=== PATIENT | male | born 1970 | race Caucasian/White ===

== ENCOUNTER 2023-08-04 09:55 | Outpatient (OUT) | payer BC, SELFPAY ==
[2023-08-04 11:12] LABS: Basophils Absolute Auto 0.1 10^3/uL (0.0-0.1); Basophils Percent Auto 1.3 % (0.2-2.0); Eosinophils Absolute Auto 0.4 10^3/uL (0.0-0.7); Eosinophils Percent Auto 6.2 % (0.9-7.0); Hematocrit 43.5 % (42.0-54.0); Hemoglobin 14.5 g/dL (14.0-18.0); Immature Granulocytes Abs Auto 0.01 10^3/uL (0.00-0.03); Immature Granulocytes Pct Auto 0.1 % (0.0-0.5); Lymphocytes Absolute Auto 2.8 10^3/uL (1.2-3.8); Lymphocytes Percent Auto 40.8 % (20.5-60.0); Mean Corpuscular HGB Conc 33.3 g/dL (29.9-35.2); Mean Corpuscular Hemoglobin 33.3 pg (25.9-34.0); Mean Platelet Volume 11.3 fL (9.5-13.5); Monocytes Absolute Auto 0.8 10^3/uL (0.3-0.8); Neutrophils Absolute Auto 2.8 10^3/uL (1.4-6.5); Neutrophils Percent Auto 40.6 % (43.0-75.0); Platelet Count 213 10^3/uL (150-450); Red Blood Count 4.35 10^6/uL (4.70-6.10); Red Cell Distribution Width 11.9 % (11.0-15.0); White Blood Count 6.9 10^3/uL (4.0-11.0)
[2023-08-04 15:24] LABS: Alanine Aminotransferase 58 U/L (16-63); Albumin Globulin Ratio 0.9; Albumin Level 3.7 g/dL (3.4-5.0); Alkaline Phosphatase 70 U/L (46-116); Aspartate Amino Transferase 50 U/L (15-37); BUN Creatinine Ratio 16.4; Bilirubin Total 0.6 mg/dL (0.2-1.0); Calcium 8.9 mg/dL (8.5-10.1); Carbon Dioxide 29.3 mmol/L (21.0-32.0); Chloride 105 mmol/L (98-107); Chol HDL Ratio 3.9; Cholesterol 232 mg/dL (<=200); Estimated GFR (African America >60 (>=60); Estimated GFR (Non-African Ame >60 (>=60); Globulin 3.9 g/dL; Glucose 99 mg/dL (74-106); HDL Cholesterol 59 mg/dL (40-60); Potassium 4.3 mmol/L (3.5-5.1); Sodium 141 mmol/L (136-145); Total Protein 7.6 g/dL (6.4-8.2); Triglycerides 49 mg/dL (<=150); VLDL CHOLESTEROL 9.8 mg/dL
[2023-08-04 15:59] LABS: Prostate Specific Antigen Scrn 4.54 ng/mL (<=4.00)
== END 2023-08-04 09:56 | disposition home or self-care (01) ==
LOC: LAB 09:57
PROVIDERS: PCP Internal Medicine; Visit Provider Internal Medicine
DX: Z00.00 Encounter for general adult medical examination without abnormal findings (principal); Z12.5 Encounter for screening for malignant neoplasm of prostate
CPT/HCPCS: 36415; 80053; 80061; 85025; G0103

== ENCOUNTER 2023-08-23 13:40 | Outpatient (OUT) | payer BC, SELFPAY ==
--- NOTE | 2023-08-23 | US_ITS ---
[place] [id number] Patient Name: SUSSY MOSQUEDA MRN: [id number] date: 1970 Sex: M Assigned Patient Location: RAD Current Patient Location: RAD Accession/Order Number: [id number] Exam Date: 08/23/2023 13:50 Report Date: 08/23/2023 16:40 At the request of: HSANNEN JOSEPH Procedure: US venous doppler LE RT EXAMINATION: US venous doppler LE RT HISTORY: swelling of rt lower extremity COMPARISON: No relevant comparison available. TECHNIQUE: Grayscale, color and Doppler FINDINGS: Region: Right leg Thrombus: None Flow: Normal Augmentation: Normal Compressibility: Normal US/US venous doppler LE RT IMPRESSION: No deep or superficial vein thrombus in the right leg *Exam performed in accordance with [facility] practice guidelines- Peripheral venous ultrasound, February 01, 2010. Electronically authenticated by: VARSHA MOSELEY Date: 08/23/2023 16:40
== END 2023-08-23 13:41 | disposition home or self-care (01) ==
LOC: RAD 13:41
PROVIDERS: PCP Internal Medicine; Visit Provider Internal Medicine
DX: M79.89 Other specified soft tissue disorders (principal)
CPT/HCPCS: 93971

== ENCOUNTER 2023-10-29 09:24 | Outpatient (OUT) | payer BC, SELFPAY ==
[2023-10-30 08:10] LABS: PSA, Free 0.28 ng/mL; Prostate Specific Ag 2.4 ng/mL (0.0-4.0)
== END 2023-10-29 09:25 | disposition home or self-care (01) ==
LOC: LAB 09:26
PROVIDERS: PCP Internal Medicine; Visit Provider Internal Medicine
DX: R97.20 Elevated prostate specific antigen [PSA] (principal)
CPT/HCPCS: 36415; 84153; 84154

== ENCOUNTER 2024-08-01 10:04 | Outpatient (OUT) | payer BC, SELFPAY ==
--- OUTSIDE RECORDS SUMMARY | 2024-08-01 10:26 | XMS_ITS | CCD ---
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 Name Role Phone REQUEST, DR NAKUL LISTED Admitting Unavaila ble REQUEST, DR MOTA LISTED Consulting Unavaila ble BALL, DR PRIDE Primary Care Unavailable REQUEST, DR MOTA LISTED Attending Unavaila ble REQUEST, DR MOTA LISTED Admitting Unavaila ble REQUEST, DR MOTA LISTED Consulting Unavaila ble REQUEST, DR MOTA LISTED Attending Unavaila ble BALL, DR PRIDE Primary Care Unavailable BALL, DR PRIDE Consulting Unavailable BALL, DR PRIDE Attending Unavailable BALL, DR PRIDE Admitting Unavailable BALL, DR PRIDE Primary Care Unavailable Ball, Derrek Unavailable Allergies Allergy Classification Reported Allergen(s) Allergy Type Date of Onset Reaction(s) Facility (12 sources) Lovastatin Drug Allergy 02-08-20 Comment:[facility] (1 source) patient allergy list reviewed by nurse or physicia Propensity to adverse reactions 11-15-19 Comment:[employer] Other (7 sources) Sulfamethoxazole-TM P DS Drug allergy rash [facility] [employer] Other (2 sources) Sulfamethoxazole Drug Allergy 02-08-20 [facility] (1 source) Trimethoprim Drug Allergy 02-08-20 [facility] Medications Current Medications Medication Drug Class(es) Dates Sig (Normalized) Sig (Original) amLODIPine 5 mg oral tablet (11 sources) Dihydropyridine Calcium Channel Mena Start: 07-31-2024 take 5 mg by mouth once daily Amlodipine Active 5 MG PO Daily July 31, 2024 3:29pm Start: 02-07-2024 End: 07-31-2024 take 10 mg by mouth once daily Amlodipine Discontinued 10 MG PO Daily February 07, 2024 12:00am July 31, 2024 3:30pm take 1 tablet by maurilio every twenty-four hours amLODIPine Besylate 5 MG 1 tablet Orally Once a day for 90 days Active amLODIPine Besyl ate 10 MG 1/2 Orally Once a day Active take 1 tablet by maurilio th once daily amLODIPine Besylate 10 MG 1 tablet Orally Once a day Active Lisinopril (15 sources) Angiotensin Converting Enzyme Inhibitor Start: 07-31-2024 take 1 mg by mouth once daily Lisinopril Active MG PO Daily July 31, 2024 12:00am Start: 02-07-2024 End: 07-31-2024 take 5 mg by mouth once daily Lisinopril Discontinued 5 MG PO Daily 90 May 31, 2024 3:43pm July 31, 2024 3:03pm Start: 09-09-2023 take 1 tablet by maurilio th every twenty-four hours Lisinopril 20 MG 1 tablet Orally Once a day for 90 days Sep, Active Lisinopril 5 MG 3 Orally Once a day Active take 1 tablet by maurilio th every twenty-four hours Lisinopril 5 MG 1 tablet Orally Once a day Active pantoprazole 40 mg delayed release oral tablet (14 sources) Proton Pump Inhibitor Start: 02-07-2024 End: 05-31-2024 take 40 mg by mouth once daily Pantoprazole Active 40 MG PO Daily 90 May 31, 2024 3:43pm Pantoprazole Sod ium 40 MG 1 tablet daily on an empty stomach followed in 30 minutes by bkfst Orally Once a day for 90 days Active Completed/Discontinued Medications Medication Drug Class(es) Dates Sig (Normalized) Sig (Original) sulfamethoxazole 800 mg / trimethoprim 160 mg oral tablet (5 sources) Dihydrofolate Reductase Inhibitor Antibacterial, Sulfonamide Antimicrobial Start: 08-04-2023 take 1 tablet by mouth every twelve hours Bactrim DS 800-160 MG 1 tablet Orally Twice a day for 21 days Jul, Not-Taking Problems Active Problems Problem Classification Problem Date Documented Date Episodic/Chronic Abdominal hernia (3 sources) Umbilical hernia; Translations: [Umbilical hernia without obstruction or gangrene] Onset: 01-03-2018 07-31-2024 Episodic Disorders of lipid metabolism (17 sources) Pure hypercholesterolemia; Translations: [Familial hypercholesterolemia] Onset: 01-21-2016 02-07-2024 Chronic E Codes: Adverse effects of medical drugs (1 source) Adverse effect of unspecified drugs, medicaments and biological substances, initial encounter Episodic E Codes: Fall (1 source) Fall from ladder; Translations: [Fall on and from ladder, initial encounter] Episodic Esophageal disorders (13 sources) Gastroesophageal reflux disease without esophagitis; Translations: [Gastro-esophageal reflux disease without esophagitis] 02-07-2024 Chronic Essential hypertension (20 sources) Essential hypertension; Translations: [Essential (primary) hypertension] Chronic Fracture of upper limb (1 source) Closed fracture of distal phalanx of finger; Translations: [Nondisplaced fracture of distal phalanx of right thumb, initial encounter for closed fracture] Episodic Genitourinary symptoms and ill-defined conditions (2 sources) Nocturia Episodic Headache; including migraine (7 sources) Tension-type headache; Translations: [Tension-type headache, unspecified, not intractable] Chronic Hyperplasia of prostate (17 sources) Nocturia due to benign prostatic hypertrophy; Translations: [Benign prostatic hyperplasia with lower urinary tract symptoms] Onset: 11-18-2015 Chronic Inflammatory conditions of male genital organs (1 source) Acute prostatitis Episodic Joint disorders and dislocations; trauma-related (1 source) Derangement of meniscus; Translations: [Derangement of meniscus NEC] Onset: 03-18-2015 Chronic Other connective tissue disease (12 sources) Cramp in lower leg associated with rest; Translations: [Sleep related leg cramps] Chronic Other connective tissue disease (2 sources) Cramp in lower limb; Translations: [Sleep related leg cramps] 02-07-2024 Chronic Other connective tissue disease (1 source) Unspecified rotator cuff tear or rupture of unspecified shoulder, not specified as traumatic; Translations: [Unsp rotatr-cuff tear/ruptr of unsp shoulder, not trauma] Episodic Other connective tissue disease (1 source) Nontraumatic rupture of rotator cuff of left shoulder; Translations: [Unspecified rotator cuff tear or rupture of left shoulder, not specified as traumatic] Episodic Other connective tissue disease (2 sources) Other specified soft tissue disorders Episodic Other disorders of stomach and duodenum (1 source) Disorder of function of stomach; Translations: [Dyspepsia and other specified disorders of function of stomach] Episodic Other non-traumatic joint disorders (1 source) Shoulder joint pain; Translations: [Pain in joint, shoulder region] Episodic Other nutritional; endocrine; and metabolic disorders (2 sources) Obese class I; Translations: [Body mass index (BMI) 31.0-31.9, adult] Onset: 11-18-2015 Chronic Other nutritional; endocrine; and metabolic disorders (1 source) Simple obesity ; Translations: [Other obesity due to excess calories] Onset: 12-22-2016 Chronic Other nutritional; endocrine; and metabolic disorders (2 sources) Obesity; Translations: [Obesity, unspecified] Onset: 11-18-2015 Chronic Other screening for suspected conditions (not mental disorders or infectious disease) (17 sources) Encounter for screening for malignant neoplasm of prostate; Translations: [Prostate specific antigen measurement] Onset: 07-30-2022 Episodic Skin and subcutaneous tissue infections (13 sources) Cellulitis of right upper limb; Translations: [Cellulitis of right upper limb] 02-07-2024 Episodic Spondylosis; intervertebral disc disorders; other back problems (14 sources) Lumbar spondylosis; Translations: [Spondylosis without myelopathy or radiculopathy, lumbar region] 02-07-2024 Chronic Spondylosis; intervertebral disc disorders; other back problems (13 sources) Spasm of muscle of lower back; Translations: [Muscle spasm of back] 02-07-2024 Episodic Sprains and strains (1 source) Glenoid labrum tear; Translations: [Superior glenoid labrum lesions (SLAP)] Episodic Substance-related disorders (20 sources) Tobacco user; Translations: [Nicotine dependence, cigarettes, in remission] Resolved: 12-16-2020 Chronic Superficial injury; contusion (2 sources) Contusion of right hand; Translations: [Contusion of right hand, initial encounter] Episodic Unclassified (1 source) Identification of preoperative respiratory status; Translations: [Encounter for preprocedural respiratory examination] Onset: 07-11-2014 Past or Other Problems Problem Classification Problem Date Documented Da te Episodic/Chronic Esophageal disorders (4 sources) Esophageal disorders; Translations: [Gastroesophageal reflux disease with esophagitis without hemorrhage] Other connective tissue disease (1 source) Pain in right lower limb; Translations: [Pain in right leg] Onset: 03-13-2016 Episodic Other connective tissue disease (1 source) Swelling of limb; Translations: [Swelling of limb] Onset: 03-13-2016 Episodic Other non-traumatic joint disorders (1 source) Arthralgia of the lower leg; Translations: [Pain in joint, lower leg] Onset: 03-18-2015 Episodic Residual codes; unclassified (2 sources) Tobacco user; Translations: [Nondependent tobacco use disorder] Onset: 07-11-2014 Episodic Results Test Name Value Interpretation Reference Range Facil ity CBC AUTO DIFFon 07-29-2022 BASO # 0.1 103/ul Normal 0.0-0.1 [facility] Comment on above: Performed By: #### C BC #### [facility] [address] [place] [address] Dr. Nathan Jones Basophils/100 WBC (Bld) 1.4 % Normal 0.2-2.0 [facility] Comment on above: Performed By: #### C BC #### [facility] [address] [place] [address] Dr. Nathan Jones EO # 0.9 103/ul Critically high 0.0-0.7 [facility] Comment on above: Performed By: #### C BC #### [facility] [address] [place] [address] Dr. Nathan Jones Eosinophils/100 WBC (Bld) 12.2 % Critically high 0.9-7.0 [facility] Comment on above: Performed By: #### C BC #### [facility] [address] [place] [address] Dr. Nathan Jones Erythrocyte distribution width (RBC) [Ratio] 12.3 % Normal 11.0-15.0 [facility] Comment on above: Performed By: #### C BC #### [facility] [address] [place] [address] Dr. Nathan Jones Hematocrit (Bld) [Volume fraction] 43.3 % Normal 42.0-54.0 [facility] Comment on above: Performed By: #### C BC #### [facility] [address] [place] [address] Dr. Nathan Jones Hemoglobin (Bld) [Mass/Vol] 14.6 g/dL Normal 14.0-18.0 [facility] Comment on above: Performed By: #### C BC #### [facility] [address] [place] [address] Dr. Nathan Jones IG # 0.01 10e3/ul Normal 0.00-0.03 [facility] Comment on above: Performed By: #### C BC #### [facility] [address] [place] [address] Dr. Nathan Jones IG % 0.1 % Normal 0.0-0.5 [facility] Comment on above: Performed By: #### C BC #### [facility] [address] [place] [address] Dr. Nathan Jones LYMPH # 2.9 103/ul Normal 1.2-3.8 [facility] Comment on above: Performed By: #### C BC #### [facility] [address] [place] [address] Dr. Nathan Jones Lymphocytes/100 WBC (Bld) 40.5 % Normal 20.5-60.0 [facility] Comment on above: Performed By: #### C BC #### [facility] [address] [place] [address] Dr. Nathan Jones MANUAL DIFF REQ NO Normal [facility] Comment on above: Performed By: #### C BC #### [facility] [address] [place] [address] Dr. Nathan Jones MCH (RBC) [Entitic mass] 33.5 pg Normal 25.9-34.0 [facility] Comment on above: Performed By: #### C BC #### [facility] [address] [place] [address] Dr. Nathna Jones MCHC (RBC) [Mass/Vol] 33.7 g/dL Normal 29.9-35.2 [facility] Comment on above: Performed By: #### C BC #### [facility] [address] [place] [address] Dr. Nathan Jones MCV (RBC) [Entitic vol] 99.3 fL Critically high 80.0-94.0 [facility] Comment on above: Performed By: #### C BC #### [facility] [address] [place] [address] Dr. Nathan Jones MONO # 0.5 103/ul Normal 0.3-0.8 [facility] Comment on above: Performed By: #### C BC #### [facility] [address] [address] [address] Nathan Jones Monocytes/100 WBC (Bld) 6.8 % Normal 1.7-12.0 [facility] Comment on above: Performed By: #### C BC #### [facility] [address] [address] [address] Nathan Jones NEUT # 2.8 103/ul Normal 1.4-6.5 [facility] Comment on above: Performed By: #### C BC #### [facility] [address] [address] [address] Nathan Jones Neutrophils/100 WBC (Bld) 39.0 % Critically low 43.0-75.0 [facility] Comment on above: Performed By: #### C BC #### [facility] [address] [place] [address] Dr. Nathan Jones Platelet mean volume (Bld) [Entitic vol] 10.7 fL Normal 9.5-13.5 [facility] Comment on above: Performed By: #### C BC #### [facility] [address] [place] [address] Dr. Nathan Jones PLT 211 103/ul Normal 150-450 [facility] Comment on above: Performed By: #### C BC #### [facility] [address] [address] [address] Nathan Jones RBC 4.36 106/ul Critically low 4.70-6.10 [facility] Comment on above: Performed By: #### C BC #### [facility] [address] [place] [address] Dr. Nathan Jones WBC 7.1 103/ul Normal 4.0-11.0 [facility] Comment on above: Performed By: #### C BC #### [facility] [address] [place] [address] Dr. Ntahan Jones LIPID PROFILEon 07-29-2022 CHOL-HDL RATIO NORM SEE BELOW Normal [facility] Comment on above: Result Comment: 3.3 - 4.4 LOW RISK 4.4 - 7.1 AVERAGE RISK 7.1 - 11.0 MODERATE RISK >11.0 HIGH RISK Performed By: #### L IPID, CMP #### [facility] [address] [address] [address] Nathan Jones Cholesterol [Mass/Vol] 261 mg/dL Critically high <=200 [facility] Comment on above: Performed By: #### L IPID, CMP #### [facility] [address] [address] [address] Nathan Jones Cholesterol in HDL [Mass/Vol] 55 mg/dL Normal 40-60 [facility] Comment on above: Performed By: #### L IPID, CMP #### [facility] [address] [address] [address] Nathan Jones Cholesterol in LDL [Mass/Vol] 164.2 mg/dL Normal [facility] Comment on above: Performed By: #### L IPID, CMP #### [facility] [address] [address] [address] Nathan Jones Cholesterol.total/C holesterol in HDL [Mass ratio] 4.7 {ratio} Normal [facility] Comment on above: Performed By: #### L IPID, CMP #### [facility] [address] [place] [address] Dr. Nathan Jones HDL NORMAL > or = 60 mg/dl - LO W CARDIOVASCULAR RISK <40 mg/dl - HIGH CARDIOVASCULAR RISK Normal [facility] Comment on above: Performed By: #### L IPID, CMP #### [facility] [address] [address] [address] Nathan Jones LDL CALC NORMAL SEE BELOW Normal [facility] Comment on above: Result Comment: <100 mg/dl OPTIMAL 100 - 129 mg/dl NEAR OR ABOVE OPTIMAL 130 - 159 mg/dl BORDERLINE HIGH 160 - 189 mg/dl HIGH >190 mg/dl VERY HIGH Performed By: #### L IPID, CMP #### [facility] [address] [address] [address] Nathan Jones Triglyceride [Mass/Vol] 209 mg/dL Critically high <=150 [facility] Comment on above: Performed By: #### L IPID, CMP #### [facility] [address] [address] [address] Nathan Jones VLDL CALC 41.8 mg/dL Normal [facility] Comment on above: Performed By: #### L IPID, CMP #### [facility] [address] [address] [address] Nathan Jones PROF 14(COMP METB)on 022 Albumin [Mass/Vol] 3.8 g/dL Normal 3.4-5.0 [facility] Comment on above: Performed By: #### L IPID, CMP #### [facility] [address] [place] [address] Dr. Nathan Jones Albumin/Globulin [Mass ratio] 1.1 {ratio} Normal [facility] Comment on above: Performed By: #### L IPID, CMP #### [facility] [address] [place] [address] Dr. Nathan Jones ALP [Catalytic activity/Vol] 60 U/L Normal 46-116 [facility] Comment on above: Performed By: #### L IPID, CMP #### [facility] [address] [place] [address] Dr. Nathan Jones ALT [Catalytic activity/Vol] 41 U/L Normal 16-63 [facility] Comment on above: Performed By: #### L IPID, CMP #### [facility] [address] [address] [address] Nathan Jones Anion gap [Moles/Vol] 12.2 mmol/L Normal [facility] Comment on above: Performed By: #### L IPID, CMP #### [facility] [address] [address] [address] Nathan Jones AST [Catalytic activity/Vol] 13 U/L Critically low 15-37 [facility] Comment on above: Performed By: #### L IPID, CMP #### [facility] [address] [place] [address] Dr. Nathan Jones Bilirubin [Mass/Vol] 0.4 mg/dL Normal 0.2-1.0 [facility] Comment on above: Performed By: #### L IPID, CMP #### [facility] [address] [place] [address] Dr. Nathan Jones Calcium [Mass/Vol] 8.9 mg/dL Normal 8.5-10.1 [facility] Comment on above: Performed By: #### L IPID, CMP #### [facility] [address] [place] [address] Dr. Nathan Jones Chloride [Moles/Vol] 107 mmol/L Normal 98-107 [facility] Comment on above: Performed By: #### L IPID, CMP #### [facility] [address] [place] [address] Dr. Nathan Jones CO2 [Moles/Vol] 26.8 mmol/L Normal 21.0-32.0 [facility] Comment on above: Performed By: #### L IPID, CMP #### [facility] [address] [place] [address] Dr. Nathan Jones Creatinine [Mass/Vol] 0.68 mg/dL Critically low 0.70-1.30 [facility] Comment on above: Performed By: #### L IPID, CMP #### [facility] [address] [place] [address] Dr. Nathan Jones EGFR-AF URUGUAYAN >60 Normal >=60 [facility] Comment on above: Performed By: #### L IPID, CMP #### [facility] [address] [place] [address] Dr. Nathan Jones EGFR-NON AF URUGUAYAN >60 Normal >=60 [facility] Comment on above: Performed By: #### L IPID, CMP #### [facility] [address] [place] [address] Dr. Nathan Jones Globulin (S) [Mass/Vol] 3.5 g/dL Normal [facility] Comment on above: Performed By: #### L IPID, CMP #### [facility] [address] [place] [address] Dr. Nathan Jones Glucose [Mass/Vol] 108 mg/dL Critically high 74-106 T [facility] Comment on above: Performed By: #### L IPID, CMP #### [facility] [address] [address] [address] Nathan Jones Potassium [Moles/Vol] 4.0 mmol/L Normal 3.5-5.1 [facility] Comment on above: Performed By: #### L IPID, CMP #### [facility] [address] [place] [address] Dr. Nathan Jones Protein [Mass/Vol] 7.3 g/dL Normal 6.4-8.2 [facility] Comment on above: Performed By: #### L IPID, CMP #### [facility] [address] [place] [address] Dr. Nathan Jones Sodium [Moles/Vol] 142 mmol/L Normal 136-145 [facility] Comment on above: Performed By: #### L IPID, CMP #### [facility] [address] [address] [address] Nathan Jones Urea nitrogen [Mass/Vol] 13.0 mg/dL Normal 7.0-18.0 [facility] Comment on above: Performed By: #### L IPID, CMP #### [facility] [address] [place] [address] Dr. Nathan Jones Urea nitrogen/Creatinine [Mass ratio] 19.1 mg/mg Normal [facility] Comment on above: Performed By: #### L IPID, CMP #### [facility] [address] [place] [address] Dr. Nathan Jones Consent for COVID Vaccineon 02-15-2021 SARS-CoV-2 (COVID-19) RNA AARON+probe Ql (Unsp spec) [id number]# 1.00CD:127 Normal [facility] Coding Summary.on 01-29-2021 Coding Summary. CODING DATE: 01/29/[address] [facility] STATUS: PAYOR: Maki [employer] DESCRIPTION [employer] - Level 1B ($11-$20) ADMIT DX: REASON FOR VISIT DX: Z23 Encounter for immunization FINAL DX: PRINCIPAL: Z23 Encounter for immunization SECONDARY: PYMT PROC APC STAT DESCRIPTION DOCTOR NAME DATE NOTE: The code number assigned matches the documented diagnosis and / or procedure in the patient's chart. However, the narrative phrase printed from the coding software may appear abbreviated, or result in slightly different terminology. Coded By: Sarika Finn Date Saved: 01/29/2021 03:28 pm [facility] Consent for COVID Vaccineon 01-25-2021 SARS-CoV-2 (COVID-19) RNA AARON+probe Ql (Unsp spec) [id number]# 1.00CD:127 [facility] Consent for Treatmenton 01-07 Consent for Treatment [id number]# 1.00CD:127 [facility] Vital Signs Date Time Vital Sign Value Performing Clinician Facility 07-31-2024 14:57-0400 Body height 182.88 cm [facility] 07-31-2024 14:57-0400 Body mass index (BMI) [Ratio] 32.5 kg/m2 [facility] 07-31-2024 14:57-0400 Body weight 108.86 kg [facility] 07-31-2024 14:57-0400 Diastolic blood pressure 88 mm[Hg] [facility] 07-31-2024 14:57-0400 Heart rate 72 /min [facility] 07-31-2024 14:57-0400 SaO2% (BldA) [Mass fraction] 97 % [facility] 07-31-2024 14:57-0400 Systolic blood pressure 150 mm[Hg] [facility] 02-08-2024 15:43-0400 Body height 182.88 cm [facility] 02-08-2024 15:43-0400 Body mass index (BMI) [Ratio] 32.4 kg/m2 [facility] 02-08-2024 15:43-0400 Body weight 108.46 kg [facility] 02-08-2024 15:43-0400 Diastolic blood pressure 83 mm[Hg] [facility] 02-08-2024 15:43-0400 Heart rate 67 /min [facility] 02-08-2024 15:43-0400 Respiratory rate 12 /min [facility] 02-08-2024 15:43-0400 Systolic blood pressure 140 mm[Hg] [facility] 09-09-2023 09:00-0400 Body height 182.88 cm Derrek Ball Other [facility] [employer] Other 09-09-2023 09:00-0400 Body mass index (BMI) [Ratio] 32.76 kg/m2 Derrek Ball Other [employer] Other 09-09-2023 09:00-0400 Body weight 109.59 kg Derrek Ball Other [employer] Other 09-09-2023 09:00-0400 Diastolic blood pressure 82 mm[Hg] Derrek Ball Other [employer] Other 09-09-2023 09:00-0400 Respiratory rate 12 /min Derrek Ball Other [employer] Other 09-09-2023 09:00-0400 Systolic blood pressure 139 mm[Hg] Derrek Ball Other [employer] Other 08-23-2023 13:15-0400 Body height 182.88 cm Derrek Ball Other [employer] Other 08-23-2023 13:15-0400 Body mass index (BMI) [Ratio] 32.57 kg/m2 Derrek Ball Other [employer] Other 08-23-2023 13:15-0400 Body weight 108.95 kg Derrek Ball Other [employer] Other 08-23-2023 13:15-0400 Diastolic blood pressure 86 mm[Hg] Derrek Ball Other [employer] Other 08-23-2023 13:15-0400 Respiratory rate 12 /min Derrek Ball Other [employer] Other 08-23-2023 13:15-0400 Systolic blood pressure 149 mm[Hg] Derrek Ball Other [employer] Other 08-04-2023 09:00-0400 Body height 182.88 cm Derrek Ball Other [employer] Other 08-04-2023 09:00-0400 Body mass index (BMI) [Ratio] 31.16 kg/m2 Derrek Ball Other [employer] Other 08-04-2023 09:00-0400 Body weight 104.24 kg Derrek Ball Other [employer] Other 08-04-2023 09:00-0400 Diastolic blood pressure 87 mm[Hg] Derrek Ball Other [employer] Other 08-04-2023 09:00-0400 Respiratory rate 12 /min Derrek Ball Other [employer] Other 08-04-2023 09:00-0400 Systolic blood pressure 139 mm[Hg] Derrek Ball Other [employer] Other 02-01-2023 10:30-0400 Body height 182.88 cm Derrek Ball Other [employer] Other 02-01-2023 10:30-0400 Body mass index (BMI) [Ratio] 30.3 kg/m2 Derrek Ball Other [employer] Other 02-01-2023 10:30-0400 Body weight 101.33 kg Derrek Joseph Other [employer] Other 02-01-2023 10:30-0400 Diastolic blood pressure 82 mm[Hg] Derrek Joseph Other [employer] Other 02-01-2023 10:30-0400 Respiratory rate 12 /min Derrek Joseph Other [employer] Other 02-01-2023 10:30-0400 Systolic blood pressure 143 mm[Hg] Derrek Joseph Other [employer] Other Encounters Encounter Date Encounter Type Care Provider Facility Start: 07-31-2024 End: 07-31-2024 ambulatory [facility] Work Phone: Start: 07-31-2024 End: 07-31-2024 Encounter for general adult medical examination without abnormal findings [facility] Start: 07-31-2024 End: 07-31-2024 Patient encounter procedure [facility] Work Phone: Start: 07-28-2024 Patient encounter status [facility] Start: 02-08-2024 End: 02-08-2024 ambulatory [facility] Work Phone: Start: 02-08-2024 End: 02-08-2024 Patient encounter procedure [facility] Work Phone: Start: 11-26-2023 End: 11-26-2023 ambulatory Derrek Joseph Other [employer] Other Start: 11-26-2023 Telephone encounter Derrek Joseph [facility] Start: 11-02-2023 End: 11-02-2023 ambulatory Derrek Joseph Other [employer] Other Start: 11-02-2023 Telephone encounter Drerek Ball [facility] Start: 09-09-2023 End: 09-09-2023 ambulatory Derrek Ball Other [employer] Other Start: 09-09-2023 Office outpatient vi sit 15 minutes Derrek Ball [facility] Start: 09-09-2023 Telephone encounter Derrek Ball [facility] Start: 08-24-2023 End: 08-24-2023 ambulatory Derrek Ball Other [employer] Other Start: 08-24-2023 Telephone encounter Derrek Ball [facility] Start: 08-23-2023 End: 08-23-2023 ambulatory Derrek Ball Other [employer] Other Start: 08-23-2023 Office outpatient vi sit 15 minutes Derrek Ball [facility] Start: 08-19-2023 End: 08-19-2023 ambulatory Derrek Ball Other [employer] Other Start: 08-19-2023 Telephone encounter Derrek Ball [facility] Start: 08-04-2023 End: 08-04-2023 ambulatory Derrek Ball Other [employer] Other Start: 08-04-2023 Encounter for genera l adult medical examination without abnormal findings Derrek Ball [facility] Start: 08-04-2023 Periodic preventive med est patient 40-64yrs Derrek Ball [facility] Start: 08-04-2023 Telephone encounter Derrek Ball [facility] Start: 07-20-2023 End: 07-20-2023 ambulatory Derrek Ball Other [employer] Other Start: 07-20-2023 Telephone encounter Derrek Ball [facility] Start: 02-01-2023 End: 02-01-2023 ambulatory Derrek Ball Other [employer] Other Start: 02-01-2023 Office outpatient vi sit 15 minutes Derrek Ball [facility] Start: 01-19-2023 End: 01-20-2023 ambulatory NONE LISTED REQUEST Facility:[facility] Start: 09-14-2022 End: 09-15-[address] MOTA LISTED REQUEST Facility:[facility] Start: 07-30-2022 Encounter for genera l adult medical examination without abnormal findings DR DERREK JOSEPH [facility] Start: 07-29-2022 End: 07-30-[address] DERREK JOSEPH Facility:[facility] Start: 07-29-2022 End: 07-30-2022 Encounter for general adult medical examination without abnormal findings DR DERREK JOSEPH Facility:[facility] Start: 07-28-2022 Adult health examination Edmundo Joseph Other [employer] Other Start: 08-31-2019 Preoperative cardiovascular examination Derrek Joseph Other [employer] Other Start: 08-31-2019 Problem, abnormal examination Derrek Joseph Other [employer] Other Procedures Date Procedure Procedure Detail Performing Clinician Start: 01-19-[address] NAKUL Lama ISTED REQUEST Comment on above: Performed By: #### D ATPSA #### [facility] [address] [place] [address] Dr. Nathan Jones Start: 09-14-[address] NAKUL Lama ISTED REQUEST Comment on above: Performed By: #### D ATPSA #### [facility] [address] [place] [address] Dr. Nathan Jones Start: 07-29-[address] NAKUL Lama ISTED REQUEST Comment on above: Performed By: #### P SASC #### [facility] [address] [place] [address] Dr. Nathan Jones Start: 12-26-2018 Screening for malign ant neoplasm of colon Derrek Joseph Other Start: 12-22-2016 General examination of patient Derrek Joseph Other Depression screening Nata Joseph Other Screening for malign ant neoplasm of prostate Derrek Joseph Other Plan of Treatment Date Care Activity Detail Author Comprehensive metabo lic 1999 panel - Serum or Plasma [facility] Payers Date Payer Category Payer Unknown [id number] 1961 Self-pay 1961 Unknown [id number] Unknown [id number] Unknown [id number] Social History Date Type Detail Facility Sex Assigned At [facility] [employer] Other Start: 1970 Sex Assigned At Male [facility] Start: 07-31-2024 Tobacco smoking stat [facility] Ex-smoker (finding) [facility] Evaluation note 11-26-2023 Note Date & Type Note Facility 11-26-2023 Evaluation note Encounter Date Diagnosis Assessment Notes Nov, Primary hypertension (ICD-10 - I10) [facility] [employer] Other Evaluation note 09-09-2023 Note Date & Type Note Facility 09-09-2023 Evaluation note Encounter Date Diagnosis Assessment Notes Sep, Swelling of right lower extremity (ICD-10 - M79.89) Avoid salt and elevate lower extremities, support stockings, inspect legs and feet daily for blisters and ulcerations. Reduced Amlodipine to 5mg Sep, Primary hypertension (ICD-10 - I10) Reduced Amlodipine and increased Lisinopril w/ improved BP readings and decrease w/ ADR. Sep, Elevated PSA (ICD-10 - R97.20) Due for repeat PSA Unable to finish antibiotics due to rash. [employer] Other Evaluation note 08-23-2023 Note Date & Type Note Facility 08-23-2023 Evaluation note Encounter Date Diagnosis Assessment Notes Aug, Swelling of right lower extremity (ICD-10 - M79.89) Low salt diet, elevation and compression. Adjust Amlodipine dose r/o DVT Aug, Primary hypertension (ICD-10 - I10) This patient is instructed to consume a healthy, low-fat, low-salt diet. They are also encouraged to continue exercise to achieve/maint ain a normal BMI. Decrease Amlodipine to 1/2 daily Increase Lisinopril to 15mg (3 tabs) daily Aug, Acute non intractable tension-type headache (ICD-10 - G44.209) Improve BP readings Reduce Amlodipine dose and increase MONICA dose Tylenol as needed Aug, Adverse effect of drug, initial encounter (ICD-10 - T50.905A) Headache, lower extremity swelling, rash Culprit Bactrim Headache, flushing and edema Culprit Amlodipine [employer] Other Evaluation note 08-04-2023 Note Date & Type Note Facility 08-04-2023 Evaluation note Encounter Date Diagnosis Assessment Notes Jul, Primary hypertension (ICD-10 - I10) This patient is instructed to consume a healthy, low-fat, low-salt diet. They are also encouraged to continue exercise to achieve/maint ain a normal BMI. Jul, Wellness examination (ICD-10 - Z00.00) Healthy diet and exercise. Reviewed age-appropria te preventive testing recommended. Jul, Gastroesophageal reflux disease with esophagitis without hemorrhage (ICD-10 - K21.00) Diet instructions: Smaller portions, avoid eating and laying flat, avoid eating or drinking prior to bedtime. Weight loss. Jul, Nocturia (ICD-10 - R35.1) Jul, Benign prostatic hyperplasia with lower urinary tract symptoms (ICD-10 - N40.1) Yearly ANNEL and PSA Jul, Cigarette nicotine dependence in remission (ICD-10 - F17.211) Start age 16, 1ppd, quit 2020 Continue abstinence Jul, Screening PSA (prostate specific antigen) (ICD-10 - Z12.5) Yearly ANNEL and PSA [employer] Other Evaluation note 08-04-2023 Note Date & Type Note Facility 08-04-2023 Evaluation note Encounter Date Diagnosis Assessment Notes Jul, Acute prostatitis (ICD-10 - N41.0) [employer] Other Evaluation note 02-01-2023 Note Date & Type Note Facility 02-01-2023 Evaluation note Encounter Date Diagnosis Assessment Notes Jan, Nocturia (ICD-10 - R35.1) symptoms tolerable Jan, Benign prostatic hyperplasia with lower urinary tract symptoms (ICD-10 - N40.1) Yearly ANNEL and PSA Reviewed his PSA over the past 3 Jan, Essential hypertension (ICD-10 - I10) This patient is instructed to consume a healthy, low-fat, low-salt diet. They are also encouraged to continue exercise to achieve/maint ain a normal BMI. Jan, Other Continue w/ abstinence. [employer] Other Evaluation note Note Date & Type Note Facility Evaluation note No Information [employer] Other Evaluation note Note Date & Type Note Facility Evaluation note No assessment information availa ble [facility] Work Phone: Evaluation note Note Date & Type Note Facility Evaluation note Diagnosis Onset Date Cigarette nicotine dependence in remission acute Essential hypertension acute Gastroesophageal reflux dise ase with esophagitis without hemorrhage acute Hypercholesterolemia acute Screening PSA (prostate specific antigen) acute Umbilical hernia acute Wellness examination acute [facility] Work Phone: History general Narrative - Reported Note Date & Type Note Facility History general Narrative - Reported Type Medical History Screening PSA (prost ate specific antigen) Medical History Nicotine dependence, cigarettes, in remission Medical History Gastroesophageal ref lux disease with esophagitis without hemorrhage Medical History Hyperlipidemia type II Medical History Essential hypertension Medical History Lumbar spondylosis Medical History Spasm of muscle of lower back Medical History Nocturnal leg cramps Medical History Cellulitis of hand, right Surgical History LEFT SHOULDER REPAIR 2014 Surgical History ARTHROSCOPY OF RIGHT KNEE 2015 Hospitalization History SEE SURGICAL HX [employer] Other Summary Purpose Family History Relationship Condition Age at Onset Recorded Date/T melony Not Specified Hypertension Unknown sister Hypertension Unknown Family history of lung cancer Unknown Malignant neoplasm Unknown Relationship Condition Age at Onset Recorded Date/T melony mother Hypertension Unknown sister Hypertension Unknown Family history of lung cancer Unknown Malignant neoplasm Unknown Advance Directives Advance Directive Response Recorded Date/ Time Advance Directives No February 07 3:10pm Chief Complaint and Reason for Visit Chief Complaint Elbow Pain Chief Complaint Wellness Reason for Visit Cigarette nicotine d ependence in remission Essential hypertension Gastroesophageal reflux disease with esophagitis without hemorrhage Hypercholesterolemia Screening PSA (prostate specific antigen) Umbilical hernia Wellness examination Additional Source Comments (unrecognized sect ion and content) No Status Records FoundNo Status Records Found INFORMATION SOURCE (unrecogn ized section and content) DATE CREATED AUTHOR 05/10/2021 Jeremy Werner [facility] DATE CREATED AUTHOR AUTHOR'S ORGANTEDDY ATION 01/20/2023 [facility] REASON FOR VISIT (unrecogniz ed section and content) Lab Results Discussion-PSARe fillsWELLNESSLab ResultsATB reactionleg swelling/headacheU/S resultsBP RecheckMedication changePSA resultsrefill Care Teams (unrecognized sec tion and content) Team Status: Active Member Role Status Dates Derrek Joseph DO Primary Care Provider Active Team Status: Inactive Member Role Status Dates Derrek Joseph DO Primary Care Provide r, Attending Provider Active Start: February 08, 2024 End: February 08, 2024 Team Status: Inactive Member Role Status Dates Derrek Joseph DO Primary Care Provide r, Attending Provider Active Start: July 31, 2024 End: July 31, 2024 Goals (unrecognized section and content) Goals may be documented in a n alternate section FOR RECORDS PERTAINING TO PATIENTS WHO ARE OR HAVE BEEN ENROLLED IN A CHEMICAL DEPENDENCY/SUBSTANCEABUSE PROGRAM, SOME INFORMATION MAY BE OMITTED. This clinical summary was aggregated from multiple sources. Caution should be exercised in using it in the provision of clinical care. This summary normalizes information from multiple sources, and as a consequence, information in this document may materially change the coding, format and clinical context of patient data. In addition, data may be omitted in some cases. CLINICAL DECISIONS SHOULD BE BASED ON THE PRIMARY CLINICAL RECORDS. [employer] provides no warranty or guarantee of the accuracy or completeness of information in this document.
[2024-08-01 10:31] LABS: Basophils Absolute Auto 0.1 10^3/uL (0.0-0.1); Basophils Percent Auto 1.4 % (0.2-2.0); Eosinophils Absolute Auto 0.3 10^3/uL (0.0-0.7); Eosinophils Percent Auto 4.8 % (0.9-7.0); Hematocrit 43.7 % (42.0-54.0); Hemoglobin 14.8 g/dL (14.0-18.0); Immature Granulocytes Abs Auto 0.02 10^3/uL (0.00-0.03); Immature Granulocytes Pct Auto 0.3 % (0.0-0.5); Lymphocytes Absolute Auto 2.6 10^3/uL (1.2-3.8); Lymphocytes Percent Auto 40.6 % (20.5-60.0); Mean Corpuscular HGB Conc 33.9 g/dL (29.9-35.2); Mean Corpuscular Volume 100.5 fL (80.0-94.0); Monocytes Absolute Auto 0.6 10^3/uL (0.3-0.8); Monocytes Percent Auto 8.4 % (1.7-12.0); Neutrophils Absolute Auto 2.9 10^3/uL (1.4-6.5); Neutrophils Percent Auto 44.5 % (43.0-75.0); Platelet Count 191 10^3/uL (150-450); Red Blood Count 4.35 10^6/uL (4.70-6.10); Red Cell Distribution Width 11.9 % (11.0-15.0); White Blood Count 6.5 10^3/uL (4.0-11.0)
[2024-08-01 11:07] LABS: Alanine Aminotransferase 110 U/L (16-63); Albumin Globulin Ratio 1.1; Alkaline Phosphatase 66 U/L (46-116); Anion Gap 11.6; Aspartate Amino Transferase 74 U/L (15-37); BUN Creatinine Ratio 13.9; Bilirubin Total 0.6 mg/dL (0.2-1.0); Calcium 9.6 mg/dL (8.5-10.1); Carbon Dioxide 28.5 mmol/L (21.0-32.0); Chloride 101 mmol/L (98-107); Chol HDL Ratio 4.2; Cholesterol 275 mg/dL (<=200); Estimated GFR (African America >60 (>=60); Estimated GFR (Non-African Ame >60 (>=60); Globulin 3.5 g/dL; Glucose 99 mg/dL (74-106); HDL Cholesterol 65 mg/dL (40-60); Potassium 4.1 mmol/L (3.5-5.1); Sodium 137 mmol/L (136-145); Total Protein 7.5 g/dL (6.4-8.2); Triglycerides 111 mg/dL (<=150); VLDL CHOLESTEROL 22.2 mg/dL
== END 2024-08-01 10:05 | disposition home or self-care (01) ==
LOC: LAB 10:05
PROVIDERS: PCP Internal Medicine; Visit Provider Internal Medicine
DX: Z00.00 Encounter for general adult medical examination without abnormal findings (principal); Z12.5 Encounter for screening for malignant neoplasm of prostate
CPT/HCPCS: 36415; 80053; 80061; 85025; G0103

== ENCOUNTER 2024-08-24 13:25 | Outpatient (OUT) | payer BC, SELFPAY ==
--- OUTSIDE RECORDS SUMMARY | 2024-08-24 13:30 | XMS_ITS | CCD ---
Author Organization [facility] Care Team Providers Care Air Chipper Name Role Phone REQUEST, DR NAKUL LISTED [...] sources) Lovastatin Drug Allergy 02-08-20 Comment:Myalgi a [facility] (1 source) patient allergy list reviewed by nurse or physicia Propensity to adverse reactions 11-15-19 Comment:Done [facility] Other (7 sources) Sulfamethoxazole-TM P DS Drug allergy rash [facility] Other (2 sources) Sulfamethoxazole Drug Allergy 02-08-20 [facility] (1 source) Trimethoprim Drug Allergy 02-08-20 [facility] Medications Current Medications Medication Drug Class(es) Dates [...] 07-29-2022 BASO # 0.1 103/ul Normal 0.0-0.1 [facility] Comment on above: Performed By: #### C BC #### [facility] [address] [place] [address] Dr. Nathan Jones Basophils/100 WBC (Bld) 1.4 % Normal 0.2-2.0 [facility] Comment on above: Performed By: #### C BC #### [facility] [address] [place] [address] Dr. Nathan Jones EO # 0.9 103/ul Critically high 0.0-0.7 [facility] Comment on above: Performed By: #### C BC #### [facility] [address] [place] [address] Dr. Nathan Jones Eosinophils/100 WBC (Bld) 12.2 % Critically high 0.9-7.0 [facility] Comment on above: Performed By: #### C BC #### [facility] [address] [place] [address] Dr. Nathan Jones Erythrocyte distribution width (RBC) [Ratio] 12.3 % Normal 11.0-15.0 [facility] Comment on above: Performed By: #### C BC #### [facility] [address] [place] [address] Dr. Nathan Jones Hematocrit (Bld) [Volume fraction] 43.3 % Normal 42.0-54.0 [facility] Comment on above: Performed By: #### C BC #### [facility] [address] [place] [address] Dr. Nathan Jones Hemoglobin (Bld) [Mass/Vol] 14.6 g/dL Normal 14.0-18.0 [facility] Comment on above: Performed By: #### C BC #### [facility] [address] [place] [address] Dr. Nathan Jones IG # 0.01 10e3/ul Normal 0.00-0.03 [facility] Comment on above: Performed By: #### C BC #### [facility] [address] [place] [address] Dr. Nathan Jones IG % 0.1 % Normal 0.0-0.5 [facility] Comment on above: Performed By: #### C BC #### [facility] [address] [place] [address] Dr. Nathan Jones LYMPH # 2.9 103/ul Normal 1.2-3.8 [facility] Comment on above: Performed By: #### C BC #### [facility] [address] [place] [address] Dr. Nathan Jones Lymphocytes/100 WBC (Bld) 40.5 % Normal 20.5-60.0 [facility] Comment on above: Performed By: #### C BC #### [facility] [address] [place] [address] Dr. Nathan Jones MANUAL DIFF REQ NO Normal [facility] Comment on above: Performed By: #### C BC #### [facility] [address] [place] [address] Dr. Nathan Jones MCH (RBC) [Entitic mass] 33.5 pg Normal 25.9-34.0 [facility] Comment on above: Performed By: #### C BC #### [facility] [address] [place] [address] Dr. Nathan Jones MCHC (RBC) [Mass/Vol] 33.7 g/dL Normal 29.9-35.2 [facility] Comment on above: Performed By: #### C BC #### [facility] [address] [place] [address] Dr. Nathan Jones MCV (RBC) [Entitic vol] 99.3 fL Critically high 80.0-94.0 [facility] Comment on above: Performed By: #### C BC #### [facility] [address] [place] [address] Dr. Nathan Jones MONO # 0.5 103/ul Normal 0.3-0.8 [facility] Comment on above: Performed By: #### C BC #### [facility] [address] [address] [address] Nathan Jones Monocytes/100 WBC (Bld) 6.8 % Normal 1.7-12.0 [facility] Comment on above: Performed By: #### C BC #### [facility] [address] [address] [address] Nathan Jones NEUT # 2.8 103/ul Normal 1.4-6.5 [facility] Comment on above: Performed By: #### C BC #### [facility] [address] [address] [address] Nathan Jones Neutrophils/100 WBC (Bld) 39.0 % Critically low 43.0-75.0 [facility] Comment on above: Performed By: #### C BC #### [facility] [address] [place] [address] Dr. Nathan Jones Platelet mean volume (Bld) [Entitic vol] 10.7 fL Normal 9.5-13.5 [facility] Comment on above: Performed By: #### C BC #### [facility] [address] [place] [address] Dr. Nathan Jones PLT 211 103/ul Normal 150-450 [facility] Comment on above: Performed By: #### C BC #### [facility] [address] [address] [address] Nathan Jones RBC 4.36 106/ul Critically low 4.70-6.10 [facility] Comment on above: Performed By: #### C BC #### [facility] [address] [place] [address] Dr. Nathan Jones WBC 7.1 103/ul Normal 4.0-11.0 [facility] Comment on above: Performed By: #### C BC #### [facility] [address] [place] [address] Dr. Nathan Jones LIPID PROFILEon 07-29-2022 CHOL-HDL RATIO NORM SEE BELOW Normal [facility] Comment on above: Result Comment: 3.3 - 4.4 LOW RISK 4.4 - 7.1 AVERAGE RISK 7.1 - 11.0 MODERATE RISK >11.0 HIGH RISK Performed By: #### L IPID, CMP #### [facility] [address] [address] [address] Nathan Jones Cholesterol [Mass/Vol] 261 mg/dL Critically high <=200 [facility] Comment on above: Performed By: #### L IPID, CMP #### [facility] [address] [address] [address] Nathan Jones Cholesterol in HDL [Mass/Vol] 55 mg/dL Normal 40-60 [facility] Comment on above: Performed By: #### L IPID, CMP #### [facility] [address] [address] [address] Nathan Jones Cholesterol in LDL [Mass/Vol] 164.2 mg/dL Normal [facility] Comment on above: Performed By: #### L IPID, CMP #### [facility] [address] [address] [address] Nathan Jones Cholesterol.total/C holesterol in HDL [Mass ratio] 4.7 {ratio} Normal [facility] Comment on above: Performed By: #### L IPID, CMP #### [facility] [address] [place] [address] Dr. Nathan Jones HDL NORMAL > or = 60 mg/dl - LO W CARDIOVASCULAR RISK <40 mg/dl - HIGH CARDIOVASCULAR RISK Normal [facility] Comment on above: Performed By: #### L IPID, CMP #### [facility] [address] [address] [address] Nathan Jones LDL CALC NORMAL SEE BELOW Normal [facility] Comment on above: Result Comment: <100 mg/dl OPTIMAL 100 - 129 mg/dl NEAR OR ABOVE OPTIMAL 130 - 159 mg/dl BORDERLINE HIGH 160 - 189 mg/dl HIGH >190 mg/dl VERY HIGH Performed By: #### L IPID, CMP #### [facility] [address] [address] [address] Nathan Jones Triglyceride [Mass/Vol] 209 mg/dL Critically high <=150 [facility] Comment on above: Performed By: #### L IPID, CMP #### [facility] [address] [address] [address] Nathan Jones VLDL CALC 41.8 mg/dL Normal [facility] Comment on above: Performed By: #### L IPID, CMP #### [facility] [address] [address] [address] Nathan Jones PROF 14(COMP METB)on 022 Albumin [Mass/Vol] 3.8 g/dL Normal 3.4-5.0 [facility] Comment on above: Performed By: #### L IPID, CMP #### [facility] [address] [place] [address] Dr. Nathan Jones Albumin/Globulin [Mass ratio] 1.1 {ratio} Normal [facility] Comment on above: Performed By: #### L IPID, CMP #### [facility] [address] [place] [address] Dr. Nathan Jones ALP [Catalytic activity/Vol] 60 U/L Normal 46-116 [facility] Comment on above: Performed By: #### L IPID, CMP #### [facility] [address] [place] [address] Dr. Nathan Jones ALT [Catalytic activity/Vol] 41 U/L Normal 16-63 [facility] Comment on above: Performed By: #### L IPID, CMP #### [facility] [address] [address] [address] Nathan Jones Anion gap [Moles/Vol] 12.2 mmol/L Normal [facility] Comment on above: Performed By: #### L IPID, CMP #### [facility] [address] [address] [address] Nathan Jones AST [Catalytic activity/Vol] 13 U/L Critically low 15-37 [facility] Comment on above: Performed By: #### L IPID, CMP #### [facility] [address] [place] [address] Dr. Nathan Jones Bilirubin [Mass/Vol] 0.4 mg/dL Normal 0.2-1.0 [facility] Comment on above: Performed By: #### L IPID, CMP #### [facility] [address] [place] [address] Dr. Nathan Jones Calcium [Mass/Vol] 8.9 mg/dL Normal 8.5-10.1 [facility] Comment on above: Performed By: #### L IPID, CMP #### [facility] [address] [place] [address] Dr. Nathan Jones Chloride [Moles/Vol] 107 mmol/L Normal 98-107 [facility] Comment on above: Performed By: #### L IPID, CMP #### [facility] [address] [place] [address] Dr. Nathan Jones CO2 [Moles/Vol] 26.8 mmol/L Normal 21.0-32.0 [facility] Comment on above: Performed By: #### L IPID, CMP #### [facility] [address] [place] [address] Dr. Nathan Jones Creatinine [Mass/Vol] 0.68 mg/dL Critically low 0.70-1.30 [facility] Comment on above: Performed By: #### L IPID, CMP #### [facility] [address] [place] [address] Dr. Nathan Jones EGFR-AF [place] >60 Normal >=60 [facility] Comment on above: Performed By: #### L IPID, CMP #### [facility] [address] [place] [address] Dr. Nathan Jones EGFR-NON AF [place] >60 Normal >=60 [facility] Comment on above: Performed By: #### L IPID, CMP #### [facility] [address] [place] [address] Dr. Nathan Jones Globulin (S) [Mass/Vol] 3.5 g/dL Normal [facility] Comment on above: Performed By: #### L IPID, CMP #### [facility] [address] [place] [address] Dr. Nathan Jones Glucose [Mass/Vol] 108 mg/dL Critically high 74-106 [facility] Comment on above: Performed By: #### L IPID, CMP #### [facility] [address] [address] [address] Nathan Jones Potassium [Moles/Vol] 4.0 mmol/L Normal 3.5-5.1 [facility] Comment on above: Performed By: #### L IPID, CMP #### [facility] [address] [place] [address] Dr. Nathan Jones Protein [Mass/Vol] 7.3 g/dL Normal 6.4-8.2 [facility] Comment on above: Performed By: #### L IPID, CMP #### [facility] [address] [place] [address] Dr. Nathan Jones Sodium [Moles/Vol] 142 mmol/L Normal 136-145 [facility] Comment on above: Performed By: #### L IPID, CMP #### [facility] [address] [address] [address] Nathan Jones Urea nitrogen [Mass/Vol] 13.0 mg/dL Normal 7.0-18.0 [facility] Comment on above: Performed By: #### L IPID, CMP #### [facility] [address] [place] [address] Dr. Nathan Jones Urea nitrogen/Creatinine [Mass ratio] 19.1 mg/mg Normal [facility] Comment on above: Performed By: #### L IPID, CMP #### [facility] [address] [place] [address] Dr. Nathan Jones Consent for COVID Vaccineon 02-15-2021 SARS-CoV-2 (COVID-19) RNA AARON+probe Ql (Unsp spec) [id number]# 1.00CD:127 Normal [facility] Coding Summary.on 01-29-2021 Coding Summary. CODING DATE: 01/29/2021 FINAL [facility] STATUS: PAYOR: Maki APC DESCRIPTION 1492 New [...] Sarika Finn Date Saved: 01/29/2021 03:[address] [facility] Consent for COVID Vaccineon 01-25-2021 SARS-CoV-2 (COVID-19) RNA AARON+probe Ql (Unsp spec) [id number]# 1.00CD:127 [facility] Consent for Treatmenton 01-07 Consent for Treatment [id number]# 1.00CD:127 [facility] Vital Signs Date Time Vital Sign Value Performing Clinician Facility 07-31-2024 14:57-0400 Body height 182.[address] [facility] 07-31-2024 14:57-0400 Body mass index (BMI) [Ratio] 32.5 kg/m2 [facility] 07-31-2024 14:57-0400 Body weight 108.[address] [facility] 07-31-2024 14:57-0400 Diastolic blood pressure 88 mm[Hg] [facility] 07-31-2024 14:57-0400 Heart rate 72 /min [facility] 07-31-2024 14:57-0400 SaO2% (BldA) [Mass fraction] 97 % [facility] 07-31-2024 14:57-0400 Systolic blood pressure 150 mm[Hg] [facility] 02-08-2024 15:43-0400 Body height 182.[address] [facility] 02-08-2024 15:43-0400 Body mass index (BMI) [Ratio] 32.4 kg/m2 [facility] 02-08-2024 15:43-0400 Body weight 108.[address] [facility] 02-08-2024 15:43-0400 Diastolic blood pressure 83 mm[Hg] [facility] 02-08-2024 15:43-0400 Heart rate 67 /min [facility] 02-08-2024 15:43-0400 Respiratory rate 12 /min [facility] 02-08-2024 15:43-0400 Systolic blood pressure 140 mm[Hg] [facility] 09-09-2023 09:00-0400 Body height 182.88 cm Derrek Ball Other [facility] Other 09-09-2023 09:00-0400 Body mass index (BMI) [Ratio] 32.76 kg/m2 Derrek Ball Other [facility] Other 09-09-2023 09:00-0400 Body weight 109.59 kg Derrek Ball Other [facility] Other 09-09-2023 09:00-0400 Diastolic blood pressure 82 mm[Hg] Derrek Ball Other [facility] Other 09-09-2023 09:00-0400 Respiratory rate 12 /min Derrek Ball Other [facility] Other 09-09-2023 09:00-0400 Systolic blood pressure 139 mm[Hg] Derrek Ball Other [facility] Other 08-23-2023 13:15-0400 Body height 182.88 cm Derrek Ball Other [facility] Other 08-23-2023 13:15-0400 Body mass index (BMI) [Ratio] 32.57 kg/m2 Derrek Ball Other [facility] Other 08-23-2023 13:15-0400 Body weight 108.95 kg Derrek Ball Other [facility] Other 08-23-2023 13:15-0400 Diastolic blood pressure 86 mm[Hg] Derrek Ball Other [facility] Other 08-23-2023 13:15-0400 Respiratory rate 12 /min Derrek Ball Other [facility] Other 08-23-2023 13:15-0400 Systolic blood pressure 149 mm[Hg] Derrek Ball Other [facility] Other 08-04-2023 09:00-0400 Body height 182.88 cm Derrek Ball Other [facility] Other 08-04-2023 09:00-0400 Body mass index (BMI) [Ratio] 31.16 kg/m2 Derrek Ball Other [facility] Other 08-04-2023 09:00-0400 Body weight 104.24 kg Derrek Ball Other [facility] Other 08-04-2023 09:00-0400 Diastolic blood pressure 87 mm[Hg] Derrek Ball Other [facility] Other 08-04-2023 09:00-0400 Respiratory rate 12 /min Derrek Ball Other [facility] Other 08-04-2023 09:00-0400 Systolic blood pressure 139 mm[Hg] Derrek Ball Other [facility] Other 02-01-2023 10:30-0400 Body height 182.88 cm Derrek Ball Other [facility] Other 02-01-2023 10:30-0400 Body mass index (BMI) [Ratio] 30.3 kg/m2 Derrek Ball Other [facility] Other 02-01-2023 10:30-0400 Body weight 101.33 kg Derrek Joseph Other [facility] Other 02-01-2023 10:30-0400 Diastolic blood pressure 82 mm[Hg] Derrek Joseph Other [facility] Other 02-01-2023 10:30-0400 Respiratory rate 12 /min Derrek Joseph Other [facility] Other 02-01-2023 10:30-0400 Systolic blood pressure 143 mm[Hg] Derrek Joseph Other [facility] Other Encounters Encounter Date Encounter Type Care Provider Facility Start: 07-31-2024 End: 07-31-2024 ambulatory [facility] Work Phone: Start: 07-31-2024 End: 07-31-2024 Encounter for general adult medical examination without abnormal findings [facility] Start: 07-31-2024 End: 07-31-2024 Patient encounter procedure [facility] Work Phone: Start: 07-28-2024 Patient encounter status [facility] Start: 02-08-2024 End: 02-08-2024 ambulatory [facility] Work Phone: Start: 02-08-2024 End: 02-08-2024 Patient encounter procedure [facility] Work Phone: Start: 11-26-2023 End: 11-26-2023 ambulatory Derrek Joseph Other [facility] Other Start: 11-26-2023 Telephone encounter Derrek Joseph [facility] Start: 11-02-2023 End: 11-02-2023 ambulatory Derrek Joseph Other [facility] Other Start: 11-02-2023 Telephone encounter Derrek Ball [facility] Start: 09-09-2023 End: 09-09-2023 ambulatory Derrek Ball Other [facility] Other Start: 09-09-2023 Office outpatient vi sit 15 minutes Derrek Ball [facility] Start: 09-09-2023 Telephone encounter Derrek Ball [facility] Start: 08-24-2023 End: 08-24-2023 ambulatory Derrek Ball Other [facility] Other Start: 08-24-2023 Telephone encounter Derrek Ball [facility] Start: 08-23-2023 End: 08-23-2023 ambulatory Derrek Ball Other [facility] Other Start: 08-23-2023 Office outpatient vi sit 15 minutes Derrek Ball [facility] Start: 08-19-2023 End: 08-19-2023 ambulatory Derrek Ball Other [facility] Other Start: 08-19-2023 Telephone encounter Derrek Ball [facility] Start: 08-04-2023 End: 08-04-2023 ambulatory Derrek Ball Other [facility] Other Start: 08-04-2023 Encounter for genera l adult medical examination without abnormal findings Derrek Ball [facility] Start: 08-04-2023 Periodic preventive med est patient 40-64yrs Derrek Ball [facility] Start: 08-04-2023 Telephone encounter Derrek Ball [facility] Start: 07-20-2023 End: 07-20-2023 ambulatory Derrek Ball Other [facility] Other Start: 07-20-2023 Telephone encounter Derrek Ball [facility] Start: 02-01-2023 End: 02-01-2023 ambulatory Derrek Ball Other [facility] Other Start: 02-01-2023 Office outpatient vi sit 15 minutes Derrek Ball [facility] Start: 01-19-2023 End: 01-20-2023 ambulatory NONE LISTED REQUEST Facility:[facility] Start: 09-14-2022 End: 09-15-[address] MOTA LISTED REQUEST Facility:[facility] Start: 07-30-2022 Encounter for genera l adult medical examination without abnormal findings DR DERREK JOSEPH [facility] Start: 07-29-2022 End: 07-30-[address] DERREK JOSEPH Facility:[facility] Start: 07-29-2022 End: 07-30-2022 Encounter for general adult medical examination without abnormal findings DR DERREK JOSEPH Facility:[facility] Start: 07-28-2022 Adult health examination Edmundo Joseph Other [facility] Other Start: 08-31-2019 Preoperative cardiovascular examination Derrek Joseph Other [facility] Other Start: 08-31-2019 Problem, abnormal examination Derrek Joseph Other [facility] Other Procedures Date Procedure Procedure Detail Performing Clinician Start: 01-19-[address] NAKUL Lama ISTED REQUEST Comment on above: Performed By: #### D ATPSA #### [facility] [address] [place] [address] Dr. Nathan Jones Start: 09-14-[address] NAKUL Lama ISTED REQUEST Comment on above: Performed By: #### D ATPSA #### [facility] [address] [place] [address] Dr. Nathan Jones Start: 07-29-[address] NAKUL Lama ISTED REQUEST Comment on above: Performed By: #### P SASC #### [facility] [address] [place] [address] Dr. Nathan Jones Start: 12-26-2018 Screening for malign ant neoplasm of colon Derrek Joseph Other Start: 12-22-2016 General examination of patient Derrek Joseph Other Depression screening Nata Joseph Other Screening for malign ant neoplasm of prostate Derrek Joseph Other Plan of Treatment Date Care Activity Detail Author Comprehensive metabo lic 1999 panel - Serum or Plasma [facility] Payers Date Payer Category Payer Unknown [id number] 1961 Self-pay 1961 Unknown [id number] Unknown [id number] Unknown [id number] Social History Date Type Detail Facility Sex Assigned At [facility] Other Start: 1970 Sex Assigned At Male F [facility] Start: 07-31-2024 Tobacco smoking stat [facility] Ex-smoker (finding) [facility] Evaluation note 11-26-2023 Note Date & Type Note Facility 11-26-2023 Evaluation note Encounter Date Diagnosis Assessment Notes Nov, Primary hypertension (ICD-10 - I10) [facility] Other Evaluation note 09-09-2023 Note Date & [...] Unable to finish antibiotics due to rash. [facility] Other Evaluation note 08-23-2023 Note Date & [...] Bactrim Headache, flushing and edema Culprit Amlodipine [facility] Other Evaluation note 08-04-2023 Note Date & [...] (ICD-10 - Z12.5) Yearly ANNEL and PSA [facility] Other Evaluation note 08-04-2023 Note Date & Type Note Facility 08-04-2023 Evaluation note Encounter Date Diagnosis Assessment Notes Jul, Acute prostatitis (ICD-10 - N41.0) [facility] Other Evaluation note 02-01-2023 Note Date & [...] normal BMI. Jan, Other Continue w/ abstinence. 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 Essential hypertension acute Gastroesophageal reflux dise ase with esophagitis without hemorrhage acute Hypercholesterolemia acute Screening PSA (prostate specific antigen) acute Umbilical hernia acute Wellness examination acute [facility] Work Phone: History general Narrative - Reported [...] KNEE 2015 Hospitalization History SEE SURGICAL HX [facility] Other Summary Purpose Family History Relationship Condition [...] content) DATE CREATED AUTHOR 05/10/2021 Jeremy Werner [facility] DATE CREATED AUTHOR AUTHOR'S ORGANTEDDY ATION 01/20/2023 [facility] REASON FOR VISIT (unrecogniz ed [...] BE BASED ON THE PRIMARY CLINICAL RECORDS. [employer] provides no warranty or guarantee of the accuracy or completeness of information in this document.
--- NOTE | 2024-08-24 13:31 | ECG_ITS ---
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
[2024-08-24 14:27] LABS: Basophils Absolute Auto 0.1 10^3/uL (0.0-0.1); Basophils Percent Auto 1.1 % (0.2-2.0); Eosinophils Absolute Auto 0.7 10^3/uL (0.0-0.7); Eosinophils Percent Auto 8.1 % (0.9-7.0); Hematocrit 43.5 % (42.0-54.0); Hemoglobin 14.3 g/dL (14.0-18.0); Immature Granulocytes Abs Auto 0.05 10^3/uL (0.00-0.03); Immature Granulocytes Pct Auto 0.6 % (0.0-0.5); Lymphocytes Absolute Auto 2.4 10^3/uL (1.2-3.8); Lymphocytes Percent Auto 27.5 % (20.5-60.0); Mean Corpuscular HGB Conc 32.9 g/dL (29.9-35.2); Mean Corpuscular Hemoglobin 33.3 pg (25.9-34.0); Mean Corpuscular Volume 101.2 fL (80.0-94.0); Monocytes Absolute Auto 1.1 10^3/uL (0.3-0.8); Monocytes Percent Auto 12.3 % (1.7-12.0); Neutrophils Absolute Auto 4.3 10^3/uL (1.4-6.5); Neutrophils Percent Auto 50.4 % (43.0-75.0); Platelet Count 166 10^3/uL (150-450); Red Cell Distribution Width 12.2 % (11.0-15.0); White Blood Count 8.6 10^3/uL (4.0-11.0)
[2024-08-24 14:49] LABS: INR 1.03; Partial Thromboplastin Time 28.1 sec (22.3-36.2); Prothrombin Time 10.9 sec (9.0-11.6)
[2024-08-24 14:55] LABS: Anion Gap 15.5; Calcium 9.4 mg/dL (8.5-10.1); Carbon Dioxide 24.6 mmol/L (21.0-32.0); Chloride 105 mmol/L (98-107); Estimated GFR (African America >60 (>=60 mL/min/1.73m^2); Estimated GFR (Non-African Ame >60 (>=60 mL/min/1.73m^2); Glucose 101 mg/dL (74-106); Potassium 4.1 mmol/L (3.5-5.1); Sodium 141 mmol/L (136-145)
== END 2024-08-24 13:26 | disposition home or self-care (01) ==
LOC: PST 13:26
PROVIDERS: PCP Internal Medicine; Visit Provider Surgery
DX: Z01.812 Encounter for preprocedural laboratory examination (principal); Z01.810 Encounter for preprocedural cardiovascular examination; K42.9 Umbilical hernia without obstruction or gangrene
CPT/HCPCS: 80048; 85025; 85610; 85730; 93005

== ENCOUNTER 2024-08-29 07:08 | Day surgery (SDC) | payer BC, SELFPAY ==
[2024-08-24 14:11] VITALS: BP 160/89; PULSE 78; TEMP 36.4; O2SAT 98; BMI 33.7
[2024-08-29] VITALS (14 sets, daily range): BP systolic 130–189; BP diastolic 83–121; PULSE 67–84; TEMP 36.3–36.7; O2SAT 91–97; BMI 33.1
--- OUTSIDE RECORDS SUMMARY | 2024-08-29 07:12 | XMS_ITS | CCD ---
Author Organization [facility] Care Team Providers Care Supervisor Policy Change Clerks Name Role Phone REQUEST, DR NONE LISTED Admitting Unavaila ble REQUEST, DR MOTA LISTED Consulting Unavaila ble BALL, DR PRIDE Primary Care Unavailable REQUEST, NONE LISTED Attending Unavaila ble REQUEST, DR MOTA LISTED Admitting Unavaila ble REQUEST, DR MOTA LISTED Consulting Unavaila ble REQUEST, DR MOTA LISTED Attending Unavaila ble BALL, DR PRIDE Primary Care Unavailable BALL, DR PRIDE Consulting Unavailable BALL, DR PRIDE Attending Unavailable BALL, DR PRIDE Admitting Unavailable BALL, DR PRIDE Primary Care Unavailable Ball, Derrek Unavailable [facility] RICHARDS, Derrek Galvez Primary Care Provider Allergies Allergy Classification Reported Allergen(s) Allergy Type Date of Onset Reaction(s) Facility (12 sources) Lovastatin Drug Allergy 02-08-20 Comment:Myalgflex a [facility] (1 source) patient allergy list reviewed by nurse or physicia Propensity to adverse reactions 11-15-19 Comment:Done [employer] Other (7 sources) Sulfamethoxazole-TM P DS Drug allergy rash [facility] [employer] Other (2 sources) Sulfamethoxazole Drug Allergy 02-08-20 [facility] (1 source) Trimethoprim Drug Allergy 02-08-20 [facility] Medications Current Medications Medication Drug Class(es) Dates Sig (Normalized) Sig (Original) amLODIPine 5 mg oral tablet (12 sources) Dihydropyridine Calcium Channel Mena Start: 07-31-2024 take 5 mg by mouth once daily Amlodipine Active 5 MG PO Daily July 31, 2024 3:29pm Start: 02-07-2024 End: 07-31-2024 take 10 mg by mouth once daily Amlodipine Discontinued 10 MG PO Daily February 07, 2024 12:00am July 31, 2024 3:30pm take 1 tablet by maurilio th once daily amLODIPine (Norvasc) 10 MG tablet Take 10 mg by mouth Daily Active take 1 tablet by maurilio th every twenty-four hours amLODIPine Besylate 5 MG 1 tablet Orally Once a day for 90 days Active amLODIPine Besyl ate 10 MG 1/2 Orally Once a day Active Lisinopril (16 sources) Angiotensin Converting Enzyme Inhibitor Start: 07-31-2024 take 1 mg by mouth once daily Lisinopril Active MG PO Daily July 31, 2024 12:00am Start: 05-27-2024 take 1 tablet by maurilio th once daily lisinopril 20 MG tablet Take 20 mg by mouth Daily 05/27/2024 Active Start: 02-07-2024 End: 07-31-2024 take 5 mg by mouth once daily Lisinopril Discontinued 5 MG PO Daily 90 90 May 31, 2024 3:43pm July 31, [...] pantoprazole 40 mg delayed release oral tablet (15 sources) Proton Pump Inhibitor Start: 02-07-2024 End: 05-31-2024 take 1 tablet by mouth before mealtime pantoprazole (ProtoNix) 40 MG EC tablet Take 40 mg by mouth in the morning. Take before meals. 05/31/2024 Active Pantoprazole Sod ium 40 MG 1 tablet [...] Results Test Name Value Interpretation Reference Range Facility ALL CBC WITH AUTO DIFFon BASOPHILS ABSOLUTE AUTO 0.1 [facility] Basophils/100 WBC (Bld) 1.1 % 0.2 - 2.0 % [facility] Eosinophils/100 WBC (Bld) 8.1 % High 0.9 - 7.0 % [facility] Erythrocyte distribution width (RBC) [Ratio] 12.2 % 11.0 - 15.0 % [facility] Hematocrit (Bld) [Volume fraction] 43.5 % 42.0 - 54.0 % [facility] [Mass/Vol] 14.3 g/dL 14.0 - 18.0 g/dL [facility] IMMATURE GRANULOCYTES ABS AUTO 0.05 High [facility] Immature granulocytes/100 WBC (Bld) 0.6 % High 0.0 - 0.5 % [facility] Interpretation and review of laboratory results Abnormal [facility] LYMPHOCYTES ABSOLUTE AUTO 2.4 [facility] Lymphocytes/100 WBC (Bld) 27.5 % 20.5 - 60.0 % [facility] MCH (RBC) [Entitic mass] 33.3 pg 25.9 - 34.0 pg [facility] MCHC (RBC) [Mass/Vol] 32.9 g/dL 29.9 - 35.2 g/dL [facility] MCV (RBC) [Entitic vol] 101.2 fL High 80.0 - 94.0 fL [facility] MONOCYTES ABSOLUTE AUTO 1.1 High [facility] Monocytes/100 WBC (Bld) 12.3 % High 1.7 - 12.0 % [facility] NEUTROPHILS ABSOLUTE AUTO 4.3 [facility] Neutrophils/100 WBC (Bld) 50.4 % 43.0 - 75.0 % [facility] Platelet mean volume (Bld) [Entitic vol] 11 fL 9.5 - 13.5 fL [facility] EO # 0.7 [facility] PLT 166 [facility] RBC 4.3 Low [facility] WBC 8.6 [facility] CBC AUTO DIFFon 07-29-2022 BASO # 0.1 103/ul Normal 0.0-0.1 [facility] Comment on above: Performed By: #### C BC #### [facility] [address] [address] [address] Nathan Jones Basophils/100 WBC (Bld) 1.4 % Normal 0.2-2.0 [facility] Comment on above: Performed By: #### C BC #### [facility] [address] [address] [address] Nathan Jones EO # 0.9 103/ul Critically high 0.0-0.7 [facility] Comment on above: Performed By: #### C BC #### [facility] [address] [address] [address] Nathan Jones Eosinophils/100 WBC (Bld) 12.2 % Critically high 0.9-7.0 [facility] Comment on above: Performed By: #### C BC #### [facility] [address] [address] [address] Nathan Jones Erythrocyte distribution width (RBC) [Ratio] 12.3 % Normal 11.0-15.0 [facility] Comment on above: Performed By: #### C BC #### [facility] [address] [address] [address] Nathan Jones Hematocrit (Bld) [Volume fraction] 43.3 % Normal 42.0-54.0 [facility] Comment on above: Performed By: #### C BC #### [facility] [address] [address] [address] Nathan Jones Hemoglobin (Bld) [Mass/Vol] 14.6 g/dL Normal 14.0-18.0 [facility] Comment on above: Performed By: #### C BC #### [facility] [address] [address] [address] Nathan Jones IG # 0.01 10e3/ul Normal 0.00-0.03 [facility] Comment on above: Performed By: #### C BC #### [facility] [address] [address] [address] Nathan Jones IG % 0.1 % Normal 0.0-0.5 [facility] Comment on above: Performed By: #### C BC #### [facility] [address] [place] [address] Dr. Nathan Jones LYMPH # 2.9 103/ul Normal 1.2-3.8 [facility] Comment on above: Performed By: #### C BC #### [facility] [address] [place] [address] Dr. Nathan Jones Lymphocytes/100 WBC (Bld) 40.5 % Normal 20.5-60.0 [facility] Comment on above: Performed By: #### C BC #### [facility] [address] [place] [address] Dr. Nathan Jones MANUAL DIFF REQ NO Normal [facility] Comment on above: Performed By: #### C BC #### [facility] [address] [place] [address] Dr. Nathan Jones MCH (RBC) [Entitic mass] 33.5 pg Normal 25.9-34.0 [facility] Comment on above: Performed By: #### C BC #### [facility] [address] [place] [address] Dr. Nathan Jones MCHC (RBC) [Mass/Vol] 33.7 g/dL Normal 29.9-35.2 [facility] Comment on above: Performed By: #### C BC #### [facility] [address] [place] [address] Dr. Nathan Jones MCV (RBC) [Entitic vol] 99.3 fL Critically high 80.0-94.0 [facility] Comment on above: Performed By: #### C BC #### [facility] [address] [address] [address] Nathan Jones MONO # 0.5 103/ul Normal 0.3-0.8 [facility] Comment on above: Performed By: #### C BC #### [facility] [address] [place] [address] Dr. Nathan Jones Monocytes/100 WBC (Bld) 6.8 % Normal 1.7-12.0 [facility] Comment on above: Performed By: #### C BC #### [facility] [address] [place] [address] Dr. Nathan Jones NEUT # 2.8 103/ul Normal 1.4-6.5 [facility] Comment on above: Performed By: #### C BC #### [facility] [address] [place] [address] Dr. Nathan Jones Neutrophils/100 WBC (Bld) 39.0 % Critically low 43.0-75.0 [facility] Comment on above: Performed By: #### C BC #### [facility] [address] [place] [address] Dr. Nathan Jones Platelet mean volume (Bld) [Entitic vol] 10.7 fL Normal 9.5-13.5 [facility] Comment on above: Performed By: #### C BC #### [facility] [address] [place] [address] Dr. Nathan Jones PLT 211 103/ul Normal 150-450 [facility] Comment on above: Performed By: #### C BC #### [facility] [address] [place] [address] Dr. Nathan Jones RBC 4.36 106/ul Critically low 4.70-6.10 [facility] Comment on above: Performed By: #### C BC #### [facility] [address] [place] [address] Dr. Nathan Jones WBC 7.1 103/ul Normal 4.0-11.0 [facility] Comment on above: Performed By: #### C BC #### [facility] [address] [place] [address] Dr. Nathan Jones LIPID PROFILEon 07-29-2022 CHOL-HDL RATIO NORM SEE BELOW Normal [facility] Comment on above: Result Comment: 3.3 - 4.4 LOW RISK 4.4 - 7.1 AVERAGE RISK 7.1 - 11.0 MODERATE RISK >11.0 HIGH RISK Performed By: #### L IPID, CMP #### [facility] [address] [address] [address] Nathan Jones Cholesterol [Mass/Vol] 261 mg/dL Critically high <=200 [facility] Comment on above: Performed By: #### L IPID, CMP #### [facility] [address] [address] [address] Nathan Jones Cholesterol in HDL [Mass/Vol] 55 mg/dL Normal 40-60 [facility] Comment on above: Performed By: #### L IPID, CMP #### [facility] [address] [address] [address] Nathan Jones Cholesterol in LDL [Mass/Vol] 164.2 mg/dL Normal [facility] Comment on above: Performed By: #### L IPID, CMP #### [facility] [address] [address] [address] Nathan Jones Cholesterol.total/Ch olesterol in HDL [Mass ratio] 4.7 {ratio} Normal [facility] Comment on above: Performed By: #### L IPID, CMP #### [facility] [address] [address] [address] Nathan Jones HDL NORMAL > or = 60 mg/dl - LOW CARDIOVASCULAR RISK <40 mg/dl - HIGH CARDIOVASCULAR RISK Normal [facility] Comment on above: Performed By: #### L IPID, CMP #### [facility] [address] [address] [address] Nathan Jones LDL CALC NORMAL SEE BELOW Normal [facility] Comment on above: Result Comment: <100 mg/dl OPTIMAL 100 - 129 mg/dl NEAR OR ABOVE OPTIMAL 130 - 159 mg/dl BORDERLINE HIGH 160 - 189 mg/dl HIGH >190 mg/dl VERY HIGH Performed By: #### L IPID, CMP #### [facility] [address] [address] [address] Nathan Jones Triglyceride [Mass/Vol] 209 mg/dL Critically high <=150 [facility] Comment on above: Performed By: #### L IPID, CMP #### [facility] [address] [address] [address] Nathan Jones VLDL CALC 41.8 mg/dL Normal [facility] Comment on above: Performed By: #### L IPID, CMP #### [facility] [address] [address] [address] Nathan Jones PROF 14(COMP METB)on 022 Albumin [Mass/Vol] 3.8 g/dL Normal 3.4-5.0 [facility] Comment on above: Performed By: #### L IPID, CMP #### [facility] [address] [place] [address] Dr. Nathan Jones Albumin/Globulin [Mass ratio] 1.1 {ratio} Normal [facility] Comment on above: Performed By: #### L IPID, CMP #### [facility] [address] [place] [address] Dr. Nathan Jones ALP [Catalytic activity/Vol] 60 U/L Normal 46-116 [facility] Comment on above: Performed By: #### L IPID, CMP #### [facility] [address] [place] [address] Dr. Nathan Jones ALT [Catalytic activity/Vol] 41 U/L Normal 16-63 [facility] Comment on above: Performed By: #### L IPID, CMP #### [facility] [address] [address] [address] Nathan Jones Anion gap [Moles/Vol] 12.2 mmol/L Normal [facility] Comment on above: Performed By: #### L IPID, CMP #### [facility] [address] [place] [address] Dr. Nathan Jones AST [Catalytic activity/Vol] 13 U/L Critically low 15-37 [facility] Comment on above: Performed By: #### L IPID, CMP #### [facility] [address] [address] [address] Nathan Jones Bilirubin [Mass/Vol] 0.4 mg/dL Normal 0.2-1.0 [facility] Comment on above: Performed By: #### L IPID, CMP #### [facility] [address] [place] [address] Dr. Nathan Jones Calcium [Mass/Vol] 8.9 mg/dL Normal 8.5-10.1 [facility] Comment on above: Performed By: #### L IPID, CMP #### [facility] [address] [place] [address] Dr. Nathan Jones Chloride [Moles/Vol] 107 mmol/L Normal 98-107 [facility] Comment on above: Performed By: #### L IPID, CMP #### [facility] [address] [place] [address] Dr. Nathan Jones CO2 [Moles/Vol] 26.8 mmol/L Normal 21.0-32.0 [facility] Comment on above: Performed By: #### L IPID, CMP #### [facility] [address] [place] [address] Dr. Nathan Jones Creatinine [Mass/Vol] 0.68 mg/dL Critically low 0.70-1.30 [facility] Comment on above: Performed By: #### L IPID, CMP #### [facility] [address] [place] [address] Dr. Nathan Jones EGFR-AF AUSTRALIAN >60 Normal >=60 [facility] Comment on above: Performed By: #### L IPID, CMP #### [facility] [address] [place] [address] Dr. Nathan Jones EGFR-NON AF AUSTRALIAN >60 Normal >=60 [facility] Comment on above: Performed By: #### L IPID, CMP #### [facility] [address] [place] [address] Dr. Nathan Jones Globulin (S) [Mass/Vol] 3.5 g/dL Normal [facility] Comment on above: Performed By: #### L IPID, CMP #### [facility] [address] [address] [address] Nathan Jones Glucose [Mass/Vol] 108 mg/dL Critically high 74-106 T [facility] Comment on above: Performed By: #### L IPID, CMP #### [facility] [address] [place] [address] Dr. Nathan Jones Potassium [Moles/Vol] 4.0 mmol/L Normal 3.5-5.1 [facility] Comment on above: Performed By: #### L IPID, CMP #### [facility] [address] [place] [address] Dr. Nathan Jones Protein [Mass/Vol] 7.3 g/dL Normal 6.4-8.2 [facility] Comment on above: Performed By: #### L IPID, CMP #### [facility] [address] [place] [address] Dr. Nathan Jones Sodium [Moles/Vol] 142 mmol/L Normal 136-145 [facility] Comment on above: Performed By: #### L IPID, CMP #### [facility] [address] [address] [address] Nathan Jones Urea nitrogen [Mass/Vol] 13.0 mg/dL Normal 7.0-18.0 [facility] Comment on above: Performed By: #### L IPID, CMP #### [facility] [address] [place] [address] Dr. Nathan Jones Urea nitrogen/Creatinine [Mass ratio] 19.1 mg/mg Normal [facility] Comment on above: Performed By: #### L IPID, CMP #### [facility] [address] [place] [address] Dr. Nathan Jones Consent for COVID Vaccineon 02-15-2021 SARS-CoV-2 (COVID-19) RNA AARON+probe Ql (Unsp spec) [id number] 1#1.00CD:127 Normal [facility] Coding Summary.on 01-29-2021 Coding Summary. CODING DATE: 01/29/2021 FINAL [facility] STATUS: PAYOR: Maki APC DESCRIPTION 1492 [...] Sarika Finn Date Saved: 01/29/2021 03:28 pm [facility] Consent for COVID Vaccineon 01-25-2021 SARS-CoV-2 (COVID-19) RNA AARON+probe Ql (Unsp spec) [id number] 0#1.00CD:127 [facility] Consent for Treatmenton 01-07 Consent for Treatment [id number] 4#1.00CD:127 [facility] Vital Signs Date Time Vital Sign Value Performing Clinician Facility 07-31-2024 14:57-0400 Body height 182.88 cm [facility] 07-31-2024 14:57-0400 Body mass index (BMI) [Ratio] 32.5 kg/m2 [facility] 07-31-2024 14:57-0400 Body weight 108.86 kg [facility] 07-31-2024 14:57-0400 Diastolic blood pressure 88 mm[Hg] [facility] 07-31-2024 14:57-0400 Heart rate 72 /min [facility] 07-31-2024 14:57-0400 SaO2% (BldA) [Mass fraction] 97 % [facility] 07-31-2024 14:57-0400 Systolic blood pressure 150 mm[Hg] [facility] 02-08-2024 15:43-0400 Body height 182.88 cm [facility] 02-08-2024 15:43-0400 Body mass index (BMI) [Ratio] 32.4 kg/m2 [facility] 02-08-2024 15:43-0400 Body weight 108.46 kg [facility] 02-08-2024 15:43-0400 Diastolic blood pressure 83 mm[Hg] [facility] 02-08-2024 15:43-0400 Heart rate 67 /min [facility] 02-08-2024 15:43-0400 Respiratory rate 12 /min [facility] 02-08-2024 15:43-0400 Systolic blood pressure 140 mm[Hg] [facility] 09-09-2023 09:00-0400 Body height 182.88 cm Derrek Ball Other [facility] [employer] Other 09-09-2023 09:00-0400 Body mass index (BMI) [Ratio] 32.76 kg/m2 Derrek Ball Other [facility] [employer] Other 09-09-2023 09:00-0400 Body weight 109.59 kg Derrek Ball Other [facility] [employer] Other 09-09-2023 09:00-0400 Diastolic blood pressure 82 mm[Hg] Derrek Ball Other [employer] Other 09-09-2023 09:00-0400 Respiratory rate 12 /min Derrek Ball Other [employer] Other 09-09-2023 09:00-0400 Systolic blood pressure 139 mm[Hg] Derrek Ball Other [employer] Other 08-23-2023 13:15-0400 Body height 182.88 cm Derrek Ball Other [employer] Other 08-23-2023 13:15-0400 Body mass index (BMI) [Ratio] 32.57 kg/m2 Derrek Ball Other [employer] Other 08-23-2023 13:15-0400 Body weight 108.95 kg Derrek Ball Other [employer] Other 08-23-2023 13:15-0400 Diastolic blood pressure 86 mm[Hg] Derrek Ball Other [employer] Other 08-23-2023 13:15-0400 Respiratory rate 12 /min Derrek Ball Other [employer] Other 08-23-2023 13:15-0400 Systolic blood pressure 149 mm[Hg] Derrek Ball Other [employer] Other 08-04-2023 09:00-0400 Body height 182.88 cm Derrek Ball Other [employer] Other 08-04-2023 09:00-0400 Body mass index (BMI) [Ratio] 31.16 kg/m2 Derrek Ball Other [employer] Other 08-04-2023 09:00-0400 Body weight 104.24 kg Derrek Ball Other [employer] Other 08-04-2023 09:00-0400 Diastolic blood pressure 87 mm[Hg] Derrek Ball Other [employer] Other 08-04-2023 09:00-0400 Respiratory rate 12 /min Derrek Ball Other [employer] Other 08-04-2023 09:00-0400 Systolic blood pressure 139 mm[Hg] Derrek Ball Other [employer] Other 02-01-2023 10:30-0400 Body height 182.88 cm Derrek Ball Other [employer] Other 02-01-2023 10:30-0400 Body mass index (BMI) [Ratio] 30.3 kg/m2 Derrek Ball Other [employer] Other 02-01-2023 10:30-0400 Body weight 101.33 kg Derrek Joseph Other [employer] Other 02-01-2023 10:30-0400 Diastolic blood pressure 82 mm[Hg] Derrek Joseph Other [employer] Other 02-01-2023 10:30-0400 Respiratory rate 12 /min Derrek Joseph Other [employer] Other 02-01-2023 10:30-0400 Systolic blood pressure 143 mm[Hg] Derrek Joseph Other [employer] Other Encounters Encounter Date Encounter Type Care Provider Facility Start: 08-24-2024 End: 08-24-2024 [facility] Result Encounter Sancho Puri DO Work Phone: [facility] Unsolicited Start: 08-24-2024 End: 08-24-2024 [facility] Result Encounter Sancho Puri DO Work Phone: [facility] Unsolicited Start: 07-31-2024 End: 07-31-[address] [facility] Work Phone: Start: 07-31-2024 End: 07-31-2024 Encounter for general adult medical examination without abnormal findings [facility] Start: 07-31-2024 End: 07-31-2024 Patient encounter procedure [facility] Physician [facility] Work Phone: Start: 07-28-2024 Patient encounter status [facility] Start: 02-08-2024 End: 02-08-[address] [facility] Work Phone: Start: 02-08-2024 End: 02-08-2024 Patient encounter procedure [facility] Physician [facility] Work Phone: Start: 11-26-2023 End: 11-26-2023 ambulatory Derrek Ball Other [employer] Other Start: 11-26-2023 Telephone encounter Derrek Ball [facility] Start: 11-02-2023 End: 11-02-2023 ambulatory Derrek Ball Other [employer] Other Start: 11-02-2023 Telephone encounter Derrek Ball [facility] Start: 09-09-2023 End: 09-09-2023 ambulatory Derrek Ball Other [employer] Other Start: 09-09-2023 Office outpatient vi sit 15 minutes Derrek Ball [facility] Start: 09-09-2023 Telephone encounter Derrek Ball [facility] Start: 08-24-2023 End: 08-24-2023 ambulatory Derrek Ball Other [employer] Other Start: 08-24-2023 Telephone encounter Derrek Ball [facility] Start: 08-23-2023 End: 08-23-2023 ambulatory Derrek Ball Other [employer] Other Start: 08-23-2023 Office outpatient vi sit 15 minutes Derrek Ball [facility] Start: 08-19-2023 End: 08-19-2023 ambulatory Derrek Ball Other [employer] Other Start: 08-19-2023 Telephone encounter Derrek Ball [facility] Start: 08-04-2023 End: 08-04-2023 ambulatory Derrek Ball Other [employer] Other Start: 08-04-2023 Encounter for genera l adult medical examination without abnormal findings Derrek Ball [facility] Start: 08-04-2023 Periodic preventive med est patient 40-64yrs Derrek Ball [facility] Start: 08-04-2023 Telephone encounter Derrek Ball [facility] Start: 07-20-2023 End: 07-20-2023 ambulatory Derrek Joseph Other [employer] Other Start: 07-20-2023 Telephone encounter Derrek Joseph [facility] [facility] Start: 02-01-2023 End: 02-01-2023 ambulatory Derrek Joseph Other [employer] Other Start: 02-01-2023 Office outpatient vi sit 15 minutes Derrek Joseph [employer] [facility] Start: 01-19-2023 End: 01-20-2023 ambulatory NONE LISTED REQUEST Facility:[facility]1 Start: 09-14-2022 End: 09-15-2022 ambulatory NONE LISTED REQUEST Facility:[facility] Start: 07-30-2022 Encounter for genera l adult medical examination without abnormal findings DR DERREK JOSEPH [facility] Start: 07-29-2022 End: 07-30-[address] DERREK JOSEPH Facility:[facility] Start: 07-29-2022 End: 07-30-2022 Encounter for general adult medical examination without abnormal findings DR DERREK JOSEPH Facility:[facility] Start: 07-28-2022 Adult health examination Edmundo Joseph Other [employer] Other Start: 08-31-2019 Preoperative cardiovascular examination Derrek Joseph Other [employer] Other Start: 08-31-2019 Problem, abnormal examination Derrek Joseph Other [employer] Other Procedures Date Procedure Procedure Detail Performing Clinician Start: 08-24-2024 ALL CBC WITH AUTO DIFF Sancho Puri DO Work Phone: Start: 01-19-[address] MOTA L ISTED REQUEST Comment on above: Performed By: #### D ATPSA #### [facility] [address] [place] [address] Dr. Nathan Jones Start: 09-14-[address] NAKUL Lama ISTED REQUEST Comment on above: Performed By: #### D ATPSA #### [facility] [address] [place] [address] Dr. Nathan Jones Start: 07-29-[address] NAKUL Lama ISTED REQUEST Comment on above: Performed By: #### P [facility] #### [facility] [address], [place] [address] Dr. Nathan Jones Start: 12-26-2018 Screening for malign ant neoplasm of colon Derrek Joseph Other Start: 12-22-2016 General examination of patient Derrek Joseph Other Depression screening Nata Joseph Other Screening for malign ant neoplasm of prostate Derrek Joseph Other Plan of Treatment Date Care Activity Detail Author Start: 07-09-2024 Influenza vaccination Influenz a Vaccine (#1) [facility] Start: 1970 Screening for malign ant neoplasm of colon [facility] Comprehensive metabo lic 2000 panel - Serum or Plasma [facility] Payers Date Payer Category Payer [facility] [[email or web address] BCBS [id number] 1970 Unknown [id number] 1961 Self-pay 1961 Unknown [id number] Unknown [id number] Unknown [id number] Social History Date Type Detail Facility Start: 08-02-2024 Sex Assigned At N [employer] Other Start: 1970 Sex Assigned At Male F [facility] Start: 07-31-2024 End: 08-02-2024 Tobacco smoking status NHIS Ex-smoker (finding) [facility] History of tobacco use Current smoker [facility] History of tobacco use Cigarette Smoker [facility] Start: 08-02-2024 History of Social function [facility] Start: 1970 Sex assigned at Not on file N [facility] Start: 08-02-2024 Gender identity Identifies as male gender (finding) [facility] Evaluation note 11-26-2023 Note Date & Type Note Facility 11-26-2023 Evaluation note Encounter Date Diagnosis Assessment Notes Nov, Primary hypertension (ICD-10 - I10) [employer] Other Evaluation note 09-09-2023 Note Date & [...] Unable to finish antibiotics due to rash. [employer] Other Evaluation note 08-23-2023 Note Date & [...] Bactrim Headache, flushing and edema Culprit Amlodipine [employer] Other Evaluation note 08-04-2023 Note Date & [...] (ICD-10 - Z12.5) Yearly ANNEL and PSA [employer] Other Evaluation note 08-04-2023 Note Date & Type Note Facility 08-04-2023 Evaluation note Encounter Date Diagnosis Assessment Notes Jul, Acute prostatitis (ICD-10 - N41.0) [employer] Other Evaluation note 02-01-2023 Note Date & [...] normal BMI. Jan, Other Continue w/ abstinence. 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 Essential hypertension acute Gastroesophageal reflux dise ase with esophagitis without hemorrhage acute Hypercholesterolemia acute Screening PSA (prostate specific antigen) acute Umbilical hernia acute Wellness examination acute [facility] Work Phone: History general Narrative - Reported [...] hand, right Surgical History LEFT SHOULDER REPAIR 2013 Surgical History ARTHROSCOPY OF RIGHT KNEE 2014 Hospitalization History SEE SURGICAL HX [employer] Other Summary Purpose Family History Relationship Condition [...] section and content) DATE CREATED AUTHOR [facility]/10/2021 [facility] DATE CREATED AUTHOR 'S NANY APONTE 01/20/2023 [facility] REASON FOR VISIT (unrecogniz ed [...] July 31, 2024 End: July 31, 2024 Supervisor Policy Change Clerks Relationship Specialty Start Date End Date Derrek Joseph MD [address] [facility] [place] [address] PCP - General Internal Medicine 08/02/24 Goals (unrecognized section and content) Goals may [...] BE BASED ON THE PRIMARY CLINICAL RECORDS. [facility] [employer] [facility]. provides no warranty or guarantee of the accuracy or completeness of information in this document.
[2024-08-29] MEDS: LACTATED RINGER'S SOLUTION 1,000 ML 50 ML IV ×2 (07:46→10:30)
[2024-08-29] MEDS: CLINDAMYCIN PHOSPHATE/D5W 900 MG/50 ML PREMIX 100 MG IV (08:43)
--- NOTE | 2024-08-29 08:58 | W.PM.PROCNOT ---
Date of procedure: 08/29/24 Pre-op diagnosis: umbilical hernia Post-op diagnosis: same as pre-op Procedure: Robotic CIRA (transabdominal preperitoneal) ventral hernia repair with mesh and ?transversus abdominis plane (TAP) block The patient was brought to the operating room and placed supine on the operating room table. Cardiopulmonary monitoring was initiated. General anesthesia was induced without any complication. A time-out was performed.? Pre-operative antibiotics were given. EPC cuffs were on the lower extremities. Both arms were tucked. The abdomen was prepped and draped in the usual sterile fashion. The abdomen was entered approximately 12-14 cm distal to the xyophoid process and to the left of the midline/umbilicus in the left lateral rectus sheath. To do this a skin incision was made. A 5mm 0 degree laparoscope was then introduced using an optical access trocar. Pneumoperitoneum was then established through this trocar. Once pneumoperitoneum was created 2 additional 8 mm DA Shiv ports were placed under direct visualization in the left lower and upper quadrants abdomen along the same lateral line. The 5mm optiview port was then upsized to a 8mm robotic port under direct visualization.?No injuries were evident. Prior to proceeding with the operation, an intraoperative TAP block was performed. ?Under visualization with the laparoscope, a needle was inserted percutaneously and, confirming that I was in the right plane, 30 mL of a mixture of Ropivacaine and Decadron were injected on both sides for a total of 60 ml. ?Good separation of the muscle planes was seen bilaterally indicating good placement of the anesthetic solution. The robot was then docked and a 30 degree robotic scope was placed into the abdomen.?The instruments were all placed within the abdominal cavity under direct visualization. The periumbilical defect was identified, was noted to be approximately 3.5 cm in diameter. The surrounding preperitoneal fatty tissue was then dissected free with electrocautery in order to skeletonize the fascial defect.?Once the abdominal contents were reduced a preperitoneal pocket was started approximately 6cm lateral to the hernia defect on the ipsilateral side. This pocket was carried out all the way to the hernia defect and 6cm lateral to the defect on the contralateral side. Care was taken to avoid holes in the peritoneum and ensure hemostasis. While the preperitoneal pocket was being created the hernia sac was reduced and dissected off the periumbilical defect.?The area was measured and the hernia defect was noted to be 3.5 cm x 2cm. A 9cm round symbotex composite mesh was decided upon and opened. Once this was completed the insufflation was placed down to 10 mmHg and the umbilical defect was reapproximated using a 0 V-Loc stitch.?Once that was completed the 9cm piece of mesh was placed within the abdominal cavity.? The mesh was sutured circumferentially to the posterior rectus sheath using multiple 3-0 V-Loc stitches. The mesh was noted to lie flat on the anterior surface of the abdomen without any crimpage and in good position with good overlap. Once the mesh was satisfactory placed,?the peritoneal pocket was closed with a 3-0 v-loc in a running fashion making sure to completely cover the mesh. No mesh was visible at the end of the peritoneal closure. The instruments and needles were removed and the robot was undocked. The remaining ports were then removed while insufflation was released through the robotic ports.? The port site skin was reapproximated using 4-0 Monocryl. Dermabond was placed over the incisions. The patient tolerated the procedure well. There were no complications.? Patient was extubated and taken to recovery in stable condition.? All sponge, instrument and needle counts were correct prior to skin closure. Anesthesia: PETER Surgeon: Sancho Puri Estimated blood loss (mL): 5 Pathology: none sent Condition: stable Disposition: PACU
[2024-08-29] MEDS: 0.9 % SODIUM CHLORIDE 10 ML 20 ML INJ (09:16)
[2024-08-29] MEDS: BUPIVACAINE HCL 0.25% PF 25 MG/10 ML VIAL 20 ML INJ (09:16)
[2024-08-29] MEDS: BUPIVACAINE LIPOSOME/PF 266 MG/13.3 ML VIAL INJ (09:16)
--- NOTE | 2024-08-29 11:00 | PC.NURSE ---
PATIENT'S OXYGEN SATURATION DROP WHEN HE FALLS ASLEEP AND STARTS TO SNORE. REAPPLIED OXYGEN ON AT 1058 ON 2 LITERS.
[2024-08-29] MEDS: OXYCODONE HCL/ACETAMINOPHEN 5MG/325MG 1 TAB PO (11:18)
== END 2024-08-29 12:45 | disposition home or self-care (01) ==
PROVIDERS: PCP Internal Medicine; Visit Provider Surgery
PROC: (CPT 832; principal; 2024-08-29 08:20)
DX: K42.0 Umbilical hernia with obstruction, without gangrene (principal); Z87.891 Personal history of nicotine dependence; I10 Essential (primary) hypertension; K21.9 Gastro-esophageal reflux disease without esophagitis
CPT/HCPCS: 49594; 36415; C1781; J0131; J0665; J0736; J1100; J1171; J1885; J2250; J2405; J2704; J3010

== ENCOUNTER 2024-09-12 09:14 | Outpatient (OUT) | payer BC, SELFPAY ==
[2024-09-12 11:08] LABS: Alanine Aminotransferase 85 U/L (16-63); Albumin Globulin Ratio 0.9; Albumin Level 3.5 g/dL (3.4-5.0); Alkaline Phosphatase 74 U/L (46-116); Aspartate Amino Transferase 61 U/L (15-37); Bilirubin Direct 0.1 mg/dL (0.0-0.2); Bilirubin Total 0.6 mg/dL (0.2-1.0); Total Protein 7.5 g/dL (6.4-8.2)
[2024-09-13 04:16] LABS: PSA, Free 0.37 ng/mL
== END 2024-09-12 09:15 | disposition home or self-care (01) ==
LOC: LAB 09:15
PROVIDERS: PCP Internal Medicine; Visit Provider Internal Medicine
DX: R74.01 Elevation of levels of liver transaminase levels (principal); R97.20 Elevated prostate specific antigen [PSA]
CPT/HCPCS: 36415; 80076; 84153; 84154

== ENCOUNTER 2025-05-09 13:34 | Outpatient (OUT) | payer BC, SELFPAY ==
--- NOTE | 2025-05-09 13:51 | XR_ITS ---
[facility] [place] [id number] Patient Name: SUSSY MOSQUEDA MRN: [id number] date: 1970 Sex: M Assigned Patient Location: [facility] Current Patient Location: [facility] Accession/Order Number: [id number] Exam Date: 05/09/2025 14:37 Report Date: 05/09/2025 14:40 At the request of: SHANNEN JOSEPH DO Procedure: XR lumbar spine 2-3V LUMBAR SPINE - 2 views CLINICAL HISTORY: Low Back Pain COMPARISON: None FINDINGS: Vertebral body disc space heights appear maintained. Facet joints and endplate degenerative changes. XR/XR lumbar spine 2-3V IMPRESSION: FACET JOINT AND ENDPLATE DEGENERATIVE CHANGES WITHOUT SIGNIFICANT DISC HEIGHT LOSS. Impression dictated by: Vinay Howell Jr., D.O. 05/09/2025 2:40 PM Dictation Location: [place] [address] Electronically authenticated by: [id number] Y Date: 05/09/2025 14:40
--- OUTSIDE RECORDS SUMMARY | 2025-05-09 18:50 | XMS_ITS | CCD ---
Author Organization [facility] Care Team Providers Care Research Archaeologist Name Role Phone REQUEST, DR NONE LISTED Admitting Unavaila ble REQUEST, NONE LISTED Consulting Unavaila ble BALL, DR PRIDE Primary Care Unavailable REQUEST, NONE LISTED Attending Unavaila ble REQUEST, NONE LISTED Admitting Unavaila ble REQUEST, NONE LISTED Consulting Unavaila ble REQUEST, NONE LISTED Attending Unavaila ble OPAL, DR PIRDE Primary Care Unavailable OPAL, DR PRIDE Consulting Unavailable OPAL, DR PRIDE Attending Unavailable OPAL, DR PRIDE Admitting Unavailable OPAL, DR PRIDE Primary Care Derrek Thomas Derrek Wall MD Primary Care Provider DERREK WALL Primary Care Physician Miley Eddy Attending Unavailable Miley Eddy Attending Unavailable Miley Eddy Attending Unavailable Miley Eddy Attending Unavailable DERREK WALL Referring Unavailable Miley Eddy Admitting Unavailable Miley Eddy Attending Unavailable Miley Eddy Referring Unavailable Derrek Wall MD Primary Care Provider Derrek Wall MD Primary Care Provider Derrek Wall DO Primary Care Provider Derrek Wall DO Primary Care Provider ROSALIO HOLBROOK Attending Unavailable ROSALIO HOLBROOK Referring Unavailable ROSALIO HOLBROOK Referring Unavailable JR. BAIRD GEORGE C Attending Unavaila ROSALIO Ferguson Attending Unavailable FLORI PURI Attending Unavailable FLORI PURI Attending Unavailable Derrek Wall DO Primary Care Provider Derrek Wall DO Attending Provider Varsha Lewis DO Attending Provider [phone] JESSENIA BAIRD Attending Unavailable Derrek Wall Primary Care Unavailable JESSENIA BAIRD Admitting Unavailable JESSENIA BAIRD Attending Unavailable Derrek Wall Primary Care Unavailable JESSENIA BAIRD Admitting Unavailable Allergies Allergy Classification Reported Allergen(s) Allergy Type Date of Onset Reaction(s) Facility (14 sources) Lovastatin Drug Allergy 02-08-20 Comment:[facility] (1 source) patient allergy list reviewed by nurse or physicia Propensity to adverse reactions 11-15-19 Comment:Done [facility] Other (7 sources) Sulfamethoxazole-TM P DS Drug allergy rash [facility] Other (4 sources) Sulfamethoxazole Drug Allergy 02-08-20 [facility] (1 source) Trimethoprim Drug Allergy 02-08-20 [facility] Medications Current Medications Medication Drug Class(es) Dates Sig (Normalized) Sig (Original) amLODIPine 5 mg oral tablet (20 sources) Dihydropyridine Calcium Channel Mena Start: 07-31-2024 End: 11-14-2024 take 1 tablet by mouth once daily Amlodipine 5 mg tablet Active 5 MG PO Daily 90 90 November 14, 2024 6:22pm Complies with drug therapy Start: 02-07-2024 End: 07-31-2024 take 2 tablets by mouth once daily Amlodipine 5 mg tablet Discontinued 10 MG PO Daily February 07, 2024 12:00am July 31, 2024 3:30pm Start: 02-07-2024 End: 07-31-2024 take 10 mg by mouth once daily Amlodipine Discontinued 10 MG PO Daily February 07, 2024 12:00am July 31, 2024 3:30pm Start: 04-16-2015 take 1 tablet by maurilio th once daily amLODIPine 10 mg Tab 10 mg = 1 tab(s), Oral, Daily, Refills(s) 0, High blood pressure Start Date: 04/16/15 Status: Ordered take 1 tablet by maurilio th every twenty-four hours amLODIPine Besylate 5 MG 1 tablet Orally Once a day for 90 days Active amLODIPine Besyl ate 10 MG 1/2 Orally Once a day Active ascorbic acid 1000 mg oral tablet (12 sources) Vitamin C take 1 tablet by mouth once daily Ascorbic Acid (vitamin C) 1000 MG tablet Take 1,000 mg by mouth Daily Active aspirin 81 mg oral tablet (4 sources) Platelet Aggregation Inhibitor, Nonsteroidal Anti-inflammatory Drug Start: 10-25-20 take 81 mg by mouth once daily aspirin 81 mg, Oral, Daily, Refills(s) 0 Start Date: 10/25/24 Status: Ordered Aspirin 81 mg Tab-EC (4 sources) Start: 04-26-20 take 2 tablets by mouth once daily Aspirin 81 mg Tab-EC 162 mg = 2 tab(s), Oral, Daily, # 42 tab(s), Refills(s) 0 Start Date: 04/26/15 Status: Ordered atorvastatin 10 mg oral tablet (4 sources) HMG-CoA Reductase Inhibitor Start: 10-25-20 take 1 tablet by mouth once daily atorvastatin 10 mg Tab = 1 tab(s), Oral, Daily, Refills(s) 0 Start Date: 10/25/24 Status: Ordered ciprofloxacin 500 mg oral tablet (1 source) Quinolone Antimicrobial Start: 10-25-20 End: 10-28-20 Cipro 500 mg Tab 500 mg = 1 tab(s), Oral, BID, start 1 day prior to procedure, X 3 day(s), # 6 tab(s), Refills(s) 0, Pharmacy: [facility] [id number], 184, cm, 10/25/24 8:42:00 EST, Height/Length Dosing, 112, kg, 10/25/24 8:42:00 EST, Weight Dosing Start Date: 10/25/24 Stop Date: 10/28/24 Status: Ordered docusate sodium 100 mg oral capsule (3 sources) Start: 10-25-20 take 1 capsule by mouth twice daily Colace 100 mg Cap = 1 cap(s), Oral, BID, Refills(s) 0 Start Date: 10/25/24 Status: Ordered etodolac 500 mg oral tablet (3 sources) Nonsteroidal Anti-inflammatory Drug Start: 10-25-20 take 1 tablet by mouth twice daily etodolac 500 mg Tab = 1 tab(s), Oral, BID, Refills(s) 0 Start Date: 10/25/24 Status: Ordered famotidine 20 mg oral tablet (3 sources) Histamine-2 Receptor Antagonist Start: 10-25-20 take 1 tablet by mouth twice daily famotidine 20 mg Tab = 1 tab(s), Oral, BID, Refills(s) 0 Start Date: 10/25/24 Status: Ordered folic acid 1 mg / polysaccharide iron complex 150 mg / vitamin b12 0.025 mg oral capsule (2 sources) Vitamin B12 Start: 04-18-20 End: 05-18-20 take 1 tablet by mouth once daily Iron Polysacch [id number] (Poly-Iron 150 Forte) 150-0.025-1 MG capsule Indications: Pre-op examination Take 1 tablet by mouth Daily 30 capsule 1 04/18/2025 05/18/2025 Active Misc. Devices misc (2 sources) Start: 04-18-20 Misc. Devices misc Indications: Pre-op examination Dispense: Front Wheeled walker use 90 days. Ht: 5'11 Weight: 255/4 1 Units 04/18/2025 Active pantoprazole 40 mg delayed release oral tablet (20 sources) Proton Pump Inhibitor Start: 02-07-20 End: 05-31-20 take 1 tablet by mouth once daily Pantoprazole 40 mg tablet,delayed release (DR/EC) Active 40 MG PO Daily 90 May 31, 2024 3:43pm Complies with drug therapy Pantoprazole Sod ium 40 MG 1 tablet daily on an empty stomach followed in 30 minutes by bkfst Orally Once a day for 90 days Active traMADol hydrochloride 50 mg oral tablet (1 source) Opioid Agonist Start: 05-02-2025 take 1 tablet by mouth every eight hours as needed for pain Tramadol 50 mg tablet Active 50 MG PO Every 8 hours as needed for pain 28 May 02, 2025 12:00am Complies with drug therapy Vitamin C 1000 mg oral tablet (4 sources) Start: 10-25-2024 take 1 tablet by mouth once daily Vitamin C 1000 mg oral tablet 1,000 mg = 1 tab(s), Oral, Daily, # 90 tab(s), Refills(s) 0 Start Date: 10/25/24 Status: Ordered Completed/Discontinued Medications Medication Drug Class(es) Dates Sig (Normalized) Sig (Original) levoFLOXacin 500 mg oral tablet (2 sources) Quinolone Antimicrobial Start: 08-02-2024 End: 02-20-2025 take 1 tablet by mouth once daily Levofloxacin 500 mg tablet Discontinued 500 MG PO Daily August 02, 2024 12:00am February 20, 2025 9:50am lisinopril 20 mg oral tablet (20 sources) Angiotensin Converting Enzyme Inhibitor Start: 07-31-2024 take 1 mg by mouth once daily Lisinopril Active MG PO Daily July 31, 2024 12:00am Start: 05-27-2024 End: 08-03-2024 take 1 mg by mouth once daily Lisinopril 20 mg tablet Discontinued MG PO Daily July 31, 2024 12:00am August 03, 2024 7:45pm Start: 02-07-2024 End: 07-31-2024 take 1 tablet by mouth once daily Lisinopril 5 mg tablet Discontinued 5 MG PO Daily 90 90 [...] 1 tablet Orally Once a day Active LOW-DOSE ASPIRIN PO (12 sources) End: 04-17-2025 take 81 mg by mouth once daily LOW-DOSE ASPIRIN PO Take 81 mg by mouth Daily 04/17/2025 Discontinued (Therapy completed) take 81 mg by mouth once daily L OW-DOSE ASPIRIN PO Take 81 mg by mouth Daily Active 1 ml methylPREDNISolone acetate 40 mg/ml injection (4 sources) Corticosteroid Start: 02-22-2025 End: 02-22-2025 methylPREDNISolone acetate (DEPO-Medrol) injection 40 mg Start: 02-22-2025 End: 02-22-2025 40 mg, Intra-articular, Once PRN Procedure, Starting on Gabi 02/22/25 at 1406, For 1 dose predniSONE 20 mg oral tablet (2 sources) Start: 02-20-2025 End: 04-29-2025 Prednisone 20 mg tablet Discontinued 20 MG PO As Directed February 20, 2025 12:00am April 29, 2025 6:04pm 1 tab tid w/ food x 3 days, then bid w/ food x 3 days, then qd w/ food x 3 days sulfamethoxazole 800 mg / trimethoprim 160 mg oral tablet (5 sources) Dihydrofolate Reductase Inhibitor Antibacterial, Sulfonamide Antimicrobial Start: 08-04-2023 take 1 tablet by mouth every twelve hours Bactrim DS 800-160 MG 1 tablet Orally Twice a day for 21 days Jul, Not-Taking Problems Active Problems Problem Classification Problem Date Documented Date Episodic/Chronic Abdominal hernia (7 sources) Umbilical hernia; Translations: [Umbilical hernia without obstruction or gangrene] Onset: 01-03-2018 07-31-2024 Episodic Disorders of lipid metabolism (20 sources) Pure hypercholesterolemia; Translations: [Familial hypercholesterolemia] Onset: 01-21-2016 02-07-2024 Chronic E Codes: Adverse effects of medical drugs (1 source) Adverse effect of unspecified drugs, medicaments and biological substances, initial encounter Episodic E Codes: Fall (1 source) Fall from ladder; Translations: [Fall on and from ladder, initial encounter] Episodic Esophageal disorders (16 sources) Gastroesophageal reflux disease without esophagitis; Translations: [...] unspecified, not intractable] Chronic Hyperplasia of prostate (20 sources) Nocturia due to benign prostatic hypertrophy; Translations: [Benign prostatic hyperplasia with lower urinary tract symptoms] Onset: 11-18-2015 Chronic Inflammatory conditions of male genital organs (1 source) Acute prostatitis Episodic Joint disorders and dislocations; trauma-related (7 sources) Derangement of meniscus; Translations: [Derangement of meniscus NEC] Onset: 03-18-2015 02-22-2025 Chronic Osteoarthritis (13 sources) Osteoarthritis of left knee joint; Translations: [Unilateral primary osteoarthritis, left knee] Onset: 04-11-2025 02-20-2025 Chronic Other aftercare (2 sources) History of repair of umbilical hernia; Translations: [Encounter for follow-up examination after completed treatment for conditions other than malignant neoplasm] 09-06-2024 Episodic Other connective tissue disease (12 sources) Cramp in lower leg associated with rest; Translations: [Sleep related leg cramps] Chronic Other connective tissue disease (4 sources) Cramp in lower limb; Translations: [Sleep [...] Other specified soft tissue disorders Episodic Other connective tissue disease (3 sources) Synovial plica; 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, unspecified knee] Onset: 04-11-2025 04-11-2025 Episodic Other disorders of stomach and duodenum (1 source) Disorder of function of stomach; Translations: [Dyspepsia and other specified disorders of function of stomach] Episodic Other male genital disorders (1 source) Dysplasia of prostate; Translations: [Atypical small acinar proliferation of prostate] Onset: 01-01-2025 Episodic Other male genital disorders (1 source) Atypical small acinar proliferation of prostate 01-01-2025 Episodic Other non-traumatic joint disorders (1 source) Shoulder joint pain; Translations: [Pain in joint, shoulder region] Episodic Other non-traumatic joint disorders (8 sources) Pain in unspecified knee; Translations: [Knee pain] 02-20-2025 Episodic Other nutritional; endocrine; and metabolic disorders (2 sources) Obese class I; Translations: [Body mass index (BMI) 31.0-31.9, adult] Onset: 11-18-2015 Chronic Other nutritional; endocrine; and metabolic disorders (1 source) Simple obesity ; Translations: [Other obesity due to excess calories] Onset: 12-22-2016 Chronic Other nutritional; endocrine; and metabolic disorders (6 sources) Obesity; Translations: [Obesity, unspecified] Onset: 11-18-2015 04-16-2015 Chronic Other screening for suspected conditions (not mental disorders or infectious disease) (20 sources) Encounter for screening for malignant neoplasm of prostate; Translations: [Prostate specific antigen measurement] Onset: 07-30-2022 Episodic Comment on above: PSA:3.82 - 07/2022, 3 .62 - 01/2023, 4.54 - 07/2023, 2.4 (11%) - 10/2023, 4.5 - 07/2024, 4.0 (9.3%) - 09/2024 Skin and subcutaneous tissue infections (13 sources) Cellulitis of right upper limb; Translations: [Cellulitis of right upper limb] 02-07-2024 Episodic Spondylosis; intervertebral disc disorders; other back problems (16 sources) Lumbar spondylosis; Translations: [Spondylosis without myelopathy or radiculopathy, lumbar region] 02-07-2024 Chronic Spondylosis; intervertebral disc disorders; other back problems (15 sources) Spasm of muscle of lower back; Translations: [Muscle spasm of back] 02-07-2024 Episodic Sprains and strains (1 source) Glenoid labrum tear; Translations: [Superior glenoid labrum lesions (SLAP)] Episodic Substance-related disorders (20 sources) Tobacco user; Translations: [Nicotine dependence, cigarettes, in remission] Onset: 04-11-2025 Resolved: 12-16-2020 Chronic Comment on above: Added secondary to d ocumentation in Social History. 2019 Superficial injury; contusion (2 sources) Contusion of [...] [Nondependent tobacco use disorder] Onset: 07-11-2014 Episodic Unclassified (2 sources) Acute pain of left knee 02-22-2025 Results Test Name Value Interpretation Reference Range Facility Progress Note - Nurseon 06-2 Progress Note - Nurse sheet writer put order i n and called pt to come in and have urine specimen completed since it was not done at [facility] per Nikolay Oswald's instructions and told pt to go to registration and register and then go to lab and pt verbalizes understanding [Electronically Signed on: 05/02/2025 11:57 EDT] Eve Escalante RN [Verified on: 05/02/2025 11:57 EDT] Eve Escalante RN [facility] Coding Summaryon 05-01-2025 Coding Summary HTMLBase 64 BkzfujgdOKr9mYd+PGhlY WQ+BN8SWWPhS13lqUWvpE 1bH4IJYYaZOvunIPHQYPl PJiWotcUlGZ9woAExHDTw IC8+MT5rCWJvIggcqOZcx 5T7xVS0U56agc7rFHvhlO D1RZDmWkGhsypwa3sixSy 6IDcuNmluOyBt AWYveM57LNF0xP56Vi31r GKqoEXli7gptOr0PcXaZK LpPZX8kCspYVtcq8DsOGC xJ07adUIom4F0 OSYtiOfxfBFeApGtyEX4h M6aDYtasidlp6zafmxdVz h9uw85xMKoi2C7oYU8G9D vxgV5WDWtjUMc VbbaoFCKdM6stnmvy7hft kmxYxMxICEiKBg0WQf8QD FebRqoOmOiTK53MYV3ULO hfnCgS5HvHNXe hYevVoT4i1C7Pu0CP2DAD mkeX1DODIGDHOfrnOF+PC 00dp98I7EeDztfTgp6LXE gREZ1hBK9zH8p PICuBYcry1O7iRM1W5Lck rAyks0zz4rkOXPmVFegT2 4joJSzf2Z9YDFttNO1TGE ztWvzXqUgbG41 Oyc+XYAinEfye9SlMqqkw 3yiq3vlkHl7NqiaGUNnwd AacSgvHQO6h8OpRv6iPNC gqVE6cZR5jY1m IwQsWsD1FIhmF613FzUpi KRfHtsnA81qS6WnwNT+PH YaKjs3YOKwjLimJA2mN3A hZGRpbmctbGVm eLykML7eXDWwfbrsRRBmz P7tSEBgM4o4KqYsVxB7LO ubW2HvWKVvlybyUb05pN4 lQmWpSnP7SOtk C6BnsyZ5KKZxsLXrJHysC AY1T40kn5N4WIQhQKXbNL O9yRK5iT3dfNdqrpprePI mdDsgdmVydGlj UEosNGemB800AKZmgMfyG kNvZGluZyBEYXRlOiAgMD YvMjQvMjAyNTwvdGQ+PHR rFTL2hMqdHVMy eGDkGDdcFz2wsQkqhZamZ J0iBSRxheygMITudC4vCD JfqMQojPqbQF0tEWOphmp dt529QyRzRLM6 LSXhiJAuN1GiiC1rMhNfZ FSnXKXxP0YioUWoVWatR5 89EIoiByI3NPTwanZwI2G sLWFsaWduOiB0 i5I9Mz9Jd2UckbaxC0Slq GRbXuMfKakhKWe0C1UmFj wvdHI+OD99TXYvIG03AFj 7KSZ9tMipQOnj RWWgU0EkdS1bSwSfUTQlO GRkOyc+PHRhYmxlIHdpZH RoPScxMDAlJyBzdHlsZT0 wKd2aOZXzLJZb aNmfyRGzQqExn7obSJMvL ArmIX9mzJvzH4HgwEX2SB Efx3n3Zu81A80tD6ZydDR +HRUohLJ6rIT8 wG2vDiQoVeU3BTcqK473S fGreNYnMcyhf2ojl9jczT y5GpD0UHNzgcHfvPwmTNL 0y0XfTz52N19o IHdpZHRoPSIxNSUiIHZhb Xpujn9ehE3uDi7+PGNvbC N2wPI0dE2jTbPaNzL2TVe lS590UnAbfPMb Ifdvd7xzd6lpxUe7InZdL KSitmOauAwcDTL1x5ItPn 94K7EuhFoap3KdHaf0qh8 2pGIso8X0jXH1 R9NeWUWzaentgXQzjDddN C3rTUZqflglOUFuoQ9pWX RlL8l3BcUsUgN3VTnpO9R eeaA6UDFzpIAe SBVstGMJrU5bdouwt7tlm hkjGlEpONHpUCg2UYi6PP CkfSljHhNuOCJ4HlW7QXI 7jSDbtU7usHdn pwoheH1gXya+DWS3dXXty LWYQW6hOssknQZ+PHRkIH O7bRklHLodFEMadD8uSGO aB6o8PiHpYiU2 QEnmJ1ZwfnD0YRIngRHbU DFiqYIJhK1tumtkx4dcmh joKvBwOHFpEKi5QCm1BLC saWduOiBsZWZ0 SoN7NLR8sOQyjU8dxTkxt ultoX8eXvm+QmlydGggRG B4AVe9M6VwXvq3DZDudVd sYZ7ogMCoAOcx Ui5euOejiKfcTF4qNBHvm xvez812WkLwc5mtJJVjaG RyWMhuNTJ9H01ri3V1KEJ rZUTgLLL9rLD2 rS9imAfubybocIDnsCmda gZoqPwtMNgeYFpwY974WB VomZvnZhHgPHj8P1VoMbz 7IAEcpRvlDG1i vXJyMEhrXo1joAictGprL S4xCKXquucpk857OjUlz5 elNKRpnWUtWAhrMRU6G57 zp6M4FIUzFALr OGH7pPW5vN0ltBfvsogxe GVmdDsgdmVydGljYWwtYW kwX886VWQwvZrjJnBgtLh 0G6GpTlx7RQAs lVpmFH8nfKIdSNrpZj1aa KnvsJkmAN6iZJUptsfmf0 28JnNuh4qeNLBiqBDkVFz xPBR2A24cj7V5 JFTfOOAuPYG2aFL6qT6sz GlnbjogbGVmdDsgdmVydG ncJSgnLPaqO762WGDcvFj nPlBhdGllbnQg UGjiUYd8W5JsUmuopAO+P G37KOQaNM43fFLxiRPgq3 ysxZe8FxOqDBQnUSK3bCd nIZwgh5WiDGTz Q91ujBBgo8W9IFHuyVzbj AVnTpTfbTD1rN2qENzorm fys0jtgirsFxinq2zkqe8 8gY70B16mRPlb ZHRoPSIzMCUiIHZhbGlnb p0nxZ8nUx9+QMGubVF2uE G6cM4qPDOlNiT3CMrgT50 9InRvcCIvPjxj a4gyh5jgyGk0IvF0TTRmz wBsuKakUXB6s0VgUh09V0 9sIHdpZHRoPSIyMCUiIHZ xuUovjn4oaJ4p Ii8+OYOnzXA8gJZ7sY6zQ jFtDlM7BTmsN581ArLszB VuIqrrN13kY9RcjYD+PHR jXkf4YYIpjUrn IU4wvXIqPCwsYz1bGIU6X pMeQcYbAOzoV0IbOOXqje qyauobhZO7IUDfOOFksE9 5Wy1sxCigJXJh dPYVaH1zetrfk7stasjdB jEtNFJkAPe2APe0XEOkjR mrAtPdJGZ3RjO6URR3qVK nlY4kwJrhrbaf rH7uA8DlOKZuagmiDg80j D0rRiWtBdD1PIudVaa+RE cJGwTWImtaYFnSLn7SACG KLT14LJ02wFFk t9P6lAO3A1GuLEVrvvgwz cmdzRJ5VQQqKADyzG79bL ZlEKmsDu4tt0D7x348KBT pCKZddW24Po9e mFljSCGnhYNNuP1tsdpiw 7wntvzaPzFvSVJuZBb8AY l5FUEuuCfqGvKxMWF3XzZ 9BMU5fXPiaQ1w cZpkpalgiS7yCvn+MDYvM RZaQMf7QYujpRP+PHRkIH Y5mTxdNKfcNVRqzR0zXWF mJ1j6BcQzXoU8 VFmnM5DfTVVzoovjGj44k J7vTrQnWoL4KXuiV2Bqda I0BLZnzVVrYZytOSZ6N80 sx8D6VAQkAGFc LQA0mPU9uD1iqFlthfkzx GVmdDsgdmVydGljYWwtYW leF168LLMmlPedOdN8VZt bFKTdJW51NI82 hOFuk3W1yGF4D5CwEROih uxveagfkMR2IRRyJZByvP 30lVYpANtrKk5gu5I9u51 1YBDxADMxsN72 Fq3kzGdwQADcsCSKfG7my bhbw8kepmhyZkQxOZSyEQ b2JLw0HYTtsOqyAsZaGMI 7VeH2YUG6fJLd rX7woVjlxxufhW7fUct+T UFMRTwvdGQ+EFJqOJD2eH alKSilGTQugL9dYSDrK1c 5WcGcJpI3KStt G6BvFUGracdxGa57pV6lI bIzEgS8FNumL6GslbD5TX BgjGPnBSyjMZQ5H27zc6H 7HBVoHMPwUDY9 dZT2nY9yhTgqnqairZUga DsgdmVydGljYWwtYWxpZ2 38HSUpgTjsUq3HZI93BI1 3Q9ZpEopylEAk bGU+PHRhYmxlIHdpZHRoP HacGPQnJjCqmJmtUE2cQy 9yZGVyLWNvbGxhcHNlOiB xi6mjVKJlMEjw GN8iwClhB3XqbXC3WIVaj 1x8Zp24K43gD4WkyLQ+PG KgaJG1gTQ2uM5vTaUmKdM 1KEkmK199JvHy nUEtLpjxq4vig1bcvEl4Y zArZUUtlbJlvIvlGXL0a5 JoFe38M67oMJkcYSWoGSD yMCUiIHZhbGln gm6ibN7sCj8+XOGpoHL5j GR6vJ3pLbLrEmB9XKiuH6 03WaCdrPQfIszcT09bV6Z vdXA+PHRyPjx0 JCSjcRxvWE8azPLzNTbhI k1yCGT4HyLnEhFxORphZ5 WrPTUbegoedbzepVN4AIV uKSJisJ21Qx1e cDnbVy4dGAFrJXJ1PVPbz KDeN2YabW8tErUgRGOmEX TxK7DwoPXaTSkhC554NOa yTyK0YPCzjlOj O5FzPQDfcLxqTgF0f6T6X k7DdFarrOJvFB2xOpQoBC b4K3LfVbb8GKIhdWsoRO1 mdGOsMJmxOl6r fGveqYmvCQ3gUEBoxfzvc 031LhRds5myEHJtlJNzEW oaQVC6P53dm8L0ZILnAKO gOZE8rRV1uU0b bGlnbjogbGVmdDsgdmVyd AijAPngWJgqZ912GJTwkZ srNyLJIpe8B2PvKvk1MOH jfYsdYN0idPVq UVqoGa5osGnyaSypXD0zF YGuyxggl111ImMrn4ufPK HuuJKuKXcaWTU7Y40gg9D 6NOMwSWEqCDV6 jLA7cO9qfLewuojrnCApu DsgdmVydGljYWwtYWxpZ2 17YELsjPalHl3EZgx0X9N yWyy9DGNylGgr OY5nuOYiBBdfIy1ejBmpf CqySQ5xEHDgeaoaw985Eu Mym7qeCZLhmCVzKPmhOAW 6Q14qk6L2NGTg HPDdLWS9sCW4qW6hwNgga jogbGVmdDsgdmVydGljYW bwPLzzW273OQNezDkvUkA heWVyOjwvdGQ+ RA90yv06Y0KcZgurGry6V ZLrWGX7zXX2fO7sYHYvWY kuz7H5cXU5U7CwtiSmny9 sy0cwFTUoKUjr Y29 (more content not included)... [facility] Progress Note - Nurseon 04-08 Progress Note - Nurse PAT reviewed by Dr Kenan Guerra. No new orders received. [Electronically Signed on: 04/26/2025 13:14 EDT] Georgiana Lucas RN [Verified on: 04/26/2025 13:14 EDT] Georgiana Lucas RN [facility] Provider Orderson 04-26-2025 Provider Orders [id number] [facility] .Auto Diff 04-25-2025 Auto [place] % 10 % Normal 1-12 [facility] Comment on above: Performed By: #### 7 [id number] #### [facility] (DEFAULT) [address] [place] [id number] Baso Abs# 0.1 x10 Normal 0.0-0.2 [facility] Comment on above: Performed By: #### 7 [id number] #### [facility] (DEFAULT) [address] [place] [address] 80700 Basophils/100 WBC (Bld) 1.2 % Normal 0.2-2.0 [facility] Comment on above: Performed By: #### 7 [id number] #### [facility] (DEFAULT) [address] [place] [address] 50150 Eos Abs# 0.3 x10 Normal 0.0-0.4 [facility] Comment on above: Performed By: #### 7 [id number] #### [facility] (DEFAULT) [address] [place] [address] 19155 Eosinophils/100 WBC (Bld) 3.2 % Normal 0.9-4.0 [facility] Comment on above: Performed By: #### 7 [id number], [id number] #### [facility] (DEFAULT) [address] [place] [address] 63034 Lymph Abs# 2.9 x10 Normal 1.3-2.9 [facility] Comment on above: Performed By: #### 7 [id number], [id number] #### [facility] (DEFAULT) [address] [place] [address] [id number] Lymphocytes/100 WBC (Bld) 37 % Normal 14-48 [facility] Comment on above: Performed By: #### 7 [id number], [id number], [id number] #### [facility] (DEFAULT) [address] [place] [address] 26087 [place]ola Abs# 0.8 x10 Normal 0.0-0.8 [facility] Comment on above: Performed By: #### 7 [id number], [id number], [id number] #### [facility] (DEFAULT) [address] [place] [address] 53402 Neut Abs# 3.9 x10 Normal 1.5-9.2 [facility] Comment on above: Performed By: #### 7 [id number], [id number], [id number] #### [facility] (DEFAULT) [address] [place] [address] 07851 Neutrophils/100 WBC (Bld) 48 % Normal 44-88 [facility] Comment on above: Performed By: #### 7 [id number], [id number], [id number] #### [facility] (DEFAULT) [address] [place] [address] 96583 BMP Standardon 04-25-2025 eGFR Non AA >60 Invalid Interpretation Code [facility] Comment on above: Performed By: #### 7 [id number], [id number], [id number] #### [facility] (DEFAULT) [address] [place] [address] 70044 eGFR AA >60 Invalid Interpretation Code [facility] Comment on above: Performed By: #### 7 [id number], [id number], [id number] #### [facility] (DEFAULT) [address] [place] [address] 98819 Anion gap [Moles/Vol] 15.0 mmol/L Normal 5.0-19.0 [facility] Comment on above: Performed By: #### 7 [id number], [id number], [id number] #### [facility] (DEFAULT) [address] [place] [address] 10551 Calcium [Mass/Vol] 9.2 mg/dL Normal 8.9-10.3 [facility] Comment on above: Performed By: #### 7 [id number], [id number], [id number] #### [facility] (DEFAULT) [address] [place] [address] 09053 Chloride [Moles/Vol] 102 mmol/L Normal 101-111 [facility] Comment on above: Performed By: #### 7 [id number], [id number], [id number] #### [facility] (DEFAULT) [address] [place] [address] 27087 CO2 [Moles/Vol] 24 mmol/L Normal 21-32 [facility] Comment on above: Performed By: #### 7 [id number], [id number], [id number] #### [facility] (DEFAULT) [address] [place] [address] 62188 Creatinine [Mass/Vol] 0.77 mg/dL Low 0.90-1.30 [facility] Comment on above: Performed By: #### 7 [id number], [id number], [id number] #### [facility] (DEFAULT) [address] [place] [address] 23830 Glucose [Mass/Vol] 112.0 mg/dL Normal 74.0-118.0 [facility] Comment on above: Performed By: #### 7 [id number], [id number], [id number] #### [facility] (DEFAULT) [address] [place] [address] 33992 Osmolality 275 mOsm/L Invalid Interpretation Code [facility] Comment on above: Performed By: #### 7 [id number], [id number], [id number] #### [facility] (DEFAULT) [address] [place] [address] 68143 Potassium [Moles/Vol] 4.0 mmol/L Normal 3.6-5.1 [facility] Comment on above: Performed By: #### 7 [id number], [id number], [id number] #### [facility] (DEFAULT) [address] [place] [address] 74587 Sodium [Moles/Vol] 137.0 mmol/L Normal 136.0-144.0 [facility] Comment on above: Performed By: #### 7 [id number], [id number], [id number] #### [facility] (DEFAULT) [address] [place] [address] 13616 Urea nitrogen [Mass/Vol] 14 mg/dL Normal 8-26 [facility] Comment on above: Performed By: #### 7 [id number], [id number] #### [facility] (DEFAULT) [address] [place] [address] 48903 Urea nitrogen/Creatinine [Mass ratio] 18.1 mg/mg High 4.6-16.2 [facility] Comment on above: Performed By: #### 7 [id number], [id number], [id number] #### [facility] (DEFAULT) [address] [place] [address] 25794 Basophils Auto (Bld) [#/Vol] Ordered By: VARSHA LEWIS on 04-25-2025 Basophils (Bld) [#/Vol] 0.1 x10 0.0-0.2 [facility] Basophils/100 WBC Auto (Bld) Ordered By: VARSHA LEWIS on 04-25-2025 Basophils/100 WBC (Bld) 1.2 % 0.2-2.0 [facility] CBC w/ Auto Diffon Erythrocyte distribution width (RBC) [Ratio] 13.2 % Normal 11.5-15.0 [facility] Comment on above: Performed By: #### 7 [id number], [id number], [id number] #### [facility] (DEFAULT) [address] [place] [address] 54192 Hematocrit (Bld) [Volume fraction] 45.0 % Normal 34.8-51.9 [facility] Comment on above: Performed By: #### 7 [id number], [id number], [id number] #### [facility] (DEFAULT) [address] [place] [address] 90700 Hemoglobin (Bld) [Mass/Vol] 15.6 g/dL Normal 11.8-17.7 [facility] Comment on above: Performed By: #### 7 [id number], [id number], [id number] #### [facility] (DEFAULT) [address] [place] [address] 83833 Man Diff? Auto Invalid Interpretation Code [facility] Comment on above: Performed By: #### 7 [id number], [id number], [id number] #### [facility] (DEFAULT) [address] [place] [address] 59457 MCH (RBC) [Entitic mass] 34 pg Normal 24-34 [facility] Comment on above: Performed By: #### 7 [id number], [id number], [id number] #### [facility] (DEFAULT) [address] [place] [address] MCHC (RBC) [Mass/Vol] 35 g/dL Normal 26-37 [facility] Comment on above: Performed By: #### 7 [id number], [id number], [id number] #### [facility] (DEFAULT) [address] [place] [address] MCV (RBC) [Entitic vol] 99 fL Normal 81-100 [facility] Comment on above: Performed By: #### 7 [id number], [id number], [id number] #### [facility] (DEFAULT) [address] [place] [address] Platelet 198 x10 Normal 138-427 [facility] Comment on above: Performed By: #### 7 [id number], [id number], [id number] #### [facility] (DEFAULT) [address] [place] [address] Platelet mean volume (Bld) [Entitic vol] 9.4 fL Normal 6.3-10.2 [facility] Comment on above: Performed By: #### 7 [id number], [id number], [id number] #### [facility] (DEFAULT) [address] [place] [address] RBC 4.54 x10 Normal 3.70-5.30 [facility] Comment on above: Performed By: #### 7 [id number], [id number], [id number] #### [facility] (DEFAULT) [address] [place] [address] WBC 7.9 x10 Normal 3.5-10.5 [facility] Comment on above: Performed By: #### 7 [id number], [id number], [id number] #### [facility] (DEFAULT) [address] [place] [address] Eosinophils/100 WBC Auto (Bl d)Ordered By: VARSHA LEWIS on 04-25-2025 Eosinophils/100 WBC (Bld) 3.2 % 0.9-4.0 [facility] Erythrocyte distribution wid th Auto (RBC) [Ratio]Ordered By: VARSHA LEWIS on 04-25-2025 Erythrocyte distribution width (RBC) [Ratio] 13.2 % 11.5-15.0 [facility] Estimated glomerular filtrat ion rate (GFR) non- AmericanOrdered By: VARSHA LEWIS on 04-25-2025 GFR/1.73 sq M.predicted among non-blacks MDRD (S/P/Bld) [Vol rate/Area] mL/min/{1.73_m2} [facility] Hematocrit Auto (Bld) [Volum e fraction]Ordered By: VARSHA LEWIS on 04-25-2025 Hematocrit (Bld) [Volume fraction] 45.0 % 34.8-51.9 [facility] Hemoglobin [Mass/volume] in BloodOrdered By: VARSHA LEWIS on 04-25-2025 Hemoglobin (Bld) [Mass/Vol] 15.6 g/dL 11.8-17.7 [facility] Laboratory - Chemistry and C hemistry - challengeOrdered By: VARSHA LEWIS on 04-25-2025 Calcium [Mass/Vol] 9.2 mg/dL 8.9-10.3 [facility] Chloride [Moles/Vol] 102 mmol/L 101-111 [facility] CO2 [Moles/Vol] 24 mmol/L 21-32 [facility] Creatinine [Mass/Vol] 0.77 mg/dL Low 0.90-1.30 [facility] GFR/1.73 sq M.predicted MDRD (S/P/Bld) [Vol rate/Area] mL/min/{1.73_m2} [facility] Glucose [Mass/Vol] 112.0 mg/dL 74.0-118.0 [facility] Potassium [Moles/Vol] 4.0 mmol/L 3.6-5.1 [facility] Sodium [Moles/Vol] 137.0 mmol/L 136.0-144.0 [facility] Urea nitrogen [Mass/Vol] 14 mg/dL 8-26 [facility] Urea nitrogen/Creatinine [Mass ratio] 18.1 mg/mg High 4.6-16.2 [facility] Leukocytes [#/volume] correc alexander for nucleated erythrocytes in Blood by Automated counOrdered By: VARSHA LEWIS on 04-25-2025 WBC corrected for nucl RBC Auto (Bld) [#/Vol] 7.9 x10 3.5-10.5 [facility] Lymphocytes Auto (Bld) [#/Vo l]Ordered By: VARSHA LEWIS on 04-25-2025 Lymphocytes (Bld) [#/Vol] 2.9 x10 1.3-2.9 [facility] Lymphocytes/100 WBC Auto (Bl d)Ordered By: VARSHA LEWIS on 04-25-2025 Lymphocytes/100 WBC (Bld) 37 % 14-48 [facility] MCH Auto (RBC) [Entitic mass ]Ordered By: VARSHA LEWIS on 04-25-2025 MCH (RBC) [Entitic mass] 34 pg 24-34 [facility] MCHC Auto (RBC) [Mass/Vol]Or dered By: VARSHA LEWIS on 04-25-2025 MCHC (RBC) [Mass/Vol] 35 g/dL 26-37 [facility] MCV Auto (RBC) [Entitic vol] Ordered By: VARSHA LEWIS on 04-25-2025 MCV (RBC) [Entitic vol] 99 fL 81-100 [facility] Monocytes Auto (Bld) [#/Vol] Ordered By: VARSHA LEWIS on 04-25-2025 Monocytes (Bld) [#/Vol] 0.8 x10 0.0-0.8 [facility] Monocytes/100 WBC Auto (Bld) Ordered By: VARSHA LEWIS on 04-25-2025 Monocytes/100 WBC (Bld) 10 % 1-12 [facility] Neutrophils Auto (Bld) [#/Vo l]Ordered By: VARSHA LEWIS on 04-25-2025 Neutrophils (Bld) [#/Vol] 3.9 x10 1.5-9.2 [facility] Neutrophils/100 WBC Auto (Bl d)Ordered By: VARSHA LEWIS on 04-25-2025 Neutrophils/100 WBC (Bld) 48 % 44-88 [facility] No Panel InformationOrdered By: VARSHA LEWIS on 04-25-2025 Add Manual Differential Auto Auto [facility] Eosinophils # (Auto) 0.3 x10 0.0-0.4 [facility] Osmolality 275 mOsm/L [facility] Platelet mean volume Auto (B ld) [Entitic vol]Ordered By: VARSHA LEWIS on 04-25-2025 Platelet mean volume (Bld) [Entitic vol] 9.4 fL 6.3-10.2 [facility] Platelets Auto (Bld) [#/Vol] Ordered By: VARSHA LEWIS on 04-25-2025 Platelets (Bld) [#/Vol] 198 x10 138-427 [facility] RBC Auto (Bld) [#/Vol]Ordere d By: VARSHA LEWIS on 04-25-2025 RBC (Bld) [#/Vol] 4.54 x10 3.70-5.[address] [facility] Serum or plasma anion gap de terminationOrdered By: VARSHA LEWIS on 04-25-2025 Anion gap [Moles/Vol] 15.0 mmol/L 5.0-19.0 [facility] MR KNEE LEFT WO IV CONTRASTo n 02-22-2025 MR KNEE LEFT WO IV CONTRAST Exam: MR KNEE LEFT WO IV CONTRAST History: Knee pain. Meniscus tear. Technique: Multiplanar multisequence MRI of the knee was performed without contrast. Comparison: Radiographs February 22, 2025 Findings: Quadriceps and patellar tendons are intact. Small joint effusion. Anterior and posterior cruciate ligaments are intact. The medial collateral ligament, lateral collateral ligament, and popliteus are intact. Complex tear of the posterior horn of the medial meniscus including radial tear. The lateral meniscus is intact. Full-thickness cartilage loss of the outer weightbearing medial femoral condyle and subjacent medial tibial plateau with a few small foci of subcortical bone marrow edema. Full-thickness cartilage loss of the posterior nonweightbearing medial femoral condyle with a few small foci of subcortical bone marrow edema. There are a few tiny foci of subcortical bone marrow edema of the medial patellar ridge and medial patellar facet secondary to full-thickness cartilage fissures. Popliteal fossa structures are intact. Tiny Combs cyst. IMPRESSION: Complex tear of the medial meniscus. Osteoarthritis most significantly involving the medial compartment. ELECTRONICALLY SIGNED BY: Alfredito Reece, DO Normal Not Available No Panel Informationon 02-22 ERIK Ruby 02/22/2025 3:11 PM L Inj/Asp: L knee on 02/22/2025 2:06 PM Indications: pain Details: 22 G needle, anterolateral approach Medications: 40 mg methylPREDNISolone acetate 40 MG/ML Outcome: tolerated well, no immediate complications UTILIZING ASEPTIC TECHNIQUE PT GIVEN INJECTION IN LEFT KNEE, NEUROVASC INTACT S/P INJ, TOLERATED WELL Procedure, treatment alternatives, risks and benefits explained, specific risks discussed. Consent was given by the patient. [facility] XR Knee - left 1 or 2 Viewso n 02-22-2025 Imaging Result: AP and Lateral left knee: No acute fracture or dislocation Narrowing medial joint line, but joint space preservation noted. Mild patella femoral arthritic changes Small joint effusion, Right knee on weight bearing is bone on bone medial joint line. Impression: no acute bony process left knee [facility] Radiology Study observation (narrative) [facility] Prostate Histology ([facility]) on 01-08-2025 Prostate Histology Diagnosis Info Invalid Interpretation Code [facility] Comment on above: Result Comment: A :P rostate,Left Lateral Base:Needle Biopsy Interpretation - - Benign prostatic tissue. MicroScopic Description - A :Prostate,Left Base:Needle Biopsy Interpretation - - Benign prostatic tissue. MicroScopic Description - A :Prostate,Left Lateral Mid:Needle Biopsy Interpretation - - Atypical small acinar glands. MicroScopic Description - A :Prostate,Left Mid:Needle Biopsy Interpretation - - Benign prostatic tissue. MicroScopic Description - A :Prostate,Left Lateral [place]:Needle Biopsy Interpretation - - Benign prostatic tissue. MicroScopic Description - A :Prostate,Left [place]:Needle Biopsy Interpretation - - Benign prostatic tissue. MicroScopic Description - A :Prostate,Right Base:Needle Biopsy Interpretation - - Benign prostatic tissue. MicroScopic Description - A :Prostate,Right Lateral Base:Needle Biopsy Interpretation - - Benign prostatic tissue. MicroScopic Description - A :Prostate,Right Mid:Needle Biopsy Interpretation - - Benign prostatic tissue. MicroScopic Description - A :Prostate,Right Lateral Mid:Needle Biopsy Interpretation - - Benign prostatic tissue. MicroScopic Description - A :Prostate,Right [place]:Needle Biopsy Interpretation - - Benign prostatic tissue. MicroScopic Description - A :Prostate,Right Lateral [place]:Needle Biopsy Interpretation - - Benign prostatic tissue with focal chronic active inflammation. MicroScopic Description - Gross Description Site ID:A color car-white fixative Formalin cores 1 units cm Site ID:B color car-white fixative Formalin cores 1 units cm Site ID:C color car-white fixative Formalin cores 1 units cm Site ID:D color car-white fixative Formalin cores 1 units cm Site ID:E color car-white fixative Formalin cores 1 units cm Site ID:F color car-white fixative Formalin cores 1 units cm Site ID:G color car-white fixative Formalin cores 1 units cm Site ID:H color car-white fixative Formalin cores 1 units cm Site ID:I color cra-white fixative Formalin cores 1 units cm Site ID:J color car-white fixative Formalin cores 1 units cm Site ID:K color car-white fixative Formalin cores 1 units cm Site ID:L color car-white fixative Formalin cores 1 units cm C and I: Immunostain HMW cytokeratins /p63/ P504S (PIN4 immunostain) reviewed, supporting the rendered diagnosis. CPT: 31768 x 12, 94439 x 2 Electronically signed by : on: 12/20/2024 09:07:34 Performed By: #### 1 [id number] #### [facility] [address] [place] [address] Ambulatory Visit Summaryon 0 01-01-2025 Ambulatory Visit Summary Ambulatory Visit Summary GEOVANNADAVID PANDEY Derek :1970 Visit Date:01/01/2025 Ambulatory Visit Instructions Your Diagnosis Elevated PSA Atypical small acinar proliferation of prostate BPH without urinary obstruction Your Care Team Attending Physician - Surjit RICHARDS, Miley Stephens Primary Care Physician - DERREK WALL DO This Is Your Medications List Contact prescribing physician if questions or concerns amlodipine (amLODIPine 10 mg Tab) ascorbic acid (Vitamin C 1000 mg oral tablet) aspirin aspirin (Aspirin 81 mg Tab-EC) atorvastatin (atorvastatin 10 mg Tab) lisinopril (lisinopril 20 mg Tab) pantoprazole (Pantoprazole [address] Tab) Procedures Performed Transrectal biopsy of prostate using ultrasound guidance (12/11/2024), arthroscopically aided treatment of a tibia insufficiency fracture medial tibial plateau (Terrie subchondroplasty procedure). right knee arthroscopy with chondroplasty to two compartments, partial medial meniscectomy, excision of the plica (04/26/2015), Repair of anterior abdominal hernia(s) (ie, epigastric, incisional, ventral, umbilical, spigelian), any approach (ie, open, laparoscopic, robotic), recurrent, including implantation of mesh or other prosthesis when performed, total length of defect(s); 3, Rotator cuff repair. Discharge Vitals Heart Rate (Peripheral) 78 Respiratory Rate 16 Blood Pressure 174/109 Height 72 in Height 184 cm Weight 246.917 lb Weight 112 kg BMI 33.08 What to do next Scheduled Follow-Up Appointments Wednesday 8:00 AM EDT With: Miley Eddy MD Where: [facility] [address] [place] [address]- You Need to Schedule the Following Appointments Follow Up with Surjit RICHARDS, Miley Stephens, URL, URO When: Where: Medications What How Much When Instructions Unchanged amlodipine (amLODIPine 10 mg Tab) 1 Tablets By Mouth Every day Contact prescribing physician if questions or concerns Unchanged ascorbic acid (Vitamin C 1000 mg oral tablet) 1 Tablets By Mouth Every day Contact prescribing physician if questions or concerns Unchanged aspirin 81 Milligram By Mouth Every day Contact prescribing physician if questions or concerns Unchanged aspirin (Aspirin 81 mg Tab-EC) 2 Tablets By Mouth Every day Contact prescribing physician if questions or concerns Unchanged atorvastatin (atorvastatin 10 mg Tab) 1 Tablets By Mouth Every day Contact prescribing physician if questions or concerns Unchanged lisinopril (lisinopril 20 mg Tab) 1 Tablets By Mouth Every day Contact prescribing physician if questions or concerns Unchanged pantoprazole (Pantoprazole [address] Tab) By Mouth Every day Contact prescribing physician if questions or concerns Allergies No Known Allergies Problems Ongoing - Any problem that you are currently receiving treatment for. Atypical small acinar proliferation of prostate BPH without urinary obstruction Elevated PSA Obesity Smoker Patient Survey You may receive a survey via text or e-mail asking about your office visit. Please share your experience with us by completing your survey. We appreciate your feedback and thank you for choosing us for your care. Education Materials Prostate Cancer Screening Prostate cancer screening is testing that is done to check for the presence of prostate cancer in men. The prostate gland is a walnut-sized gland that is located below the bladder and in front of the rectum in males. The function of the prostate is to add fluid to semen during ejaculation. Prostate cancer is one of the most common types of cancer in men. Who should have prostate cancer screening? Screening recommendations vary based on age and other risk factors, as well as between the professional organizations who make the recommendations. In general, screening is recommended if: ??? You are age 50 to 70 and have an average risk for prostate cancer. You should talk with your health care provider about your need for screening and how often screening should be done. Because most prostate cancers are slow growing and will not cause , screening in this age group is generally reserved for men who have a 10- to 15-year life expectancy. ??? You are younger than age 50, and you have these risk factors: ? Having a father, brother, or uncle who has been diagnosed with prostate cancer. The risk is higher if your family member's cancer occurred at an early age or if you have multiple family members with prostate cancer at an early age. ? Being a male who is Black or is of [place] or sub-Saharan descent. In general, screening is not recommended if: ??? You are younger than age 40. ??? You are between the ages of 40 and 49 and you have no risk factors. ??? You are 70 years of age or older. At this age, the risks that screening can cause are greater than the benefits that i (more content not included)... Normal [facility] Urology Office/Clinic Noteon 01-01-2025 Urology Office/Clinic Note Urology Office/Clinic Note Chief Complaint follow up to trus bx HPI Staff 54 year old male here for path review S/P trus bx of prostate and seminal vesicles 12/11/24 Previous Dx: Elevated psa Patient denies any urinary concerns since bx. History of Present Illness Tests reviewed: reviewed path. I have reviewed the previous health record information and history for this patient from Dr. Eddy I have reviewed and verified the staff HPI to be accurate for this encounter. There have been no associated fever, chills, flank pain, or blood in the urine. Denies any urinary infections since last encounter. Review of Systems PHQ Score Initial Depression Screen Score: 0 SCORE ROS - Provider Constitutional: denies weight loss, denies hot flashes. Eyes: denies eye problems. Gastrointestinal: denies nausea, denies vomiting. Cardiovascular: denies chest pain or angina. Integumentary: no dryness Musculoskeletal: denies musculoskeletal symptoms. ENMT: denies otolaryngeal symptoms. Respiratory: no shortness of breath. Heme/Lymph: denies easy bleeding tendency, denies easy bruising tendency. Psychiatric: no confusion, no anxiety. Genitourinary: See HPI. Physical Exam Vitals & Measurements HR: 78(Peripheral) RR: 16 BP: 174/109 HT: 72 in HT: 184 cm WT: 112 kg WT: 246.917 lb BMI: 33.08 General Appearance: alert, no distress, well nourished, well developed male. Assessment/Plan 54 yo male presents for f/up to review path results. Prior CATERINA 10. Not interested in treatment due to not being sexually active. 1. 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 Results discussed with pt. Pt unable to undergo MRI prostate. Discussed recommended follow up of PSA and saturation biopsy in 1-2 years given no MRI prostate. Discussed risks/benefits of confirm MDx. -Will obtain PSA in 6 months and cont closer monitoring. Discuss need for saturation bx pending PSA results 2. Elevated PSA (R97.20: Elevated prostate specific antigen [PSA]) PSA: 12/26/18 - 2.42 12/29/19 - 2.75 07/29/22 - 3.82 09/14/22 - 3.76 01/19/23 - 3.62 08/04/23 - 4.54 10/29/23 - 2.4 & 11.7% 08/01/24 - 4.5 09/12/24 - 4.0 & 9.3%, PSA density 0.10 ~Wellness checks PSA No known fam hx of pros ca. Sister had lung ca, , self inflicted. Thinks uncle had colon ca. Wishes to avoid MRI due to claustrophobia. S/p TRUS/bx 12/11/24 - ANN[facility] benign. Prostate volume 41.1 mL. Path ~benign prostatic tissue with focal chronic active inflammation. [employer]. Results discussed with pt. Discussed sending pathological tissue for genetic testing. MRI would be helpful due to YANG diagnosis although pt is claustrophobia. Repeating biopsy in 1-2 years is recommended due to YANG. Recommended continued PSA checks. Pt agrees with plan. -PSA FT in 6 months -Repeat biopsy within 1-2 years due to YANG, pt wishes to consider being awake or under anes Ordered: PSA Free & Total 3. BPH without urinary obstruction (N40.0: Benign prostatic hyperplasia without lower urinary tract symptoms) Prior IPSS 4 No UA provided today. Denies LUTS or gross hematuria. Bladder scan 10/25/24 - 166 cc (voided prior to appt) Overall not bothered by urination. Gets up during the night however pt states he eats dinner late and drinks up until bedtime. -Cont symptomatic monitoring, avoid bladder irritants Follow-up With When Contact Information Surjit RICHARDS, Miley Stephens, URL, URO Additional Instructions: 6 mos w/ PSAFT Patient Education Prostate Cancer Screening I, Sivan Frankel, personally scribed for Dr. Eddy on 01/01/2025 15:17:26. . Documentation recorded by the scribe, Sivan Frankel, accurately reflects the services(s) I performed and decisions made by me. Authenticated by Dr. Eddy on 01/01/2025 16:07:32. Problem List/Past Medical History Ongoing Atypical small acinar proliferation of prostate BPH without urinary obstruction Elevated PSA Obesity Smoker Historical No qualifying data Procedure/Surgical History Transrectal biopsy of prostate using ultrasound guidance (12/11/2024), arthroscopically aided treatment of a tibia insufficiency fracture medial tibial plateau (Terrie subchondroplasty procedure). right knee arthroscopy with chondroplasty to two compartments, partial medial meniscectomy, excision of the plica (04/26/2015), Repair of anterior abdominal hernia(s) (ie, epigastric, incisional, ventral, umbilical, spigelian), any approach (ie, open, laparoscopic, robotic), recurrent, including implantation of mesh or other prosthesis when performed, total length of defect(s); 3, Rotator cuff repair. Medications amLODIPine 10 mg Tab, 10 mg= 1 tab(s), Oral, Daily aspirin, 81 mg, Oral, Daily, Not taking Aspirin 81 mg Tab-EC, 162 mg= 2 tab(s), Oral, Daily, Not taking atorvastatin 10 mg (more content not included)... Normal [facility] Comment on above: Result Comment: Elec tronically Signed By: Surjit RICHARDS, Miley Stephens\.br\Date and Time Signed: 01/01/25 16:08 EST\.br\Electronically Co-Signed By: Sivan Frankel\Date and Time Co-Signed: 01/01/25 15:17 EST Inpatient Patient Summaryon 12-11-2024 Inpatient Patient Summary Inpatient Patient Summary [place] [address] Clinical Summary Person Information Name: DAVID MOSQUEDA Age: 54 Years : 1970 Sex: Male PCP: DERREK WALL DO Marital Status: Race: White Ethnicity: Non- or Language: Serbian Visit Id: Visit Reason: ELEVATED PSA Speciality: Acuity: Enc Type: Outpatient Med Service: Surgery Arrival: 12/11/2024 07:19:15 Discharge: Dispo Type: Address: [address] [place] [id number] Provider Notes: Diagnosis: Elevated PSA Problems Active Elevated PSA Obesity Smoker Smoking Status: Functional Status: Sensory Deficits: History of Falls: Mobility Assistance Prior to Admission: ADLs: Current Level of Assistance for Self-Care/Mobility: Cognitive Status: Allergies No Known Allergies Laboratory or Other Results This Visit (last charted value for your 12/11/2024 visit) No Laboratory or Other Results This Visit Measurements: Height: Weight: Blood Pressure: Not Valued / Not Valued BMI: Procedures No Procedures Documented Immunizations No Immunizations Documented This Visit Final Med List: amlodipine (amLODIPine 10 mg Tab) 1 Tablets By Mouth every day. ascorbic acid (Vitamin C 1000 mg oral tablet) 1 Tablets By Mouth every day. aspirin 81 Milligram By Mouth every day. aspirin (Aspirin 81 mg Tab-EC) 2 Tablets By Mouth every day. Refills: 0. atorvastatin (atorvastatin 10 mg Tab) 1 Tablets By Mouth every day. docusate (Colace 100 mg Cap) 1 Capsules By Mouth 2 times a day. etodolac (etodolac 500 mg Tab) 1 Tablets By Mouth 2 times a day. famotidine (famotidine 20 mg Tab) 1 Tablets By Mouth 2 times a day. lisinopril (lisinopril 20 mg Tab) 1 Tablets By Mouth every day. pantoprazole (Pantoprazole [address] Tab) By Mouth every day. Care Team Members: Attending Physician: Miley Eddy MD Consulting Physician: Referring Physician: Miley Eddy MD Follow up: With: Address: When: Mileyrobert Eddy [address], [address], [facility] [address] [place] [address] [phone] Business (1) Comments: Office to schedule follow up: move up from 12/27 to be seen in 1 week if path available Type Location Start Finish State URO Office Visit [facility] EU Veronica 12/27/2024 8:45 AM 12/27/2024 9:00 AM Confirmed Patient Education Information: EU - Transrectal Ultrasound of the Prostate with US guided biopsy Discharge Instructions (CUSTOM) [facility] Main OR Intraoperative Recor don 12-11-2024 Main OR Intraoperative Record Main OR Intraoperative Record IntraOp Document Type FTURO Summary Primary Physician: Miley Eddy MD Finalized Date/Time: 12/11/24 08:20:03 Pt. Name: DAVID MOSQUEDA/Sex: 1970 Male Med Rec #: [id number] Physician: Miley Eddy MD Financial #: [id number] Pt. Type: O Room/Bed: / Admit/Disch: 12/11/24 07:19:15 - Institution: Case Times FTURO Entry 1 Patient Times In Room 12/11/24 08:00:00 Out Room 12/11/24 08:16:00 Procedure Times Start 12/11/24 08:06:00 Stop 12/11/24 08:13:00 Anesthesia Times Last Modified By: Maeve Martinez 12/11/24 08:19:50 Case Attendance FTURO Entry 1 Entry 2 Entry 3 Case Attendee Miley Eddy MD, Kelsie E Dellinger, Sydney A Role Performed Surgeon - Primary Casino Cage Cashier - Primary Scrub - Primary Time In 12/11/24 08:00:00 12/11/24 08:00:00 12/11/24 08:00:00 Time Out 12/11/24 08:16:00 12/11/24 08:16:00 12/11/24 08:16:00 Procedure PROSTATE TRANSRECTAL PROSTATE TRANSRECTAL PROSTATE TRANSRECTAL ULTRASOUND WITH BIO(.) ULTRASOUND WITH BIO(.) ULTRASOUND WITH BIO(.) Comments Last Modified By: Maeve Martinez Kelsie E Burgderfer, Kelsie E 12/11/24 08:19:52 12/11/24 08:19:52 12/11/24 08:19:52 Surgical Procedures FTURO Entry 1 Procedure Description Procedure PROSTATE TRANSRECTAL Modifiers . ULTRASOUND WITH BIOPSY Surgeon Description PROSTATE TRANSRECTAL ULTRASOUND WITH BIOPSY Primary Procedure Yes Primary Surgeon Miley Eddy MD Start 12/11/24 08:06:00 Stop 12/11/24 08:13:00 Anesthesia Type Local Surgical Service Urology Wound Class 2 - Clean-Contaminated Last Modified By: Maeve Martinez 12/11/24 08:19:51 General Case Data FTURO Pre-Care Text: Classifies surgical wound, implements aseptic technique, initiates traffic control Entry 1 Case Information OR URO 1 FT Case Level None Wound Class 2 - Clean-Contaminated Specialty Urology Preop Diagnosis ELEVATED PSA Postop Same As Preop Yes Postop Diagnosis ELEVATED PSA Outcomes Met? Yes Last Modified By: Maeve Martinez 12/11/24 07:57:59 Post-Care Text: The patient is free from signs and symptoms of infection EU IntraOp - FTURO Pre-Care Text: Implements protective measures prior to operative or invasive procedure, confirms identity before the operative or invasive procedure, verifies operative procedure, surgical site, and laterality Entry 1 EU Perioperative Protocols Procedure(s) PROSTATE TRANSRECTAL Patient Identity Birthday, ID Band ULTRASOUND WITH BIO(.) Verified (select at Check, Patient least 2): Participation Consents / H and P H&P, Surgery/Procedure Operative Site N/A Verified Consent Marking Verified Surgical Site Yes Laterality Verified n/a Verified Procedure Verified Yes Correct Patient Yes Position Verified Availability Equipment, Medication Time Out Miley Eddy MD, Verified (If Participants Maeve Martinez, Applicable) Nabila Doss Time Out Complete 12/11/24 08:05:00 Allergies Reviewed? Yes Allergies Reviewed Self/Patient With Body Position Lateral, right side up Prep Area N/A Skin. Condition Intact, [place], Warm, & Description N/A Dry Additional Other (See Comment) Specimens Comment PROSTATE TISSUE Specimens Collected Vitals - EU Blood Pressure 136/81 Pulse 83 bpm Respirations 18 br/min SPO2 97 % EBL 0 I&O - EU Total Intake 0 mL Total Output 0 mL Outcomes Met? Yes Last Modified By: Maeve Martinez 12/11/24 08:06:33 Post-Care Text: The patient is free from signs and symptoms of injury caused by extraneous objects Sign Out FTURO Entry 1 Before Patient Leaves OR Nurse verbally Yes Nurse verbally n/a confirms with the confirms with the team the name of team that the procedure(s) instrument, sponge, recorded and needle counts are correct (or N/A) Nurse verbally Yes Nurse verbally Yes confirms with the confirms with the team how the team whether there specimen is labeled are any equipment (including patient problems to be name), if applicable addressed Sign Out Complete 12/11/24 08:13:00 Last Modified By: Maeve Martinez 12/11/24 08:13:40 Case Comments Finalized By: Maeve Martinez Document Signatures Signed By: Maeve Martinez 12/11/24 08:19 Maeve Martinez 12/11/24 08:20 Maeve Martinez 12/11/24 08:20 Normal [facility] Main OR Preoperative Recordo n 12-11-2024 Main OR Preoperative Record Main OR Preoperative Record Holding Area Document Type FTURO Summary Primary Physician: Miley Eddy MD Finalized Date/Time: 12/11/24 08:03:48 Pt. Name: DAVID MOSQUEDA/Sex: 1970 Male Med Rec #: [id number] Physician: Miley Eddy MD Financial #: [id number] Pt. Type: O Room/Bed: / Admit/Disch: 12/11/24 07:19:15 - Institution: Case Times Holding FTURO Pre-Care Text: Verifies consent for planned procedure, identifies individual values and wishes concerning care, includes family members in perioperative teaching Secures patient's records' belongings, and valuables, maintains patient's dignity and privacy, and maintains patient confidentiality Entry 1 In Holding 12/11/24 07:50:00 Outcomes Met? Yes Last Modified By: Ann Marie Bunch LPN 12/11/24 07:50:15 Post-Care Text: The patient participates in decisions affecting his or her perioperative plan of care The patient's right to privacy is maintained Surgery Checklist FTURO Entry 1 Patient Birthday Procedure Surgical Consent, With Identification: Verification: Patient NPO after Midnight: n/a Personal Items: Glasses Limitations: up ad burton Complaints of Pain: No Skin Integrity Intact, [place], Warm, & Dry Vitals - EU Blood Pressure 136/81 Pulse 83 bpm Respirations 18 br/min SPO2 97 % Additional None RN Reviewed Yes Specimens Collected Last Modified By: Maeve Martinez 12/11/24 08:03:34 Finalized By: Maeve Martinez Document Signatures Signed By: Ann Marie Bunch LPN 12/11/24 07:59 Maeve Martinez 12/11/24 08:03 Maeve Martinez 12/11/24 08:03 Maeve Martinez 12/11/24 08:03 Normal [facility] Operative Reporton Operative Report Operative Report Patient: DAVID MOSQUEDA Age: 54 years Sex: Male : 1970 Associated Diagnoses: None Author: Miley Eddy MD Procedure Procedure Date: 12/11/2024. Confirmed: patient, procedure, site, safety procedures followed. Performed by: Miley Eddy MD. Type of procedure: PROCEDURE PERFORMED: 1. Transrectal ultrasound of the prostate and seminal vesicles 2. Ultrasound for prostate needle biopsy 3. Periprostatic nerve block for intraoperative and post operative pain control . Findings: Prostate volume of 41.1mL. There were no significant hypo or hyperechoic lesions within the prostate, overall heterogenous in transition zone, possible hypoechoic lesion right apex. ANNEL benign, flat, mildly enlarged, no firm nodules. Wound identification: No surgical incision was made. Contaminated procedure due to transrectal approach BRIEF HISTORY: The patient is a 54-year-old gentleman with history of elevated PSA of 4, 9.3% free. He was counseled on his options and elected to have a transrectal ultrasound-guided prostate biopsy. He understood the risks of the procedure to include but not be limited to bleeding, pain, infection, urosepsis, impotence, difficulties with urination, retention, false negative result and need for further procedures. DESCRIPTION OF PROCEDURE: After informed consent was obtained, the patient was taken to the operating room. He is on oral preoperative antibiotics and received IM gentamicin. The patient was placed in a lateral decubitus position with the left side down. Lidocaine gel was inserted per rectum. A ANNEL was performed with findings as above. A transrectal ultrasound probe was inserted without difficulty. The prostate was measured in three dimensions with a calculated volume of 41.1mL. This included width a 4.6 cm, height of 3.8 cm, and length of 4.5 cm. There were no significant hypo or hyperechoic lesions within the prostate, overall heterogenous in transition zone, possible hypoechoic lesion right apex. The seminal vesicles were visualized bilaterally. These were normal in size, shape and echotexture. Lidocaine was inserted into bilateral seminal vesicle/prostate junctions for periprostatic nerve block for both intraoperative and postoperative pain control. A standard 12 core biopsy was then performed including 6 from each side. These were separately sent as base, mid, and apical tissues including laterally directed cores from each site. The patient tolerated the procedure well and there was only minor bleeding. SPECIMEN SUBMITTED: Twelve prostate cores. 1. Left base lateral 2. Left base 3. Left mid lateral 4. Left mid 5. Left apex lateral 6. Left apex 7. Right base lateral 8. Right base 9. Right mid lateral 10. Right mid 11. Right apex lateral 12. Right apex CULTURES TAKEN: None. PATIENT CONDITION: Stable. PLAN: The patient will follow up to discuss the biopsy results in clinic in 1-2 weeks. He knows to call or go immediately to the emergency room should he develop fevers, chills, inability to urinate, bleeding or any other concerns. . Impression and Plan Diagnosis Elevated PSA ([id number] R97.20, Discharge, Medical). Diagnosis Elevated PSA ([id number] R97.20, Discharge, Medical). Normal [facility] Comment on above: Result Comment: Elec tronically Signed By: Surjit RICHARDS, Miley Stephens\.br\Date and Time Signed: 12/11/24 08:30 EST Outpatient Surgery Discharge Instructionon 12-11-2024 Outpatient Surgery Discharge Instruction Outpatient Surgery Discharge Instruction [address] [address] Patient Discharge Instructions PERSON INFORMATION Name: DAVID MOSQUEDA Date of : 1970 Current Date: 12/11/2024 08:19:10 PHYSICIANS Admitting Physician: Miley Eddy MD Comment: Discharge Diagnosis: Elevated PSA DAVID MOSQUEDA has been given the following list of follow-up instructions, prescriptions, and patient education materials: IF UNABLE TO CONTACT YOUR PHYSICIAN AND YOU FEEL IT IS AN EMERGENCY, GO TO THE NEAREST EMERGENCY ROOM OR CALL 911 Follow up: With: Address: When: Miley Eddy [address] [place] [address], [place] [address], [employer] [address] [place] [phone] Business (1) Comments: Office to schedule follow up: move up from 12/27 to be seen in 1 week if path available Type Location Start [facility] URO Office Visit [facility] EU Veronica 12/27/2024 8:45 AM 12/27/2024 9:00 AM Confirmed Comment: PATIENT EDUCATION INFORMATION Instructions: Transrectal Ultrasound of the Prostate with US guided biopsy ??? Even though there are no visible incisions, multiple prostate biopsies have been taken through the rectum and you need to follow some instructions to minimize the risks of bleeding. ??? You may see some blood in your urine and stool for up to 1 week (and blood in the semen for several months) ??? Diet -You may resume your normal diet, but you may want to avoid alcohol, carbonated drinks, caffeine, and spicy foods, which may increase the irritation from the surgery. -Drink plenty of water to keep the urine clear. ??? Activity -You should limit any physical activity for about 48 hours -No heavy lifting or straining (10 pound limit) -No driving a car and limit long car rides for 2 days -No strenuous exercise -No sexual intercourse until this is discussed with your doctor ??? Bowels -Try to keep your bowel movements soft to minimize straining to have a bowel movement. -You may use a stool softener or over the counter laxative if needed -Difficult bowel movement may lead to straining and bleeding from the prostate ??? Medications -You may resume your home medications unless instructed otherwise -Hold aspirin, ibuprofen, Coumadin (warfarin) and other blood thinners for about two days or until there is no active bleeding unless otherwise instructed -Finish the antibiotic which you have already started ??? Things to watch for which would require an Emergency Room visit or call 911: (this is not a complete list) -Persistent or heavy bleeding or blood clots from the rectum or in the urine -Inability to urinate -Fever over 101.5 degrees Fahrenheit, with or without chills -Severe drug reactions with itching, hives or rash -Tenderness or swelling of the calves, chest pain, or shortness of breath ??? Please call the office to arrange for your post-operative appointment in 1-2 weeks [phone] or [phone] PANDA Mixon HAROLD R, have received the attached patient education materials/instruction s and have verbalized understanding: May we do a follow up call? Yes No I was present when discharge instructions were given Patient Signature Date Clinican/Nurse Signature Date You may receive a survey from [employer] asking you to rate your care experience. Your feedback is important and will help us understand what we do well and how we can improve the quality of care we provide to you, your loved ones and our community. It???s an honor to serve you. Thank you for choosing [facility] Normal [facility] Prostate Histology ([facility]) on 12-11-2024 PH Method of Extraction Needle Biopsy Normal [facility] Comment on above: Performed By: #### 1 [id number] #### [facility] [address] [place] [address] PH Number of Jars 2 Invalid Interpretation Code [facility] Comment on above: Performed By: #### 1 [id number] #### [facility] [address] [place] [address] PH Specimen 1 L Lat Bse Prost Normal [facility] Comment on above: Performed By: #### 1 [id number] #### [facility] [address] [place] [address] PH Specimen 10 R Lat Mid Prost Normal [facility] Comment on above: Performed By: #### 1 [id number] #### [facility] [address] [place] [address] PH Specimen 11 R Apx Prostate Normal [facility] Comment on above: Performed By: #### 1 [id number] #### [facility] [address] [place] [address] PH Specimen 12 R Lat Apx Prost Normal [facility] Comment on above: Performed By: #### 1 [id number] #### [facility] [address] [place] [address] PH Specimen 2 L Base Prostate Normal [facility] Comment on above: Performed By: #### 1 [id number] #### [facility] [address] [place] [address] PH Specimen 3 L Lat Mid Prost Normal [facility] Comment on above: Performed By: #### 1 [id number] #### [facility] [address] [place] [address] PH Specimen 4 L Mid Prostate Normal [facility] Comment on above: Performed By: #### 1 [id number] #### [facility] [address] [place] [address] PH Specimen 5 L Lat Apx Prost Normal [facility] Comment on above: Performed By: #### 1 [id number] #### [facility] [address] [place] [address] PH Specimen 6 L Apx Prostate Normal [facility] Comment on above: Performed By: #### 1 [id number] #### [facility] [address] [place] [address] PH Specimen 7 R Base Prostate Normal [facility] Comment on above: Performed By: #### 1 [id number] #### [facility] [address] [place] [address] PH Specimen 8 R Lat Bse Prost Normal [facility] Comment on above: Performed By: #### 1 [id number] #### [facility] [address] [place] [address] PH Specimen 9 R Mid Prostate Normal [facility] Comment on above: Performed By: #### 1 [id number] #### [facility] [address] [place] [address] PH Type of Service Technical Only Normal [facility] Comment on above: Performed By: #### 1 [id number] #### [facility] [address] [place] [address] Ambulatory Visit Summary 1 12-26-2023 Ambulatory Visit Summary Ambulatory Visit Summary DASHDAVID PANDEY Derek :1970 Visit Date:10/25/2024 Ambulatory Visit Instructions Your Diagnosis Elevated PSA Your Care Team Attending Physician - Surjit RICHARDS, Miley Stephens Primary Care Physician - DERREK WALL DO Referring Physician - DERREK WALL DO This Is Your Medications List ciprofloxacin (Cipro 500 mg Tab) Contact prescribing physician if questions or concerns amlodipine (amLODIPine 10 mg Tab) ascorbic acid (Vitamin C 1000 mg oral tablet) aspirin aspirin (Aspirin 81 mg Tab-EC) atorvastatin (atorvastatin 10 mg Tab) docusate (Colace 100 mg Cap) etodolac (etodolac 500 mg Tab) famotidine (famotidine 20 mg Tab) lisinopril (lisinopril 20 mg Tab) pantoprazole (Pantoprazole [address] Tab) Procedures Performed arthroscopically aided treatment of a tibia insufficiency fracture medial tibial plateau (Terrie subchondroplasty procedure). right knee arthroscopy with chondroplasty to two compartments, partial medial meniscectomy, excision of the plica (04/26/2015), Repair of anterior abdominal hernia(s) (ie, epigastric, incisional, ventral, umbilical, spigelian), any approach (ie, open, laparoscopic, robotic), recurrent, including implantation of mesh or other prosthesis when performed, total length of defect(s); 3, Rotator cuff repair. Discharge Vitals Heart Rate (Peripheral) 78 Blood Pressure 160/96 Height 184 cm Height 72 in Weight 112 kg Weight 246.917 lb BMI 33.08 What to do next Scheduled Follow-Up Appointments Wednesday 9:30 AM EST With: Where: [facility] Urology Surgical Services Wednesday 8:00 AM EST With: Where: [facility] Urology Surgical Services Wednesday 8:00 AM EST With: Where: FT.UROLOGY Wednesday 8:45 AM EST With: Miley Eddy MD Where: [facility] [address] [place] [address] [place] [address]- You Need to Schedule the Following Appointments Follow Up with Miley Eddy MD, URL, URO When: Comments: sched TRUS/bx Where: [address] [place] [address] [phone] You Need to Complete the Following US Prostate, [facility], 12/11/24, Routine, Transport Mode: Ambulatory, Reason: ELEVATED PSA, Elevated prostate specific antigen [PSA], ANTHEM, pp_set_radiology_subs pecialty, Luna - Alphonso Medications What How Much When Instructions New ciprofloxacin (Cipro 500 mg Tab) 1 Tablets By Mouth 2 times a day Duration: 3 Days start 1 day prior to procedure Pickup at [facility] Unchanged amlodipine (amLODIPine 10 mg Tab) 1 Tablets By Mouth Every day Contact prescribing physician if questions or concerns Unchanged ascorbic acid (Vitamin C 1000 mg oral tablet) 1 Tablets By Mouth Every day Contact prescribing physician if questions or concerns Unchanged aspirin 81 Milligram By Mouth Every day Contact prescribing physician if questions or concerns Unchanged aspirin (Aspirin 81 mg Tab-EC) 2 Tablets By Mouth Every day Contact prescribing physician if questions or concerns Unchanged atorvastatin (atorvastatin 10 mg Tab) 1 Tablets By Mouth Every day Contact prescribing physician if questions or concerns Unchanged docusate (Colace 100 mg Cap) 1 Capsules By Mouth 2 times a day Contact prescribing physician if questions or concerns Unchanged etodolac (etodolac 500 mg Tab) 1 Tablets By Mouth 2 times a day Contact prescribing physician if questions or concerns Unchanged famotidine (famotidine 20 mg Tab) 1 Tablets By Mouth 2 times a day Contact prescribing physician if questions or concerns Unchanged lisinopril (lisinopril 20 mg Tab) 1 Tablets By Mouth Every day Contact prescribing physician if questions or concerns Unchanged pantoprazole (Pantoprazole [address] Tab) By Mouth Every day Contact prescribing physician if questions or concerns Pharmacy Information [facility]: [address] [place], [place] [id number] [phone] Allergies No Known Allergies Problems Ongoing - Any problem that you are currently receiving treatment for. Elevated PSA Obesity Smoker Patient Survey You may receive a survey via text or e-mail asking about your office visit. Please share your experience with us by completing your survey. We appreciate your feedback and thank you for choosing us for your care. Education Materials Transrectal Ultrasound-Guided Prostate Biopsy, Care After The following information offers guidance on how to care for yourself after your procedure. Your health care provider may also give you more specific instructions. If you have problems or questions, contact your health care provider. What can I expect after the procedure? After the procedure, it is common to have: ??? Pain and discomfort near your rectum, especially while sitting. ??? [place]-colored urine due to small amounts of blood in your urine. ??? A burning feeling (more content not included)... Normal [facility] Urology Office/Clinic Noteon 10-25-2024 Urology Office/Clinic Note Urology Office/Clinic Note Chief Complaint elevated PSA HPI Staff 54yr old male pt referred by Derrek Wall for elevated PSA. PSA: 12/26/18 - 2.42 12/29/19 - 2.75 07/29/22 - 3.82 09/14/22 - 3.76 01/19/23 - 3.62 08/04/23 - 4.54 10/29/23 - 2.4 & 11.7% 09/12/24 - 4.0 & 9.3% Pt denies having any urinary issues. pt was unable to urinate at start of visit, pt stated hr urinated before leaving the house. PVR - 166 IPSS - 4 History of Present Illness Tests reviewed: reviewed PVR, referral records including external notes, labs, PSAs I have reviewed the previous health record information and history for this patient from external providers. I have reviewed and verified the staff HPI to be accurate for this encounter. Review of Systems PHQ Score Initial Depression Screen Score: 0 SCORE ROS - Provider Constitutional: denies weight loss, denies hot flashes. Eyes: denies eye problems. Gastrointestinal: denies nausea, denies vomiting. Cardiovascular: denies chest pain or angina. Integumentary: no dryness Musculoskeletal: denies musculoskeletal symptoms. ENMT: denies otolaryngeal symptoms. Respiratory: no shortness of breath. Heme/Lymph: denies easy bleeding tendency, denies easy bruising tendency. Psychiatric: no confusion, no anxiety. Genitourinary: See HPI. Physical Exam Vitals & Measurements HR: 78(Peripheral) BP: 160/96 HT: 72 in HT: 184 cm WT: 112 kg WT: 246.917 lb BMI: 33.08 General Appearance: alert, no distress, well nourished, well developed male. Assessment/Plan David is a 54 yo male new pt referred by Dr. Derrek Wall for elevated PSA. CATERINA 10. Not sexually active or interested in treatment. 1. Elevated PSA (R97.20: Elevated prostate specific antigen [PSA]) PSA: 12/26/18 - 2.42 12/29/19 - 2.75 09/21/22 - 3.82 09/14/22 - 3.76 01/19/23 - 3.62 08/04/23 - 4.54 10/29/23 - 2.4 & 11.7% 08/01/24 - 4.5 09/12/24 - 4.0 & 9.3% IPSS 4. Bladder scan 10/25/24 - 166 cc (voided prior to appt today). No sample provided for UA today. No bother with urination or hx of UTI, prostate infections. Denies gross hematuria. No known fam hx of pros ca. Sister had lung ca, , self inflicted. Thinks uncle had colon ca. Discussed implications of PSA. Advised pt an elevated PSA could indicate prostate cancer, prostate infection, prostate inflammation without infection, prostate manipulation, or benign prostate enlargement (BPH). Discussed the importance of monitoring PSA trend. Recent level remains stable but elevated for age. Admits to possible prostate manipulation prior blood draws but shares he is always lifting things. The options for management have been discussed, including close monitoring of the PSA over time vs prostate MRI which could lead to a biopsy vs prostate biopsy vs [facility]. Reports he has severe claustrophobia so would not be able to tolerate MRI even with Valium. Wishes to proceed with prostate biopsy. We discussed risks of prostate biopsy approaches including transrectal and transperineal. Risks of the procedure were discussed to include but not be limited to bleeding, pain, infection (higher, including sepsis with transrectal approach), difficulties with urination, injury to the urethra, prostate or bladder or surrounding tissues, injury from positioning on the table, swelling and bruising of the skin, and need for further procedures. Prefers transrectal approach. -Will schedule TRUS Prostate Biopsy. The procedural risks, benefits, details, and treatment alternatives have been discussed with the patient. These include minimal to severe bleeding, infection, blood in the semen, inability to urinate, and severe infection requiring hospitalization and IV antibiotics, among others. Full informed consent has been obtained. Will order Local anesthesia. -Abx sent, declined valium Follow-up With When Contact Information Surjit RICHARDS, Miley Stephens, URL, [facility] [address], [place] [address]- [phone] Additional Instructions: sched TRUS/bx Patient Education Transrectal Ultrasound-Guided Prostate Biopsy, Care After Transrectal Ultrasound-Guided Prostate Biopsy Prostate Cancer Screening I, Radha Martin, personally scribed for Dr. Eddy on 10/25/2024 09:19:36. . Documentation recorded by the scribe, Radha Martin, accurately reflects the services(s) I performed and decisions made by me. Authenticated by Dr. Eddy on 10/25/2024 09:23:11. Problem List/Past Medical History Ongoing Elevated PSA Obesity Smoker Historical No qualifying data Procedure/Surgical History arthroscopically aided treatment of a tibia insufficiency fracture medial tibial plateau (Terrie subchondroplasty procedure). right knee arthroscopy with chondroplasty to two compartments, partial medial meniscectomy, excision of the plica (04/26/2015), Repair of anterior abdominal hernia(s) (ie, epigastric, incisional, ventral, umbilical, spigeli (more content not included)... Normal [facility] Comment on above: Result Comment: Elec tronically Signed By: Miley Eddy MD\.br\Date and Time Signed: 10/25/24 09:23 EST\.br\Electronically Co-Signed By: Radha Martin\.br\Date and Time Co-Signed: 10/25/24 09:19 EST ALL CBC WITH AUTO DIFFon BASOPHILS ABSOLUTE AUTO 0.1 [facility] Basophils/100 WBC (Bld) 1.1 % 0.2 - 2.0 % [facility] Eosinophils/100 WBC (Bld) 8.1 % High 0.9 - 7.0 % [facility] Erythrocyte distribution width (RBC) [Ratio] 12.2 % 11.0 - 15.0 % [facility] Hematocrit (Bld) [Volume fraction] 43.5 % 42.0 - 54.0 % [facility] Hemoglobin (Bld) [Mass/Vol] 14.3 g/dL 14.0 - 18.0 g/dL [facility] IMMATURE GRANULOCYTES ABS AUTO 0.05 High [facility] Immature granulocytes/100 WBC (Bld) 0.6 % High 0.0 - 0.5 % [facility] Interpretation and review of laboratory results Abnormal [facility] LYMPHOCYTES ABSOLUTE AUTO 2.4 [facility] Lymphocytes/100 WBC (Bld) 27.5 % 20.5 - 60.0 % [facility] MCH (RBC) [Entitic mass] 33.3 pg 25.9 - 34.0 pg [facility] MCHC (RBC) [Mass/Vol] 32.9 g/dL 29.9 - 35.2 g/dL [facility] MCV (RBC) [Entitic vol] 101.2 fL High 80.0 - 94.0 fL [facility] MONOCYTES ABSOLUTE AUTO 1.1 High N [facility] Monocytes/100 WBC (Bld) 12.3 % High 1.7 - 12.0 % [facility] NEUTROPHILS ABSOLUTE AUTO 4.3 [facility] Neutrophils/100 WBC (Bld) 50.4 % 43.0 - 75.0 % [facility] Platelet mean volume (Bld) [Entitic vol] 11 fL 9.5 - 13.5 fL [facility] TBH EO # 0.7 [facility] TBH PLT 166 [facility] TBH RBC 4.3 Low [facility] TB WBC 8.6 [facility] CBC AUTO DIFFon 07-29-2022 BASO # 0.1 103/ul Normal 0.0-0.1 [facility] Comment on above: Performed By: #### C BC #### [facility] [address] [place] [address] Dr. Nathan Jones Basophils/100 WBC (Bld) 1.4 % Normal 0.2-2.0 [facility] Comment on above: Performed By: #### C BC #### [facility] [address] [address] [address] Nathan Jones EO # 0.9 103/ul Critically high 0.0-0.7 [facility] Comment on above: Performed By: #### C BC #### [facility] [address] [address] [address] Nathan Jones Eosinophils/100 WBC (Bld) 12.2 % Critically high 0.9-7.0 [facility] Comment on above: Performed By: #### C BC #### [facility] [address] [address] [address] Nathan Jones Erythrocyte distribution width (RBC) [Ratio] 12.3 % Normal 11.0-15.0 [facility] Comment on above: Performed By: #### C BC #### [facility] [address] [place] [address] Dr. Nathan Jones Hematocrit (Bld) [Volume fraction] 43.3 % Normal 42.0-54.0 [facility] Comment on above: Performed By: #### C BC #### [facility] [address] [place] [address] Dr. Nathan Jones Hemoglobin (Bld) [Mass/Vol] 14.6 g/dL Normal 14.0-18.0 [facility] Comment on above: Performed By: #### C BC #### [facility] [address] [place] [address] Dr. Nathan Jones IG # 0.01 10e3/ul Normal 0.00-0.03 [facility] Comment on above: Performed By: #### C BC #### [facility] [address] [place] [address] Dr. Nathan Jones IG % 0.1 % Normal 0.0-0.5 [facility] Comment on above: Performed By: #### C BC #### [facility] [address] [place] [address] Dr. Nathan Jones LYMPH # 2.9 103/ul Normal 1.2-3.8 [facility] Comment on above: Performed By: #### C BC #### [facility] [address] [place] [address] Dr. Nathan Jones Lymphocytes/100 WBC (Bld) 40.5 % Normal 20.5-60.0 [facility] Comment on above: Performed By: #### C BC #### [facility] [address] [place] [address] Dr. Nathan Jones MANUAL DIFF REQ NO Normal [facility] Comment on above: Performed By: #### C BC #### [facility] [address] [place] [address] Dr. Nathan Jones MCH (RBC) [Entitic mass] 33.5 pg Normal 25.9-34.0 [facility] Comment on above: Performed By: #### C BC #### [facility] [address] [address] [address] Nathan Jones MCHC (RBC) [Mass/Vol] 33.7 g/dL Normal 29.9-35.2 [facility] Comment on above: Performed By: #### C BC #### [facility] [address] [address] [address] Nathan Jones MCV (RBC) [Entitic vol] 99.3 fL Critically high 80.0-94 .0 [facility] Comment on above: Performed By: #### C BC #### [facility] [address] [address] [address] Nathan Jones MONO # 0.5 103/ul Normal 0.3-0.8 [facility] Comment on above: Performed By: #### C BC #### [facility] [address] [address] [address] Nathan Jones Monocytes/100 WBC (Bld) 6.8 % Normal 1.7-12.0 [facility] Comment on above: Performed By: #### C BC #### [facility] [address] [place] [address] Dr. Nathan Jones NEUT # 2.8 103/ul Normal 1.4-6.5 [facility] Comment on above: Performed By: #### C BC #### [facility] [address] [address] [address] Nathan Jones Neutrophils/100 WBC (Bld) 39.0 % Critically low 43.0-75.0 [facility] Comment on above: Performed By: #### C BC #### [facility] [address] [address] [address] Nathan Jones Platelet mean volume (Bld) [Entitic vol] 10.7 fL Normal 9.5-13.5 [facility] Comment on above: Performed By: #### C BC #### [facility] [address] [address] [address] Nathan Jones PLT 211 103/ul Normal 150-450 [facility] Comment on above: Performed By: #### C BC #### [facility] [address] [address] [address] Nathan Jones RBC 4.36 106/ul Critically low 4.70-6.10 [facility] Comment on above: Performed By: #### C BC #### [facility] [address] [address] [address] Nathan Jones WBC 7.1 103/ul Normal 4.0-11.0 [facility] Comment on above: Performed By: #### C BC #### [facility] [address] [address] [address] Nathan Jones LIPID PROFILEon 07-29-2022 CHOL-HDL RATIO NORM SEE BELOW Normal [facility] Comment on above: Result Comment: 3.3 - 4.4 LOW RISK 4.4 - 7.1 AVERAGE RISK 7.1 - 11.0 MODERATE RISK >11.0 HIGH RISK Performed By: #### L IPID, CMP #### [facility] [address] [place] [address] Dr. Nathan Jones Cholesterol [Mass/Vol] 261 mg/dL Critically high <=200 [facility] Comment on above: Performed By: #### L IPID, CMP #### [facility] [address] [place] [address] Dr. Nathan Jones Cholesterol in HDL [Mass/Vol] 55 mg/dL Normal 40-60 [facility] Comment on above: Performed By: #### L IPID, CMP #### [facility] [address] [address] [address] Nathan Jones Cholesterol in LDL [Mass/Vol] 164.2 mg/dL Normal [facility] Comment on above: Performed By: #### L IPID, CMP #### [facility] [address] [address] [address] Nathan Jones Cholesterol.total/Elicia sterol in HDL [Mass ratio] 4.7 {ratio} Normal [facility] Comment on above: Performed By: #### L IPID, CMP #### [facility] [address] [address] [address] Nathan Jones HDL NORMAL > or = 60 mg/dl - LO W CARDIOVASCULAR RISK <40 mg/dl - HIGH CARDIOVASCULAR RISK Normal [facility] Comment on above: Performed By: #### L IPID, CMP #### [facility] [address] [address] [address] Nathan Jones LDL CALC NORMAL SEE BELOW Normal [facility] Comment on above: Result Comment: <100 mg/dl OPTIMAL 100 - 129 mg/dl NEAR OR ABOVE OPTIMAL 130 - 159 mg/dl BORDERLINE HIGH 160 - 189 mg/dl HIGH >190 mg/dl VERY HIGH Performed By: #### L IPID, CMP #### [facility] [address] [address] [address] Nathan Jones Triglyceride [Mass/Vol] 209 mg/dL Critically high <=150 [facility] Comment on above: Performed By: #### L IPID, CMP #### [facility] [address] [address] [address] Nathan Jones VLDL CALC 41.8 mg/dL Normal [facility] Comment on above: Performed By: #### L IPID, CMP #### [facility] [address] [address] [address] Nathan Jones PROF 14(COMP METB)on 022 Albumin [Mass/Vol] 3.8 g/dL Normal 3.4-5.0 [facility] Comment on above: Performed By: #### L IPID, CMP #### [facility] [address] [place] [address] Dr. Nathan Jones Albumin/Globulin [Mass ratio] 1.1 {ratio} Normal [facility] Comment on above: Performed By: #### L IPID, CMP #### [facility] [address] [address] [address] Nathan Jones ALP [Catalytic activity/Vol] 60 U/L Normal 46-116 [facility] Comment on above: Performed By: #### L IPID, CMP #### [facility] [address] [address] [address] Nathan Jones ALT [Catalytic activity/Vol] 41 U/L Normal 16-63 [facility] Comment on above: Performed By: #### L IPID, CMP #### [facility] [address] [address] [address] Nathan Jones Anion gap [Moles/Vol] 12.2 mmol/L Normal [facility] Comment on above: Performed By: #### L IPID, CMP #### [facility] [address] [place] [address] Dr. Nathan Jones AST [Catalytic activity/Vol] 13 U/L Critically low 15-37 [facility] Comment on above: Performed By: #### L IPID, CMP #### [facility] [address] [place] [address] Dr. Nathan Jones Bilirubin [Mass/Vol] 0.4 mg/dL Normal 0.2-1.0 [facility] Comment on above: Performed By: #### L IPID, CMP #### [facility] [address] [place] [address] Dr. Nathan Jones Calcium [Mass/Vol] 8.9 mg/dL Normal 8.5-10.1 [facility] Comment on above: Performed By: #### L IPID, CMP #### [facility] [address] [place] [address] Dr. Nathan Jones Chloride [Moles/Vol] 107 mmol/L Normal 98-107 [facility] Comment on above: Performed By: #### L IPID, CMP #### [facility] [address] [place] [address] Dr. Nathan Jones CO2 [Moles/Vol] 26.8 mmol/L Normal 21.0-32.0 [facility] Comment on above: Performed By: #### L IPID, CMP #### [facility] [address] [place] [address] Dr. Nathan Jones Creatinine [Mass/Vol] 0.68 mg/dL Critically low 0.70-1.30 [facility] Comment on above: Performed By: #### L IPID, CMP #### [facility] [address] [place] [address] Dr. Nathan Jones EGFR-AF CAMEROONIAN >60 Normal >=60 [facility] Comment on above: Performed By: #### L IPID, CMP #### [facility] [address] [place] [address] Dr. Nathan Jones EGFR-NON AF CAMEROONIAN >60 Normal >=60 [facility] Comment on above: Performed By: #### L IPID, CMP #### [facility] [address] [place] [address] Dr. Nathan Jones Globulin (S) [Mass/Vol] 3.5 g/dL Normal [facility] Comment on above: Performed By: #### L IPID, CMP #### [facility] [address] [place] [address] Dr. Nathan Jones Glucose [Mass/Vol] 108 mg/dL Critically high 74-106 [facility] Comment on above: Performed By: #### L IPID, CMP #### [facility] [address] [place] [address] Dr. Nathan Jones Potassium [Moles/Vol] 4.0 mmol/L Normal 3.5-5.1 [facility] Comment on above: Performed By: #### L IPID, CMP #### [facility] [address] [place] [address] Dr. Nathan Jones Protein [Mass/Vol] 7.3 g/dL Normal 6.4-8.2 [facility] Comment on above: Performed By: #### L IPID, CMP #### [facility] [address] [place] [address] Dr. Nathan Jones Sodium [Moles/Vol] 142 mmol/L Normal 136-145 [facility] Comment on above: Performed By: #### L IPID, CMP #### [facility] [address] [place] [address] Dr. Nathan Jones Urea nitrogen [Mass/Vol] 13.0 mg/dL Normal 7.0-18.0 [facility] Comment on above: Performed By: #### L IPID, CMP #### [facility] [address] [place] [address] Dr. Nathan Jones Urea nitrogen/Creatinine [Mass ratio] 19.1 mg/mg Normal [facility] Comment on above: Performed By: #### L IPID, CMP #### [facility] [address] [address] [address] Nathan Jones Vital Signs Date Time Vital Sign Value Performing Clinician Facility 05-02-2025 11:16-0400 Body height 180.34 cm Derrek Ball DO Work Phone: [facility] 05-02-2025 11:16-0400 Body mass index (BMI) [Ratio] 35.4 kg/m2 Derrek Ball DO Work Phone: [facility] 05-02-2025 11:16-0400 Body weight 115.43 kg Derrek Ball DO Work Phone: [facility] 05-02-2025 11:16-0400 Diastolic blood pressure 89 mm[Hg] Derrek Ball DO Work Phone: [facility] 05-02-2025 11:16-0400 Heart rate 90 /min Derrek Ball DO Work Phone: [facility] 05-02-2025 11:16-0400 Respiratory rate 12 /min Derrek Ball DO Work Phone: [facility] 05-02-2025 11:16-0400 Systolic blood pressure 151 mm[Hg] Derrek Ball DO Work Phone: [facility] 04-17-2025 14:34-0400 Body height 180.3 cm Rosalio Holbrook PA Work Phone: [facility] 04-17-2025 14:34-0400 Body mass index (BMI) [Ratio] 35.62 kg/m2 Rosalio Holbrook PA Work Phone: [facility] 04-17-2025 14:34-0400 Body weight 115.85 kg Rosalio Holbrook PA Work Phone: [facility] 02-20-2025 09:53-0400 Body height 180.34 cm [facility] 02-20-2025 09:53-0400 Body mass index (BMI) [Ratio] 34.9 kg/m2 [facility] 02-20-2025 09:53-0400 Body weight 113.56 kg [facility] 02-20-2025 09:53-0400 Diastolic blood pressure 91 mm[Hg] [facility] 02-20-2025 09:53-0400 Heart rate 79 /min [facility] 02-20-2025 09:53-0400 Respiratory rate 12 /min [facility] 02-20-2025 09:53-0400 Systolic blood pressure 151 mm[Hg] [facility] 01-01-2025 14:53-0500 Diastolic blood pressure 109 mm[Hg] Miley Lue [facility] 01-01-2025 14:53-0500 Mean blood pressure 131 mm[Hg] Miley Lue [facility] 01-01-2025 14:53-0500 Systolic blood pressure 174 mm[Hg] Miley Lue [facility] 01-01-2025 14:42-0500 Blood Pressure Location Miley Lue [facility] 01-01-2025 14:42-0500 Diastolic blood pressure 116 mm[Hg] Miley Lue [facility] 01-01-2025 14:42-0500 Heart rate 78 /min Miley Lue [facility] 01-01-2025 14:42-0500 Respiratory rate 16 /min Miley Lue [facility] 01-01-2025 14:42-0500 Systolic blood pressure 181 mm[Hg] Miley Lue [facility] 10-25-2024 08:39-0500 Blood Pressure Location Miley Lue [facility] 10-25-2024 08:39-0500 Diastolic blood pressure 96 mm[Hg] Miley Lue [facility] 10-25-2024 08:39-0500 Heart rate 78 /min Miley Lue [facility] 10-25-2024 08:39-0500 Systolic blood pressure 160 mm[Hg] Miley Lue [facility] 09-06-2024 13:27-0400 Body height 180.3 cm [employer] Work Phone: [facility] 09-06-2024 13:27-0400 Body mass index (BMI) [Ratio] 33.61 kg/m2 [employer] Work Phone: [facility] 09-06-2024 13:27-0400 Body temperature 96.01 [degF] Flori Bitly Work Phone: [facility] 09-06-2024 13:27-0400 Body weight 109.32 kg [employer] Work Phone: [facility] 09-06-2024 13:27-0400 Diastolic blood pressure 74 mm[Hg] Flori Bitly Work Phone: [facility] 09-06-2024 13:27-0400 Respiratory rate 16 /min [employer] Work Phone: [facility] 09-06-2024 13:27-0400 SaO2% (BldA) [Mass fraction] 98 % [employer] Work Phone: [facility] 09-06-2024 13:27-0400 Systolic blood pressure 136 mm[Hg] Flori Puri Unruly Work Phone: [facility] 08-02-2024 13:22-0400 Body height 180.3 cm Flori Puri Unruly Work Phone: [facility] 08-02-2024 13:22-0400 Body mass index (BMI) [Ratio] 33.72 kg/m2 Flori McknightRentMama Work Phone: [facility] 08-02-2024 13:22-0400 Body weight 109.68 kg Flori McknightRentMama Work Phone: [facility] 08-02-2024 13:22-0400 Diastolic blood pressure 82 mm[Hg] Flori McknightRentMama Work Phone: [facility] 08-02-2024 13:22-0400 Heart rate 67 /min Florijustino M[employer]nightRentMama Work Phone: [facility] 08-02-2024 13:22-0400 Respiratory rate 14 /min Florijustino McknightRentMama Work Phone: [facility] 08-02-2024 13:22-0400 SaO2% (BldA) [Mass fraction] 98 % Florijustino McknightRentMama Work Phone: [facility] 08-02-2024 13:22-0400 Systolic blood pressure 140 mm[Hg] Flori McknightRentMama Work Phone: [facility] 07-31-2024 14:57-0400 Body height 182.88 cm [facility] 07-31-2024 14:57-0400 Body mass index (BMI) [Ratio] 32.5 kg/m2 [facility] 07-31-2024 14:57-0400 Body weight 108.86 kg [facility] 07-31-2024 14:57-0400 Diastolic blood pressure 88 mm[Hg] [facility] 07-31-2024 14:57-0400 Heart rate 72 /min [facility] 07-31-2024 14:57-0400 SaO2% (BldA) [Mass fraction] 97 % [facility] 07-31-2024 14:57-0400 Systolic blood pressure 150 mm[Hg] [facility] 02-08-2024 15:43-0400 Body height 182.88 cm [facility] 02-08-2024 15:43-0400 Body mass index (BMI) [Ratio] 32.4 kg/m2 [facility] 02-08-2024 15:43-0400 Body weight 108.46 kg [facility] 02-08-2024 15:43-0400 Diastolic blood pressure 83 mm[Hg] [facility] 02-08-2024 15:43-0400 Heart rate 67 /min [facility] 02-08-2024 15:43-0400 Respiratory rate 12 /min [facility] 02-08-2024 15:43-0400 Systolic blood pressure 140 mm[Hg] [facility] 09-09-2023 09:00-0400 Body height 182.88 cm Derrek Ball Other [facility] Other 09-09-2023 09:00-0400 Body mass index (BMI) [Ratio] 32.76 kg/m2 Derrek Ball Other [facility] Other 09-09-2023 09:00-0400 Body weight 109.59 kg Derrek Ball Other [facility] Other 09-09-2023 09:00-0400 Diastolic blood pressure 82 mm[Hg] Derrek Ball Other [facility] Other 09-09-2023 09:00-0400 Respiratory rate 12 /min Derrek Ball Other [facility] Other 09-09-2023 09:00-0400 Systolic blood pressure 139 mm[Hg] Derrek Ball Other [facility] Other 08-23-2023 13:15-0400 Body height 182.88 cm Derrek Ball Other [facility] Other 08-23-2023 13:15-0400 Body mass index (BMI) [Ratio] 32.57 kg/m2 Derrek Ball Other [facility] Other 08-23-2023 13:15-0400 Body weight 108.95 kg Derrek Ball Other [facility] Other 08-23-2023 13:15-0400 Diastolic blood pressure 86 mm[Hg] Derrek Ball Other [facility] Other 08-23-2023 13:15-0400 Respiratory rate 12 /min Derrek Ball Other [facility] Other 08-23-2023 13:15-0400 Systolic blood pressure 149 mm[Hg] Derrek Ball Other [facility] Other 08-04-2023 09:00-0400 Body height 182.88 cm Derrek Ball Other [facility] Other 08-04-2023 09:00-0400 Body mass index (BMI) [Ratio] 31.16 kg/m2 Derrek Ball Other [facility] Other 08-04-2023 09:00-0400 Body weight 104.24 kg Derrek Ball Other [facility] Other 08-04-2023 09:00-0400 Diastolic blood pressure 87 mm[Hg] Derrek Ball Other [facility] Other 08-04-2023 09:00-0400 Respiratory rate 12 /min Derrek Ball Other [facility] Other 08-04-2023 09:00-0400 Systolic blood pressure 139 mm[Hg] Derrek Wall Other [facility] Other 02-01-2023 10:30-0400 Body height 182.88 cm Derrek Wall Other [facility] Other 02-01-2023 10:30-0400 Body mass index (BMI) [Ratio] 30.3 kg/m2 Derrek Wall Other [facility] Other 02-01-2023 10:30-0400 Body weight 101.33 kg Derrek Wall Other [facility] Other 02-01-2023 10:30-0400 Diastolic blood pressure 82 mm[Hg] Derrek Wall Other [employer] Other 02-01-2023 10:30-0400 Respiratory rate 12 /min Derrek Wall Other [employer] [facility] Other 02-01-2023 10:30-0400 Systolic blood pressure 143 mm[Hg] Derrek Wall Other [employer] Other Encounters Encounter Date Encounter Type Care Provider Facility Start: 07-04-2025 ambulatory Miley Eddy Facility:[facility] Start: 05-02-2025 End: 05-02-2025 ambulatory Derrek Wall DO Work Phone: [facility] Work Phone: Start: 05-02-2025 End: 05-02-2025 Patient encounter procedure Derrek Opal -[facility] Work Phone: Start: 05-02-2025 End: 05-02-2025 Patient encounter status Derrek Opal [facility] Start: 04-25-2025 Non-patient / Non-visit VARSHA Fisher DO -[place] [facility] [employer] Work Phone: Start: 04-25-2025 ambulatory JESSENIA BAIRD Facil ity:[facility] Start: 04-17-2025 End: 04-17-2025 Patient encounter procedure Rosalio VALENCIA Work Phone: [facility] Comment on above: Primary osteoarthrit is of left knee (Primary Dx); Pre-op examination Start: 04-17-2025 End: 04-17-2025 Preprocedural examination done Rosalio VALENCIA Work Phone: [facility] Start: 04-17-2025 End: 04-17-2025 ambulatory ROSALIO HOLBROOK Not Available Start: 04-17-2025 End: 04-17-2025 Bamboo flowsheet Rosalio Holbrook PA Work Phone: [facility] Start: 04-17-2025 End: 04-17-2025 Bamboo flowsheet Rosalio Holbrook PA Work Phone: [facility] Start: 04-16-2025 ambulatory JESSENIA Analia BAIRD Facil it:[facility] Start: 03-07-2025 End: 03-07-2025 Bamboo flowsheet Jr. Jessenia Helms Stepanic DO Work Phone: [facility] Start: 03-07-2025 End: 03-07-2025 Bamboo flowsheet Jr. Jessenia Helms Stepanic DO Work Phone: [facility] Start: 03-07-2025 End: 03-07-2025 Office outpatient visit 40 minutes Jessenia Analia Stepanic DO Work Phone: [facility] Comment on above: Acute pain of left k nee (Primary Dx); Primary osteoarthritis of left knee Start: 03-07-2025 End: 03-07-2025 ambulatory JESSENIA PURVIS Not Available Start: 02-27-2025 End: 02-27-2025 ambulatory ROSALIO HOLBROOK Not Available Start: 02-26-2025 End: 02-27-2025 Telephone encounter Jessenia Analia Brie DO Work Phone: [facility] Comment on above: MRI Start: 02-22-2025 End: 02-22-2025 Bamboo flowsheet Rosalio VALENCIA Work Phone: [facility] Start: 02-22-2025 End: 02-22-2025 Bamboo flowsheet Rosalio VALENCIA Work Phone: [facility] Start: 02-22-2025 End: 02-22-2025 Office outpatient visit 25 minutes Rosalio VALENCIA Work Phone: [facility] Comment on above: Acute pain of left k nee (Primary Dx); Internal derangement of left knee Start: 02-22-2025 End: 02-22-2025 ambulatory ROSALIO HOLBROOK Not Available Start: 02-20-2025 End: 02-20-2025 ambulatory [facility] Work Phone: Start: 02-20-2025 End: 02-20-2025 Patient encounter procedure [facility] Work Phone: Start: 01-01-2025 End: 01-01-2025 ambulatory Miley M. Lue Facility:[facility] Start: 01-01-2025 End: 01-01-2025 Patient encounter procedure Miley M. Lue [facility] Start: 12-27-2024 End: 12-27-2024 ambulatory Miley M. Lue Facility:[facility] Start: 12-27-2024 End: 12-27-2024 Patient encounter procedure Miley M. Lue [facility] Start: 12-11-2024 End: 12-11-2024 ambulatory Miley M. Lue Facility:[facility] Start: 12-11-2024 End: 12-11-2024 Patient encounter procedure Miley M. Lue [facility] Start: 10-25-2024 End: 10-25-2024 ambulatory Miley Eddy Facility:[facility] Start: 10-25-2024 End: 10-25-2024 Patient encounter procedure Miley Eddy [facility] Start: 09-21-2024 ambulatory Miley Eddy Facility:[facility] Start: 09-06-2024 End: 09-06-2024 Bamboo flowsheet Flori Puri DO Work Phone: [facility] Start: 09-06-2024 End: 09-06-2024 Bamboo flowsheet Flori Puri DO Work Phone: [facility] Start: 09-06-2024 End: 09-06-2024 Postop follow up visit related to original px Flori Puri DO Work Phone: [facility] Comment on above: S/P umbilical hernia repair, follow-up exam (Primary Dx) Start: 09-06-2024 End: 09-06-2024 ambulatory FLORI PURI Not Available Start: 08-24-2024 End: 08-24-2024 Clinisync Result Encounter Flori Puri DO Work Phone: [facility] Unsolicited Start: 08-24-2024 End: 08-24-2024 Clinisync Result Encounter Flori Puri DO Work Phone: [facility] Unsolicited Start: 08-02-2024 End: 08-02-2024 Bamboo flowsheet Flori Jaxson DO Work Phone: [facility] Start: 08-02-2024 End: 08-02-2024 Bamboo flowsheet Flori Jaxson DO Work Phone: [facility] Start: 08-02-2024 End: 08-02-2024 Office outpatient new 45 minutes Flori Mcknightett DO Work Phone: [facility] Comment on above: Umbilical hernia wit hout obstruction and without gangrene (Primary Dx) Start: 08-02-2024 End: 08-02-2024 ambulatory FLORI PURI Not Available Start: 07-31-2024 End: 07-31-2024 ambulatory [facility] Work Phone: Start: 07-31-2024 End: 07-31-2024 Encounter for general adult medical examination without abnormal findings [facility] Start: 07-31-2024 End: 07-31-2024 Patient encounter procedure [facility] Work Phone: Start: 07-28-2024 Patient encounter status [facility] Start: 02-08-2024 End: 02-08-2024 ambulatory [facility] Work Phone: Start: 02-08-2024 End: 02-08-2024 Patient encounter procedure [facility] Work Phone: Start: 11-26-2023 End: 11-26-2023 ambulatory Derrek Ball Other [employer] [facility] Other Start: 11-26-2023 Telephone encounter Derrek Ball [facility] Start: 11-02-2023 End: 11-02-2023 ambulatory Derrek Ball Other [employer] [facility] Other Start: 11-02-2023 Telephone encounter Derrek Ball [facility] Start: 09-09-2023 End: 09-09-2023 ambulatory Derrek Ball Other [employer] [facility] Other Start: 09-09-2023 Office outpatient vi sit 15 minutes Derrek Ball [facility] Start: 09-09-2023 Telephone encounter Derrek Ball FP [facility] Start: 08-24-2023 End: 08-24-2023 ambulatory Derrek Ball Other [facility] Other Start: 08-24-2023 Telephone encounter Derrek Ball FP [facility] Start: 08-23-2023 End: 08-23-2023 ambulatory Derrek Opal Other [employer] [facility] Other Start: 08-23-2023 Office outpatient vi sit 15 minutes Derrek Wall [facility] Start: 08-19-2023 End: 08-19-2023 ambulatory Derrek Wall Other [facility] Other Start: 08-19-2023 Telephone encounter Derrek Wall [facility] Start: 08-04-2023 End: 08-04-2023 ambulatory Derrek Wall Other [facility] Other Start: 08-04-2023 Encounter for genera l adult medical examination without abnormal findings Derrek Wall [facility] Start: 08-04-2023 Periodic preventive med est patient 40-64yrs Derrek Wall [facility] Start: 08-04-2023 Telephone encounter Derrek Wall [facility] Start: 07-20-2023 End: 07-20-2023 ambulatory Derrek Wall Other [employer] [facility] Other Start: 07-20-2023 Telephone encounter Derrek Wall [facility] Start: 02-01-2023 End: 02-01-2023 ambulatory Derrek Wall Other [employer] [facility] Other Start: 02-01-2023 Office outpatient vi sit 15 minutes Derrek Wall [facility] Start: 01-19-2023 End: 01-20-2023 ambulatory NONE LISTED REQUEST Facility:[facility] Start: 09-14-2022 End: 09-15-2022 ambulatory NONE LISTED REQUEST Facility:[facility] Start: 07-30-2022 Encounter for genera l adult medical examination without abnormal findings DR DERREK WALL [facility] Start: 07-29-2022 End: 07-30-[address] DERREK WALL Facility:[facility] Start: 07-29-2022 End: 07-30-2022 Encounter for general adult medical examination without abnormal findings DR DERREK WALL Facility:[facility] Start: 07-28-2022 Adult health examination Edmundo Wall Other [employer] [facility] [employer] Other Start: 08-31-2019 Preoperative cardiovascular examination Derrek Wall Other [employer] [facility] Other Start: 08-31-2019 Problem, abnormal examination Derrek Wall Other [employer] Other Procedures Date Procedure Procedure Detail Performing Clinician Start: 02-22-2025 Arthrocentesis aspir &/inj major jt/bursa w/o us Rosalio VALENCIA Work Phone: Start: 02-22-2025 Radiologic examinati on knee 1/2 views Rosalio VALENCIA Work Phone: Start: 12-11-2024 Transrectal biopsy o f prostate using ultrasound guidance Miley Eddy Start: 08-24-2024 ALL CBC WITH AUTO DIFF Flori Puri DO Work Phone: Start: 01-19-[address] NAKUL Lama ISTED REQUEST Comment on above: Performed By: #### D ATPSA #### [facility] [address] [place] [address] Dr. Nathan Jones Start: 09-14-[address] NAKUL Lama ISTED REQUEST Comment on above: Performed By: #### D ATPSA #### [facility] [address] [place] [address] Dr. Nathan Jones Start: 07-29-[address] NAKUL Lama ISTED REQUEST Comment on above: Performed By: #### P SASC #### [facility] [address] [place] [address] Dr. Nathan Jones Start: 12-26-2018 Screening for malign ant neoplasm of colon Derrek Wall Other Start: 12-22-2016 General examination of patient Derrek Wall Other Start: 04-26-2015 arthroscopically aid ed treatment of a tibia insufficiency fracture medial tibial plateau (Terrie subchondroplasty procedure). right knee arthroscopy with chondroplasty to two compartments, partial medial meniscectomy, excision of the plica Miley Eddy Depression screening Nata Wall Other Repair of anterior a bdominal hernia(s) (ie, epigastric, incisional, ventral, umbilical, spigelian), any approach (ie, open, laparoscopic, robotic), recurrent, including implantation of mesh or other prosthesis when performed, total length of defect(s); 3 Miley Eddy Repair of musculoten dinous cuff of shoulder Miley Eddy Comment on above: left shoulder Screening for malign ant neoplasm of prostate Derrek Wall Other Plan of Treatment Date Care Activity Detail Author Start: 07-09-2025 Influenza vaccination Influenz a Vaccine (Season Ended) [facility] Start: 05-28-2025 End: 05-28-2025 Patient encounter procedure 05/28/2025 2:00 PM EDT Office Visit [facility] [address] [place] [address] Avila Pride NP [address] [place] [address] [facility] Start: 04-17-2025 End: 04-17-2025 Patient encounter procedure [facility] Comment on above: Primary osteoarthrit is of left knee (Primary Dx); Pre-op examination Start: 03-07-2025 End: 03-07-2025 Patient encounter procedure [facility] Comment on above: Arrived Start: 02-27-2025 End: 02-27-2025 Professional / ancillary services management 02/27/2025 3:00 PM EDT Ancillary Procedure [facility] [address] [place] [address] [facility] Start: 02-22-2025 End: 02-22-2025 Patient encounter procedure 02/22/2025 1:45 PM EDT Office Visit [facility] [address] [place] [address] Rosalio Holbrook PA [address] [place] [address] Acute pain of left knee (Primary Dx) [facility] Comment on above: Acute pain of left k nee (Primary Dx) Start: 09-06-2024 End: 09-06-2024 Patient encounter procedure 09/06/2024 1:15 PM EDT Office Visit [facility] [address] [place] [address] JaxsonFlori camara, DO [address] [place] [address] Arrived [facility] Comment on above: Arrived Start: 08-02-2024 End: 08-02-2024 Patient encounter procedure 08/02/2024 1:30 PM EDT Office Visit [facility] [address] [place] [address] Jaxson, Flori, DO [address] [place] [address] Arrived [facility] Comment on above: Arrived Start: 07-09-2024 Influenza vaccination Influenza Vacc ine (#1) [facility] Start: 1970 Screening for malign ant neoplasm of colon [facility] Comprehensive metabo lic 2000 panel - Serum or Plasma [facility] MR Knee - left WO contrast MR knee left wo IV contrast Imaging Routine Acute pain of left knee Internal derangement of left knee Ordered: 02/22/2025 [facility] Work Phone: Comment on above: Ordered: 02/22/2025 Patient Education Low back pain in adults [facility] Work Phone: XR Knee - left 4 Views [facility] XR Lumbar spine 2 or [address] [facility] Immunizations Immunization Date Immunization Notes Care Provider Fa cility 10-11-2021 SARS-CoV-2 (COVID-19 ) mRNA BNT-162b2 vax Miley Lue [facility] 02-07-2021 COVID-19, mRNA, LNP- S, PF, 30 mcg/0.3 mL dose Miley Lue [facility] Comment on above: Reason for Medicatio n: Other (see comment) 01-17-2021 COVID-19, mRNA, LNP- S, PF, 30 mcg/0.3 mL dose Miley Lue [facility] Comment on above: Reason for Medicatio n: Other (see comment) Payers Date Payer Category Payer [employer] [place] [facility] [id number] [id number] 2021 Unknown BCBS BCBS [id number] 2021-Present [phone] [address] [place] [address] [id number] 1968 Unknown [id number] 2.16.840.1.955609.3.579.2. 593 1968 Unknown [id number] 2.16.840.1.204058.3.579.2. 727 1968 Unknown [id number] 2.16.840.1.198741.3.579.2. 727 1968 Unknown [id number] 2.16.840.1.695144.3.579.2. 727 1968 Unknown [id number] 2.16.840.1.289937.3.579.2. 727 1968 Unknown [id number] 2.16.840.1.510571.3.579.2. 727 1968 Unknown [id number] 2.16.840.1.440088.3.579.2. 9 1968 Unknown [id number] 2.16.840.1.643206.3.579.2. 1258 1968 Unknown [id number] 2.16.840.1.105326.3.579.2. 9 1968 Unknown [id number] 2.16.840.1.370477.3.579.2. 1258 1968 Unknown [id number] 2.16.840.1.591960.3.579.2. 1258 1968 Unknown [id number] 2.16.840.1.835805.3.579.2. 1258 1968 Unknown [id number] 2.16.840.1.382729.3.579.2. 1258 1968 Unknown [id number] 2.16.840.1.756736.3.579.2. 8 1968 Unknown [id number] 2.16.840.1.736572.3.579.2. 718 1959 Self-pay 1961 Unknown [id number] Unknown [id number] 2.16.840.1.356330.3.579.2. 593 Unknown [id number] 2.16.840.1.512636.3.579.2. 593 Social History Date Type Detail Facility Start: 08-02-2024 End: 04-17-2025 Sex Assigned At [facility] Start: 1970 Sex Assigned At Male [facility] Start: 07-31-2024 End: 03-07-2025 Tobacco smoking status SCIS Ex-smoker (finding) [facility] Comment on above: has quit before and started back up History of tobacco use Current smoker [facility] History of tobacco use Cigarette Smoker N [facility] Start: 08-02-2024 End: 04-17-2025 History of Social function [facility] Start: 1970 Sex assigned at Not on file N [facility] Start: 08-02-2024 Gender identity Identifies as male gender (finding) [facility] Tobacco smoking stat NHIS Tobacco smoking consumption unknown [facility] Start: 02-20-2025 Sex Male (finding) [facility] Start: 03-07-2025 Tobacco use and exposure Smokeless tobacco non-user [facility] Start: 04-17-2025 Alcoholic beverage intake Current drinker of alcohol (finding) [facility] Functional Status Date Assessment Result Facility 01-01-2025 Functional Status N/A [facility] 12-11-2024 Functional Status N/A [facility] 10-25-2024 Functional Status N/A [facility] Clinical Notes 02-01-2023 to 04-25-2025 ERIK Ruby - 04/17/2025 2:30 PM EDTJr. Jessenia Baird DO - 03/07/2025 8:30 AM EDTTelephone Encounter - Miley Ray - 02/26/2025 10:53 AM EDTMattERIK Mcnulty - 02/22/2025 1:45 PM EDT Note Date & Type Note Facility 04-25-2025 Note PROCEDURE: XR Bone L ength Studies Scanograms COMPARISON: 02/06/2021. HISTORY: Pre-op testing for total left knee FINDINGS: BONES:No acute fracture or dislocation. Mild bilateral hip osteoarthropathy. Moderate bilateral knee osteoarthropathy with joint space narrowing right greater than left. Focal sclerosis identified in the right medial tibial metadiaphysis measuring 3.2 x 1.8 cm, this appears grossly stable from the prior exam but remains indeterminate SOFT TISSUES:Negative. No visible soft tissue swelling. EFFUSION:None visible. OTHER: The right leg measures 951 mm from the femoral head to the tibial plafond The left leg measures 956 mm from the femoral head to the tibial plafond IMPRESSION: The left leg is 5 mm longer than the right Stable but indeterminate sclerotic lesion right medial tibial diaphysis Final Dictated by: Varsha Wise MD Dictated DT/TM: 04/26/25 8:21 Signed (Electronic Signature): Varsha Wise MD 04/26/25 8:26 am Technologist: EM,[facility] Comment on above: Order Comment: Boy hernandez leg length-NO measurements needed 04-17-2025 History of Presen t illness Narrative Images from the original note were not included. GENERAL HISTORY AND PHYSICAL: NAME: David Mosqueda : 1970 HISTORY OF PRESENT ILLNESS: David Mosqueda is an 54 y.o. @ male. Here for surgery instructions left total knee arthroplasty May 14 @ [facility]. PAST MEDICAL HISTORY: Past Medical History: Diagnosis Date Hypertension (CMS/HCC) Reflux esophagitis PAST SURGICAL HISTORY: Past Surgical History: Procedure Laterality Date KNEE ARTHROSCOPY W/ MENISCAL REPAIR Right UMBILICAL HERNIA REPAIR 08/29/2024 SOCIAL HISTORY: Social History Occupational History Not on file Tobacco Use Smoking status: Former Types: Cigarettes Smokeless tobacco: Never Substance and Sexual Activity Alcohol use: Yes Drug use: Never Sexual activity: Not on file ALLERGIES: No Known Allergies MEDICATIONS: Current Outpatient Medications Medication Instructions amLODIPine (NORVASC) 10 mg, Daily Iron Polysacch [id number] (Poly-Iron 150 Forte) 150-0.025-1 MG capsule 1 tablet, Oral, Daily lisinopril 20 mg, Daily Misc. Devices misc Dispense: Front Wheeled walker use 90 days. Ht: 5'11 Weight: 255/4 pantoprazole (PROTONIX) 40 mg, Daily before breakfast vitamin C 1,000 mg, Daily REVIEW OF SYSTEMS: Review of Systems Constitutional: Negative for fatigue, fever and unexpected weight change. Eyes: Negative for redness and visual disturbance. Gastrointestinal: Negative for abdominal pain. Denies Indigestion Musculoskeletal: See note: Skin: Negative for color change and rash. Neurological: Negative for light-headedness and numbness. Vitals: Body mass index is 35.62 kg/m . PHYSICAL EXAM: Physical Exam Constitutional: General: He is not in acute distress. Appearance: Normal appearance. HENT: Head: Normocephalic and atraumatic. Right Ear: External ear normal. Left Ear: External ear normal. Nose: Nose normal. No rhinorrhea. Mouth/Throat: Mouth: Mucous membranes are moist. Dentition: No gingival swelling or dental abscesses. Pharynx: Oropharynx is clear. No pharyngeal swelling or posterior oropharyngeal erythema. Eyes: Extraocular Movements: Extraocular movements intact. Conjunctiva/sclera: Conjunctivae normal. Cardiovascular: Rate and Rhythm: Normal rate and regular rhythm. Pulses: Normal pulses. Heart sounds: Normal heart sounds. No murmur heard. Pulmonary: Effort: Pulmonary effort is normal. No respiratory distress. Breath sounds: Normal breath sounds. No wheezing or rhonchi. Abdominal: Palpations: Abdomen is soft. Tenderness: There is no abdominal tenderness. Musculoskeletal: Cervical back: Normal range of motion and neck supple. Lymphadenopathy: Cervical: No cervical adenopathy. Skin: General: Skin is warm and dry. Findings: No erythema or rash. Neurological: General: No focal deficit present. Mental Status: He is alert and oriented to person, place, and time. Psychiatric: Mood and Affect: Mood normal. Behavior: Behavior normal. Orders Placed This Encounter Procedures Ambulatory referral to Physical Therapy Home therapy for (L) TKA Standing Status: Future Expected Date: 04/18/2025 Expiration Date: 10/17/2025 Referral Priority: Routine Referral Type: Rehabilitation - Outpatient Referral Reason: Specialty Services Required Referred to Provider: Lonnie Martinez PT Requested Specialty: Physical Therapy Number of Visits Requested: 1 ASSESSMENT: ICD-10-CM 1. Primary osteoarthritis of left knee M17.12 Ambulatory referral to Physical Therapy 2. Pre-op examination Z01.818 Misc. Devices misc Iron Polysacch [id number] (Poly-Iron 150 Forte) 150-0.025-1 MG capsule Discussed patient's need for a front wheel walker: The patient has mobility limitations that significantly impair their ability to participate in activities of daily living without the risk of fall. The patient would benefit from this walker to reasonably complete activities of daily living such as prepping and cooking meals, grocery shopping , getting too and from the bathroom in an acceptable timeframe given current limitations. To prevent risk of fall patient can not use crutches safely as an alternative. As the patient is considered a fall risk, the utilization of a front-wheeled walker would mitigate the risk for height morbidity and mortality secondary to the possibility of fall. After further discussion at bedside the patient is able to safely use a walker in the benefit of walker use would improve her functional mobility to resolve deficit discussed above in her diagnosis. PLAN: This patient presents for preadmission testing for upcoming surgery. Complete history with medical, surgery, and current allergy and medication list obtained. Consent for surgery signed and witnessed after verbal consent to perform surgery received. All questions answered and proposed surgery scheduled. SURGERY INSTRUCTIONS April DR. WALL April PST April @ 10:00 MIRA NOTIFIED PRE CERT SENT WALKER SENT TO [facility]RE[facility] SENT TO MEDICINE AGUEDA MEJIA Follow up in about 6 weeks (around 05/28/2025) for Post-Op May 28 @ 2:[address] [place] with Stuart Holbrook. documented in this encounter [facility] 03-07-2025 History of Presen t illness Narrative Images from the original note were not included. HISTORY OF PRESENT ILLNESS: EST PT David Mosqueda is an 54 y.o. @ male. (EST PT) (LAST APPT W/ STUART) - RECHECK (L) KNEE ; S/P CORTISONE INJ 02/22/25 (1 WK, 6 DAYS) ; S/P [facility] 02/22/25 IN EP[facility] XRAY 01/01/21 IN [facility] MRI 02/27/25 IN [facility] NO MDP / PREDNISONE CORTISONE INJ 02/22/25 NO PT NO PAIN MGMT PT IS OFF WORK - RETURNS TO WORK TOMORROW. S/P CORTISONE INJ - NO RELIEF. ADMITS ACHING THE NIGHT FOLLOWING INJ. AMBULATING WITH ALTERED GAIT. PRESENTS WEARING KNEE BRACE - ADMITS DISCOMFORT WITH CURRENT BRACE - WEARING MOST OF THE TIME. CONSTANT POSTERIOR / MEDIAL DISCOMFORT - WORSE WITH WB / TURNING LEG INWARD. INTERMITTENT SHARP PAIN UPON WB. DENIES WAKING HS. ADMITS LOW BACK PAIN S/P PROLONGED STANDING. ADMITS RADIATION INTO CALF. DENIES SWELLING / GRINDING / POPPING / GIVING OUT. DENIES N/T. DENIES WEAKNESS / INSTABILITY. TYL / IBU - SOME RELIEF - NOT CURRENTLY TAKING. ICING / ELEVATING - SOME RELIEF. TRIED HEATING / VOLTAREN - NO RELIEF. PREVIOUSLY SEEN BY BRAULIO / DR. GALEANO FOR (R) KNEE - WAS TOLD HE NEEDED A (R) TKA Lower Extremity Issue The symptoms are aggravated by weight bearing. ALLERGIES: No Known Allergies HOME MEDICATIONS: Current Outpatient Medications Medication Instructions amLODIPine (NORVASC) 10 mg, Daily lisinopril 20 mg, Daily LOW-DOSE ASPIRIN PO 81 mg, Daily pantoprazole (PROTONIX) 40 mg, Daily before breakfast vitamin C 1,000 mg, Daily PHYSICAL EXAM: Knee Musculoskeletal Exam Gait Limp: left Inspection Leg length disparity: no discrepancy Left Erythema: none Effusion: mild Edema: none Ecchymosis: none Deformity: none Alignment: varus Palpation Left Left knee palpation is unremarkable. Increased warmth: none Masses: none Crepitus: patellofemoral and medial Tenderness: present Medial joint line: moderate Patella: mild Range of Motion Left Left knee range of motion is normal and full. Active extension: 5 Passive extension: 5 Active flexion: 115 Passive flexion: 120 Strength Left Left knee strength is normal. Extension: 5/5. Extension is affected by pain. Flexion: 5/5. Flexion is affected by pain. Instability Left Instability signs: none - stable Anterior drawer: normal Neurovascular Left Left knee neurovascular exam is normal. Pulses - PT: normal Posterior tibial: 2+ Capillary refill: warm and well-perfused Special Signs Left Left knee special signs are normal. General Constitutional: appears stated age Labored breathing: no Psychiatric: normal mood and affect Neurological: alert Skin: intact Lymphadenopathy: none Vitals: There is no height or weight on file to calculate BMI. Tobacco Use: Medium Risk (03/07/2025) Patient History Smoking Tobacco Use: Former Smokeless Tobacco Use: Never Passive Exposure: Not on file Alcohol Use: Not on file IMAGING: Procedures No orders of the defined types were placed in this encounter. ASSESSMENT: ICD-10-CM 1. Acute pain of left knee M25.562 2. Primary osteoarthritis of left knee M17.12 PLAN: We have discussed his case with him at length including both surgical and nonsurgical treatment options and the risks and benefits associated with both. He is requesting a total knee arthroplasty on the left followed by the right at a future date. We'll see him back on the day of surgery for a left total knee arthroplasty. Patient fully understands the risks and benefits of said surgical program. We have discussed both surgical and nonsurgical treatment options with the patient and the risks and benefits associated with both. The patient is requesting surgical intervention because the patient's symptoms were affecting the patient's activities of daily living and ability to sleep. The patient's symptoms were unresponsive to outpatient treatment options. After lengthy discussions involving but not limited to both surgical and nonsurgical treatment options the patient has requested surgical intervention and we will see them back on the day of surgery. The patient understands the risks of said treatment. We have discussed both surgical and nonsurgical treatment options with the patient at length and the risks and benefits associated with both. The patient is requesting surgical intervention because they have not responded to outpatient treatment options including but not limited to rest ice, and home exercise program. Pain and decreased range of motion are affecting the patient''s ability to sleep and activities of daily living and we have recommended surgical intervention. We recommended surgery in the form of a total knee arthroplasty. Factors including the patient's age and longevity of prosthesis, usual postoperative course, and possible need for revision in the future, and leg length inequality postoperatively were discussed at length. We have discussed with the patient that this is a major orthopedic procedure. We discussed that the patient may require more than the average 30 MED limited and may require greater than 7 days narcotic treatment postoperatively. Therefore, patient's narcotic usage will be tailored on an individual basis. If this patient at the time of surgery has any of the following: Morbidities including but not limited to history of falling, cognitive impairment, BMI greater than 30, end-stage renal disease, respiratory failure, heart failure, kidney failure, liver failure, diabetes, cardiac event in the last year, sleep apnea, disorder, excessive tobacco use, if at the time of surgery the patient is greater than 80 years old, or the patient requires discharge to a senior living facility, the patient may require to have additional inpatient hospital stay days following the surgery. Physical therapy is contraindicated in this patient''s case because of the [id number] articulation of the patient's knee.. Questions answered in laymen terms at the bedside. The diagnosis, home exercise plan and any ongoing restrictions/ recommendations reviewed. If unable to be reached in office, I recommend evaluation at nearest Emergency Room if any symptoms worsened or new symptoms develop for requiring urgent evaluation. documented in this encounter [facility] 02-26-2025 Telephone encount er Note Pt called and stated he had an appt with Stuart on 02/22/25 and was suppose to get an MRI done on his Lt knee, he has not heard from anyone to schedule this. He has a follow up with Dr Baird on 03/07/25. [facility] he stated. I did tell him it could still be getting authorized through insurance, but also said I would let you know as well. His call back [phone] [facility] 02-26-2025 Miscellaneous Notes Formattin g of this note might be different from the original. Pt called and stated he had an appt with Stuart on 02/22/25 and was suppose to get an MRI done on his Lt knee, he has not heard from anyone to schedule this. He has a follow up with Dr Baird on 03/07/25. [facility] he stated. I did tell him it could still be getting authorized through insurance, but also said I would let you know as well. His call back [phone] documented in this encounter [facility] 02-22-2025 History of Presen t illness Narrative Associated Order(s): L Inj/Asp: L knee Post-Procedure Diagnose(s): Internal derangement of left knee Images from the original note were not included. Orthopedic Office note: NAME: David Mosqueda : 1970 (NEW PT) - WORSENING (L) KNEE PAIN SINCE 02/08/25 (1 WK, 1 DAY) ; NKI (PREVIOUSLY SEEN BY [facility] / DR. GALEANO FOR (R) KNEE - WAS TOLD HE NEEDED A (R) TKA) XRAY TODAY, 02/22/25 IN EPIC XRAY 01/01/21 IN [facility] AMBULATING WITH ALTERED GAIT. NKI. ADMITS POSTERIOR / MEDIAL DISCOMFORT - WORSE WITH WB / TURNING LEG INWARD. STATES PREVIOUSLY RADIATING INTO CALF POSTERIORLY / INTO PAREDES. NOTES HE HAS BEEN AMBULATING WITH CRUTCHES ~2 DAYS. DENIES SWELLING / GRINDING. DENIES N/T. ADMITS WEAKNESS. NOTES POPPING SENSATION. DENIES GIVING OUT. TYL / IBU - NO RELIEF. ICING - SOME RELIEF. TRIED HEATING / VOLTAREN - NO RELIEF. Physical Exam General Appearance: Normal. Respiratory: No acute distress Musculoskeletal: Mild effusion noted in the left knee. Tenderness is present at the medial joint line of the knee. Pain is most pronounced when performing Cesar's test medially on the knee. The patient is unable to deep squat or duck walk. Minimal patellofemoral crepitus is observed in the knee. There is no laxity in the knee with LCL or MCL stressing. The patient's quad and hamstring strength in the knee is 5/5, but end range of motion is limited by pain. Full passive range of motion is present in the knee with pain on terminal extension and flexion to 130 degrees. The patient's ankle shows 5/5 dorsiflexion and plantar flexion. The calf is soft. Skin: The skin over the knee is without warmth or erythema. No signs or symptoms of infection are observed in the leg. Neurological: Normal. Orders Placed This Encounter Procedures L Inj/Asp This order was created via procedure documentation XR knee 1 or 2 views left Views: AP Views: Lateral Reason for exam:: Pain L Inj/Asp: L knee on 02/22/2025 2:06 PM Indications: pain Details: 22 G needle, anterolateral approach Medications: 40 mg methylPREDNISolone acetate 40 MG/ML Outcome: tolerated well, no immediate complications UTILIZING ASEPTIC TECHNIQUE PT GIVEN INJECTION IN LEFT KNEE, NEUROVASC INTACT S/P INJ, TOLERATED WELL Procedure, treatment alternatives, risks and benefits explained, specific risks discussed. Consent was given by the patient. Results ICD-10-CM 1. Acute pain of left knee M25.562 XR knee 1 or 2 views left 2. Internal derangement of left knee M23.92 F/U Dr. Baird s/p MRI and IA injection to discuss need for possible: Knee arthroscopy r/o medial meniscus tear. Surgical and non surgical tx options discussed with conservative measures reviewed. Recommend ICE/ ELEVATION, continued activity modification in interim. Pt would consider surgical intervention to possibly improve symptoms. Assessment & Plan Left knee pain. Given the abrupt onset of symptoms suggestive of a medial meniscus tear, an MRI of the left knee is recommended. He does have medial joint space narrowing, and a potential arthritic component was discussed. However, he does not describe any baseline aching pain like he has in his right knee. Diagnostic plan: MRI of the left knee. 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 He is agreeable to a cortisone injection today for palliative treatment measure conservatively but would like to move forward with getting MRI and potential knee arthroscopy if possible given the sharpness of his pain. Follow-up: [address] Baird Questions answered in laymen terms at the bedside. The diagnosis, home exercise plan and any ongoing restrictions/ recommendations reviewed. If unable to be reached in office, I recommend evaluation at nearest Emergency Room if any symptoms worsened or new symptoms develop for requiring urgent evaluation. Visit was preformed using [employer]-instructor pilot speech recognition. documented in this encounter [facility] 02-20-2025 Evaluation note Diagnosis Onset Date Resolution Knee pain acute February 20 9:42am Primary osteoarthritis of left knee acute February 20, 2025 9:42am Cigarette nicotine dependence in remission acute April 11:11am Essential hypertension acute Ju 2024 11:11am Gastroesophageal reflux disease with esophagitis without hemorrhage acute May 02 11:11am Hypercholesterolemia acute May 02, 2025 11:11am Low back pain acute May 02, 2025 11:11am Preop exam for internal medicine noneactive May 02, 2025 11:11am [facility] Work Phone: [phone] 575-662402-24-2025 Hospital Discharge instructions Patient Education 01/01/2025 15:09:58 Prostate Cancer Screening Prostate Cancer Screening Prostate cancer screening is testing that is done to check for the presence of prostate cancer in men. The prostate gland is a walnut-sized gland that is located below the bladder and in front of therectum in males. The function of the prostate is to add fluid to semen during ejaculation. Prostatecancer is one of the most common types of cancer in men. Who should have prostate cancer screening? Screening recommendations vary based on age and other risk factors, as well as between the professional organizations who make the recommendations. In general, screening is recommended if: You are age 50 to 70 and have an average risk for prostate cancer. You should talk with your healthcare provider about your need for screening and how often screening should be done. Because most prostate cancers are slow growing and will not cause , screening in this age group is generally reserved for men who have a 10- to 15-year life expectancy. You are younger than age 50, and you have these risk factors: ?Having a father, brother, or uncle who has been diagnosed with prostate cancer. The risk is higherif your family member's cancer occurred at an early age or if you have multiple family members withprostate cancer at an early age. ?Being a male who is Black or is of [place] or sub-Saharan descent. In general, screening is not recommended if: You are younger than age 40. You are between the ages of 40 and 49 and you have no risk factors. You are 70 years of age or older. At this age, the risks that screening can cause are greater than the benefits that it may provide. If you are at high risk for prostate cancer, your health care provider may recommend that you have screenings more often or that you start screening at a younger age. How is screening for prostate cancer done? The recommended prostate cancer screening test is a blood test called the prostate-specific antigen(PSA) test. PSA is a protein that is made in the prostate. As you age, your prostate naturally produces more PSA. Abnormally high PSA levels may be caused by: Prostate cancer. An enlarged prostate that is not caused by cancer (benign prostatic hyperplasia, or BPH). This condition is very common in older men. A prostate gland infection (prostatitis) or urinary tract infection. Certain medicines such as male hormones (like testosterone) or other medicines that raise testosterone levels. A rectal exam may be done as part of prostate cancer screening to help provide information about the size of your prostate gland. When a rectal exam is performed, it should be done after the PSA level is drawn to avoid any effect on the results. Depending on the PSA results, you may need more tests, such as: A physical exam to check the size of your prostate gland, if not done as part of screening. Blood and imaging tests. A procedure to remove tissue samples from your prostate gland for testing (biopsy). This is the only way to know for certain if you have prostate cancer. What are the benefits of prostate cancer screening? Screening can help to identify cancer at an early stage, before symptoms start and when the cancer can be treated more easily. There is a small chance that screening may lower your risk of dying from prostate cancer. The chance is small because prostate cancer is a slow-growing cancer, and most men with prostate cancer from a different cause. What are the risks of prostate cancer screening? The main risk of prostate cancer screening is diagnosing and treating prostate cancer that would never have caused any symptoms or problems. This is called overdiagnosisand overtreatment. PSA screening cannot tell you if your PSA is high due to cancer or a different cause. A prostate biopsy is the only procedure to diagnose prostate cancer. Even the results of a biopsy may not tell you if your cancer needs to be treated. Slow-growing prostate cancer may not need any treatment other than monitoring, so diagnosing and treating it may cause unnecessary stress or other side effects. Questions to ask your health care provider When should I start prostate cancer screening? What is my risk for prostate cancer? How often do I need screening? What type of screening tests do I need? How do I get my test results? What do my results mean? Do I need treatment? Where to find more information The [place] [employer]: www.cancer.org [place] [employer]: www.auanet.org Contact a health care provider if: You have difficulty urinating. You have pain when you urinate or ejaculate. You have blood in your urine or semen. You have pain in your back or in the area of your prostate. Summary Prostate cancer is a common type of cancer in men. The prostate gland is located below the bladder and in front of the rectum. This gland adds fluid to semen during ejaculation. Prostate cancer screening may identify cancer at an early stage, when the cancer can be treated more easily and is less likely to have spread to other areas of the body. The prostate-specific antigen (PSA) test is the recommended screening test for prostate cancer, butit has associated risks. Discuss the risks and benefits of prostate cancer screening with your health care provider. If you are age 70 or older, the risks that screening can cause are greater than the benefits that it may provide. This information is not intended to replace advice given to you by your health care provider. Make sure you discuss any questions you have with your health care provider. Document Revised: 04/20/2022 Document Reviewed: 04/20/2022 [employer] Patient Education 2023 [employer]. Follow Up Care 12/27/2024 08:46:59 With:Surjit RICHARDS, Miley M., URL, [facility] Address: When: Unknown [facility] Kristi 02-24-2025 NotePatient Education Oncology Prostate Cancer Screening Prostate cancer screening is testing that is done to check for the presence of prostate cancer in men. The prostate gland is a walnut-sized gland that is located below the bladder and in front of therectum in males. The function of the prostate is to add fluid to semen during ejaculation. Prostatecancer is one of the most common types of cancer in men. Who should have prostate cancer screening? Screening recommendations vary based on age and other risk factors, as well as between the professional organizations who make the recommendations. In general, screening is recommended if: ??? You are age 50 to 70 and have an average risk for prostate cancer. You should talk with your health care provider about your need for screening and how often screening should be done. Because most prostate cancers are slow growing and will not cause , screening in this age group is generally reserved for men who have a 10- to 15-year life expectancy. ??? You are younger than age 50, and you have these risk factors: ? Having a father, brother, or uncle who has been diagnosed with prostate cancer. The risk is higher if your family member's cancer occurred at an early age or if you have multiple family members with prostate cancer at an early age. ? Being a male who is Black or is of [place] or sub-Saharan descent. In general, screening is not recommended if: ??? You are younger than age 40. ??? You are between the ages of 40 and 49 and you have no risk factors. ??? You are 70 years of age or older. At this age, the risks that screening can cause are greater than the benefits that it may provide. If you are at high risk for prostate cancer, your health care provider may recommend that you have screenings more often or that you start screening at a younger age. How is screening for prostate cancer done? The recommended prostate cancer screening test is a blood test called the prostate-specific antigen(PSA) test. PSA is a protein that is made in the prostate. As you age, your prostate naturally produces more PSA. Abnormally high PSA levels may be caused by: ??? Prostate cancer. ??? An enlarged prostate that is not caused by cancer (benign prostatic hyperplasia, or BPH). This condition is very common in older men. ??? A prostate gland infection (prostatitis) or urinary tract infection. ??? Certain medicines such as male hormones (like testosterone) or other medicines that raise testosterone levels. A rectal exam may be done as part of prostate cancer screening to help provide information about the size of your prostate gland. When a rectal exam is performed, it should be done after the PSA level is drawn to avoid any effect on the results. Depending on the PSA results, you may need more tests, such as: ??? A physical exam to check the size of your prostate gland, if not done as part of screening. ??? Blood and imaging tests. ??? A procedure to remove tissue samples from your prostate gland for testing (biopsy). This is theonly way to know for certain if you have prostate cancer. What are the benefits of prostate cancer screening? Screening can help to identify cancer at an early stage, before symptoms start and when the cancer can be treated more easily. ??? There is a small chance that screening may lower your risk of dying from prostate cancer. The chance is small because prostate cancer is a slow-growing cancer, and most men with prostate cancer from a different cause. What are the risks of prostate cancer screening? The main risk of prostate cancer screening is diagnosing and treating prostate cancer that would never have caused any symptoms or problems. This is called overdiagnosisand overtreatment. PSA screening cannot tell you if your PSA is high due to cancer or a different cause. A prostate biopsy is the only procedure to diagnose prostate cancer. Even the results of a biopsy may not tell you if your cancer needs to be treated. Slow-growing prostate cancer may not need any treatment other than monitoring, so diagnosing and treating it may cause unnecessary stress or other side effects. Questions to ask your health care provider ??? When should I start prostate cancer screening? What is my risk for prostate cancer? How often do I need screening? What type of screening tests do I need? How do I get my test results? What do my results mean? Do I need treatment? Where to find more information ??? The [place] [employer]: www.cancer.org ??? [place] [employer]: www.auanet.org Contact a health care provider if: ??? You have difficulty urinating. ??? You have pain when you urinate or ejaculate. ??? You have blood in your urine or semen. ??? You have pain in your back or in the area of your prostate. Summary ??? Prostate cancer is a common type of cancer in men. The prostate gland (more content not included)...[facility]02-03-2025 Evaluation + Plan noteExtracted from: Title:EU- TRUS bx Author:Miley Eddy MD Date: Impression and Plan Diagnosis Elevated PSA ([id number] R97.20, Discharge, Medical). Diagnosis Elevated PSA ([id number] R97.20, Discharge, Medical). Future Appointments Appointment Date:12/27/2024 08:45:00 AM Scheduled Provider:Miley Eddy MD Location:[facility] Appointment Type:URO Office Visit Diagnostic Tests Pending * Prostate Histology ([facility]) 12/11/24 [facility] [id number] Hospital Discharge instructions Patient Education 12/11/2024 08:19:09 EU - Transrectal Ultrasound of the Prostate with US guided biopsy Discharge Instructions (CUSTOM) Transrectal Ultrasound of the Prostate with US guided biopsy Even though there are no visible incisions, multiple prostate biopsies have been taken through the rectum and you need to follow some instructions to minimize the risks of bleeding. You may see some blood in your urine and stool for up to 1 week (and blood in the semen for severalmonths) Diet -You may resume your normal diet, but you may want to avoid alcohol, carbonated drinks, caffeine, and spicy foods, which may increase the irritation from the surgery. -Drink plenty of water to keep the urine clear. Activity -You should limit any physical activity for about 48 hours -No heavy lifting or straining (10 pound limit) -No driving a car and limit long car rides for 2 days -No strenuous exercise -No sexual intercourse until this is discussed with your doctor Bowels -Try to keep your bowel movements soft to minimize straining to have a bowel movement. -You may use a stool softener or over the counter laxative if needed -Difficult bowel movement may lead to straining and bleeding from the prostate Medications -You may resume your home medications unless instructed otherwise -Hold aspirin, ibuprofen, Coumadin (warfarin) and other blood thinners for about two days or until there is no active bleeding unless otherwise instructed -Finish the antibiotic which you have already started Things to watch for which would require an Emergency Room visit or call 911: (this is not a complete list) -Persistent or heavy bleeding or blood clots from the rectum or in the urine -Inability to urinate -Fever over 101.5 degrees Fahrenheit, with or without chills -Severe drug reactions with itching, hives or rash -Tenderness or swelling of the calves, chest pain, or shortness of breath Please call the office to arrange for your post-operative appointment in 1-2 weeks [phone] or [phone] Follow Up Care 10/25/2024 09:33:15 With:Miley Eddy Address: [address] [place] [phone] Business (1) When: Unknown Comments:Office to schedule follow up: move up from 12/27 to be seen in 1 week if path available [facility] 02-03-2025 NotePatient Education Transrectal Ultrasound of the Prostate with US guided biopsy ??? Even though there are no visible incisions, multiple prostate biopsies have been taken through the rectum and you need to follow some instructions to minimize the risks of bleeding. ??? You may see some blood in your urine and stool for up to 1 week (and blood in the semen for several months) ??? Diet -You may resume your normal diet, but you may want to avoid alcohol, carbonated drinks, caffeine, and spicy foods, which may increase the irritation from the surgery. -Drink plenty of water to keep the urine clear. ??? Activity -You should limit any physical activity for about 48 hours -No heavy lifting or straining (10 pound limit) -No driving a car and limit long car rides for 2 days -No strenuous exercise -No sexual intercourse until this is discussed with your doctor ??? Bowels -Try to keep your bowel movements soft to minimize straining to have a bowel movement. -You may use a stool softener or over the counter laxative if needed -Difficult bowel movement may lead to straining and bleeding from the prostate ??? Medications -You may resume your home medications unless instructed otherwise -Hold aspirin, ibuprofen, Coumadin (warfarin) and other blood thinners for about two days or until there is no active bleeding unless otherwise instructed -Finish the antibiotic which you have already started ??? Things to watch for which would require an Emergency Room visit or call 911: (this is not a complete list) -Persistent or heavy bleeding or blood clots from the rectum or in the urine -Inability to urinate -Fever over 101.5 degrees Fahrenheit, with or without chills -Severe drug reactions with itching, hives or rash -Tenderness or swelling of the calves, chest pain, or shortness of breath ??? Please call the office to arrange for your post-operative appointment in 1-2 weeks [phone] or [phone] Dis[facility] instructions Follow Up Care 10/25/2024 09:29:09 With:Surjit RICHARDS, HEMANTH Yepez, URO Address: When: Unknown [facility] 12-18-2024 Hospital Discharge instructions Patient Education 10/25/2024 09:15:05 Transrectal Ultrasound-Guided Prostate Biopsy, Care After Transrectal Ultrasound-Guided Prostate Biopsy, Care After The following information offers guidance on how to care for yourself after your procedure. Your health care provider may also give you more specific instructions. If you have problems or questions, contact your health care provider. What can I expect after the procedure? After the procedure, it is common to have: Pain and discomfort near your rectum, especially while sitting. [place]-colored urine due to small amounts of blood in your urine. A burning feeling while urinating. Blood in your stool (feces) or bleeding from your rectum. Blood in your semen. Follow these instructions at home: Medicines Take jwmi-rtx-azgclat and prescription medicines only as told by your health care provider. If you were given a sedative during your procedure, it can affect you for several hours. Do not drive or operate machinery until your health care provider says that it is safe. If you were prescribed an antibiotic medicine, take it as told by your health care provider. Do notstop using the antibiotic even if you start to feel better. Activity Return to your normal activities as told by your health care provider. Ask your health care provider what activities are safe for you. Ask your health care provider when it is okay for you to resume sexual activity. You may have to avoid lifting. Ask your health care provider how much you can safely lift. General instructions Drink enough fluid to keep your urine pale yellow. Watch your urine, stool, and semen for new or increased bleeding. Keep all follow-up visits. This is important. Contact a health care provider if: You have any of the following: ?Blood clots in your urine or stool. ?Blood in your urine more than 2 weeks after the procedure. ?Blood in your semen more than 2 months after the procedure. ?New or increased bleeding in your urine, stool, or semen. ?Severe pain in your abdomen. Your urine smells bad or unusual. You have trouble urinating. Your lower abdomen feels firm. You have problems getting an erection. You have nausea or you vomit. Get help right away if: You have a fever or chills. This could be a sign of infection. You have bright red urine. You have severe pain that does not get better with medicine. You cannot urinate. Summary After this procedure, it is common to have pain and discomfort around your rectum, especially whilesitting. You may have blood in your urine and stool after the procedure. It is common to have blood in your semen after this procedure. Get help right away if you have a fever or chills. This could be a sign of infection. This information is not intended to replace advice given to you by your health care provider. Make sure you discuss any questions you have with your health care provider. Document Revised: 04/20/2022 Document Reviewed: 04/20/2022 [employer] Patient Education 2023 [employer] 10/25/2024 09:15:04 Transrectal Ultrasound-Guided Prostate Biopsy Transrectal Ultrasound-Guided Prostate Biopsy A transrectal ultrasound-guided prostate biopsy is a procedure to remove samples of prostate tissuefor testing. The prostate is a walnut-sized gland that is located below the bladder and in front ofthe rectum. During this procedure, a small device (probe) is lubricated and put inside the rectum. The probe sends out sound waves that make a picture of the prostate and surrounding tissues (transrectal ultrasound). The images are used to help guide the process of removing the samples. The samplesare taken to a lab to be checked for prostate cancer. This procedure is usually done to evaluate the prostate gland of men who have raised (elevated) levels of prostate-specific antigen (PSA), which can be a sign of prostate cancer or prostate enlargement related to aging (benign prostatic hyperplasia, or BPH). Tell a health care provider about: Any allergies you have. All medicines you are taking, including vitamins, herbs, eye drops, creams, and mchc-ost-otgcryq medicines. Any problems you or family members have had with anesthetic medicines. Any bleeding problems you have. Any surgeries you have had. Any medical conditions you have. Any prostate infections you have had. What are the risks? Generally, this is a safe procedure. However, problems may occur, including: Prostate infection. Bleeding from the rectum. Blood in the urine. Allergic reactions to medicines. Damage to surrounding structures such as blood vessels, organs, or muscles. Difficulty passing urine. Nerve damage. This is usually temporary. What happens before the procedure? Medicines Ask your health care provider about: Changing or stopping your regular medicines. This is especially important if you are taking diabetes medicines or blood thinners. Taking medicines such as aspirin and ibuprofen. These medicines can thin your blood. Do not take these medicines unless your health care provider tells you to take them. Taking ohui-hrs-rcnnirg medicines, vitamins, herbs, and supplements. General instructions Follow instructions from your health care provider about eating and drinking. In most instances, you will not need to stop eating and drinking completely before the procedure. You will be given an enema. During an enema, a liquid is injected into your rectum to clear out waste. You may have a blood or urine sample taken. Ask your health care provider what steps will be taken to help prevent infection. These steps may include: ?Washing skin with a germ-killing soap. ?Taking antibiotic medicine. If you will be going home right after the procedure, plan to have a responsible adult: ?Take you home from the hospital or clinic. You will not be allowed to drive. ?Care for you for the time you are told. What happens during the procedure? An IV will be inserted into one of your veins. You will be given one or both of the following: ?A medicine to help you relax (sedative). ?A medicine to numb the area (local anesthetic). You will be placed on your left side, and your knees will be bent toward your chest. A probe with lubricated gel will be placed into your rectum, and images will be taken of your prostate and surrounding structures. Numbing medicine will be injected into your prostate. A biopsy needle will be inserted through your rectum or perineum and guided to your prostate using the ultrasound images. Prostate tissue samples will be removed, and the needle and probe will then be removed. The biopsy samples will be sent to a lab to be tested. The procedure may vary among health care providers and hospitals. What happens after the procedure? Your blood pressure, heart rate, breathing rate, and blood oxygen level will be monitored until youleave the hospital or clinic. You may have some discomfort in the rectal area. You will be given pain medicine as needed. If you were given a sedative during the procedure, it can affect you for several hours. Do not drive or operate machinery until your health care provider says that it is safe. It is up to you to get the results of your procedure. Ask your health care provider, or the department that is doing the procedure, when your results will be ready. Keep all follow-up visits. This is important. Summary A transrectal ultrasound-guided biopsy removes samples of tissue from your prostate using ultrasound-guided sound waves to help guide the process. This procedure is usually done to evaluate the prostate gland of men who have raised (elevated) levels of prostate-specific antigen (PSA), which can be a sign of prostate cancer or prostate enlargement related to aging. After your procedure, you may feel some discomfort in the rectal area. Plan to have a responsible adult take you home from the hospital or clinic, and follow up with yourhealth care provider for your results. This information is not intended to replace advice given to you by your health care provider. Make sure you discuss any questions you have with your health care provider. Document Revised: 04/20/2022 Document Reviewed: 04/20/2022 [employer] Patient Education 2023 [employer]. 10/25/2024 09:10:24 Prostate Cancer Screening Prostate Cancer Screening Prostate cancer screening is testing that is done to check for the presence of prostate cancer in men. The prostate gland is a walnut-sized gland that is located below the bladder and in front of therectum in males. The function of the prostate is to add fluid to semen during ejaculation. Prostatecancer is one of the most common types of cancer in men. Who should have prostate cancer screening? Screening recommendations vary based on age and other risk factors, as well as between the professional organizations who make the recommendations. In general, screening is recommended if: You are age 50 to 70 and have an average risk for prostate cancer. You should talk with your healthcare provider about your need for screening and how often screening should be done. Because most prostate cancers are slow growing and will not cause , screening in this age group is generally reserved for men who have a 10- to 15-year life expectancy. You are younger than age 50, and you have these risk factors: ?Having a father, brother, or uncle who has been diagnosed with prostate cancer. The risk is higherif your family member's cancer occurred at an early age or if you have multiple family members withprostate cancer at an early age. ?Being a male who is Black or is of [place] or sub-Saharan descent. In general, screening is not recommended if: You are younger than age 40. You are between the ages of 40 and 49 and you have no risk factors. You are 70 years of age or older. At this age, the risks that screening can cause are greater than the benefits that it may provide. If you are at high risk for prostate cancer, your health care provider may recommend that you have screenings more often or that you start screening at a younger age. How is screening for prostate cancer done? The recommended prostate cancer screening test is a blood test called the prostate-specific antigen(PSA) test. PSA is a protein that is made in the prostate. As you age, your prostate naturally produces more PSA. Abnormally high PSA levels may be caused by: Prostate cancer. An enlarged prostate that is not caused by cancer (benign prostatic hyperplasia, or BPH). This condition is very common in older men. A prostate gland infection (prostatitis) or urinary tract infection. Certain medicines such as male hormones (like testosterone) or other medicines that raise testosterone levels. A rectal exam may be done as part of prostate cancer screening to help provide information about the size of your prostate gland. When a rectal exam is performed, it should be done after the PSA level is drawn to avoid any effect on the results. Depending on the PSA results, you may need more tests, such as: A physical exam to check the size of your prostate gland, if not done as part of screening. Blood and imaging tests. A procedure to remove tissue samples from your prostate gland for testing (biopsy). This is the only way to know for certain if you have prostate cancer. What are the benefits of prostate cancer screening? Screening can help to identify cancer at an early stage, before symptoms start and when the cancer can be treated more easily. There is a small chance that screening may lower your risk of dying from prostate cancer. The chance is small because prostate cancer is a slow-growing cancer, and most men with prostate cancer from a different cause. What are the risks of prostate cancer screening? The main risk of prostate cancer screening is diagnosing and treating prostate cancer that would never have caused any symptoms or problems. This is called overdiagnosisand overtreatment. PSA screening cannot tell you if your PSA is high due to cancer or a different cause. A prostate biopsy is the only procedure to diagnose prostate cancer. Even the results of a biopsy may not tell you if your cancer needs to be treated. Slow-growing prostate cancer may not need any treatment other than monitoring, so diagnosing and treating it may cause unnecessary stress or other side effects. Questions to ask your health care provider When should I start prostate cancer screening? What is my risk for prostate cancer? How often do I need screening? What type of screening tests do I need? How do I get my test results? What do my results mean? Do I need treatment? Where to find more information The [place] [employer]: www.cancer.org [place] [employer]: www.auanet.org Contact a health care provider if: You have difficulty urinating. You have pain when you urinate or ejaculate. You have blood in your urine or semen. You have pain in your back or in the area of your prostate. Summary Prostate cancer is a common type of cancer in men. The prostate gland is located below the bladder and in front of the rectum. This gland adds fluid to semen during ejaculation. Prostate cancer screening may identify cancer at an early stage, when the cancer can be treated more easily and is less likely to have spread to other areas of the body. The prostate-specific antigen (PSA) test is the recommended screening test for prostate cancer, butit has associated risks. Discuss the risks and benefits of prostate cancer screening with your health care provider. If you are age 70 or older, the risks that screening can cause are greater than the benefits that it may provide. This information is not intended to replace advice given to you by your health care provider. Make sure you discuss any questions you have with your health care provider. Document Revised: 04/20/2022 Document Reviewed: 04/20/2022 [employer] Patient Education 2023 [employer]. Follow Up Care 09/21/2024 15:14:14 With:Surjit RICHARDS, HEMANTH Yepez, URO Address: [address], [place] [phone] When: Unknown Comments:sched TRUS/bx [facility] 12-18-2024 NotePatient Education Oncology Transrectal Ultrasound-Guided Prostate Biopsy, Care After The following information offers guidance on how to care for yourself after your procedure. Your health care provider may also give you more specific instructions. If you have problems or questions, contact your health care provider. What can I expect after the procedure? After the procedure, it is common to have: ??? Pain and discomfort near your rectum, especially while sitting. ??? [place]-colored urine due to small amounts of blood in your urine. ??? A burning feeling while urinating. ??? Blood in your stool (feces) or bleeding from your rectum. ??? Blood in your semen. Follow these instructions at home: Medicines ??? Take gyat-yfk-byajinl and prescription medicines only as told by your health care provider. ??? If you were given a sedative during your procedure, it can affect you for several hours. Do notdrive or operate machinery until your health care provider says that it is safe. ??? If you were prescribed an antibiotic medicine, take it as told by your health care provider. Donot stop using the antibiotic even if you start to feel better. Activity ??? Return to your normal activities as told by your health care provider. Ask your health care provider what activities are safe for you. ??? Ask your health care provider when it is okay for you to resume sexual activity. ??? You may have to avoid lifting. Ask your health care provider how much you can safely lift. General instructions ??? Drink enough fluid to keep your urine pale yellow. ??? Watch your urine, stool, and semen for new or increased bleeding. ??? Keep all follow-up visits. This is important. Contact a health care provider if: ??? You have any of the following: ? Blood clots in your urine or stool. ? Blood in your urine more than 2 weeks after the procedure. ? Blood in your semen more than 2 months after the procedure. ? New or increased bleeding in your urine, stool, or semen. ? Severe pain in your abdomen. ??? Your urine smells bad or unusual. ??? You have trouble urinating. ??? Your lower abdomen feels firm. ??? You have problems getting an erection. ??? You have nausea or you vomit. Get help right away if: ??? You have a fever or chills. This could be a sign of infection. ??? You have bright red urine. ??? You have severe pain that does not get better with medicine. ??? You cannot urinate. Summary ??? After this procedure, it is common to have pain and discomfort around your rectum, especially while sitting. ??? You may have blood in your urine and stool after the procedure. ??? It is common to have blood in your semen after this procedure. ??? Get help right away if you have a fever or chills. This could be a sign of infection. This information is not intended to replace advice given to you by your health care provider. Make sure you discuss any questions you have with your health care provider. Document Revised: 04/20/2022 Document Reviewed: 04/20/2022 [employer] Patient Education ? 2023 [employer]. Transrectal Ultrasound-Guided Prostate Biopsy A transrectal ultrasound-guided prostate biopsy is a procedure to remove samples of prostate tissuefor testing. The prostate is a walnut-sized gland that is located below the bladder and in front ofthe rectum. During this procedure, a small device (probe) is lubricated and put inside the rectum. The probe sends out sound waves that make a picture of the prostate and surrounding tissues (transrectal ultrasound). The images are used to help guide the process of removing the samples. The samplesare taken to a lab to be checked for prostate cancer. This procedure is usually done to evaluate the prostate gland of men who have raised (elevated) levels of prostate-specific antigen (PSA), which can be a sign of prostate cancer or prostate enlargement related to aging (benign prostatic hyperplasia, or BPH). Tell a health care provider about: ??? Any allergies you have. ??? All medicines you are taking, including vitamins, herbs, eye drops, creams, and nars-dak-qcczvgj medicines. ??? Any problems you or family members have had with anesthetic medicines. ??? Any bleeding problems you have. ??? Any surgeries you have had. ??? Any medical conditions you have. ??? Any prostate infections you have had. What are the risks? Generally, this is a safe procedure. However, problems may occur, including: ??? Prostate infection. ??? Bleeding from the rectum. ??? Blood in the urine. ??? Allergic reactions to medicines. ??? Damage to surrounding structures such as blood vessels, organs, or muscles. ??? Difficulty passing urine. ??? Nerve damage. This is usually temporary. What happens before the procedure? Medicines Ask your health care provider about: ??? Changing or stopping your regular medicines. This is especial (more content not included)...[facility] History of Present illness Narrative* Flori Puri, - 09/06/2024 1:15 PM EDT General Surgery H&P David Mosqueda 1970 David Mosqueda is a 54 y.o. male presents with chief complaint of Post-op (Pt presents today post op from a robo lap umbilical hernia repair with mesh on 08/29/24. He states that he is still having a little bit of pain but it is minimal. He states his incisions are healing well, no concerns. He states that he is still off work, but does try to walk a lot at home and he sits down when the pain gets bad. ). Doing well postoperatively. Denies fevers, chills, or sweats. Denies nausea or vomiting. Tolerating diet and having regular bowel function. No complaints at this time. SUBJECTIVE: MEDICATIONS: ALLERGIES Current Outpatient Medications Medication Instructions amLODIPine (NORVASC) 10 mg, Oral, Daily lisinopril 20 mg, Oral, Daily pantoprazole (PROTONIX) 40 mg, Oral, Daily before breakfast No Known Allergies PAST MEDICAL HISTORY: SOCIAL HISTORY SURGICAL HISTORY: No past medical history on file. Social History Tobacco Use Smoking status: Former Types: Cigarettes No past surgical history on file. No family history on file. No Known Allergies No past surgical history on file. Tobacco Use: Medium Risk (08/02/2024) Patient History Smoking Tobacco Use: Former Smokeless Tobacco Use: Unknown Passive Exposure: Not on file Alcohol Use: Not on file Depression: Not on file Physical Activity: Not on file REVIEW OF SYMPTOMS: Review of Systems All other systems reviewed and are negative. 10 systems were reviewed. Positives noted above. Remainder are negative per CMS guidelines OBJECTIVE: Visit Vitals Ht 5' 11 Wt 241 lb BMI 33.61 kg/m Smoking Status Former BSA 2.34 m Physical Exam Vitals reviewed. General: AAOx3, NAD Head: atraumatic normocephalic Neck: trachea midline. No masses or lymphadenopathy Heart: Regular rate and rhythm Lungs: equal chest rise and fall, non labored breathing Abdomen: soft, appropriately tender, and non distended, incisions c/d/I, no umbilical hernia appreciated Ext: motor 5/5 all extremities with no gross deformities Psych: alert and oriented, behavior appropriate ASSESSMENT AND PLAN: Assessment/Plan Diagnoses and all orders for this visit: S/P umbilical hernia repair, follow-up exam robo lap umbilical hernia repair with mesh on 08/29/24 Patient doing well. No complaints. Instructed to continue daily washing of incisions and no swimming/bathing until 14 days past procedure or until incisions fully healed. No lifting more then 12-15lbs until 28 days after procedure. Ok to return to work with lifting restrictions mentioned above. Foll ow up as needed. Thank you, Robin Puri DO documented in this encounterReynolds County General Memorial [id number] History of Present illness Narrative* Flori Puri DO - 08/02/2024 1:30 PM EDT General Surgery H&P David Mosqueda 1970 David Mosqueda is a 54 y.o. male presents with chief complaint of Hernia (Pt presents today withcomplaints of an umbilical hernia. He states that he has had the hernia for about 5 years now. He states that it does bother him sometimes. If he rubs something up against the hernia it makes him nauseous. Pt would like the hernia fixed. Denies abdominal pain unless the hernia is pressed on. Denies hx of excessive weight loss. Denies fevers, chills, or sweats. Denies any current nausea or vomiting. Discussed surgery and risks for robotic assisted laparoscopic umbilical/ventral hernia repair with mesh procedure and possible bowel resection given his hernia is incarcerated with irreducible contents and has been for the last 4 years. Patient would like to proceed with surgery. On ASA 81 mg. SUBJECTIVE: MEDICATIONS: ALLERGIES Current Outpatient Medications Medication Instructions amLODIPine (NORVASC) 10 mg, Oral, Daily lisinopril 20 mg, Oral, Daily pantoprazole (PROTONIX) 40 mg, Oral, Daily before breakfast No Known Allergies PAST MEDICAL HISTORY: SOCIAL HISTORY SURGICAL HISTORY: History reviewed. No pertinent past medical history. Social History Tobacco Use Smoking status: Former Types: Cigarettes History reviewed. No pertinent surgical history. No family history on file. No Known Allergies History reviewed. No pertinent surgical history. Tobacco Use: Medium Risk (08/02/2024) Patient History Smoking Tobacco Use: Former Smokeless Tobacco Use: Unknown Passive Exposure: Not on file Alcohol Use: Not on file Depression: Not on file Physical Activity: Not on file REVIEW OF SYMPTOMS: Review of Systems All other systems reviewed and are negative. 10 systems were reviewed. Positives noted above. Remainder are negative per CMS guidelines OBJECTIVE: Visit Vitals BP 140/82 Pulse 67 Resp 14 Ht 5' 11 Wt 241 lb 12.8 oz SpO2 98% BMI 33.72 kg/m Smoking Status Former BSA 2.35 m Physical Exam Vitals reviewed. General: AAOx3, NAD Head: atraumatic normocephalic Neck: trachea midline. No masses or lymphadenopathy Heart: Regular rate and rhythm Lungs: equal chest rise and fall, non labored breathing Abdomen: soft, non distended, 3cm umbilical hernia noted with irreducible contents, mild tendernessto deep palpation, no rebound or guarding, no erythema or skin breakdown Ext: motor 5/5 all extremities with no gross deformities Psych: alert and oriented, behavior appropriate ASSESSMENT AND PLAN: Assessment/Plan Diagnoses and all orders for this visit: Umbilical hernia without obstruction and without gangrene Patient informed of the risks of robotic assisted laparoscopic umbilical/ventral hernia repair withmesh procedure with possible bowel resection which include but not limited to bleeding, scarring, damage to nearby structures, chronic pain, wound healing issues, possible need for more procedures and risks of anesthesia. Patient understood risks and signed informed consent. Patient is aware of theincreased chance of hernia recurrence with his increased BMI. Encouraged weight reduction prior to surgery. Will schedule at patient's earliest convenience. Thank you, K Eduar Puri DO documented in this encounterRe[facility] [id number] Evaluation note* Encounter Date Diagnosis Assessment Notes Treatment Notes Treatment Clinical Notes Nov, Primary hypertension (ICD-10 - I10) [facility] Other 11-02-2023 Evaluation note* Encounter Date Diagnosis Assessment Notes Treatment Notes Treatment Clinical Notes Sep, Swelling of right lower extremity [...] Unable to finish antibiotics due to rash. [facility] Other 10-16-2023 Evaluation note* Encounter Date Diagnosis Assessment Notes Treatment Notes Treatment Clinical Notes Aug, Swelling of right lower extremity (ICD-10 - M79.89) Low salt diet, elevation and compression. Adjust Amlodipine dose r/o DVT Aug, Primary hypertension (ICD-10 - I10) This patient is instructed to consume a healthy, low-fat, low-salt diet. They are also encouraged to continue exercise to achieve/maintain a normal BMI. Decrease Amlodipine to 1/2 daily Increase Lisinopril to 15mg (3 tabs) daily Aug, Acute non intractable tension-type headache (ICD-10 - G44.209) Improve BP readings Reduce Amlodipine dose and increase MONICA dose Tylenol as needed Aug, Adverse effect of drug, initial encounter (ICD-10 - T50.905A) Headache, lower extremity swelling, rash Culprit Bactrim Headache, flushing and edema Culprit Amlodipine [facility] Other 09-27-2023 Evaluation note* Encounter Date Diagnosis Assessment Notes Treatment Notes Treatment Clinical Notes Jul, Primary hypertension (ICD-10 - I10) This patient is instructed to consume a healthy, low-fat, low-salt diet. They are also encouraged to continue exercise to achieve/maintain a normal BMI. Jul, Wellness examination (ICD-10 - Z00.00) Healthy diet and exercise. Reviewed age-appropriate preventive testing recommended. Jul, Gastroesophageal ref lux disease with esophagitis without hemorrhage (ICD-10 - [...] quit 2020 Continue abstinence Jul, Screening PSA (prost ate specific antigen) (ICD-10 - Z12.5) Yearly ANNEL and PSA [facility] Other 09-27-2023 Evaluation note* Encounter Date Diagnosis Assessment Notes Treatment Notes Treatment Clinical Notes Jul, Acute prostatitis (ICD-10 - N41.0) [facility] Other 03-27-2023 Evaluation note* Encounter Date Diagnosis Assessment Notes Treatment Notes Treatment Clinical Notes Jan, Nocturia (ICD-10 - R35.1) symptoms tolerable Jan, Benign prostatic hyperplasia with lower urinary tract symptoms (ICD-10 - N40.1) Yearly ANNEL and PSA Reviewed his PSA over the past 3 Jan, Essential hypertension (ICD-10 - I10) This patient is instructed to consume a healthy, low-fat, low-salt diet. They are also encouraged to continue exercise to achieve/maintain a normal BMI. Jan, Other Continue w/ abstinence. [facility] Other Evaluation + Plan note Future Appointments Appointment Date:12/08/2024 09:30:00 AM Scheduled Provider: Location:[facility] Appointment Type:Urology CALL PAT FT Appointment Date:12/11/2024 08:00:00 AM Scheduled Provider: Location:[facility] Appointment Type:Urology FT Appointment Date:12/11/2024 08:00:00 AM Scheduled Provider: Location:.UROLOGY Appointment Type: Prostate Urology (FT) Appointment Date:12/27/2024 08:45:00 AM Scheduled Provider:Miley Edyd MD Location:[facility] Appointment Type:URO Office Visit Future Scheduled Tests Radiology* US Prostate, [facility] 12/11/24 [facility] evaluation + Plan note Future Appointments Appointment Date:01/01/2025 02:30:00 PM Scheduled Provider:Miley Eddy MD Location:[facility] Appointment Type:URO Office Visit [facility] evaluation + Plan note Future Appointments Appointment Date:07/04/2025 08:00:00 AM Scheduled Provider:Miley Eddy MD Location:[facility] Appointment Type:URO Office Visit Diagnostic Tests Pending * PSA Free & Total 05/08/25 [facility] Evaluation noteNo InformationNortLe[facility] Other Evaluation noteNo assessment information available [facility] Work Phone: Evaluation note* Diagnosis Onset Date Resolution Status Cigarette nicotine dependence in remission acute Essential hypertension acute Gastroesophageal reflux dise ase with esophagitis without hemorrhage acute Hypercholesterolemia acute Screening PSA (prostate specific antigen) acute Umbilical hernia acute Wellness examination acute [facility] Work Phone: Evaluation note* Diagnosis S/P umbilical hernia repair, follow-up exam- Primary documented in this encounter [facility] HealthcareEvaluation note* Diagnosis Umbilical hernia without obstruction and without gangrene- Primary documented in this encounter [facility] HealthcareEvaluation note* Diagnosis Onset Date Resolution Status Admit Date Knee pain acute February 20 9:42am Primary osteoarthritis of le ft knee acute February 20, 2025 9:42am [facility] Work Phone: Evaluation note* Diagnosis Acute pain of left knee- Primary Internal derangement of left knee documented in this encounter [facility] HealthcareEvaluation note* Diagnosis Acute pain of left knee- Primary Primary osteoarthritis of left knee documented in this encounter [facility] HealthcareEvaluation note* Diagnosis Primary osteoarthritis of left knee- Primary Pre-op examination documented in this encounter [facility] HealthcareHistory general Narrative - Reported* Type Description Date Medical History Screening PSA (prostate specific antigen) Medical History Nicotine dependence, cigarettes, [...] KNEE 2014 Hospitalization History SEE SURGICAL HX [facility] Other Hospital course Narrative No data available for this section [facility] progress note No data available for this section [facility] reason for referral (narrative)No reason for referral information availableC[facility] Work Phone: Summary Purpose Family History No Family History Records Found Relationship Condition Age at Onset Recorded Date/T melony Not Specified Hypertension Unknown sister Hypertension Unknown Family history of lung cancer Unknown Malignant neoplasm Unknown Relationship Condition Age at Onset Recorded Date/T melony mother Hypertension Unknown sister Hypertension Unknown Family history of lung cancer Unknown Malignant neoplasm Unknown Advance Directives No Advanced Directives Records Found Advance Directive Response Recorded Date/ Time Advance Directives No February 07 3:10pm Chief Complaint and Reason for Visit Chief Complaint Elbow Pain Chief Complaint Wellness Reason for Visit Cigarette nicotine d ependence in remission Essential hypertension Gastroesophageal reflux disease with esophagitis without hemorrhage Hypercholesterolemia Screening PSA (prostate specific antigen) Umbilical hernia Wellness examination Chief Complaint Admit Date left knee pain February 20, 2025 9:4 2am Reason for Visit Admit Date Knee pain February 20, 2025 9:4 2am Primary osteoarthritis of left knee Apri l 2024 9:42am Chief Complaint Admit Date left knee pain February 20, 2025 9:4 2am surgical clearance, L total knee 05/14, Dr Baird May 02, 2025 11:11am Reason for Visit Admit Date Knee pain February 20, 2025 9:4 2am Primary osteoarthritis of left knee Apri l 2024 9:42am [facility] May [facility], 2025 11:11am Essential hypertension May 02, 2025 1 1:11am Gastroesophageal reflux dise ase with esophagitis without hemorrhage May 02, 2025 11:11am Hypercholesterolemia May 02, 2025 11: 11am Low back pain May 02, 2025 11:1 1am Preop exam for internal medicine May 022024 11:11am Additional Source Comments (unrecognized sect ion and content) No Status Records FoundNo Status Records FoundNo Status Records FoundNo Status Records FoundNo Status Records Found INFORMATION SOURCE (unrecogn ized section and content) DATE CREATED AUTHOR [facility]/20/2023 [facility] DATE CREATED AUTHOR AUTHOR'S ORGANIZ ATION 01/07/2025 [facility] DATE CREATED AUTHOR AUTHOR'S ORGANIZ ATION 01/09/2025 [facility] DATE CREATED AUTHOR AUTHOR'S ORGANIZ ATION 2025 [facility] DATE CREATED AUTHOR AUTHOR'S ORGANIZ ATION 05/02/2025 [facility] REASON FOR VISIT (unrecogniz ed section and content) Reason Comments Post-op Pt presents today po st op from an umbilical hernia repair on 08/29/24. He states that he is still having a little bit of pain. He states his incisions are healing well, no concerns. He states that he is still off work, but does try to walk a lot at home and he sits down when the pain gets bad. Reason Comments Hernia Pt presents today wi th complaints of an umbilical hernia. He states that he has had the hernia for about 5 years now. He states that it does bother him sometimes. If he rubs something up against the hernia it makes him nauseous. Pt would like the hernia removed. 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 Relationship Specialty Start Date End Date Derrek Wall MD [address] [place] [address] PCP - General Internal Medicine 08/02/24 Research Archaeologist Relationship Specialty Start Date End Date Derrek Wall MD [address] [place] [address] PCP - General Internal Medicine 08/02/24 Research Archaeologist Relationship Specialty Start Date End Date Derrek Wall MD [address] [place] [address] PCP - General Internal Medicine 08/02/24 Research Archaeologist Relationship Specialty Start Date End Date Derrek Wall MD [address] [place] [address] PCP - General Internal Medicine 08/02/24 Research Archaeologist Relationship Specialty Start Date End Date Derrek Wall MD [address] [place] [address] PCP - General Internal Medicine 08/02/24 Team Status: Inactive Member Role Status Dates Derrek Wall DO Primary Care Provide r, Attending Provider Active Start: February 20, 2025 End: February 20, 2025 Research Archaeologist Relationship Specialty Start Date End Date Derrek Wall MD PCP - General Internal Medicine 08/02/24 Research Archaeologist Relationship Specialty Start Date End Date Derrek Wall MD PCP - General Internal Medicine 08/02/24 Research Archaeologist Relationship Specialty Start Date End Date Derrek Wall MD PCP - General Internal Medicine 08/02/24 Research Archaeologist Relationship Specialty Start Date End Date Derrek Wall DO PCP - General Internal Medicine 08/02/24 Research Archaeologist Relationship Specialty Start Date End Date Derrek Wall DO PCP - General Internal Medicine 08/02/24 Research Archaeologist Relationship Specialty Start Date End Date Derrek Wall DO [address] [place] [address] PCP - General Internal Medicine 04/17/25 Research Archaeologist Relationship Specialty Start Date End Date Derrek Wall DO [address] [place] [address] PCP - General Internal Medicine 04/17/25 Team Status: Inactive Member Role Status Dates Derrek Wall DO Primary Care Provider Active Start: February 20, 2025 End: February 20, 2025 Derrek Wall DO Attending Provider Active Sta rt: February 20, 2025 End: February 20, 2025 Team Status: Active Member Role Status Dates Derrek Wall DO Primary Care Provider Active Start: April 25, 2025 Varsha Lewis DO Attending Provider Active Sta rt: April 25, 2025 Team Status: Inactive Member Role Status Dates Derrek Wall DO Primary Care Provider Active Start: May 02, 2025 End: May 02, 2025 Derrek Wall DO Attending Provider Active Sta rt: May 02, 2025 End: May 02, 2025 Goals (unrecognized section and content) Goals may [...] BE BASED ON THE PRIMARY CLINICAL RECORDS. [facility] [facility]. provides no warranty or guarantee of the accuracy or completeness of information in this document.
== END 2025-05-09 13:35 | disposition home or self-care (01) ==
PROVIDERS: PCP Internal Medicine; Visit Provider Internal Medicine
DX: M54.50 Low back pain, unspecified (principal); M51.369 Other intervertebral disc degeneration, lumbar region without mention of lumbar back pain or lower extremity pain
CPT/HCPCS: 72100

== ENCOUNTER 2025-08-28 10:34 | Outpatient (OUT) | payer BC, SELFPAY ==
--- OUTSIDE RECORDS SUMMARY | 2025-08-28 10:40 | XMS_ITS | CCD ---
Author Organization [facility] CliniSyid Care Team Providers Care [employer] Name Role Phone REQUEST, DR NONE LISTED Admitting Unavaila ble REQUEST, NONE LISTED Consulting Unavaila ble BALL, DR PRIDE Primary Care Unavailable REQUEST, NONE LISTED Attending Unavaila ble REQUEST, NONE LISTED Admitting Unavaila ble REQUEST, NONE LISTED Consulting Unavaila ble REQUEST, NONE LISTED Attending Unavaila ble BALL, DR PRIDE Primary Care Unavailable BALL, DR PRIDE Consulting Unavailable BALL, DR PRIDE Attending Unavailable BALL, DR PRIDE Admitting Unavailable BALL, DR PRIDE Primary Care Unavailable Opal, Derrek Unavailable Opal RICHARDS, Derrek Galvez Primary Care Provider DERREK JOSEPH Primary Care Physician Opal RICHARDS, Derrek Galvez Primary Care Provider Derrek Joseph MD Primary Care Provider Opal BAUM, Derrek Galvez Primary Care Provider Opal BAUM, Derrek Galvez Primary Care Provider Derrek Joseph DO Primary Care Provider Derrek Joseph DO Attending Provider Varsha Rogers DO Attending Provider [phone] Miley Eddy MKenan Attending Unavailable Lue, Miley MKenan Attending Unavailable Lue, Miley MKenan Admitting Unavailable Lue, Miley M. Attending Unavailable Lue, Miley MKenan Attending Unavailable Lue, Miley MKenan Attending Unavailable DERREK JOSEPH Referring Unavailable Lue, Miley MKenan Attending Unavailable Lue, Miley MKenan Admitting Unavailable Lue, Miley M. Referring Unavailable Lue, Miley M. Attending Unavailable Lue, Miley M. Attending Unavailable Lue, Miley M. Attending Unavailable Lue, Miley MKenan Attending Unavailable Lue, Miley MKenan Admitting Unavailable JESSENIA BAIRD Attending Unavailable STEPANIC, JESSENIA C Admitting Unavailable Ball, Derrek Primary Care Unavailable STEPANIC, JESSENIA C Attending Unavailable STEPANIC, JESSENIA C Admitting Unavailable Ball, Derrek Primary Care Unavailable STEPANIC, JESSENIA C Attending Unavailable STEPANIC, JESSENIA C Admitting Unavailable Ball, Derrek Primary Care Unavailable STEPANIC, JESSENIA C Attending Unavailable Ball, Derrek Primary Care Unavailable STEPANIC, JESSENIA C Admitting Unavailable STEPANIC, JESSENIA C Attending Unavailable Ball, Derrek Primary Care Unavailable STEPANIC, JESSENIA C Admitting Unavailable Opal DO Derrek Primary Care Provider Derrek Joseph DO Attending Provider Opal DO Derrek Primary Care Provider ROSALIO HOLBROOK Attending Unavailable HOLBROOK, ROSALIO Thibodeaux Referring Unavailable HOLBROOK, ROSALIO Thibodeaux Referring Unavailable JR. BAIRD GEORGE C Attending Unavaila ble ROSALIO HOLBROOK Attending Unavailable SUNLORENZA PIERRE Attending Unavailable ROSALIO HOLBROOK Referring Unavailable SUNLORENZA PIERRE Attending Unavailable ROSALIO HOLBROOK Referring Unavailable SUNLORENZA HAYES Attending Unavailable HOLBROOK, ROSALIO Thibodeaux Referring Unavailable SUNLORENZA HAYES Attending Unavailable HOLBROOK, ROSALIO Thibodeaux Referring Unavailable JONESHERNANDO Attending Unavailable JONESHERNANDO T Referring Unavailable SUNLORENZA Attending Unavailable HOLBROOKROSALIO Referring Unavailable KEITH FRIED Attending Unavailable HOLBROOK, ROSALIO Thibodeaux Referring Unavailable KEITH FRIED Attending Unavailable HOLBROOK, ROSALIO Thibodeaux Referring Unavailable DIOR CHAUDHARI Attending Unavailable HOLBROOK, ROSALIO Thibodeaux Referring Unavailable BRFLORA GOLDMAN Attending Unavailable HOLBROOK, ROSALIO Thibodeaux Referring Unavailable BRINKFLORA Attending Unavailable HOLBROOK, ROSALIO Thibodeaux Referring Unavailable KEITH FRIED Attending Unavailable HOLBROOK, ROSALIO Thibodeaux Referring Unavailable KEITH FRIED Attending Unavailable HOLBROOK, ROSALIO Thibodeaux Referring Unavailable BRINKFLORA Attending Unavailable HOLBROKO, ROSALIO Thibodeaux Referring Unavailable KEITH FRIED Attending Unavailable HOLBROOK, ROSALIO Thibodeaux Referring Unavailable KEITH FRIED Attending Unavailable HOLBROOK, ROSALIO Thibodeaux Referring Unavailable KATHRIN HSU Attending Unavailable HOLBROOK, ROSALIO Thibodeaux Referring Unavailable KELFLORESITA ORTIZ Attending Unavailable HOLBROOK, ROSALIO Thibodeaux Referring Unavailable BRINKFLORA Attending Unavailable HOLBROOK, ROSALIO Thibodeaux Referring Unavailable KELFLORESITA ORTIZ Attending Unavailable HOLBROOK, ROSALIO Thibodeaux Referring Unavailable JONES, HERANNDO T Attending Unavailable JONES, HERNANDO T Referring Unavailable KATHRIN HSU Attending Unavailable HOLBROOK, ROSALIO Thibodeaux Referring Unavailable BRINK, FLORA Attending Unavailable HOLBROOK, ROSALIO J Referring Unavailable FLORI VAZQUEZ Attending Unavailable KELBLEY, FLORESITA Attending Unavailable HOLBROOK, ROSALIO J Referring Unavailable KELBLEY, FLORESITA Attending Unavailable HOLBROOK, ROSALIO J Referring Unavailable KELBLEY, FLORESITA Attending Unavailable HOLBROOK, ROSALIO J Referring Unavailable BRINK, FLORA Attending Unavailable HOLBROOK, ROSALIO J Referring Unavailable JR. BRIE, JESSENIA Helms Attending Unavaila ble HOLBROOK, ROSALIO Thibodeaux Attending Unavailable HSU, KATHRIN Attending Unavailable JR. BRIE, JESSENIA Helms Referring Unavaila ble BRINK, FLORA Attending Unavailable HOLBROOK, ROSALIO J Referring Unavailable BRINK, FLORA Attending Unavailable HOLBROOK, ROSALIO J Referring Unavailable KELBLEY, FLORESITA Attending Unavailable HOLBROOK, ROSALIO J Referring Unavailable KELBLEY, FLORESITA Attending Unavailable HOLBROOK, ROSALIO J Referring Unavailable BRINK, FLORA Attending Unavailable HOLBROOK, ROSALIO J Referring Unavailable BRINK, FLORA Attending Unavailable HOLBROOK, ROSALIO J Referring Unavailable BRINK, FLORA Attending Unavailable HOLBROOK, ROSALIO J Referring Unavailable KELBLEY, FLORESITA Attending Unavailable HOLBROOK, ROSALIO J Referring Unavailable HERNANDO JONES Attending Unavailable BRINK, FLORA Attending Unavailable HOLBROOK, ROSALIO J Referring Unavailable BRINK, FLORA Attending Unavailable HOLBROOK, ROSALIO J Referring Unavailable BRINK, FLORA Attending Unavailable HOLBROOK, ROSALIO J Referring Unavailable BRINK, FLORA Attending Unavailable HOLBROOK, ROSALIO J Referring Unavailable HSU, KATHRIN Attending Unavailable HOLBROOK, ROSALIO J Referring Unavailable BRINK, FLORA Attending Unavailable HOLBROOK, ROSALIO J Referring Unavailable Allergies Allergy ClassificationReported Allergen(s)Allergy TypeDate of OnsetReaction(s) Facility (16 sources)Lovastatin; Translations: [lovastatin]Drug Bsrvhuk75-16-1942 Comment:[facility] (1 source)patient allergy list reviewed by nurse or physiciaPropensity to adverse mkwbovzkx86-32-4983Kbjwiiz:[employer] Other (7 sources)Sulfamethoxazole-TMP DSDrug allergyrasPut[facility] Other (5 sources)SulfamethoxazoleDrug Grzcvvj22-62-0388jydeEojolujerProvidence Hospital (1 source)TrimethoprimDrug Tfikhqg94-15-5477rkjbWbnylmjtyProvidence Hospital (20 sources)Sulfonamides (Antibiotic)Propensity to adverse pegfyqgix17-86-3874 [facility] (1 source)sulfa drug; Translations: [sulfa drug]Propensity to adverse reactions to drug (disorder)[facility] Medications Current Medications MedicationDrug Class(es)DatesSig (Normalized)Sig (Original)acetaminophen 325 mg / oxyCODONE hydrochloride 5 mg oral tablet (20 sources)Opioid AgonistStart: 07-25-2025 End: 46-11-7983kvnf 1 tablet by mouth every six hours for painoxyCODONE- acetaminophen (Percocet) 5-325 MG tablet Indications: Arthrofibrosis of knee joint, left Take 1 tablet by mouth every 6 (six) hours if needed for moderate pain for up to 5 days 20 tablet 07/25/2025 07/30/2025 ActiveStart: 05-13-2025 End: 61-72-8191mmwy 1 tablet by mouth every six hours for painoxyCODONE- acetaminophen (Percocet) 5-325 MG tablet Indications: Primary osteoarthritis of left knee, Post-operative pain Take 1 tablet by mouth every 6 (six) hours if needed for moderate pain for upto 5 days 20 tablet 05/28/2025 06/02/2025 Active amLODIPine 5 mg oral tablet (20 sources)Dihydropyridine Calcium Channel BlockerStart: 07-31-2024 End: 02-96-0023xcrm 1 tablet by mouth once dailyAmlodipine 5 mg tablet Active 5 MG PO Daily 90 90 November 14, 2024 6:22pm Complies with drug therapyStart: 02-07-2024 End: 63-52-3937wrhh 2 tablets by mouth once dailyAmlodipine 5 mg tablet Discontinued 10 MG PO Daily February 07, 2024 12:00am July 31, 2024 3:30pm Start: 02-07-2024 End: 30-47-7863icwl 10 mg by mouth once dailyAmlodipine Discontinued 10 MG PO Daily February 07, 2024 12:00am July 31, 2024 3:30pmStart: 31-70-5281yjic 1 tablet by mouth once dailyamLODIPine 10 mg Tab 10 mg = 1 tab(s), Oral, Daily, Refills(s) 0, High blood pressure Start Date: 04/16/15 Status: Ordered Repeat number: 1take 1 tablet by mouth every twenty-four hoursamLODIPine Besylate 5 MG 1 tablet Orally Once a day for 90 days ActiveamLODIPine Besylate 10 MG 1/2 Orally Once a day Activeascorbic acid 1000 mg oral tablet (20 sources)Vitamin Ctake 1 tablet by mouth once dailyAscorbic Acid (vitamin C) 1000 MG tablet Take 1,000 mg by mouth Daily Activeaspirin 81 mg oral tablet (5 sources)Platelet Aggregation Inhibitor, Nonsteroidal Anti-inflammatory Drug Start: 02-95-9543szdp 81 mg by mouth once dailyaspirin 81 mg, Oral, Daily, Refills(s) 0 Start Date: 10/25/24 Status: Ordered Repeat number: 1Aspirin 81 mg Tab-EC (6 sources)Start: 38-16-1007bzyq 2 tablets by mouth once dailyAspirin 81 mg Tab- EC 162 mg = 2 tab(s), Oral, Daily, # 42 tab(s), Refills(s) 0 Start Date: 04/26/15 Status: Ordered Quantity: 42.0 Unit: tab(s) Repeat number: 1Start: 04-26-2015 take 2 tablets by mouth once dailyAspirin 81 mg Tab-EC 162 mg = 2 tab(s), Oral, Daily, # 42 tab(s), Refills(s) 0 Start Date: 04/26/15 Status: Orderedatorvastatin 10 mg oral tablet (5 sources)HMG-CoA Reductase InhibitorStart: 58-39-9315hlpl 1 tablet by mouth once dailyatorvastatin 10 mg Tab = 1 tab(s), Oral, Daily, Refills(s) 0 Start Date: 10/25/24 Status: Ordered Repeat number: 1ciprofloxacin 500 mg oral tablet (1 source)Quinolone AntimicrobialStart: 10-25-2024 End: 00-73-0373Ywpai 500 mg Tab 500 mg = 1 tab(s), Oral, BID, start 1 day prior to procedure, X 3 day(s), # 6 tab(s), Refills(s) 0, Pharmacy: [facility] [id number], 184, cm, 10/25/24 8:42:00 EST, Height/Length Dosing, 112, kg, 10/25/24 8:42:00 EST, Weight Dosing Start Date: 10/25/24 Stop Date: 10/28/24 Status: Orde reddocusate sodium 100 mg oral capsule (3 sources)Start: 84-90-5527lpkn 1 capsule by mouth twice dailyColace 100 mg Cap = 1 cap(s), Oral, BID, Refills(s) 0 Start Date: 10/25/24 Status: Ordered famotidine 20 mg oral tablet (3 sources)Histamine-2 Receptor AntagonistStart: 52-46-5198zrpm 1 tablet by mouth twice dailyfamotidine 20 mg Tab = 1 tab(s), Oral, BID, Refills(s) 0 Start Date: 10/25/24 Status: Orderedfolic acid 1 mg / polysaccharide iron complex 150 mg / vitamin b12 0.025 mg oral capsule (5 sources)Vitamin L74Mpufk: 04-18-2025 End: 75-89-5681cihm 1 tablet by mouth once dailyIron Polysacch Emllh-K55-OP (Poly-Iron 150 Forte) 150-0.025-1 MG capsule Indications: Pre-op examination Take 1 tablet by mouth Daily 30 capsule 1 04/18/2025 05/18/2025 Activegabapentin 100 mg oral capsule (1 source)Anti-epileptic AgentStart: 26-10-0961mlri 1 capsule by mouth three times dailyGabapentin 100 mg capsule Active 100 MG PO Three times daily August 08, 2025 12:00am Complies with drug therapymethylPREDNISolone (18 sources)CorticosteroidStart: 46-09-2263kngkgzAJUWJMOtvach (Medrol Dospak) 4 MG tablets Indications: Arthrofibrosis of knee joint, left , Status post left knee replacement Follow schedule on package instructions 21 tablet 08/09/2025 ActiveStart: 02-22-2025 End: 69-31-8309pwrplsJYLGMNZynqee acetate (DEPO-Medrol) injection 40 mgStart: 02-22-2025 End: 63-65-965556 mg, Intra-articular, Once PRN Procedure, Starting on Gabi 02/22/25 at 1406, For 1 doseMisc. Devices misc (20 sources)Start: 93-32-6060Lzes. Devices misc Indications: Pre-op examination Dispense: Front Wheeled walker use 90 days. Ht: 5'11 Weight: 255/4 1 Units 04/18/2025 Activepantoprazole 40 mg delayed release oral tablet (20 sources)Proton Pump InhibitorStart: 10-57-1857Zwqdcufggqsk 40 mg tablet,delayed release (DR/EC) Active 0 .ROUTE .COMPLEX June 01, 2025 1:13pm TAKE 1 TABLET DAILY Complies with drug therapyStart: 02-07-2024 End: 74-21-6341qbut 1 tablet by mouth before mealtimepantoprazole (ProtoNix) 40 MG EC tablet Take 40 mg by mouth in the morning. Take before meals. 05/31/2024 ActivePantoprazole Sodium 40 MG 1 tablet daily on an empty stomach [facility] OrallyOnce a day for 90 days ActivepredniSONE 20 mg oral tablet (4 sources)Start: 55-19-2216qjcv 1 tablet by mouth three times daily, then take 1 tablet by mouth twice daily, then take 1 tablet by mouth once dailyPrednisone 20 mg tablet Active 20 MG PO Daily 12 August 08, 2025 12:00am 1 tab tid w/ food x 2 days, then 1 tab bid w/ food x 2 days, then 1 tab qd w/ food x 2 days Complies with drug therapyStart: 02-20-2025 End: 61-17-2229Dlyzasrldw 20 mg tablet Discontinued 20 MG PO As Directed February 20, 2025 12:00am April 29, 2025 6:04pm 1 tab tid w/ food x 3 days, then bid w/ food x 3 days, then qd w/ food x 3 daystiZANidine 4 mg oral tablet (20 sources)Central alpha-2 Adrenergic AgonistStart: 05-23-2025 End: 99-04-4163odkz 1 tablet by mouth every eight hours for muscle spasms tiZANidine (Zanaflex) 4 MG tablet Indications: Quadricep tightness Take 1 tablet (4 mg) by mouth every 8 (eight) hours if needed for muscle spasms for up to 7 days 21 tablet 05/23/2025 ActiveVitamin C 1000 mg oral tablet (6 sources)Start: 49-26-9589aetn 1 tablet by mouth once dailyVitamin C 1000 mg oral tablet 1,000 mg = 1 tab(s), Oral, Daily, # 90 tab(s), Refills(s) 0 Start Date: 10/25/24 Status: Ordered Quantity: 90.0 Unit: tab(s) Repeat number: 1 Start: 47-15-4875pzop 1 tablet by mouth once dailyVitamin C 1000 mg oral tablet 1,000 mg = 1 tab(s), Oral, Daily, # 90 tab(s), Refills(s) 0 Start Date: 10/25/24 Status: Ordered Completed/Discontinued Medications MedicationDrug Class(es)DatesSig (Normalized)Sig (Original)baclofen 20 mg oral tablet (2 sources)gamma-Aminobutyric Acid-ergic AgonistStart: 07-13-2025 End: 51-73-6314zvfy 1 tablet by mouth three times daily as needed for pain Baclofen 20 mg tablet Discontinued 20 MG PO Three times daily as needed for back pain 45 July 13, 2025 12:00am July 13, 2025 3:41pm may cause sedationdiclofenac sodium 75 mg delayed release oral tablet (2 sources)Nonsteroidal Anti-inflammatory DrugStart: 07-13-2025 End: 11-36-2988jgdu 1 tablet by mouth twice dailyDiclofenac Sodium 75 mg tablet,delayed release (DR/EC) Discontinued 75 MG PO Twice daily July 13, 2025 12:00am July 13, 2025 3:40pmetodolac 500 mg oral tablet (5 sources)Nonsteroidal Anti-inflammatory DrugStart: 06-25-2025 End: 97-73-2819fsio 1 tablet by mouth twice dailyEtodolac 500 mg tablet Discontinued 500 MG PO Twice daily June 25, 2025 2:07pm July 13, 2025 3:36pmStart: 03-69-1899isdk 1 tablet by mouth twice dailyetodolac 500 mg Tab = 1 tab(s), Oral, BID, Refills(s) 0 Start Date: 10/25/24 Status: Ordered levoFLOXacin 500 mg oral tablet (3 sources)Quinolone AntimicrobialStart: 08-02-2024 End: 64-86-4020wskg 1 tablet by mouth once dailyLevofloxacin 500 mg tablet Discontinued 500 MG PO Daily August 02, 2024 12:00am February 20, 2025 9:50amlisinopril 20 mg oral tablet (20 sources)Angiotensin Converting Enzyme InhibitorStart: 41-59-8186qzwh 1 mg by mouth once dailyLisinopril Active MG PO Daily July 31, 2024 12:00amStart: 05-27-2024 End: 06-32-9756dlcm 1 tablet by mouth once dailylisinopril 20 MG tablet Take 20 mg by mouth Daily 05/27/2024 ActiveStart: 02-07-2024 End: 05-88-4428tqia 1 tablet by mouth once dailyLisinopril 5 mg tablet Discontinued 5 MG PO Daily 90 May 31, 2024 3:43pm July 31, 2024 3:03pmStart: 77-45-5957dnvs 1 tablet by mouth every twenty-four hoursLisinopril 20 MG 1 tablet Orally Once a day for 90 days Sep, ActiveLisinopril 5 MG 3 Orally Once a day Activetake 1 tablet by mouth every twenty-four hours Lisinopril 5 MG 1 tablet Orally Once a day ActiveLOW-DOSE ASPIRIN PO (12 sources) End: 19-99-5327tsuk 81 mg by mouth once dailyLOW-DOSE ASPIRIN PO Take 81 mg by mouth Daily 04/17/2025 Discontinued (Therapy completed)take 81 mg by mouth once dailyLOW-DOSE ASPIRIN PO Take 81 mg by mouth Daily Activemethocarbamol 750 mg oral tablet (2 sources)Muscle RelaxantStart: 05-09-2025 End: 30-82-7516tief 1 tablet by mouth every eight hours as needed for pain Methocarbamol 750 mg tablet Discontinued 750 MG PO Every 8 hours as needed for pain 28 05May 10, 2025 10:20am July 13, 2025 3:37pmsulfamethoxazole 800 mg / trimethoprim 160 mg oral tablet (5 sources)Dihydrofolate Reductase Inhibitor Antibacterial, Sulfonamide AntimicrobialStart: 07-03-7933vhym 1 tablet by mouth every twelve hoursBactrim DS 800-160 MG 1 tablet Orally Twice a day for 21 days Jul, Not-Taking traMADol hydrochloride 50 mg oral tablet (2 sources)Opioid AgonistStart: 05-02-2025 End: 91-90-9830nhjp 1 tablet by mouth every eight hours as needed for pain Tramadol 50 mg tablet Discontinued 50 MG PO Every 8 hours as needed for pain 04 06May 02, 2025 12:00am July 13, 2025 3:37pm Problems Active Problems Problem ClassificationProblemDateDocumented DateEpisodic/ChronicAbdominal hernia (8 sources)Umbilical hernia; Translations: [Umbilical hernia without obstruction or gangrene]Onset: 052545-29-4856QxahhmnhArejukyor of lipid metabolism (20 sources)Pure hypercholesterolemia; Translations: [Familial hypercholesterolemia]Onset: 331464-06-1804QjlxjfbE Codes: Adverse effects of medical drugs (1 source)Adverse effect of unspecified drugs, medicaments and biological substances, initial encounterEpisodicE Codes: Fall (1 source)Fall from ladder; Translations: [Fall on and from ladder, initial encounter]EpisodicEsophageal disorders (17 sources)Gastroesophageal reflux disease without esophagitis; Translations: [Gastro-esophageal reflux disease without esophagitis]02-80-2623ZeuvpefHkhitswlg hypertension (20 sources)Essential hypertension; Translations: [Essential (primary) hypertension]ChronicFracture of upper limb (1 source)Closed fracture of distal phalanx of finger; Translations: [Nondisplaced fracture of distal phalanxof right thumb, initial encounter for closed fracture]EpisodicGenitourinary symptoms and ill-defined conditions (2 sources)NocturiaEpisodicHeadache; including migraine (7 sources)Tension-type headache; Translations: [Tension-type headache, unspecified, not intractable]ChronicHyperplasia of prostate (20 sources)Nocturia due to benign prostatic hypertrophy; Translations: [Benign prostatic hyperplasia with lower urinary tract symptoms]Onset: 12-30-3608Vorpnuz Inflammatory conditions of male genital organs (1 source)Acute prostatitisEpisodicJoint disorders and dislocations; trauma-related (7 sources)Derangement of meniscus; Translations: [Derangement of meniscus NEC] Onset: 960953-64-1157NokszbpEdyzbguflzhqsa (20 sources)Osteoarthritis of left knee joint; Translations: [Unilateral primary osteoarthritis, left knee]Onset: 977432-21-1268KkcbrkcVszcb aftercare (2 sources)History of repair of umbilical hernia; Translations: [Encounter for follow-up examination after completed treatment for conditions other than malignant neoplasm]50-25-6576HpafthvbTlkhx connective tissue disease (12 sources)Cramp in lower leg associated with rest; Translations: [Sleep related leg cramps]ChronicOther connective tissue disease (5 sources)Cramp in lower limb; Translations: [Sleep related leg cramps] 42-20-4563MvodstzEixug connective tissue disease (20 sources)History of total knee arthroplasty; Translations: [Presence of left artificial knee joint]Onset: 411106-51-2692UzcdzfiMltqg connective tissue disease (1 source)Unspecified rotator cuff tear or rupture of unspecified shoulder, not specified as traumatic; Translations: [Unsp rotatr-cuff tear/ruptr of unsp shoulder, not trauma]EpisodicOther connective tissue disease (1 source)Nontraumatic rupture of rotator cuff of left shoulder; Translations: [Unspecified rotator cuff tearor rupture of left shoulder, not specified as traumatic]EpisodicOther connective tissue disease (2 sources)Other specified soft tissue disordersEpisodicOther connective tissue disease (1 source)Increased muscle tone; Translations: [Other specified disorders of muscle]52-76-9445MvdwgtwwNqdyy connective tissue disease (2 sources)Thigh pain; Translations: [Pain in left thigh]56-78-3922ZqgqsaxuWnzeb disorders of stomach and duodenum (1 source)Disorder of function of stomach; Translations: [Dyspepsia and other specified disorders of functionof stomach]EpisodicOther male genital disorders (2 sources)Dysplasia of prostate; Translations: [Atypical small acinar proliferation of prostate]Onset: 35-91-7275ZvjffzzeYvtjx male genital disorders (4 sources)Atypical small acinar proliferation of prostate; Translations: [Atypical small acinar proliferationof prostate]41-47-3825WbtydjceZemzmfz on above:TRUS/bx - 12/2024Other nervous system disorders (4 sources)Postoperative pain ; Translations: [Other acute postprocedural pain] 54-70-8438PrwziqbeEatfp non-traumatic joint disorders (7 sources)Arthrofibrosis of left knee; Translations: [Ankylosis, left knee] 32-65-1527GweljejRfamj non-traumatic joint disorders (15 sources)Ankylosis of left knee joint; Translations: [Ankylosis, left knee] 86-65-4124KazibzoZpzph non-traumatic joint disorders (1 source)Shoulder joint pain; Translations: [Pain in joint, shoulder region] EpisodicOther non-traumatic joint disorders (13 sources)Pain in unspecified knee; Translations: [Knee pain]02-20-2025 EpisodicOther non-traumatic joint disorders (1 source)Pain in left knee; Translations: [Pain in left knee]Onset: 05-13-2025 EpisodicOther nutritional; endocrine; and metabolic disorders (2 sources)Obese class I; Translations: [Body mass index (BMI) 31.0-31.9, adult] Onset: 12-97-7262NyltruvRhgcx nutritional; endocrine; and metabolic disorders (1 source)Simple obesity ; Translations: [Other obesity due to excess calories] Onset: 64-90-7551WrgsfmrNuucs nutritional; endocrine; and metabolic disorders (8 sources)Obesity; Translations: [Obesity, unspecified]Onset: 11-18-2015 17-00-0294TllsrjyYiwwf screening for suspected conditions (not mental disorders or infectious disease) (20 sources)Encounter for screening for malignant neoplasm of prostate; Translations: [Prostate specific antigen measurement]Onset: 41-26-0771Bkeawjoc Comment on above:PSA:3.82 - 07/2022, 3.62 - 01/2023, 4.54 - 07/2023, 2.4 (11%) - 10/2023, 4.5 - 07/2024, 4.0 (9.3%) - 09/2024TRUS/bx - 12/2024- YANG (atypical small aciner proliferation)Skin and subcutaneous tissue infections (13 sources)Cellulitis of right upper limb; Translations: [Cellulitis of right upper limb]68-31-8752AngpfhxfUpfpdwwkghk; intervertebral disc disorders; other back problems (17 sources)Lumbar spondylosis; Translations: [Spondylosis without myelopathy or radiculopathy, lumbar region]23-97-4298OuvgunkVqsrlpoliln; intervertebral disc disorders; other back problems (16 sources)Spasm of muscle of lower back; Translations: [Muscle spasm of back] 21-67-7551YalaphpqTkdyzss and strains (1 source)Glenoid labrum tear; Translations: [Superior glenoid labrum lesions (SLAP)]EpisodicSubstance-related disorders (20 sources)Tobacco user; Translations: [Nicotine dependence, cigarettes, in remission]Onset: 04-11-2025 Resolved: 11-63-4718JxpqcehCoalxdt on above:Added secondary to documentation in Social History.Quit 2020Superficial injury; contusion (2 sources)Contusion of right hand; Translations: [Contusion of right hand, initial encounter]EpisodicUnclassified (1 source)Identification of preoperative respiratory status; Translations: [Encounter for preprocedural respiratory examination]Onset: 07-11-2014 Past or Other Problems Problem ClassificationProblemDateDocumented DateEpisodic/ChronicEsophageal disorders (4 sources)Esophageal disorders; Translations: [Gastroesophageal reflux disease with esophagitis without hemorrhage]Other connective tissue disease (1 source)Pain in right lower limb; Translations: [Pain in right leg]Onset: [id number] connective tissue disease (1 source)Swelling of limb; Translations: [Swelling of limb]Onset: 03-13-2016 EpisodicOther connective tissue disease (20 sources)Synovial plica; 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, unspecified knee] Onset: [id number] nervous system disorders (20 sources)Other acute postprocedural pain; Translations: [Pain in joint, lower leg]Onset: [id number] non-traumatic joint disorders (1 source)Arthralgia of the lower leg; Translations: [Pain in joint, lower leg] Onset: 89-31-6913KakxjtumBggpfsuo codes; unclassified (2 sources)Tobacco user; Translations: [Nondependent tobacco use disorder]Onset: 32-18-8155FitnnparLtuwjhtsccjo (2 sources)Acute pain of left avvw30-99-4336 Results Test NameValueInterpretationReference RangeFacilityAmbulatory Visit Summaryon [id number] Visit SummaryAmbulatory Visit Summary DAVID MOSQUEDA :1970 Visit Date:07/18/2025 Ambulatory Visit Instructions Your Diagnosis Elevated PSA Atypical small acinar proliferation of prostate BPH without urinary obstruction Your Care Team Attending Physician - Surjit RICHARDS, Miley Stephens Primary Care Physician - OPAL BAUM DERREK This Is Your Medications List Contact prescribing physician if questions or concerns amlodipine (amLODIPine 10 mg Tab) ascorbic acid (Vitamin C 1000 mg oral tablet) aspirin (Aspirin 81 mg Tab-EC) lisinopril (lisinopril 20 mg Tab) pantoprazole (Pantoprazole [address] Tab) Procedures Performed Transrectal biopsy of prostate using ultrasound guidance (12/11/2024), arthroscopically aided treatment of a tibia insufficiency fracture medial tibial plateau (Annika subchondroplasty procedure). right knee arthroscopy with chondroplasty to two compartments, partial medial meniscectomy, excision of the plica (04/26/2015), Repair of anterior abdominal hernia(s) (ie, epigastric, incisional, ventral, umbilical, spigelian), any approach (ie, open, laparoscopic, robotic), recurrent, including implantation of mesh or other prosthesis when performed, total length of defect(s); 3, Rotator cuff repair. Discharge Vitals Temperature (Tympanic) 36.8 ???C Heart Rate (Peripheral) 80 Respiratory Rate 18 Blood Pressure 150/90 Height 184 cm Height 72 in Weight 114.7 kg Weight 252.87 lb BMI 33.88 What to do next Scheduled Follow-Up Appointments Wednesday. 2025 9:00 AM EDT With: Where: [facility] [address] [id number] 9:15 AM EDT With: Miley Eddy MD Where: [facility] [address] [address]- You Need to Schedule the Following Appointments Follow Up with Miley Eddy MD, URL, URO When: Where: You Need to Complete the Following PSA Free & Total, Blood, Routine collect, 01/06/26, Order for future visit, Lab Collect, Elevated PSA Atypical small acinar proliferation of prostate BPH without urinary obstruction, Print Label By Order Location Medications What How Much When Instructions Unchanged amlodipine (amLODIPine 10 mg Tab) 1 Tablets By Mouth Every day Contact prescribing physician if questions or concerns Unchanged ascorbic acid (Vitamin C 1000 mg oral tablet) 1 Tablets By Mouth Every day Contact prescribing physician if questions or concerns Unchanged aspirin (Aspirin 81 mg Tab-EC) 2 Tablets By Mouth Every day Contact prescribing physicianif questions or concerns Unchanged lisinopril (lisinopril 20 mg Tab) 1 Tablets By Mouth Every day Contact prescribing physician if questions or concerns Unchanged pantoprazole (Pantoprazole [address] Tab) By Mouth Every day Contact prescribing physicianif questions or concerns Allergies No Known Allergies [...] 40. ??? You are between the ages (more content not included)...[facility] HospitalU[facility] Office/Clinic Noteon 81-95-0672Uvynzqt Office/Clinic Note Urology Office/Clinic Note Chief Complaint 6 mth w/PSA HPI Staff 6 mos w/ PSA Previous dx: YANG, elevated PSA, BPH wo urinary obstruction. *No BPH meds Most recent PSA 07/11/25 - 6.3 & 7.9% Pt. denies having incontinence Pt. denies having pain with urination Pt. denies having gross hematuria Pt. denies having abd pain Pt. denies having flank pain IPSS - 2 CATERINA - 2 History of Present Illness Tests reviewed: UA, PSA I have reviewed the previous health record information and history for this patient from Dr. Eddy. I have reviewed and verified the staff [...] See HPI. Physical Exam Vitals & Measurements T: 36.8 ???C(Tympanic) HR: 80(Peripheral) RR: 18 BP: 150/90 HT: 184 cm HT: 72 in WT: 252.87 lb WT: 114.7 kg BMI: 33.88 General Appearance: alert, no distress, well nourished, well developed adult. Assessment/Plan 55 yo male presents for 6 mo PSA surveillance. CATERINA 2 (10), previously declined tx. Pt to notify office if he desires tx. 1. Elevated PSA (R97.20: Elevated prostate specific antigen [PSA]) PSA (wellness checks PSA): 12/26/18 - 2.42 12/29/19 - 2.75 07/29/22 - 3.82 09/14/22 - 3.76 01/19/23 - 3.62 08/04/23 - 4.54 10/29/23 - 2.40 & 11.7% 08/01/24 - 4.50 09/12/24 - 4.00 & 9.3%, PSAD 0.10 07/11/25 - 6.30 & 7.9% No known fam hx of pros ca. Sister had lung ca, , self inflicted. Thinks uncle had colonca. Wishes to avoid MRI due to claustrophobia. [1] TRUS/bx 12/11/24 - ANNEL benign. Prostate volume 41.1 mL. Path ~benign prostatic tissue with focal chronic active inflammation. YANG LLM. Results discussed with pt. PSA increased, level, rate of rise, and low percent free concerning. Recommended prostate MRI to assess for potential lesion to target for bx. Pt cannot proceed with and MRI wo sedation or open MRI due claustrophobia. Unfortunately, fairly certain [facility] [place] offer open MRIs or MRIs with sedation. Will contact [facility] and [facility] [place] to seee if they offer either. Pt is hesitant to proceed with prostate bx soon given recent knee replacement and issues (cont to have knee issues after 30 PT sessions). Has other knee surgery coming up soon. 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 Pt questions if this is contributing to PSA elevation, has tried multiple meds through PCP for ar thritis. Inflammation can elevate PSAs however, NSAIDs would help to decrease PSA. Pt was also toldhe must wait 6 mos after knee replacement before seeing dentist, he is uncertain if this applies toother procedures but likely. Reassuring pt that he had recent neg bx in Dec but YANG (recommend repeat bx) and if prostate ca is present, it tends to be slow growing. Risks/benefits of waiting discussed. Follow up 9 mos with PSA F&T once KML returns from mat leave and cleared from orthopedics (pending MRI below) or sooner if needed. Pt understands and agrees with plan. -Call [facility] to see if they offer open MRI vs MRI w sedation; if not, f/u in spring with repeatPSA 2. 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 Educated the recommendation with YANG pathology is to repeat bx in 6 mos to 1 yr. 3. BPH without urinary obstruction (N40.0: Benign prostatic hyperplasia without lower urinary tractsymptoms) Pt unable to provide urine sample today. IPSS 2 (4). No BPH meds. -Cont symptomatic monitoring, avoid bladder irritants Follow-up With When Contact Information Surjit RICHARDS, Miley Stephens, URL, URO Additional Instructions: 9 mos with PSA F&T (pending MRI) Patient Education Prostate Cancer Screening I, Juana Early, personally scribed for Dr. Eddy on 07/18/2025 09:40:31. . Documentation recorded by the scribe, Juana Early, accurately reflects the services(s) I performed and decisions made by me. Authenticated by Dr. Eddy on 07/18/2025 09:58:52. Problem List/Past Medical History Ongoing Atypical small acinar proliferation of prostate BPH without urinary obstruction Elevated PSA Obesity Smoker Historical No qualifying data Procedure/Surgical History Transrectal biopsy of prostate using ultrasound guidance (12/11/2024), arthroscopically aided treatment of a tibia insufficiency fracture medial tibial plateau (Annika subchondroplasty procedure). right knee arthroscopy with chondropl (more content not included)...[facility] HospitalComment on above:Result Comment: Electronically Signed By: Surjit RICHARDS, Miley Stephens\.br\Date and Time Signed: 07/18/25 10:01EDTCoding Summaryon 13-13-7214Fnosem Summary HTMLBase 64 AvfgmbhzGNf5sSm+PGhlYWQ+PE0EYSYcL15xcRZfuH8gI4VTNFuZVdgnHABZASvTRtEnceGoJZ9xrETc ZXJu [file] b2x (more content not included)...[facility]XR K[facility] - left 1 or 2 Viewson 12-23-6041Rfruewn Result: 07/02/2025: Standing AP and LAT of left knee showed surgical position and alignment of prosthetic components without evidence of loosening or wear to the femoral, tibial, or patellar components. The alignment appeared to be anatomic. There was no evidence of accelerated or asymmetric wear to the patellar button or tibial tray. There was no evidence of fracture and/or dislocation. Impression: Stable LT total knee replacement. Hernando Jones APRN-[facility] HealthcareRadiology Study observation (narrative)[facility] US LOWER EXTREMITY VENOUS DUPLEX LEFTon [id number] US LOWER EXTREMITY VENOUS DUPLEX LEFTEXAM: [facility] US LOWER EXTREMITY VENOUS DUPLEX LEFT TECHNIQUE: LEFT lower extremity venous duplex exam was performed. HISTORY: persistent thigh pain since surgery. FINDINGS: The common femoral, femoral, deep femoral, popliteal and calf veins were evaluated for deep venous thrombosis. The veins were evaluated with color Doppler imaging, compression and augmentation if possible. No sonographic evidence of deep venous thrombosis. No soft tissue abnormality identified within the soft tissues in the area of the patient's pain. IMPRESSION: No sonographic evidence of deep venous thrombosis of the left lower extremity. ELECTRONICALLY SIGNED BY: Donald Jaime AvailableComment on above:Order Comment: Per Judie, 4:15 todayCoding Summaryon [id number] SummaryMLBase 64 BhpbpdjkCUb4aKh+PGhlYWQ+QZ0WVHXfW03ydXNaqQ4bT4PWQTqUBqilHRWYOTfPPiCxcpCkLX9fwHBr ZXJu [file] Y29 (more content not included)...[facility] HospitalCoding Summaryon 56-25-9404Kbzlwp SummaryHTMLBase 64 MvluhufcYDw1kRq+PGhlYWQ+GN9GKLYjE48auPRncX9mF7ZCPMpGZztgRIRWYEeISaQmkbRlIF0bqEVj ZXJu [file] Y29 (more content not included)...[facility] HospitalAnesthesia Noteon 93-71-2483Pstizccelx [id number]#1.00[facility] HospitalAnesthesia Procedureon [id number] Procedure [id number]#1.00[facility] Consent Formson 93-74-2051Qrrlowc Forms [id number]#1.00[facility] Outside Recordson 26-80-7274Imnpwmv Records [id number]#1.00[facility] Provider Orderson 76-70-1721Evpttbpn Orders [id number]#1.00[facility] Telemetry Stripson 10-74-1719Trovaxwmc Strips [id number]#1.00[facility] Anesthesia Noteon [id number] NotePatient: DAVID MOSQUEDA Age: 55 years Sex: MALE : 1970 Associated Diagnoses: None Author: Lonnie Mederos DO Postoperative Information Post Operative Note: Post Anesthesia Care Unit. Anesthetic utilized: Monitored anesthesia care. Combined technique: Spinal, ACB + iPACK. Physical Examination VSS. See nursing flowsheet for vital sign measurements. General: No acute distress. Respiratory: Respirations are non-labored. Cardiovascular: Stable hemodynamics.. Neurologic: Alert, Oriented, SAB resolving, expected sensory deficits from PNB. Review / Management Condition: Stable. Assessment Anesthetic outcome No anesthetic complications noted. Adequate pain relief. Patient either has a diagnosis of or is at risk of RAKAN. Potential risks and mitigating factors werediscussed with the patient who expresses understanding.. No Complaint of nausea and vomiting. Plan Transfer/ Discharge: Patient can be discharged from PACU when criteria met. Condition stable. [Electronically Signed on: 05/14/2025 13:34 EDT] Lonnie Mederos DO [Verified on: 05/14/2025 13:34 EDT] Lonnie Mederos [facility] HospitalAnesthesia NotePatient: DAVID MOSQUDEA Age: 55 years Sex: MALE : 1970 Associated Diagnoses: None Author: Lonnie Mederos DO Preoperative Information Anesthesiologist scheduled: Lonnie Mederos DO Time of Last Intake: > 8 hours. Anesthesia history: Patient history: No prior anesthesia problems. Family history: No prior anesthesia problems. Re-evaluation prior to induction: Completed. Initial evaluation reviewed: No significant interval change. Review of Systems Constitutional: No fever, No chills. Respiratory: No shortness of breath. Cardiovascular: No chest pain. Gastrointestinal: No heartburn. Musculoskeletal: Joint pain. Neurologic: Alert and oriented X4. ROS reviewed as documented in chart Health Status Allergies: Allergic Reactions (All) Moderate Sulfa drug- Rash. Mild Lovastatin- Myalgia. Canceled/Inactive Reactions (All) No known allergies Current medications: (Selected) Inpatient Medications Ordered LR 1,000 mL: 20 mL/hr, IV Lidocaine 1% injectable solution: 0.1 mL, ID, Once, PRN: Other (see comment) Vitamin C: 1,000 mg = 2 tab(s), Oral, Daily amLODIPine: 5 mg = 1 tab(s), Oral, Daily ceFAZolin: 2 gm = 50 mL, 100 mL/hr, IV Piggyback, Intermodal Dispatcher lisinopril: 20 mg = 1 tab(s), Oral, Daily pantoprazole: 40 mg = 1 tab(s), Oral, Daily tranexamic acid: 1,000 mg = 100 mL, 300 mL/hr, IV Piggyback, Intermodal Dispatcher tranexamic acid: 1,000 mg = 100 mL, 300 mL/hr, IV Piggyback, Intermodal Dispatcher Documented Medications Documented Ferrex 150 Forte oral capsule: 1 tab(s), Oral, Daily, 0 Refill(s) Metamucil 3.4 g/5.2 g oral powder for reconstitution: 1 tsp, Oral, Daily Multivitamin, generic: 1 tab(s), Oral, Daily Vitamin C 1000 mg oral tablet: 1,000 mg = 1 tab(s), Oral, Daily amLODIPine 5 mg oral tablet: 5 mg = 1 tab(s), Oral, Daily lisinopril 20 mg oral tablet: 20 mg = 1 tab(s), Oral, Daily pantoprazole 40 mg oral delayed release tablet: 40 mg = 1 tab(s), Oral, Daily Problem list: All Problems GERD (gastroesophageal reflux disease) / SNOMED CT 199390568 / Confirmed Hypertension / SNOMED CT 3881584954 / Confirmed, Active Problems (2) GERD (gastroesophageal reflux disease) Hypertension Histories Family History: No family history items have been selected or recorded. Procedure history: Herniorrhaphy ([id number]). Comments: 04/24/2025 12:30 NEDAT - Shannan Hanson RN Umbilical Arthroscopy of knee ([id number]). Comments: 04/24/2025 12:29 NEDAT Shannan Zurita RN Right Arthroscopy of shoulder ([id number]). Comments: 04/25/2025 10:36 NEDAT Shannan Zurita RN Left Appendectomy ([id number]). Social History Electronic Cigarette/Vaping Assessment Electronic Cigarette Use: Never. Alcohol Assessment Use: Current. Beer, 3-5 times per week Tobacco Assessment Former tobacco user Tobacco Use:. Started age 16 Years. Stopped age 50 Years. Comment: Was a 1 pack/day smoker Substance Abuse Assessment Substance use: Past. Marijuana Comment: Not since [id number] . Social & Psychosocial Habits Alcohol 04/25/2025 Alcohol Use: Current Type: Beer Frequency: 3-5 times per week Substance Use 04/25/2025 Substance use: Past Type: Marijuana Comment: Not since [id number] - 04/25/2025 10:27 - Shannan Hanson RN Tobacco 04/25/2025 Smoking tobacco use: Former tobacco user Started at age: 16 Years Stopped at age: 50 Years Comment: Was a 1 pack/day smoker - 04/25/2025 10:26 - Shannan Hanson RN Electronic Cigarette/Vaping 04/25/2025 Electronic Cigarette Use: Never . Physical Examination Airway: Mallampati classification: III (soft palate, base of uvula visible). Mouth: Teeth ( wnl ). Neck: Full range of motion. Respiratory: Lungs are clear to auscultation. Cardiovascular: Normal rate, Regular rhythm. Neurologic: Alert, Oriented, No focal deficits. Review / Management Results review: Lab results 05/09/2025 11:10 EDT UA Color Yellow UA Clarity CLEAR UA Glucose NEGATIVE UA Ketones NEGATIVE UA Spec Grav 1.010 UA Blood NEGATIVE UA pH 6.5 UA Protein NEGATIVE UA Urobilinogen 0.2 mg/dL UA Nitrite NEGATIVE UA Leuk Est NEGATIVE UA Bilirubin NEGATIVE Urine Source Clean Catch Micro? Not Indicated Culture? Not Indicated 04/25/2025 11:51 EDT WBC 7.9 x103/mcL RBC 4.54 x106/mcL Hgb 15.6 gm/dL Hct 45.0 % MCV 99 fL MCH 34 pg MCHC 35 gm/dL RDW 13.2 % Platelet 198 x103/mcL MPV 9.4 fL Auto Neut % 48 % Auto Lymph % 37 % Auto Bailey % 10 % Auto Eos % 3.2 % Auto Baso % 1.2 % Neut Abs# 3.9 x103/mcL Lymph Abs# 2.9 x103/mcL Bailey Abs# 0.8 x103/mcL Eos Abs# 0.3 x103/mcL Baso Abs# 0.1 x103/mcL Sodium Level 137.0 mmol/L Potassium Level 4.0 mmol/L Chloride Level 102 mmol/L CO2 24 mmol/L Anion Gap 15.0 mmol/L Glucose Level 112.0 mg/dL BUN 14 mg/dL Creatinine Level 0.77 mg/dL LOW BUN/Creat Ratio 18.1 HI eGFR AA >60 mL/min/1.73m2 NA eGFR Non AA >60 mL/min/1.73m2 NA Calcium Level 9.2 mg/dL Osmol (more content not included)...[facility] HospitalIn[facility] Patient Summaryon [id number] [address] Patient Discharge Instructions Name: DAVID MOSQUEDA : 1970 Patient Address: [address] [place] [address] Primary Care Provider: Name: Derrek Joseph After you are discharged if you find you have any questions, please, call [phone] ext [phone] to speak to a nurse. The Pharmacy at [facility] is open Wednesday through Wednesday from 9A to 6P and Wednesday and Wednesday from 9A to 5P Discharge Diagnosis: Acute pain of left knee Prescription Information: If you have been given a prescription for narcotics, seek immediate medical attention if you have any difficulty breathing or any sudden status changes such as confusion andsleepiness. If you or anyone you know is experiencing suicidal thoughts, mental health, alcohol and/or drug addiction problems; contact the [facility] 31/05 Crisis Hotline -Text 4HGSN ti 224057. If you received any narcotics, sedation, or any other medication that causes drowsiness for the next 24 hours, unless otherwise directed: ? Do not drive a car. ? Do not operate machinery such as power tools, lawn mowers, drills, sewing machines, or stoves ? Avoid alcoholic beverages and drugs for allergies, nerves, or sleep ? Do not make important personal or business decisions or sign any legal documents [facility] would like to thank you for allowing us to assist you with your healthcare needs.The following includes patient education materials and information regarding your injury/illness. DAVID MOSQUEDA has been given the following list of follow-up instructions, prescriptions, and patient education materials: Follow-up Instructions With: Address: When: Hernando Jones [address] [place] [id number] Business (1) 05/28/2025 2:00 PM Medications During the course of your visit, your medication list was updated with the most current information. The details of those changes are reflected below: Medications to Continue That Have Not Changed Other Medications amLODIPine (amLODIPine 5 mg oral tablet) 1 tab(s) Oral (given by mouth) every day. ascorbic acid (Vitamin C 1000 mg oral tablet) 1 tab(s) Oral (given by mouth) every day. lisinopril (lisinopril 20 mg oral tablet) 1 tab(s) Oral (given by mouth) every day. multivitamin (Multivitamin, generic) 1 tab(s) Oral (given by mouth) every day. multivitamin with iron (Ferrex 150 Forte oral capsule) 1 tab(s) Oral (given by mouth) every day. pantoprazole (pantoprazole 40 mg oral delayed release tablet) 1 tab(s) Oral (given by mouth) every day. psyllium (Metamucil 3.4 g/5.2 g oral powder for reconstitution) 1 tsp Oral (given by mouth) every day. It is important to always keep an active list of medications available so that you can share with other providers and manage your medications appropriately. As an additional courtesy, we are also providing you with your final active medications list that you can keep with you. amLODIPine (amLODIPine 5 mg oral tablet) 1 tab(s) Oral (given by mouth) every day. ascorbic acid (Vitamin C 1000 mg oral tablet) 1 tab(s) Oral (given by mouth) every day. lisinopril (lisinopril 20 mg oral tablet) 1 tab(s) Oral (given by mouth) every day. multivitamin (Multivitamin, generic) 1 tab(s) Oral (given by mouth) every day. multivitamin with iron (Ferrex 150 Forte oral capsule) 1 tab(s) Oral (given by mouth) every day. pantoprazole (pantoprazole 40 mg oral delayed release tablet) 1 tab(s) Oral (given by mouth) every day. psyllium (Metamucil 3.4 g/5.2 g oral powder for reconstitution) 1 tsp Oral (given by mouth) every day. Take only the medications listed above. Contact your doctor prior to taking any medications not on this list. Medication leaflets, if any, will display below Diet & Activity Patient Activity Level: As Tolerated Patient Diet: Regular Patient Activity Restrictions: Discontinue Alcohol Use, No driving, No Sexual Activity, Stop Smoking Patient education materials, if any, will display below POST OPERATIVE TOTAL KNEE/HIP DISCHARGE INTRUCTIONS SURGEONS WRITTEN INSTRUCTIONS: Walk with walker; bear weight to tolerance on operative extremity Elevate extremity 1 hour 3 times/day to control pain and swelling and apply ice Range of motion to ankle 10 times/hour Range of motion to knee hourly Change dressing daily. Judith hose (compression stockings) for 6 weeks Physical therapy as prescribed May shower, no tub bath. Do not rub/scrub incision. Wash gently Take Aspirin 81mg 2x for 30 days to help prevent blood clots, coated or uncoated per patient preference. WHAT YOU SHOULD KNOW AFTER YOUR OPERATION: If you need pain pills, start before the pain becomes intense. Pain pills are frequently less upsetting to your stomach if you take them with food such as crackers or bread. If you have excessive or persist (more content not included)...[facility] Intraoperative Recordon [id number] Intraoperative RecordMA Intra-Op Record Summary Primary Physician: JESSENIA BAIRD DO Finalized Date/Time: 05/14/25 13:51:08 Pt. Name: DAVID MOSQUEDA Leticia/Sex: 1970 MALE Med Rec #: [id number] Physician: JESSENIA BAIRD DO Financial #: [id number] Pt. Type: D Room/Bed: [facility] Admit/Disch: 05/14/25 06:43:56 - Institution: Case Times MAGR Entry 1 Patient In Room Time 05/14/25 09:45:00 Out Room Time 05/14/25 13:02:00 Anesthesia Start Time 05/14/25 09:45:00 Stop Time 05/14/25 13:08:00 Surgery Start Time 05/14/25 10:35:00 Stop Time 05/14/25 12:58:00 Last Modified By: Jersey GUZMAN, Mala 05/14/25 13:50:54 General Comments: CALLED WITH UPDATE-1039 CALLED WITH UPDATE-1126 CALLED WITH UPDATE-1154 Case Attendance MAGR Entry 1 Entry 2 Entry 3 Case Attendee JESSENIA BAIRD Christopher J DO Gump RN, Mala Role Performed Surgeon - Primary Anesthesiologist of Health And Physical Education Professor Record Time In 05/14/25 09:45:00 05/14/25 09:45:00 05/14/25 09:45:00 Time Out 05/14/25 12:06:00 05/14/25 13:02:00 05/14/25 13:02:00 Procedure Arthroplasty Knee Arthroplasty Knee Arthroplasty Knee Total(Left) Total(Left) Total(Left) Last Modified By: Mala Putnam RN, RN, Mala Bloom RN 05/14/25 13:06:42 05/14/25 13:06:42 05/14/25 13:06:42 Entry 4 Entry 5 Entry 6 Case Attendee Nedra Nuñez CST, CST, Regina CSFA CST Meyer PA-C, Matthew J CSFA Role Performed Performance Tester Scrub Personnel Physican Orchard Sprayer Time In 05/14/25 09:45:00 05/14/25 09:45:00 05/14/25 10:36:00 Time Out 05/14/25 13:02:00 05/14/25 13:02:00 05/14/25 13:02:00 Procedure Arthroplasty Knee Arthroplasty Knee Arthroplasty Knee Total(Left) Total(Left) Total(Left) Last Modified By: Jersey GUZMAN, Mala Putnam RN, Mala Bloom RN 05/14/25 13:06:42 05/14/25 13:06:42 05/14/25 13:06:42 Entry 7 Case Attendee Lorenza Miranda RN Role Performed Health And Physical Education Professor Time In 05/14/25 09:45:00 Time Out 05/14/25 10:35:00 Procedure Arthroplasty Knee Total(Left) Last Modified By: Mala Putnam RN 05/14/25 13:06:42 General Comments: BALTA AVILES-ANNIKA Surgical Procedures MAGR Pre-Care Text: A.20 Verifies operative procedure, surgical site, and laterality Im.150 Develops individualized plan of care Entry 1 Procedure Arthroplasty Knee Total Primary Procedure Yes Primary Surgeon JESSENIA BAIRD DO Modifiers Left Surgeon Comment LEFT TOTAL KNEE Start 05/14/25 10:35:00 Stop 05/14/25 12:58:00 Anesthesia Type Spinal Surgical Service Orthopedics Wound Class Clean Technique Details Closure Technique Primary Entire procedure No was performed via laparoscope or robotic assistance Last Modified By: Mala Putnam RN 05/14/25 13:50:12 Post-Care Text: O.730 The patient's care is consistent with the individualized perioperative plan of care General Case Data MAGR Pre-Care Text: A.350.1 Classifies surgical wound Entry 1 Case Information OR MAGR OR 01 Case Level Level 5 Wound Class Clean Specialty Orthopedics ASA Class 2 Diagnosis Preop Diagnosis DJD LEFT KNEE Postop Same As Preop Yes Postop Diagnosis DJD LEFT KNEE Blunt or No Is the procedure No penetrating injury considered occured prior to Emergent/Urgent? the start of the procedure: Last Modified By: Mala Putnam RN 05/14/25 13:06:36 Post-Care Text: O.760 Patient receives consistent and comparable care regardless of the setting Time Out MAGR Entry 1 Procedure(s) Arthroplasty Knee Total(Left) Time Out Checklist Verifications Team Introductions Yes Confirmed Identity, Yes Completed Procedure, Incision Site, and Consent(s) Presence of Yes Site Verification, Yes Necessary Site Marking, Site Procedural Marking Equipment, Devices, Alternative, and/or and Implants Site Marking Verified Exception in Accordance with Facility Policy Anesthesia Review Antibiotic Received Yes All Anesthesia Yes Within an Concerns Addressed Appropriate Time Interval Prior to Surgical Incision Surgeon Review Anticipated Blood Yes Expected Case Yes Loss Risk Addressed Duration Addressed Critical and Yes Non-Routine Steps to be Performed Addressed Nurse Review Equipment Yes Fire Risk Yes Checks/Concerns Assessment Addressed Completed and Interventions Performed Diagnostic and Yes Sterilization n/a Radiological Test Concerns Addressed Results Displayed are Appropriate and Labeled Other Concerns n/a Addressed Time Out Lonnie Mederos Time Out Time 05/14/25 10:34:00 Participants Jersey BAUM RN, Joaquin Medeiros OXYGEN TANK FILLER, Nedra GLASS CSFA, Hawa CooneyA OXYGEN TANK FILLER, JESSENIA BAIRD DO, Lorenza Miranda RN Last Modified By: Mala Putnam RN 05/14/25 10:53:14 General Comments: BALTA TEIXEIRA Patient Positioning MAGR Pre-Care Text: A.280 Identifies baseline musculoskeletal status Im.40 Positions the patient Im.80 Applies safety devices Entry 1 P (more content not included)...[facility] Intraoperative RecordMAGR Intra-Op Record Summary Primary Physician: Finalized Date/Time: 05/14/25 10:33:01 Pt. Name: DAVID MOSQUEDA/Sex: 1970 MALE Med Rec #: [id number] Physician: JESSENIA BAIRD DO Financial #: [id number] Pt. Type: D Room/Bed: / Admit/Disch: 05/14/25 06:43:56 - Institution: Case Times MAGR Entry 1 Patient In Room Time 05/14/25 09:15:00 Out Room Time 05/14/25 09:44:00 Anesthesia Start Time 05/14/25 09:21:00 Stop Time 05/14/25 09:44:00 Surgery Start Time 05/14/25 09:28:00 Stop Time 05/14/25 09:36:00 Last Modified By: Shannan Hanson RN 05/14/25 09:44:25 Case Attendance MAGR Entry 1 Entry 2 Entry 3 Case Attendee Lonnie Mederos Kimberly RN Draper, Lora RN Role Performed Anesthesiologist of Health And Physical Education Professor Health And Physical Education Professor Record Time In 05/14/25 09:15:00 05/14/25 09:15:00 05/14/25 09:15:00 Time Out 05/14/25 09:40:00 05/14/25 09:40:00 05/14/25 09:44:00 Procedure Adductor Canal Adductor Canal Adductor Canal Block(Left), iPACK Block(Left), iPACK Block(Left), iPACK BLOCK(Left) BLOCK(Left) BLOCK(Left) Last Modified By: Shannan Hanson RN, Lora RN Draper, Lora RN 05/14/25 09:44:40 05/14/25 09:44:40 05/14/25 09:44:40 Surgical Procedures MAGR Pre-Care Text: A.20 Verifies operative procedure, surgical site, and laterality Im.150 Develops individualized plan of care Entry 1 Entry 2 Procedure Adductor Canal Block iPACK BLOCK Primary Procedure Yes No Primary Surgeon Lonnie Mederos Christopher J DO Modifiers Left Left Surgeon Comment ADDUCTOR CANAL AND IPACK BLOCK IPACK BLOCK PRIOR TO LEFT TOTAL KNEE Start 05/14/25 09:28:00 05/14/25 09:32:00 Stop 05/14/25 09:31:00 05/14/25 09:36:00 Anesthesia Type Regional Block Regional Block Surgical Service Anesthesia Anesthesia Wound Class Clean Clean Technique Details Closure Technique N/A N/A Entire procedure No No was performed via laparoscope or robotic assistance Last Modified By: Shannan Hanson RN, Lora RN 05/14/25 10:28:09 05/14/25 10:29:06 Post-Care Text: O.730 The patient's care is consistent with the individualized perioperative plan of care General Case Data MAGR Pre-Care Text: A.350.1 Classifies surgical wound Entry 1 Case Information OR MAGR Proc Room Case Level None Wound Class Clean Specialty Anesthesia ASA Class 2 Diagnosis Preop Diagnosis ADDUCTOR CANAL AND Postop Same As Preop Yes IPACK BLOCK PRIOR TO LEFT TOTAL KNEE Postop Diagnosis ADDUCTOR CANAL AND IPACK BLOCK PRIOR TO LEFT TOTAL KNEE Blunt or No Is the procedure No penetrating injury considered occured prior to Emergent/Urgent? the start of the procedure: Last Modified By: Shannan Hanson RN 05/14/25 10:29:20 Post-Care Text: O.760 Patient receives consistent and comparable care regardless of the setting Time Out MAGR Entry 1 Procedure(s) Adductor Canal Block(Left), iPACK BLOCK(Left) Time Out Checklist Verifications Team Introductions Yes Confirmed Identity, Yes Completed Procedure, Incision Site, and Consent(s) Presence of Yes Site Verification, Yes Necessary Site Marking, Site Procedural Marking Equipment, Devices, Alternative, and/or and Implants Site Marking Verified Exception in Accordance with Facility Policy Anesthesia Review Antibiotic Received n/a All Anesthesia Yes Within an Concerns Addressed Appropriate Time Interval Prior to Surgical Incision Surgeon Review Anticipated Blood Yes Expected Case Yes Loss Risk Addressed Duration Addressed Critical and Yes Non-Routine Steps to be Performed Addressed Nurse Review Equipment Yes Fire Risk Yes Checks/Concerns Assessment Addressed Completed and Interventions Performed Diagnostic and n/a Sterilization n/a Radiological Test Concerns Addressed Results Displayed are Appropriate and Labeled Other Concerns n/a Addressed Time Out Lonnie Mederos Time Out Time 05/14/25 09:19:00 Participants DO, Anastasiya Carlos RN, Shannan Hanson RN Last Modified By: Shannan Hanson RN 05/14/25 09:34:05 Patient Positioning MAGR Pre-Care Text: A.280 Identifies baseline musculoskeletal status Im.40 Positions the patient Im.80 Applies safety devices Entry 1 Procedure Adductor Canal Body Position Semi-Fowlers Block(Left), iPACK BLOCK(Left) Left Arm Position Resting at Side Right Arm Position Resting at Side Left Leg Position Extended Right Leg Position Extended Feet Uncrossed? Yes Press Points Checked Yes Outcome Met (O.80) Yes Last Modified By: Shannan Hanson RN 05/14/25 09:34:29 Post-Care Text: E.290 Evaluates musculoskeletal status O.80 Patient is free from signs and symptoms of injury related to positioning Skin Prep MAGR Pre-Care Text: A.30 Verifies allergies Im.270 Performs skin preparation Im.270.1 Implements protective measures toprevent skin and tissue injury due to chemical sources Entry 1 Skin Prep Syntegrity Pr (more content not included)...[facility] PACU Recordon [id number] PACU RecordMA PACU Record Summary Primary Physician: JESSENIA BAIRD DO Finalized Date/Time: 05/14/25 13:34:14 Pt. Name: DAVID MOSQUEDA R /Sex: 1970 MALE Med Rec #: [id number] Physician: JESSENIA BAIRD DO Financial #: [id number] Pt. Type: D Room/Bed: / Admit/Disch: 05/14/25 06:43:56 - Institution: PACU Case Times MAGR Entry 1 In PACU I 05/14/25 13:00:00 Discharge from PACU 05/14/25 13:32:00 I Last Modified By: Genevieve Kulkarni RN 05/14/25 13:32:55 Finalized By: Genevieve Kulkarni RN Document Signatures Signed By: Genevieve Kulkarni RN 05/14/25 13:34[facility] Postoperative Recordon [id number] Postoperative RecordMA Phase II Record Summary Primary Physician: JESSENIA BAIRD DO Finalized Date/Time: 05/14/25 15:15:00 Pt. Name: DASHKATHERIN DAVID Kelly/Sex: 1970 MALE Med Rec #: [id number] Physician: JESSENIA BAIRD DO Financial #: [id number] Pt. Type: D Room/Bed: 206/ Admit/Disch: 05/14/25 06:43:56 - Institution: Phase II Case Times MAGR Pre-Care Text: Patient is free from s/s of injury. Patient remains free from compromised physical state related tosurgery or anesthesia. Patient comfort maintained. Patient/family verbalize understanding of discharge instructions. Entry 1 In PACU II 05/14/25 13:34:00 Discharge from PACU 05/14/25 15:00:00 II Last Modified By: Georgiana Lucas RN 05/14/25 15:14:57 Post-Care Text: The patient remains free from s/s of injury. Patient's vital signs stable, circulation maintained, return to preop mental and physical status, opsite/dressing intact, minimal or absent nausea and vomiting, tolerates po intake. Patient verbalizes adequate pain control. Patient/family express understanding of discharge instructions. Finalized By: Georgiana Lucas RN Document Signatures Signed By: Georgiana Lucas RN 05/14/25 15:15[facility] Preoperative Recordon [id number] Preoperative RecordMAGR Pre-Op Record Summary Primary Physician: JESSENIA BAIRD DO Finalized Date/Time: 05/14/25 10:26:43 Pt. Name: DAVID MOSQUEDA./Sex: 1970 MALE Med Rec #: [id number] Physician: JESSENIA BAIRD DO Financial #: [id number] Pt. Type: D Room/Bed: / Admit/Disch: 05/14/25 06:43:56 - Institution: Pre-Op Case Times MAGR Pre-Care Text: Patient will be optimally prepared for surgery. Patient is free from s/s of injury. Provide information to patient/family related to plan of care. Verify patient allergies. Confirm identity and verify consent before the operative or invasive procedure. Entry 1 Patient Arrival Time 05/14/25 06:55:00 Preop Departure 05/14/25 09:44:00 Last Modified By: Shannan Hanson RN 05/14/25 10:26:42 Post-Care Text: Patient is prepared mentally and physically and is ready for surgery. The patient remains free froms/s of injury. Patient/family express understanding of plan of care and participate in decisions affectinghis or her perioperrative plan of care. Allergies documented appropriately. Patient identifiers and consent correct. General Comments: Pt to PSW.Pt denies cold/flu symtpoms, SOB, sleep apnea,diabetes, CP, or paemaekr/defibrillator. Ptinformed of restrictions for 24 hours due to anesthesia- pt with understanding. Finalized By: Shannan Hanson RN Document Signatures Signed By: Shannan Hanson RN 05/14/25 10:26NoHolzer Health SystemXR Knee One or Two Views Lefton 12-96-0899AM Knee One or Two Views LeftEXAMINATION: XR Knee One or Two Views Left HISTORY: knee replacement left COMPARISON: No relevant comparison available. FINDINGS: BONES: Total joint replacement with the orthopedic components appearing seated in anatomic alignment. SOFT TISSUES: Skin rolando overlie the surgical site. Postprocedural subcutaneous and joint air/fluid OTHER: Negative. IMPRESSION: 1. Total joint replacement with expected postsurgical findings. Final Dictated by: Varsha Wise MD Dictated DT/TM: 05/15/25 7:44 Signed (Electronic Signature): Varsha Wise MD 05/15/25 7:45 am Technologist: OZMercy Health Defiance HospitalPatient Handouton 09-05-7057Ttecpyu HandoutPOST OPERATIVE TOTAL KNEE/HIP DISCHARGE INTRUCTIONS SURGEONS WRITTEN INSTRUCTIONS: Walk with walker; bear weight to tolerance on operative extremity Elevate extremity 1 hour 3 times/day to control pain and swelling and apply ice Range of motion to ankle 10 times/hour Range of motion to knee hourly Change dressing daily. Judith hose (compression stockings) for 6 weeks Physical therapy as prescribed May shower, no tub bath. Do not rub/scrub incision. Wash gently Take Aspirin 81mg 2x for 30 days to help prevent blood clots, coated or uncoated per patient preference. WHAT YOU SHOULD KNOW AFTER YOUR OPERATION: If you need pain pills, start before the pain becomes intense. Pain pills are frequently less upsetting to your stomach if you take them with food such as crackers or bread. If you have excessive or persistent pain, swelling, bleeding, nausea, vomiting or any other problems, you should first call your surgeon for advice. If you are unable to contact your surgeon, seek help from the emergency room. FOR THE PREVENTION OF DVT AFTER LOWER EXTREMITY SURGERY What is a DVT? There is always the risk of DVT after lower extremity surgery. DVT, or deep vein thrombosis, is a blood blot in a major vein that may partially or completely block the flow of blood. The clot occurs in the legs or pelvis, in areas where blood flow is slow, or in an injured blood vessel. DVT can be life-threatening should pieces of the clot break away and travel to the lungs. This is called pulmonary embolism What are the symptoms of DVT? The area affected by the blood clot may become swollen and painful, and possibly turn red as the normal flow of blood is blocked. You may also develop edema, which is the build up of fluid in the skin tissues surrounding the clot. If the clot is somewhere other than your leg, there may be no physical signs of DVT. If the clot breaks away and travels to your lungs, you may experience shortness of breath and chest pain. If this occurs you should call your doctor immediately or go to the emergencyroom. How can I prevent DVT? You should keep active. Moving the ankle and foot and bending the knee as tolerated when you are inbed and walking as tolerated. Take medication, especially the Aspirin, as prescribed by your doctor. What should I do if I think I have a DVT? You should call your doctor or go to the emergency room any time you have a sudden and unusual shortness of breath that is not related to exercise, exertion or anxiety. If you have swelling with redness and pain in your leg, you should call your doctor immediately. If there is concern then a test called ?Venous Doppler? can be done to rule of a DVT. #1 May shower and change dressing daily, no scrubbing or rubbing incision during shower just let the water run over the incision, starting tomorrow #2 stop smoking and drinking alcohol #3 ice to operative knee 20 minutes every hour while awake until pain and swelling control #4 flex and extend both feet/ankles 10 times per hour while awake #5 push both knees backwards into the bed 10 times every hour while awake, clench buttock muscles together 10 times every hour while awake #6 use walker weight-bear as tolerated to operative knee get up every 2 hours while awake and walk around for 1 to 2 minutes #7 flex and extend operative knee over the side of the bed ten times four times a day #8 follow up in office as scheduled #9 [facility] will be contacting you within the next 24 hours to set up home therapy visits #10 proceed immediately to the emergency department for chest pain or shortness of breath #[address] Baird at the office [phone] or have him paged through the hospital clipper operator [phone] for any concerns or questions #12 You have been given a prescription for Percocet, Percocet is a narcotic, narcotics are addictive. If you feel you have issues with addiction please feel free to contact Dr. Baird, your family physician, or proceed to the nearest hospital's emergency services department. #[address] Baird at the above numbers if you have not had a bowel movement in 2 days or if youfeel uncomfortable before that #14 take 1 baby aspirin (81 mg) twice a day for 30 days to thin your blood to help prevent blood clots.[facility] HospitalProgress Note - Nurseon 60-60-1001Npdxdimn Note - NursePre op phone call made to patient for surgery 05/14/25. Patient verbalized understanding of arrival time of 7am on 05/14/25, NPO at [place], and to bring walker. [Electronically Signed on: 05/10/2025 09:17 EDT] Anastasiya Carlos RN [Verified on: 05/10/2025 09:17 EDT] Anastasiya Carlos RNNormalOhiohealth Dublin Methodist Hospital HospitalUA w Culture if Ind Standardon 30-16-4204Xyeoclhiqg UANormalOhiohealth Dublin Methodist Hospital HospitalComment on above:Performed By: #### [id number] ####[facility] (DEFAULT)[address] [place], [place] [address]Color (U)YellowNormalOhiohealth Dublin Methodist Hospital HospitalComment on above: Performed By: #### [id number] ####[facility] (DEFAULT)[address] [place], [place] [address]Culture?Not IndicatedInvalid Interpretation Code [facility]c Medical CenterComment on above:Result Comment: Result created by rule GL_MAGR_ADD_UA_CULT1Performed By: #### [id number] ####[facility] (DEFAULT)[address] [place] [address]36[address]Rhidcwo (U) [Mass/Vol]Negative NormalOhiohealth Dublin Methodist Hospital HospitalComment on above:Performed By: #### [id number] ####[facility] (DEFAULT)[address] [place] [address] 07427Kcammdn Ql (U)NegativeNormalOhiohealth Dublin Methodist Hospital HospitalComment on above:Performed By: #### [id number] ####[facility] (DEFAULT)[address] [place] [address] 07682Nkucx?Not IndicatedInvalid Interpretation CodeOhiohealth Dublin Methodist Hospital HospitalComment on above:Result Comment: Result created by rule GL_MAGR_ADD_UA_MICROPerformed By: #### [id number] ####[facility] (DEFAULT)[address] [place] [address] 24127NO BilirubinNegativeNormalOhiohealth Dublin Methodist Hospital HospitalComment on above:Performed By: #### [id number] ####[facility] (DEFAULT)[address] [place] [address] 49563DS BloodNegativeNormalNEGATIVEOhiohealth Dublin Methodist Hospital HospitalComment on above:Performed By: #### [id number] ####[facility] (DEFAULT)[address] [place] [address] 77876HP ClarityCLEARNormalCLEAROhiohealth Dublin Methodist Hospital HospitalComment on above: Performed By: #### [id number] ####[facility] (DEFAULT)[address] [place] [address] 54371DG Leuk EstNegativeNormalNEGATIVEOhiohealth Dublin Methodist Hospital Hospital Comment on above:Performed By: #### [id number] ####[facility] (DEFAULT)[address] [place] [address] 05556GS NitriteNegativeNormalNEGATIVE [facility] HospitalComment on above:Performed By: #### [id number] ####[facility] (DEFAULT)[address] [place] [address] 23592GF pH6.9Wjkicc9-6 [facility]c Medical CenterComment on above:Performed By: #### [id number] ####[facility] (DEFAULT)[address] [place] [address] 12981EW ProteinNegative NormalNEGATIVEOhiohealth Dublin Methodist Hospital HospitalComment on above:Performed By: #### [id number] ####[facility] (DEFAULT)[address] [place] [address] 39392GX Spec Grav1.134Rouuvp1.001-1.035[facility] HospitalComment on above:Performed By: #### [id number] ####[facility] (DEFAULT)[address] [place] [address] 55407TR Urobilinogen0.2 mg/dLNormal0.2-1.0[facility] HospitalComment on above: Performed By: #### [id number] ####[facility] (DEFAULT)[address] [place] [address]VausqSouth [facility] Comment on above:Performed By: #### [id number] ####[facility] (DEFAULT)[address] [place] [address] 45409Tbfwyhok Note - Nurseon 50-70-3339Ztyaqcdr Note - Nursewriter put order in and called pt to come in and have urine specimen completed since it was not done at [facility] per Nikolay Oswald's instructions and told pt to go to registration and register and then go to lab and pt verbalizes understanding [Electronically Signed on: 05/02/2025 11:57 EDT] Eve Escalante RN [Verified on: 05/02/2025 11:57 EDT] Eve Escalante [facility] HospitalCoding Summaryon 46-51-7929Hoscqk SummaryHTMLBase 64 TzdojbzgFVs6pIx+PGhlYWQ+UQ9AKHTwH89wxQNvuL0uZ6RPBAcXLihpLFOOHKbAYiResqHyBF1mmWGr ZXJu [file] Y29 (more content not included)...[facility] HospitalProgress Note - Nurseon 84-55-3819Vggfjxyp Note - NursePAT reviewed by Dr. Guerra. No new orders received. [Electronically Signed on: 04/26/2025 13:14 EDT] Georgiana Lucas RN [Verified on: 04/26/2025 13:14 EDT] Georgiana Lucas RN LNormalOhiohealth Dublin Methodist Hospital HospitalProvider Orderson 42-29-6256Rwvfdtyv [id number]#1.00OTGTIFFNormUniversity Hospitals [facility] Hospital.Auto Diff 1on 47-16-7991Okij Bailey %10 %Normal1-12[facility] Hospital Comment on above:Performed By: #### [id number], [id number], [id number] ####[facility] (DEFAULT)[address] [place] [address] 09556Fuir Abs#0.1 d54Jyygck 0.0-0.2Mregency hospital [facility] HospitalComment on above:Performed By: #### [id number], [id number], [id number] ####[facility] (DEFAULT)[address] [place] [address] 24723Kopnjzmch/100 WBC (Bld)1.2 %Normal0.2-2.0[facility] HospitalComment on above: Performed By: #### [id number], [id number], [id number] ####[facility] (DEFAULT)[address] [place] [address] 85522Bxh Abs#0.3 u69Zhywka1.0-0.4 [facility] HospitalComment on above:Performed By: #### [id number], [id number], [id number] ####[facility] (DEFAULT)[address] [place] [address] 10680Bnvzpmercbf/100 WBC (Bld)3.2 %Normal0.9-4.0[facility] HospitalComment on above:Performed By: #### [id number], [id number], [id number] ####[facility] (DEFAULT)[address] [place] [address] 00333Disvl Abs#2.9 y13Lhbfra8.3-2.9 [facility] HospitalComment on above:Performed By: #### [id number], [id number], [id number] ####[facility] (DEFAULT)[address] [place] [address] 09532Teploniufek/100 WBC (Bld)37 %Hicsif67-16Jtncmtxn HospitalComment on above: Performed By: #### [id number], [id number], [id number] ####[facility] (DEFAULT)[address] [place] [address] 49392Tjwa Abs#0.8 e33Dvdbml5.0-0.8 [facility] HospitalComment on above:Performed By: #### [id number], [id number], [id number] ####[facility] (DEFAULT)[address] [place] [address] 35069Zskw Abs#3.9 v50Wynpgo8.5-9.2Mreg[facility] HospitalComment on above:Performed By: #### [id number], [id number], [id number] ####[facility] (DEFAULT)[address] [place] [address] 82913Apiyaamqevz/100 WBC (Bld)48 %Bsnfui06-67Rnaecupz HospitalComment on above:Performed By: #### [id number], [id number], [id number] ####[facility] (DEFAULT)[address] [place] [address] 49702VOD Standardon 23-86-1532jPFU Non AA>60Invalid Interpretation [facility] Comment on above:Performed By: #### [id number], [id number], [id number] ####[facility] (DEFAULT)[address] [place] [address] 02011zSRU AA>60Invalid Interpretation [facility] LimaComment on above:Performed By: #### [id number], [id number], [id number] ####[facility] (DEFAULT)[address] [place] [address] 81135Hzblu gap [Moles/Vol]15.0 mmol/LNormal5.0-19.0[facility] Comment on above:Performed By: #### [id number], [id number], [id number] ####[facility] (DEFAULT)[address] [place] [address] 03720Emagnon [Mass/Vol]9.2 mg/dLNormal8.9-10.3Mreg[facility] HospitalComment on above:Performed By: #### [id number], [id number], [id number] ####[facility] (DEFAULT)[address] [place] [address] 31699Bivasprp [Moles/Vol]102 mmol/HBwfsmj310-311Znwhptbr Hospital Comment on above:Performed By: #### [id number], [id number], [id number] ####[facility] (DEFAULT)[address] [place] [address] 82565JX7 [Moles/Vol]24 mmol/ZFiegnx03-81Alnixrto HospitalComment on above:Performed By: #### [id number], [id number], [id number] ####[facility] (DEFAULT)[address] [place] [address] 22645Xnpxwamklo [Mass/Vol]0.77 mg/dLLow0.90-1.30[facility] Hospital Comment on above:Performed By: #### [id number], [id number], [id number] ####[facility] (DEFAULT)[address] [place] [address] 14462Woabfnp [Mass/Vol]112.0 mg/pZLtovlr73.0-118.0Uc Medical CenterComment on above:Performed By: #### [id number], [id number], [id number] ####[facility] (DEFAULT)[address] [place] [address] 97863Wxmldearnc496 mOsm/LInvalid Interpretation Code [facility] CenterComment on above:Performed By: #### [id number], [id number], [id number] ####[facility] (DEFAULT)[address] [place] [address] 32726Vpzglosqn [Moles/Vol]4.0 mmol/LNormal3.6-5.1[facility] HospitalComment on above:Performed By: #### [id number], [id number], [id number] ####[facility] (DEFAULT)[address] [place] [address] 11422Kuytbq [Moles/Vol]137.0 mmol/L Onuysm993.0-144.0[facility] HospitalComment on above:Performed By: #### [id number], [id number], [id number] ####[facility] (DEFAULT)[address] [place] [address] 20411Ziqr nitrogen [Mass/Vol]14 mg/dLNormal8-26[facility] Hospital Comment on above:Performed By: #### [id number], [id number], [id number] ####[facility] (DEFAULT)[address] [place] [address] 80752Lmsd nitrogen/Creatinine [Mass ratio]18.1 mg/mgHigh4.6-16.2[facility] HospitalComment on above:Performed By: #### [id number], [id number], [id number] ####[facility] (DEFAULT)[address] [place] [address] 22224Tpuhktdjh Auto (Bld) [#/Vol] Ordered By: VARSHA ROGERS on 35-91-0223Mdoywjfcu (Bld) [#/Vol]0.1 x100.0-0.2 [facility] OhioBasophils/100 WBC Auto (Bld)Ordered By: VARSHA ROGERS on 69-90-1882Cpbqhmlyp/100 WBC (Bld)1.2 %0.2-2.0[facility] OhioCBC w/ Auto Diffon 39-30-4813Dhwzrtuijjm distribution width (RBC) [Ratio]13.2 %Kmotuj98.5-15.0[facility] HospitalComment on above:Performed By: #### [id number], [id number], [id number] ####[facility] (DEFAULT)[address] [place] [address] 27650Amnvtcbond (Bld) [Volume fraction]45.0 %Normal 34.8-51.9[facility] HospitalComment on above:Performed By: #### [id number], [id number], [id number] ####[facility] (DEFAULT)[address] [place] [address] 87431Pfnubceqsw (Bld) [Mass/Vol]15.6 g/vQVjlsbd97.8-17.7[facility] HospitalComment on above:Performed By: #### [id number], [id number], [id number] ####[facility] (DEFAULT)[address] [place] [address] 23414Cwp Diff?AutoInvalid Interpretation CodeOhiohealth [facility] Hospital HospitalComment on above:Performed By: #### [id number], [id number], [id number] ####[facility] (DEFAULT)[address] [place] [address] 43677YEK (RBC) [Entitic mass]34 xdLtychr16-38[facility]ai Hospital Comment on above:Performed By: #### [id number], [id number], [id number] ####[facility] (DEFAULT)[address] [place] [address] 91210ZQXV (RBC) [Mass/Vol]35 g/tEHjetfl29-36Imhwigfy HospitalComment on above:Performed By: #### [id number], [id number], [id number] ####[facility] (DEFAULT)[address] [place] [address] 30364WTB (RBC) [Entitic vol]99 lJFyxyiv76-030[facility] Hospital Comment on above:Performed By: #### [id number], [id number], [id number] ####[facility] (DEFAULT)[address] [place] [address] 99203Tnlbfapu827 t33Wbgpgy 138-427[facility] HospitalComment on above:Performed By: #### [id number], [id number], [id number] ####[facility] (DEFAULT)[address] [place] [address] 13765Fwrblgne mean volume (Bld) [Entitic vol]9.4 fLNormal6.3-10.2[facility] HospitalComment on above:Performed By: #### [id number], [id number], [id number] ####[facility] (DEFAULT)[address], [place] [address]UCK4.54 m17Cfpfam7.70-5.30[facility] HospitalComment on above:Performed By: #### [id number], [id number], [id number] ####[facility] (DEFAULT)[address] [place] [address] 73273VMG6.9 n79Vplukt5.5-10.5[facility] HospitalComment on above: Performed By: #### [id number], [id number], [id number] ####[facility] (DEFAULT)[address], [place] [address]Lhtrhydtchv/100 WBC Auto (Bld) Ordered By: VARSHA ROGERS on 31-96-4127Lqqttpyydkj/100 WBC (Bld)3.2 %0.9-4.0 [facility] OhioErythrocyte distribution width Auto (RBC) [Ratio]Ordered By: VARSHA ROGERS on 90-71-6218Gyvjzjfkoqj distribution width (RBC) [Ratio]13.2 %11.5-15.0[facility] OhioEstimated glomerular filtration rate (GFR) non- AmericanOrdered By: VARSHA ROGERS on 86-36-0517KNV/1.73 sq M.predicted among non-blacks MDRD (S/P/Bld) [Vol rate/Area]mL/min/{1.73_m2}[facility] OhioHematocrit Auto (Bld) [Volume fraction]Ordered By: VARSHA ROGERS on 08-99-8508Douykyvdko (Bld) [Volume fraction]45.0 %34.8-51.9[facility] OhioHemoglobin [Mass/volume] in BloodOrdered By: VARSHA ROGERS on 77-81-8773Fryzxdfpcc (Bld) [Mass/Vol]15.6 g/dL11.8-17.7FProMedica Toledo HospitalLaboratory - Chemistry and Chemistry - challengeOrdered By: VARSHA ROGERS on 04-25-2025 Calcium [Mass/Vol]9.2 mg/dL8.9-10.3FProMedica Toledo HospitalChloride [Moles/Vol]102 mmol/W968-420BuawqgmrpSelect Medical Specialty Hospital - Southeast OhioCO2 [Moles/Vol]24 mmol/W81-23ZntrnbrcmSelect Medical Specialty Hospital - Southeast OhioCreatinine [Mass/Vol]0.77 mg/dLLow 0.90-1.30[facility] OhioGFR/1.73 sq M.predicted MDRD (S/P/Bld) [Vol rate/Area]mL/min/{1.73_m2}[facility] OhioGlucose [Mass/Vol]112.0 mg/dL74.0-118.0[facility] OhioPotassium [Moles/Vol]4.0 mmol/L3.6-5.1FOhio State East Hospitalodium [Moles/Vol] 137.0 mmol/L136.0-144.0[facility] OhioUrea nitrogen [Mass/Vol] 14 mg/dL8-26[facility] OhioUrea nitrogen/Creatinine [Mass ratio]18.1 mg/mgHigh4.6-16.2FProMedica Toledo HospitalLeukocytes [#/volume] corrected for nucleated erythrocytes in Blood by Automated coun Ordered By: VARSHA ROGERS on 69-87-5354DUT corrected for nucl RBC Auto (Bld) [#/Vol]7.9 x103.5-10.5FProMedica Toledo HospitalLymphocytes Auto (Bld) [#/Vol]Ordered By: VARSHA ROGERS on 04-77-2436Zofvnzvdscj (Bld) [#/Vol]2.9 x10 1.3-2.9[facility] OhioLymphocytes/100 WBC Auto (Bld)Ordered By: VARSHA ROGERS on 73-01-7456Mdyxpvrkfzc/100 WBC (Bld)37 %14-48[facility] OhioMCH Auto (RBC) [Entitic mass]Ordered By: VARSHA ROGERS on 97-00-0634VQA (RBC) [Entitic mass]34 iu28-75DrpozrnycSelect Medical Specialty Hospital - [facility] [place] MCHC Auto (RBC) [Mass/Vol]Ordered By: VARSHA ROGERS on 04-77-7709YYLT (RBC) [Mass/Vol]35 g/xI16-60AvoblqnfnSelect Medical Specialty Hospital - Southeast OhioMCV Auto (RBC) [Entitic vol]Ordered By: VARSHA ROGERS on 78-62-4060OAZ (RBC) [Entitic vol]99 oG74-092 [facility] OhioMonocytes Auto (Bld) [#/Vol]Ordered By: VARSHA ROGERS on 33-05-4228Onrwyssgp (Bld) [#/Vol]0.8 x100.0-0.8[facility] OhioMonocytes/100 WBC Auto (Bld)Ordered By: VARSHA ROGERS on 47-86-1224Qysqpcduj/100 WBC (Bld)10 %1-12[facility] Neutrophils Auto (Bld) [#/Vol]Ordered By: VARSHA ROGERS on 01-06-2507Zkxvqkadlfp (Bld) [#/Vol]3.9 x101.5-9.2FProMedica Toledo HospitalNeutrophils/100 WBC Auto (Bld)Ordered By: VARSHA ROGERS on 49-11-2046Uzjmzmdyywt/100 WBC (Bld)48 % 44-88[facility] OhioNo Panel InformationOrdered By: VARSHA ROGERS on 19-37-1744Qlk Manual DifferentialAuto AutoSelect Medical Specialty Hospital - Southeast OhioEosinophils # (Auto)0.3 x100.0-0.4FProMedica Toledo Hospital Rehnguhmwm385 mOsm/LFProMedica Toledo HospitalPlatelet mean volume Auto (Bld) [Entitic vol]Ordered By: VARSHA ROGERS on 53-04-8732Fotyfviq mean volume (Bld) [Entitic vol]9.4 fL6.3-10.2FProMedica Toledo HospitalPlatelets Auto (Bld) [#/Vol]Ordered By: VARSHA ROGERS on 22-46-1431Mlfdyelre (Bld) [#/Vol]198 t39282-915DodkjofonSelect Medical Specialty Hospital - Southeast OhioRBC Auto (Bld) [#/Vol]Ordered By: VARSHA ROGERS on 52-39-7640NBI (Bld) [#/Vol]4.54 x103.70-5.30Flower Hospitalerum or plasma anion gap determinationOrdered By: VARSHA ROGERS on 12-95-9217Kncni gap [Moles/Vol]15.0 mmol/L5.0-19.0[facility] OhioMR KNEE LEFT WO IV CONTRASTon 64-01-3136NW KNEE LEFT WO IV CONTRASTExam: MR KNEE LEFT WO IV CONTRAST History: [...] involving the medial compartment. ELECTRONICALLY SIGNED BY: Olaf JaimemalCherrington HospitalNo Panel Informationon 55-79-2827ExjxohhERIK Ruby 02/22/2025 3:11 PM L Inj/Asp: L [...] discussed. Consent was given by the patient. [facility] HospitalXR Knee - left 1 or 2 Viewson 43-21-1476Ahnvcit Result: AP and Lateral left knee: No acute fracture or dislocation Narrowing medial joint line, but joint space preservation noted. Mild patella femoral arthritic changes Small joint effusion, Right knee on weight bearing is bone on bone medial joint line. Impression: no acute bony process left kneeNorth Carolina Specialty Hospital Radiology Study observation (narrative)[facility] Histology (P4 Labs)on 33-65-1597Rgpsguse HistologyDiagnosis InfoInvalid Interpretation Code [facility] HospitalComment on above:Result Comment: A :Prostate,Left Lateral Base:Needle Biopsy Interpretation - - Benign prostatic tissue. MicroScopic Description - A :Prostate,Left Base:Needle Biopsy Interpretation - - Benign prostatic tissue. MicroScopic Description - A :Prostate,Left Lateral Mid:Needle Biopsy Interpretation - - Atypical small acinar glands. MicroScopic Description - A :Prostate,Left Mid:Needle Biopsy Interpretation - - Benign prostatic tissue. MicroScopic Description - A :Prostate,Left Lateral Dyke:Needle Biopsy Interpretation - - Benign prostatic tissue. MicroScopic Description - A :Prostate,Left Dyke:Needle Biopsy Interpretation - - Benign prostatic tissue. [...] prostatic tissue. MicroScopic Description - A :Prostate,Right Dyke:Needle Biopsy Interpretation - - Benign prostatic tissue. MicroScopic Description - A :Prostate,Right Lateral Dyke:Needle Biopsy Interpretation - - Benign prostatic tissue [...] cores 1 units cm Site ID:I color car-white fixative Formalin cores 1 units cm Site ID:J color car-white fixative Formalin cores 1 units cm Site ID:K color car-white fixative Formalin cores 1 units cm Site ID:L color car-white fixative Formalin cores 1 units cm C and I: Immunostain HMW cytokeratins /p63/ P504S (PIN4 immunostain) reviewed, supporting the rendered diagnosis. CPT: 81129 x 12, 18745 x 2 Electronically signed by : on: 12/20/2024 09:07:34Performed By: #### [id number] #### [place] [address] [address]Xrbtblmdrz Visit Summaryon 36-91-0995Zrybydbuxb Visit Summary Ambulatory Visit Summary DAVID MOSQUEDA DOB:1970 Visit Date:01/01/2025 Ambulatory Visit Instructions Your Diagnosis Elevated PSA Atypical small acinar proliferation of prostate BPH without urinary obstruction Your Care Team Attending Physician - Miley Eddy MD Primary Care Physician - DERREK JOSPEH DO This Is Your Medications List Contact [...] a tibia insufficiency fracture medial tibial plateau (Annika subchondroplasty procedure). right knee arthroscopy with chondroplasty [...] Miley Eddy MD Where: [facility] [address] You Need to Schedule the Following Appointments Follow Up with Miley Eddy MD, URL, URO When: Where: Medications What How [...] Tablets By Mouth Every day Contact prescribing physicianif questions or concerns Unchanged atorvastatin (atorvastatin 10 mg Tab) 1 Tablets By Mouth Every day Contact prescribing physician if questions or concerns Unchanged lisinopril (lisinopril 20 mg Tab) 1 Tablets By Mouth Every day Contact prescribing physician if questions or concerns Unchanged pantoprazole (Pantoprazole [address] Tab) By Mouth Every day Contact prescribing physicianif questions or concerns Allergies No Known Allergies [...] the benefits that i (more content not included)...Normal [facility]Urology Office/Clinic Noteon 01-55-4985Viizcvx Office/Clinic NoteUrology Office/Clinic Note Chief Complaint follow up to [...] monitoring. Discuss need for saturation bx pending PSAresults 2. Elevated PSA (R97.20: Elevated prostate specific [...] ca, , self inflicted. Thinks uncle had colonca. Wishes to avoid MRI due to claustrophobia. [...] (N40.0: Benign prostatic hyperplasia without lower urinary tractsymptoms) Prior IPSS 4 No UA provided today. [...] a tibia insufficiency fracture medial tibial plateau (Annika subchondroplasty procedure). right knee arthroscopy with chondroplasty [...] taking atorvastatin 10 mg (more content not included)...[facility] HospitalComment on above:Result Comment: Electronically Signed By: Miley Eddy MD\.br\Date and Time Signed: 01/01/25 16:08EST\.br\Electronically Co-Signed By: Sivan Frankel\.br\Date and Time Co-Signed: 01/01/25 15:17 ESTInpatient Patient Summaryon 47-54-4617Fyoraljqq Patient SummaryInpatient Patient Summary [place] [address] Clinical Summary Person Information Name: DAVID MOSQUEDA Age: 54 Years : 1970 Sex: Male PCP: DERREK JOSEPH DO Marital Status: Race: White Ethnicity: Non- or Language: Persian Visit Id: Visit Reason: ELEVATED PSA Speciality: Acuity: Enc Type: Outpatient Med Service: Surgery Arrival: 12/11/2024 07:19:15 Discharge: Dispo Type: Address: [address] [place] [address] [phone] Provider Notes: Diagnosis: Elevated PSA Problems Active [...] Eddy MD Follow up: With: Address: When: Miley Eddy [address] [place] [address] [phone] Business (1) Comments: Office to schedule follow up: move up from 12/27 to be seen in 1 week if path available Type Location Start Finish State URO Office Visit [facility] EU Veronica 12/27/2024 8:45 AM 12/27/2024 9:00 AM Confirmed Patient Education Information: EU - Transrectal Ultrasound of the Prostate with US guided biopsy Discharge Instructions (CUSTOM)[facility] HospitalMain OR Intraoperative Recordon 55-05-4381Rnnd OR Intraoperative RecordMain OR Intraoperative Record IntraOp Document Type FTURO Summary Primary Physician: Miley Eddy MD Finalized Date/Time: 12/11/24 08:20:03 Pt. Name: DAVID MOSQUEDA /Sex: 1970 Male Med Rec #: [id number] Physician: Miley Eddy MD Financial #: [id number] Pt. Type: O Room/Bed: / Admit/Disch: 12/11/24 [...] Sydney A Role Performed Surgeon - Primary Health And Physical Education Professor - Primary Scrub - Primary Time In [...] Position Verified Availability Equipment, Medication Time Out Surjit RICHARDS, Miley Stephens, Verified (If Participants Maeve Martinez, Applicable) Nabila Doss Time Out Complete 12/11/24 08:05:00 Allergies Reviewed? Yes Allergies Reviewed Self/Patient With Body Position Lateral, right side up Prep Area N/A Skin. Condition Intact, [place], Warm, & Description N/A Dry Additional Other [...] Maeve Martinez 12/11/24 08:20 Maeve Martinez 12/11/24 08:20Normal [facility] HospitalMain OR Preoperative Recordon 38-33-5774Otmi OR Preoperative RecordMain OR Preoperative Record Holding Area Document Type FTURO Summary Primary Physician: Miley Eddy MD Finalized Date/Time: 12/11/24 08:03:48 Pt. Name: DAVID MOSQUEDA Derek Kelly/Sex: 1970 Male Med Rec #: [id number] Physician: Miley Eddy MD Financial #: [id number] Pt. Type: O Room/Bed: / Admit/Disch: 12/11/24 [...] or her perioperative plan of care The patient'sright to privacy is maintained Surgery Checklist FTURO Entry 1 Patient Birthday Procedure Surgical Consent, With Identification: Verification: Patient NPO after Midnight: n/a Personal Items: Glasses Limitations: up ad burton Complaints of Pain: No Skin Integrity Intact, [place], Warm, & Dry Vitals - EU Blood Pressure 136/81 Pulse 83 bpm Respirations 18 br/min SPO2 97 % Additional None RN Reviewed Yes Specimens Collected Last Modified By: Maeve Martinez 12/11/24 08:03:34 Finalized By: Maeve Martniez Document Signatures Signed By: Ann Marie Bunch LPN 12/11/24 07:59 Maeve Martinez 12/11/24 08:03 Maeve Martinez 12/11/24 08:03 NorazionevelynDerekMaeve E 12/11/24 08:03[facility] HospitalOperative Reporton [id number] ReportOperative Report Patient: DAVID MOSQUEDA Age: 54 years [...] history of elevated PSA of 4, 9.3% free.He was counseled on his options and elected [...] Lidocaine gel was inserted per rectum. A DREwas performed with findings as above. A transrectal ultrasound probe was inserted without difficulty. The prostate was measured in three dimensions with a calculated volume of 41.1mL. This included width a 4.6 cm, height of 3.8 cm, and length of 4.5 cm. There were no significant hypo or hyperechoiclesions within the prostate, overall heterogenous in transition zone, possible hypoechoic lesion right apex. The seminal vesicles were visualized bilaterally. These were normal in size, shape and echotexture. Lidocaine was inserted into bilateral seminal vesicle/prostate junctions for periprostaticnerve block for both intraoperative and postoperative pain [...] should he develop fevers, chills, inability to urinate,bleeding or any other concerns. . Impression and Plan Diagnosis Elevated PSA (GBQ30-RF R97.20, Discharge, Medical). Diagnosis Elevated PSA (ZKZ63-RI R97.20, Discharge, Medical).[facility] HospitalComment on above:Result Comment: Electronically Signed By: Miley Eddy MD\.br\Date and Time Signed: 12/11/24 08:30ESTOutpatient Surgery Discharge Instructionon 93-38-2787Xiojvheqvo Surgery Discharge InstructionOutpatient Surgery Discharge Instruction [place] [address] Patient Discharge Instructions PERSON INFORMATION Name: DAVID [...] Follow up: With: Address: When: Miley Eddy [address] [place] [address], [place] [address], [place] [address] [phone] Business (1) Comments: Office to schedule follow up: move up from 12/27 to be seen in 1 week if path available Type Location Start Finish [facility] URO Office Visit [facility] KRISHNA Martin 12/27/2024 8:45 AM 12/27/2024 9:00 AM Confirmed [...] for your post-operative appointment in 1-2 weeks [phone] or [phone] PANDA Mixon HAROLD R, have received the attached patient education materials/instructions and haveverbalized understanding: May we do a follow up call? Yes No I was present when discharge instructions were given Patient Signature Date Clinican/Nurse Signature Date You may receive a survey from Lulú Mccarthy asking you to rate your care experience. Your feedback is important and will help us understand what we do well and how we can improve the quality of care we provide to you, your loved ones and our community. It???s an honor to serve you. Thank you for choosing [facility] HospitalProstate Histology (P4 Labs)on [id number] Method of Extraction Needle BiopsyNormalMercy Health St. Anne HospitalComment on above:Performed By: #### [id number] #### [facility] [address] [place], [place] [address]OW Number of [id number] Interpretation Kindred HealthcareComment on above:Performed By: #### [id number] #### [facility] [address] [place], [place] [address]HY Specimen 1L Lat Bse ProstMercy Health St. [facility] Comment on above:Performed By: #### [id number] #### [facility] [address] [place], [place] [address]XF Specimen 10R Lat Mid [facility] Comment on above:Performed By: #### [id number] #### [facility] [address] [place], [place] [address]QJ Specimen 11R Apx [facility] Comment on above:Performed By: #### [id number] #### [facility] [address] [place], [place] [address]KQ Specimen 12R Lat ApRiverside Methodist Hospital Comment on above:Performed By: #### [id number] #### [facility] [address] [place], [place] [address]LF Specimen 2L Base [facility] Comment on above:Performed By: #### [id number] #### [facility] [address] [place], [place] [address]RB Specimen 3L Lat Mid [facility] Comment on above:Performed By: #### [id number] #### [facility] [address] [place], [place] [address]WB Specimen 4L Mid [facility] Comment on above:Performed By: #### [id number] #### [facility] [address] [place], [place] [address]TJ Specimen 5L Lat Apx [facility] Comment on above:Performed By: #### [id number] #### [facility] [address] [place], [place] [address]LK Specimen 6L Apx [facility] Comment on above:Performed By: #### [id number] #### [facility] [address] [place], [place] [address]JE Specimen 7R Base [facility] Comment on above:Performed By: #### [id number] #### [facility] [address] [place], [place] [address]ER Specimen 8R Lat Bse [facility] Comment on above:Performed By: #### [id number] #### [facility] [address] [place], [place] [address]WE Specimen 9R Mid [facility] Comment on above:Performed By: #### [id number] #### [facility] [address] [place], [place] [address]QP Type of ServiceTechnical OnlyMercy Health St. Joseph Warren HospitalComment on above:Performed By: #### [id number] #### [facility] [address] [place], [place] [address]Eschhockrp Visit Summaryon 46-08-2828Hejotthvry Visit Summary Ambulatory Visit Summary DAVID MOSQUEDA :1970 Visit Date:10/25/2024 Ambulatory Visit Instructions Your Diagnosis Elevated PSA Your Care Team Attending Physician - Miley Eddy MD Primary Care Physician - DERREK JOSEPH DO Referring Physician - DERREK JOSEPH DO This Is Your Medications List ciprofloxacin [...] a tibia insufficiency fracture medial tibial plateau (Annika subchondroplasty procedure). right knee arthroscopy with chondroplasty [...] Appointments Wednesday 9:30 AM EST With: Where: [facility] Surgical Services Wednesday 8:00 AM EST With: Where: [facility] Services Wednesday 8:00 AM EST With: Where: .UROLOGY Wednesday 8:45 AM EST With: Surjit RICHARDS, Miley Stephens Where: [facility] [address] [place] [address]- You Need to Schedule the Following Appointments Follow Up with Surjit RICHARDS, Miley Stephens, URL, URO When: Comments: sched TRUS/bx Where: [address] [place] [address]- [phone] You Need to Complete the Following US Prostate, [facility], 12/11/24, Routine, Transport Mode: Ambulatory, Reason: ELEVATED PSA, Elevated prostate specific antigen [PSA], CHIQUISEM, pp_set_radiology_subspecialty, [facility] Medications What How Much When Instructions New ciprofloxacin (Cipro 500 mg Tab) 1 Tablets By Mouth 2 times a day Duration: 3 Days start 1 day prior to [facility] Unchanged amlodipine (amLODIPine 10 mg Tab) 1 [...] Tablets By Mouth Every day Contact prescribing physicianif questions or concerns Unchanged atorvastatin (atorvastatin 10 [...] Tab) By Mouth Every day Contact prescribing physicianif questions or concerns Pharmacy Information [facility]: [address], [place] [phone] Allergies No Known Allergies Problems Ongoing - [...] near your rectum, especially while sitting. ??? [place]-colored urine due to small amounts of blood in your urine. ??? A burning feeling (more content not included)...[facility] HospitalUrology Office/Clinic Noteon 73-70-6276Udswoow Office/Clinic NoteUrology Office/Clinic Note Chief Complaint elevated PSA HPI Staff 54yr old male pt referred by Derrek Joseph for elevated PSA. PSA: 12/26/18 - 2.42 [...] male new pt referred by Dr. Derrek Joseph for elevated PSA. CATERINA 10. Not sexually [...] ca, , self inflicted. Thinks uncle had colonca. Discussed implications of PSA. Advised pt an [...] positioning on the table, swelling and bruising ofthe skin, and need for further procedures. Prefers [...] Information Surjit RICHARDS, Miley Stephens, URL, [facility] [address] [place] [address]- [phone] Additional Instructions: sched TRUS/bx Patient Education Transrectal Ultrasound-Guided Prostate Biopsy, Care After Transrectal Ultrasound-Guided Prostate Biopsy Prostate Cancer Screening IRadha, personally scribed for Dr. Eddy on 10/25/2024 09:19:36. . Documentation recorded by the Radha orozco, accurately reflects the services(s) I performed and decisions made by me. Authenticated by Dr. Eddy on 10/25/2024 09:23:11. Problem List/Past Medical History Ongoing Elevated PSA Obesity Smoker Historical No qualifying data Procedure/Surgical History arthroscopically aided treatment of a tibia insufficiency fracture medial tibial plateau (Annika subchondroplasty procedure). right knee arthroscopy with chondroplasty to two compartments, partial medial meniscectomy, excision of the plica (04/26/2015), Repair of anterior abdominal hernia(s) (ie, epigastric, incisional, ventral, umbilical, spigeli (more content not included)...Normal [facility] HospitalComment on above:Result Comment: Electronically Signed By: Miley Eddy MD\.br\Date and Time Signed: 10/25/24 09:23 EST\.br\Electronically Co-Signed By: Radha Martin\.br\Date and Time Co-Signed: 10/25/24 09:19 ESTALL CBC WITH AUTO DIFFon [id number] ABSOLUTE AUTO0.1 [facility] HealthcareBasophils/100 WBC (Bld)1.1 %0.2 - 2.0 %[facility] Eosinophils/100 WBC (Bld)8.1 %High0.9 - 7.0 %NOM HealthcareErythrocyte distribution width (RBC) [Ratio]12.2 %11.0 - 15.0 %NOM HealthcareHematocrit (Bld) [Volume fraction]43.5 %42.0 - 54.0 %NOM HealthcareHemoglobin (Bld) [Mass/Vol]14.3 g/dL14.0 - 18.0 g/dLNOAZ HealthcareIMMATURE GRANULOCYTES ABS AUTO 0.05HighNOMS HealthcareImmature granulocytes/100 WBC (Bld)0.6 %High0.0 - 0.5 % [facility] HealthcareInterpretation and review of laboratory resultsAbnormalNOMS HealthcareLYMPHOCYTES ABSOLUTE AUTO2.4NOMS HealthcareLymphocytes/100 WBC (Bld) 27.5 %20.5 - 60.0 %[facility] HospitalH (RBC) [Entitic mass]33.3 pg25.9 - 34.0 pg NOMWashington County Memorial HospitalHC (RBC) [Mass/Vol]32.9 g/dL29.9 - 35.2 g/dLWright Memorial HospitalMCV (RBC) [Entitic vol]101.2 cWTbxw74.0 - 94.0 fLNOAZ HealthcareMONOCYTES ABSOLUTE AUTO1.1HighNOMS HealthcareMonocytes/100 WBC (Bld)12.3 %High1.7 - 12.0 %NOM HealthcareNEUTROPHILS ABSOLUTE AUTO4.3NOMS HealthcareNeutrophils/100 WBC (Bld) 50.4 %43.0 - 75.0 %[facility] HealthcarePlatelet mean volume (Bld) [Entitic vol]11 fL 9.5 - 13.5 fLNOMS HealthcareTBH EO #0.7NOMS HealthcareTB [id number] Healthcare [facility] RBC4.3LowNOMS [facility] WBC8.6NOMS HealthcareCLINISYNCNOMS HealthcareCBC AUTO DIFFon [id number] #0.1 103/ulNormal0.0-0.1The Wayne HospitalComment on above:Performed By: #### CBC #### [facility] [address] [address] [address] Nathan JonesBasophils/100 WBC (Bld)1.4 %Normal0.2-2.0[facility] Comment on above:Performed By: #### CBC #### [facility] [address] [address] [address] Nathan Elena #0.9 103/ulCritically high0.0-0.7The [facility] HospitalComment on above:Performed By: #### CBC #### [facility] [address] [address] [address] Nathan Senaosinophils/100 WBC (Bld)12.2 %Critically high0.9-7.0[facility] CenterComment on above:Performed By: #### CBC #### [facility] [address] [address] [address] Nathan Senarythrocyte distribution width (RBC) [Ratio]12.3 %Agsicg46.0-15.0 [facility] CenterComment on above:Performed By: #### CBC #### [facility] [address] [address] [address] Nathan JonesHematocrit (Bld) [Volume fraction]43.3 %Pcrvbf21.0-54.0The [facility] HospitalComment on above:Performed By: #### CBC #### [facility] [address] [address] [address] Nathan JonesHemoglobin (Bld) [Mass/Vol]14.6 g/mINtrqze62.0-18.0The [facility] HospitalComment on above:Performed By: #### CBC #### [facility] [address] [place] [address] Dr. Nathan Pan #0.01 10e3/ulNormal0.00-0.03The [facility] HospitalComment on above:Performed By: #### CBC #### [facility] [address] [place] [address] Dr. Nathan Pan %0.1 %Normal0.0-0.5The [facility] HospitalComment on above: Performed By: #### CBC #### [facility] [address] [place] [address] Dr. Nathan Kendrick #2.9 103/ulNormal1.2-3.8The [facility] HospitalComment on above:Performed By: #### CBC #### [facility] [address] [place] [address] Dr. Nathan Freemanhocytes/100 WBC (Bld)40.5 %Faodlb43.5-60.0The [facility] HospitalComment on above:Performed By: #### CBC #### [facility] [address] [place] [address] Dr. Nathan Balderas DIFF REQNONormalThe Wayne HospitalComment on above: Performed By: #### CBC #### [facility] [address] [place] [address] Dr. Nathan Banuelos (RBC) [Entitic mass]33.5 xnSqmrhi48.9-34.0The [facility] HospitalComment on above:Performed By: #### CBC #### [facility] [address] [place] [address] Dr. Nathan Banuelos (RBC) [Mass/Vol]33.7 g/aUQxqykh81.9-35.2The [facility] HospitalComment on above:Performed By: #### CBC #### [facility] [address] [place] [address] Dr. Nathan Banuelos (RBC) [Entitic vol]99.3 fLCritically high80.0-94.0The [facility] HospitalComment on above:Performed By: #### CBC #### [facility] [address] [place] [address] Dr. Nathan Roche #0.5 103/ulNormal0.3-0.8The [facility] HospitalComment on above:Performed By: #### CBC #### [facility] [address] [place] [address] Dr. Nathan Oreillyocytes/100 WBC (Bld)6.8 %Normal1.7-12.0[facility] Comment on above:Performed By: #### CBC #### [facility] [address] [place] [address] Dr. Nathan Felix #2.8 103/ulNormal1.4-6.5The [facility] HospitalComment on above:Performed By: #### CBC #### [facility] [address] [place] [address] Dr. Nathan Chavirautrophils/100 WBC (Bld)39.0 %Critically low43.0-75.0The [facility] HospitalComment on above:Performed By: #### CBC #### [facility] [address] [place] [address] Dr. Nathan Willett mean volume (Bld) [Entitic vol]10.7 fLNormal9.5-13.5The [facility] HospitalComment on above:Performed By: #### CBC #### [facility] [address] [place] [address] Dr. Nathan PerezT211 103/fhJiwjid931-241Wwn [facility] HospitalComment on above: Performed By: #### CBC #### [facility] [address] [place] [address] Dr. Nathan CheungC4.36 106/ulCritically low4.70-6.10The [facility] HospitalComment on above:Performed By: #### CBC #### [facility] [address] [place] [address] Dr. Nathan JonesBC7.1 103/ulNormal4.0-11.0The [facility] HospitalComaspirus ironwood hospital on above: Performed By: #### CBC #### [facility] [address] [address] [address] Nathan GreenfieldID PROFILEon [id number]-HDL RATIO NORMSCleveland Clinic Lutheran HospitalComment on above:Result Comment: 3.3 - 4.4 LOW RISK 4.4 - 7.1 AVERAGE RISK 7.1 - 11.0 MODERATE RISK >11.0 HIGH RISKPerformed By: #### LIPID, CMP #### [facility] [address] [address] [address] Nathan JonesCholesterol [Mass/Vol]261 mg/dLCritically high<=200[facility] on above:Performed By: #### LIPID, CMP #### [facility] [address] [place] [address] Dr. Natahn JonesCholesterol in HDL [Mass/Vol]55 mg/zDEtypng06-26Iak Wayne HospitalComaspirus ironwood hospital on above:Performed By: #### LIPID, CMP #### [facility] [address] [place] [address] Dr. Nathan JonesCholesterol in LDL [Mass/Vol]164.2 mg/dLGrant Hospital on above:Performed By: #### LIPID, CMP #### [facility] [address] [place] [address] Dr. Nathan Catesestergerardo.total/Cholesterol in HDL [Mass ratio]4.7 {ratio} NormalThe Wayne HospitalComaspirus ironwood hospital on above:Performed By: #### LIPID, CMP #### [facility] [address] [place] [address] Dr. Nathan JonesHDL NORMAL> or = 60 mg/dl - LOW CARDIOVASCULAR RISK <40 mg/dl - HIGH CARDIOVASCULAR RISKGrant Hospital on above:Performed By: #### LIPID, CMP #### [facility] [address] [place] [address] Dr. Nathan JonesLDL CALC NORMALSEE Berger HospitalComment on above:Result Comment: <100 mg/dl OPTIMAL 100 - 129 mg/dl NEAR OR ABOVE OPTIMAL 130 - 159 mg/dl BORDERLINE HIGH 160 - 189 mg/dl HIGH >190 mg/dl VERY HIGH Performed By: #### LIPID, CMP #### [facility] [address] [place] [address] Dr. Nathan JoensTriglyceride [Mass/Vol]209 mg/dLCritically high<=150The [facility] HospitalComment on above:Performed By: #### LIPID, CMP #### [facility] [address] [place] [address] Dr. Nathan JonesVLDL CALC41.8 mg/dLNormalThe Wayne HospitalComment on above: Performed By: #### LIPID, CMP #### [facility] [address] [place] [address] Dr. Nathan JonesPROF 14(COMP METB)on [id number] [Mass/Vol]3.8 g/dLNormal 3.4-5.0The [facility] HospitalComment on above:Performed By: #### LIPID, CMP #### [facility] [address] [place] [address] Dr. Nathan JonesAlbumin/Globulin [Mass ratio]1.1 {ratio}NormalThe Samaritan Hospitalment on above:Performed By: #### LIPID, CMP #### [facility] [address] [place] [address] Dr. Nathan Lopez [Catalytic activity/Vol]60 U/UNfjgll32-043Zrx [facility] HospitalComment on above:Performed By: #### LIPID, CMP #### [facility] [address] [place] [address] Dr. Nathan Brady [Catalytic activity/Vol]41 U/YAqxfjf57-21Zdv Wayne HospitalComaspirus ironwood hospital on above:Performed By: #### LIPID, CMP #### [facility] [address] [place] [address] Dr. Nathan Gayle gap [Moles/Vol]12.2 mmol/LNormalThe [facility] Comment on above:Performed By: #### LIPID, CMP #### [facility] [address] [address] [address] Nathan JonesAST [Catalytic activity/Vol]13 U/LCritically imh16-12Tgb Wayne HospitalComment on above:Performed By: #### LIPID, CMP #### [facility] [address] [address] [address] Nathan JonesBilirubin [Mass/Vol]0.4 mg/dLNormal0.2-1.0[facility] Comment on above:Performed By: #### LIPID, CMP #### [facility] [address] [address] [address] Nathan JonesCalcium [Mass/Vol]8.9 mg/dLNormal8.5-10.1[facility] Comment on above:Performed By: #### LIPID, CMP #### [facility] [address] [place] [address] Dr. Nathan JonesChloride [Moles/Vol]107 mmol/VDhawhf75-691Yzw [facility] Comment on above:Performed By: #### LIPID, CMP #### [facility] [address] [address] [address] Nathan JonesCO2 [Moles/Vol]26.8 mmol/LQjgbnn49.0-32.0[facility] Comment on above:Performed By: #### LIPID, CMP #### [facility] [address] [place] [address] Dr. Nathan JonesCreatinine [Mass/Vol]0.68 mg/dLCritically low0.70-1.30The [facility] HospitalComment on above:Performed By: #### LIPID, CMP #### [facility] [address] [address] [address] Nathan SenaGFR-AF MALAGASY>60Normal>=60The [facility] HospitalComment on above:Performed By: #### LIPID, CMP #### [facility] [address] [address] [address] Nathan SenaGFR-NON AF MALAGASY>60Normal>=60The [facility] HospitalComment on above:Performed By: #### LIPID, CMP #### [facility] [address] [address] [address] Nathan JonesGlobulin (S) [Mass/Vol]3.5 g/dLNoAultman Alliance Community HospitalComment on above:Performed By: #### LIPID, CMP #### [facility] [address] [address] [address] Nathan JonesGlucose [Mass/Vol]108 mg/dLCritically ptlb09-274Hmm [facility] HospitalComment on above:Performed By: #### LIPID, CMP #### [facility] [address] [address] [address] Nathan JonesPotassium [Moles/Vol]4.0 mmol/LNormal3.5-5.1[facility] Comment on above:Performed By: #### LIPID, CMP #### [facility] [address] [address] [address] Nathan JonesProtein [Mass/Vol]7.3 g/dLNormal6.4-8.2[facility] Comment on above:Performed By: #### LIPID, CMP #### [facility] [address] [address] [address] Nathan JonesSodium [Moles/Vol]142 mmol/CQdmrfq176-568Rpw [facility] Comment on above:Performed By: #### LIPID, CMP #### [facility] [address] [address] [address] Nathan JonesUrea nitrogen [Mass/Vol]13.0 mg/dLNormal7.0-18.0The [facility] HospitalComment on above:Performed By: #### LIPID, CMP #### [facility] [address] [address] [address] Nathan JonesUrea nitrogen/Creatinine [Mass ratio]19.1 mg/mgNoAultman Alliance Community HospitalComment on above:Performed By: #### LIPID, CMP #### [facility] [address] [address] [address] Nathan Jones Vital Signs Date TimeVital SignValuePerforming AjbzxdiqrZofyiazc82-63-9681 14:46-0400Body .34 cmBenjamin Ball DO Work Phone: [phone]10-01-2025 14:46-0400 Body mass index (BMI) [Ratio]35.3 kg/h4Eflilesy Ball DO Work Phone: [phone]10-01-2025 14:46-0400 Body iedant277.81 kgBenjamin Ball DO Work Phone: [phone])[address] [place], [place] 4872910-01-2025 14:46-0400 Diastolic blood pybtftmi20 mm[Hg]Derrek Ball DO Work Phone: [phone])[address]10-01-2025 14:46-0400 Heart rate80 /minBenjamin Ball DO Work Phone: [phone] [place], [place] 4872910-01-2025 14:46-0400 Respiratory rate12 /minBenjamin Ball DO Work Phone: [phone])[address] [place], [place] 4872910-01-2025 14:46-0400 Systolic blood giycgmwc705 mm[Hg]Derrek Ball DO Work Phone: [phone])[address] [place], [place] 4872909-10-2025 12:56-0400 Body orovdu995.3 cmMatthew Holbrook PA Work Phone: [phone]09-10-2025 12:56-0400Body mass index (BMI) [Ratio]35.17 kg/n6Chkflyi Holbrook PA Work Phone: [phone])[facility] [place], [place] [address]Udfpquuvxf06-85-5706 12:56-0400Body .4 kgMatthew Holbrook PA Work Phone: 1(378)[facility] [place], [place] [address]Jthetnwats53-72-6160 11:16-0400Body dsugop282.34 cmBenjamin Ball DO Work Phone: [phone] [place], [place] [address]06-25-2025 11:16-0400 Body mass index (BMI) [Ratio]35.4 kg/q6Kiekbkrb Ball DO Work Phone: [phone]06-25-2025 11:16-0400 Body ltdupj224.43 kgBenjamin Ball DO Work Phone: [facility]06-25-2025 11:16-0400 Diastolic blood ncthrkog03 mm[Hg]Derrek Ball DO Work Phone: [facility]06-25-2025 11:16-0400 Heart rate90 /minBenjamin Ball DO Work Phone: [facility]06-25-2025 11:16-0400 Respiratory rate12 /minBenjamin Ball DO Work Phone: [facility]06-25-2025 11:16-0400 Systolic blood qgprogqv140 mm[Hg]Derrek Ball DO Work Phone: [facility]06-10-2025 14:34-0400 Body .3 cmMattdennise Holbrook PA Work Phone: [facility] HospitalEotyktxico78-39-3998 14:34-0400Body mass index (BMI) [Ratio]35.62 kg/d5Ydiplbo Holbrook PA Work Phone: [facility] HospitalEaylaobohl31-24-8986 14:34-0400Body owmcdq076.85 kgMattboonew Holbrook PA Work Phone: [facility] HospitalOczmwfkzye67-42-9978 09:53-0400Body hzsoyy761.34 cmSelect [facility]04-15-2025 09:53-0400Body mass index (BMI) [Ratio]34.9 kg/t7VydjtvmpqSelect [facility] [place]04-15-2025 09:53-0400Body khemqh105.56 kgSelect [facility] [place]04-15-2025 09:53-0400Diastolic blood aretsajr11 mm[Hg][facility]04-15-2025 09:53-0400 Heart rate79 /[facility]04-15-2025 09:53-0400 Respiratory rate12 /[facility]04-15-2025 09:53-0400 Systolic blood lzaglmvc188 mm[Hg][facility]02-24-2025 14:53-0500Diastolic blood gaciajeq901 mm[Hg]Miley Lue [facility]02-24-2025 14:53-0500Mean blood hjcsnuzs549 mm[Hg]Miley Lue [facility]02-24-2025 14:53-0500Systolic blood qpesleql157 mm[Hg]Miley Lue [facility]02-24-2025 14:42-0500Blood Pressure LocationKathy Lue [facility]02-24-2025 14:42-0500Diastolic blood eirdjwtk943 mm[Hg]Miley Lue [facility]02-24-2025 14:42-0500Heart rate78 /minKathy Lue [facility]02-24-2025 14:42-0500Respiratory rate16 /minKathy Lue [facility]02-24-2025 14:42-0500Systolic blood tmljautr129 mm[Hg]Miley Lue [facility] [address] [place] 801942-18-2024 08:39-0500Blood Pressure LocationKathy Lue [facility]12-18-2024 08:39-0500Diastolic blood fyahnaea22 mm[Hg]Miley Lue [facility]12-18-2024 08:39-0500Heart rate78 /minMiley Eddy [facility]12-18-2024 08:39-0500Systolic blood ouklwpxf111 mm[Hg]Miley Lue [facility]10-30-2024 13:27-0400Body rvkobr579.3 cmFlori Vazquez DO Work Phone: [phone] [place], [place] [address]Ojaemvxqyp84-38-4659 13:27-0400Body mass index (BMI) [Ratio]33.61 kg/m2Flori Vazquez DO Work Phone: [phone] [place], [place] [address]Gmsshbcdee28-24-0029 13:27-0400Body temperature 96.01 [degF]Flori Vazquez DO Work Phone: [phone] [place], [place] [address]Bzylkswgth81-43-9358 13:27-0400Body yksqjs066.32 kgFlori Vazquez DO Work Phone: [phone] [place], [place] [address]Vdpqvdvbgw42-06-9280 13:27-0400Diastolic blood vetpsaum22 mm[Hg]Flori Vazquez DO Work Phone: [phone] [place], [place] [address]Mnznifpipk88-37-3099 13:27-0400Respiratory rate16 /minFlori Vazquez DO Work Phone: 1(200)[facility] HospitalQnyqqyzewj05-18-8470 13:27-0725CgI4% (BldA) [Mass fraction]98 %Flori Vazquez DO Work Phone: [phone] HospitalZpovphmumu03-09-4673 13:27-0400Systolic blood gdynudxb700 mm[Hg]Flori Vazquez DO Work Phone: 1(621)[facility] HospitalFfqscwmkyc16-26-0033 13:22-0400Body mknyrq036.3 cmFlori Vazquez DO Work Phone: [phone])[facility] HospitalUmoczjnljm68-37-8808 13:22-0400Body mass index (BMI) [Ratio]33.72 kg/m2Flori Vazquez DO Work Phone: 1(627)[facility] [address]Kfthsneuup71-83-0079 13:22-0400Body cmwcvy538.68 kgFlori Vazquez DO Work Phone: [phone])[address] [place], [place] [address]Gcqbnzmpnh52-98-8988 13:22-0400Diastolic blood anfmkcsm58 mm[Hg]Flori Vazquez DO Work Phone: [phone])[address] [place], [place] [address]Nzrvshjbup18-05-4810 13:22-0400Heart rate67 /min Flori Vazquez DO Work Phone: [phone] [place], [place] [address]Ozvcftdany53-64-0425 13:22-0400Respiratory rate14 /minFlori Vazquez DO Work Phone: 1(807)[facility] [place], [place] [address]Betoozqfql31-30-5749 13:22-6828MrB9% (BldA) [Mass fraction]98 %Flori Vazquez [employer] Work Phone: [phone])[address] [place], [place] [address]Rqoqhgahnz56-16-0949 13:22-0400Systolic blood nhqvosqq444 mm[Hg]Flori Vazquez [employer] Work Phone: 1(572)[facility] [place], [place] [address]Bouvwwzdkr72-25-1785 14:57-0400Body jtmuxm003.88 cmSelect [facility]09-23-2024 14:57-0400Body mass index (BMI) [Ratio]32.5 kg/y7JihthrdsuSelect Medical [facility]09-23-2024 14:57-0400Body jlbruu299.86 kgSelect [facility]09-23-2024 14:57-0400Diastolic blood snxquwdu96 mm[Hg][facility]09-23-2024 14:57-0400 Heart rate72 /minSelect [facility]09-23-2024 14:57-5101PvO5% (BldA) [Mass fraction]97 %[facility]09-23-2024 14:57-0400 Systolic blood wudddlyi337 mm[Hg][facility]04-02-2024 15:43-0400Body epzewe365.88 cmSelect [facility]04-02-2024 15:43-0400Body mass index (BMI) [Ratio]32.4 kg/r3HrhjoollvSelect Medical [facility]04-02-2024 15:43-0400Body wkgioq005.46 kgSelect [facility] 02-08-2024 15:43-0400Diastolic blood drapzcjl22 mm[Hg][facility]04-02-2024 15:43-0400Heart rate67 /[facility] 02-08-2024 15:43-0400Respiratory rate12 /[facility] 02-08-2024 15:43-0400Systolic blood xdccysto031 mm[Hg][facility]11-02-2023 09:00-0400Body .88 cmBenjamin Ball Other [employer]Real[employer] Other 022599-85-2285 09:00-0400Body mass index (BMI) [Ratio] 32.76 kg/o2Jklazvqb Ball Other [employer] Other 698712-66-3093 09:00-0400Body ioxiru070.59 kgBenjamin Ball Other [employer] Other 11-02-2023 09:00-0400Diastolic blood iiikjfty18 mm[Hg] Derrek Ball Other [employer] Other 11-02-2023 09:00-0400Respiratory rate12 /minBenjamin Ball Other [employer] Other 11-02-2023 09:00-0400Systolic blood kvuthfig806 mm[Hg] Derrek Ball Other [employer] Other 10-16-2023 13:15-0400Body rngopd344.88 cmBenjamin Ball Other [employer] Other 10-16-2023 13:15-0400Body mass index (BMI) [Ratio] 32.57 kg/q2Szenvpkd Ball Other [employer] Other 10-16-2023 13:15-0400Body pteikr939.95 kgBenjamin Ball Other [employer] Other 10-16-2023 13:15-0400Diastolic blood pxqisthv45 mm[Hg] Derrek Ball Other [employer] Other 10-16-2023 13:15-0400Respiratory rate12 /minBenjamin Ball Other [employer] Other 10-16-2023 13:15-0400Systolic blood lziwfpze076 mm[Hg] Derrek Ball Other [employer] Other 09-27-2023 09:00-0400Body tovcis403.88 cmBenjamin Ball Other [employer] Other 09-27-2023 09:00-0400Body mass index (BMI) [Ratio] 31.16 kg/f9Flxbeuax Ball Other [employer] Other 09-27-2023 09:00-0400Body udliji523.24 kgBenjamin Ball Other [employer] Other 09-27-2023 09:00-0400Diastolic blood mm[Hg] Derrek Ball Other [employer] Other 09-27-2023 09:00-0400Respiratory rate12 /minBenjamin Ball Other [employer] Other 09-27-2023 09:00-0400Systolic blood fubhuxct162 mm[Hg] Derrek Ball Other [facility] Other 03-27-2023 10:30-0400Body krtgku502.88 cmBenjamin Ball Other [facility] Other 03-27-2023 10:30-0400Body mass index (BMI) [Ratio]30.3 kg/a7Qxxnydbu Ball Other [facility] Other 03-27-2023 10:30-0400Body .33 kgBenjamin Ball Other [facility] Other 03-27-2023 10:30-0400Diastolic blood rfybrblm82 mm[Hg] Derrek Ball Other [employer] Other 03-27-2023 10:30-0400Respiratory rate12 /minBenjamin Ball Other [employer] [facility] Other 03-27-2023 10:30-0400Systolic blood oqrfstlv297 mm[Hg] Derrek Ball Other [facility] Other Encounters Encounter DateEncounter TypeCare ProviderFacilityStart: 32-26-8798gmtnnmzelm Miley CardonaeFacility:[facility]vueStart: 67-28-7657hjafmwijczVtenh M. Lue Facility:[facility]Start: 08-28-2025 End: 62-34-6317Tfcidg flowsheetJr. Jessenia Baird DO Work Phone: [facility]icsStart: 08-28-2025 End: 24-80-5294Qpkjch flowsheetJr. Jessenia Helms Stepkareem DO Work Phone: [facility]icsStart: 08-27-2025 End: 06-24-9571Bhmqbh flowsheetMarshall Brink [facility]ANOM[facility] Start: 08-27-2025 End: 07-61-1418Cyzdas flowsheetMarshall Brink [facility] Start: 08-27-2025 End: 31-80-2470kzqneozqjcCxjwohuk Brink PTANOMS John Physical TherapyComment on above:Primary osteoarthritis of left knee (Primary Dx); Ankylosis, left kneeStart: 08-23-2025 End: 09-82-5003Gougyp flowsheetSammantha Hsu PTNOMS [facility] Start: 08-23-2025 End: 49-64-4301Mewohd flowsheetSammantha Hsu PTN[facility] Start: 08-23-2025 End: 66-09-6639jywzazvymqUepqlmolk Hsu PTNOM[facility] Comment on above:Primary osteoarthritis of left knee (Primary Dx); Ankylosis, left knee; Acute postoperative pain of left knee; Status post left knee replacementStart: 08-20-2025 End: 74-16-8653Qvxjoz flowsheetMarshall Brink [facility] Start: 08-20-2025 End: 73-94-9722Dleoqt flowsheetMarshall Brink [facility] Start: 08-20-2025 End: 12-92-1119tmridrbnvrYswsvpqh Brink PTANOMS [facility] TherapyComment on above:Primary osteoarthritis of left knee (Primary Dx); Ankylosis, left kneeStart: 08-15-2025 End: 46-28-8563Enavvv flowsheetMarshall Brink [facility] Start: 08-15-2025 End: 36-79-0176Ygwayp flowsheetMarshall Brink [facility] Start: 08-15-2025 End: 03-92-9118ygkdoiggqdCcsvzvzc Brink PTANOMS [facility] TherapyComment on above:Primary osteoarthritis of left knee (Primary Dx); Ankylosis, left kneeStart: 08-13-2025 End: 13-36-9622Seawxn flowsheetMarshall Brink [facility] Start: 08-13-2025 End: 20-37-8469Ryaeew flowsheetFlora Smith [facility] Start: 08-13-2025 End: 91-53-6688btavnfygwvVcsxyxwl Brink PTANOMS [facility] TherapyComment on above:Primary osteoarthritis of left knee (Primary Dx); Ankylosis, left knee; Acute postoperative pain of left kneeStart: 08-10-2025 End: 16-39-2539wjqobdwdkeBcyrmykv Brink PTANOMS [facility] TherapyComment on above:Primary osteoarthritis of left knee (Primary Dx); Ankylosis, left kneeStart: 08-09-2025 End: 26-52-8099Qylfhj Dinesh Jones NP Work Phone: noms [facility]icsStart: 08-09-2025 End: 66-03-0312Bmexwvdanielle Jones NP Work Phone: N[facility]edicsStart: 08-09-2025 End: 79-18-2087Ubxwih follow up visit related to original Almas Jones NP Work Phone: noms [facility] OrthopaedicsComment on above: Arthrofibrosis of knee joint, left (Primary Dx); Status post left knee replacementStart: 08-09-2025 End: 66-08-0250owfleqtennZNRNJ T OLSENNot AvailableStart: 08-08-2025 End: 22-91-2663Gfwkrdo encounter procedureDerrek Joseph DO-[facility] Work Phone: Start: 08-08-2025 End: 63-90-1008Nnqhib flowsheetMelissa Kelbley [facility] Start: 08-08-2025 End: 93-39-2711Knbhlj flowsheetMelissa Kelbley [facility] Start: 08-08-2025 End: 21-98-7402ceepfwnrwsPsrztrr Kelbley PTANOMS [facility] TherapyComment on above:Primary osteoarthritis of left knee (Primary Dx); Ankylosis, left kneeStart: 08-07-2025 End: 54-58-5639ywrwupapkmBohmhezd Brink PTANOMS [facility] TherapyComment on above:Primary osteoarthritis of left knee (Primary Dx); Ankylosis, left knee; Acute postoperative pain of left kneeStart: 08-06-2025 End: 49-63-7307Ijhxcp flowsheetMarshall Brink [facility] Start: 08-06-2025 End: 71-47-5229Pcylsz flowsheetMarshall Brink [facility] Start: 08-06-2025 End: 09-16-9409dvdzhocjecLnfsniqa Brink PTANOMS [facility] TherapyComment on above:Primary osteoarthritis of left knee (Primary Dx); Ankylosis, left kneeStart: 08-03-2025 End: 63-48-1580Pewywl flowsheetMarshall Brink [facility] Start: 08-03-2025 End: 09-52-8323Ifxnmg flowsheetMarshall Brink [facility] Start: 08-03-2025 End: 22-60-9202fruzbpeeavAlrulpmy Brink PTANOMS [facility] TherapyComment on above:Primary osteoarthritis of left knee (Primary Dx); Ankylosis, left kneeStart: 08-02-2025 End: 00-51-4049fytnglctzjZetbsdt Kelbley PTANOMS [facility] TherapyComment on above:Primary osteoarthritis of left knee (Primary Dx); Ankylosis, left kneeStart: 08-01-2025 End: 30-67-0326Berdlx flowsheetMelissa Kelbley [facility] Start: 08-01-2025 End: 39-11-3648Afcacs flowsheetMelissa Kelbley [facility] Start: 08-01-2025 End: 60-34-4766groawhzsbgPpqjkyl Kelbley PTANOMS [facility] TherapyComment on above:Primary osteoarthritis of left knee (Primary Dx); Ankylosis, left kneeStart: 07-31-2025 End: 65-61-6222eylqffkabvZkpayuru Brink PTANOMS [facility] TherapyComment on above:Primary osteoarthritis of left knee (Primary Dx); Ankylosis, left knee; Acute postoperative pain of left knee; Status post left knee replacementStart: 07-30-2025 End: 29-35-5797Tbmzxl flowsheetMarshall Saleemink [facility] Start: 07-30-2025 End: 94-47-7164Rhreld flowsheetMarshami Smith [facility] Start: 07-30-2025 End: 83-12-7723qsqzxvhfzcTvsxmbxa Brink PTANOMS [facility] TherapyComment on above:Primary osteoarthritis of left knee (Primary Dx); Ankylosis, left knee; Acute postoperative pain of left knee; Status post left knee replacementStart: 07-27-2025 End: 77-51-0132Nwgaav flowsheetSammantha Hsu [facility] Start: 07-27-2025 End: 54-06-6494Qzanxw flowsheetSammantha Hsu [facility] Start: 07-27-2025 End: 04-01-0305nroybckbosKufzjnmyn Hsu [facility] Comment on above:Ankylosis, left knee (Primary Dx); Primary osteoarthritis of left knee; Acute postoperative pain of left kneeStart: 07-25-2025 End: 67-67-1934YsnrieJzmom T Olsen NP Work Phone: noms [facility] OrthopaedicsComment on above: Arthrofibrosis of knee joint, left (Primary Dx)Start: 12-54-6091bfahyfxkrtGVPPMG C STEPANICFacility:[facility] Centertart: 07-18-2025 End: 36-48-7032Logund Agnes VALENCIA Work Phone: NOMS [facility]edicsStart: 07-18-2025 End: 74-41-2938Hfkobj Agnes VALENCIA Work Phone: NOZL [facility]opaedicsStart: 07-18-2025 End: 40-13-1299Yqlkekjapjhwl examination Peña VALENCIA Work Phone: noms HealthcareStart: 07-18-2025 End: 20-03-6466lyneyzyjteAEGJHYC J MEYERNot AvailableStart: 07-18-2025 End: 83-80-2326afhigqimoxNwvlw M. LueFacility: BellevueStart: 07-18-2025 End: 83-19-7545Yjmnicw encounter procedureRosalio Holbrook PA Work Phone: noMS [facility] OrthopaedicsComment on above:Acute pain of left knee (Primary Dx); Pre-op examination; Arthrofibrosis of knee joint, leftStart: 07-17-2025 End: 76-31-8191Pvmexu outpatient visit 25 minutesJrKenan Baird DO Work Phone: NOZK [facility] OrthopaedicsComment on above:Status post left knee replacement (Primary Dx); Arthrofibrosis of knee joint, leftStart: 07-17-2025 End: 93-32-8664putxgcyovlBKJESSENIA PURVIS AvailableStart: 07-16-2025 End: 75-60-0915Ujjjfr flowsheetMarshall Brink [facility] Start: 07-16-2025 End: 81-71-5768Yyzagz flowsheetMarshall Brink [facility] Start: 07-16-2025 End: 01-22-9677kwsezsjielPjuztuin Brink PTANOMS [facility] TherapyComment on above:Primary osteoarthritis of left knee (Primary Dx); Acute postoperative pain of left knee; Status post left knee replacementStart: 07-13-2025 End: 28-00-7011Gdcwnz flowsheetMelissa Kelbley [facility] Start: 07-13-2025 End: 58-59-3856Qvlbjq flowsheetMelissa Kelbley [facility] Start: 07-13-2025 End: 22-11-7418yycvakjmolWlyycco Kelbley PTANOMS [facility] TherapyComment on above:Primary osteoarthritis of left knee (Primary Dx); Acute postoperative pain of left knee; Status post left knee replacementStart: 07-11-2025 End: 39-50-1547lgtowtfspcUfppt M. LueFacility:KRISHNA [facility] HospitalueStart: 07-11-2025 End: 70-71-1186Ikfupzl encounter Abdi Eddy [facility] start: 07-10-2025 End: 22-14-7889Wxseby flowsheetMelissa Kelbley [facility] Start: 07-10-2025 End: 25-82-0221Mtncda flowsheetMelissa Kelbley [facility] Start: 07-10-2025 End: 13-28-1224jpjloyejicAexglaf Kelbley PTANOMS [facility] TherapyComment on above:Primary osteoarthritis of left knee (Primary Dx); Acute postoperative pain of left kneeStart: 07-06-2025 End: 88-58-0854Nxjocy flowsheetMelissa Kelbley [facility] Start: 07-06-2025 End: 64-25-9597Sfomev flowsheetMelissa Kelbley [facility] Start: 07-06-2025 End: 94-75-0437ojmoompfifGutfubz Kelbley PTANOM[facility] TherapyComment on above:Primary osteoarthritis of left knee (Primary Dx); Acute postoperative pain of left knee; Status post left knee replacementStart: 07-04-2025 End: 65-99-9929Eimrqr flowsheetMarshall Brink [facility] Start: 07-04-2025 End: 06-48-4345Nuvspf flowsheetMarshall Brink [facility] Start: 07-04-2025 End: 68-75-7568fcotdvmxfzDcvstzfi Brink PTANOMS [facility] TherapyComment on above:Primary osteoarthritis of left knee (Primary Dx); Acute postoperative pain of left knee; Status post left knee replacementStart: 07-02-2025 End: 57-70-4743Muhnqb Dinesh Jones NP Work Phone: NOMS [facility]icsStart: 07-02-2025 End: 72-66-6709Nhlzqq Dinesh Kavon Shannen TEAM TRUCK DRIVER Work Phone: noms [facility]opaedicsStart: 07-02-2025 End: 56-94-7905Zmdtmj follow up visit related to original Almas Jacobson Jones HAKAN Work Phone: noms [facility]opaedicsComment on above:Acute pain of left knee; Status post left knee replacementStart: 07-02-2025 End: 33-19-3351zzwqfaztbpAudmbpiza Hsu PTN[facility] Comment on above:Primary osteoarthritis of left knee (Primary Dx); Acute postoperative pain of left knee; Status post left knee replacementStart: 06-29-2025 End: 38-08-6049Vcfxyf flowsheetMelissa Kelbley [facility] Start: 06-29-2025 End: 68-51-2152Kdtcfc flowsheetMelissa Kelbley [facility] Start: 06-29-2025 End: 12-98-7858xhoxoagozlFieyvqu Kelbley PTANOM[facility] TherapyComment on above:Primary osteoarthritis of left knee (Primary Dx); Acute postoperative pain of left knee; Status post left knee replacementStart: 06-27-2025 End: 07-84-0164Jtkidi flowsheetMarshall Brink [facility] Start: 06-27-2025 End: 39-30-7792Iwddhe flowsheetMarshall Brink [facility] Start: 06-27-2025 End: 15-96-2490yjgxawcnwxJrjapalw Brink PTANOMS [facility] TherapyComment on above:Primary osteoarthritis of left knee (Primary Dx); Acute postoperative pain of left knee; Status post left knee replacementStart: 06-25-2025 End: 79-97-1724Rffzwf flowsheetMelissa Kelbley [facility] Start: 06-25-2025 End: 87-73-6192Xuqwvl flowsheetMelissa Kelbley [facility] Start: 06-25-2025 End: 10-78-5161hgxatsmdjuOwsespv Kelbley PTANOM[facility] TherapyComment on above:Primary osteoarthritis of left knee (Primary Dx); Acute postoperative pain of left knee; Status post left knee replacementStart: 06-22-2025 End: 31-72-2776mbrkdwdeazTDQEUILQS SCHNEIDERNot AvailableStart: 06-22-2025 End: 05-07-4730vjzmthzzruCsipcjnaw Hsu [facility] Comment on above:Primary osteoarthritis of left knee (Primary Dx); Acute postoperative pain of left knee; Status post left knee replacementStart: 06-20-2025 End: 75-72-1005Wwhhjv flowsheetEliezerisicesar Fried [facility] Start: 06-20-2025 End: 80-03-3002Trhbcm noahMaxxisicesar Fried [facility] Start: 06-20-2025 End: 54-61-8852mnucynqsbqMnrtbxg Lawrence PTANOMS [facility] TherapyComment on above:Primary osteoarthritis of left knee (Primary Dx); Acute postoperative pain of left knee; Status post left knee replacementStart: 06-18-2025 End: 87-43-2455Hhklsl flowsheetEliezerisicesar Fried [facility] Start: 06-18-2025 End: 18-19-2666Dywxal flowsheetKeith Fried [facility] Start: 06-18-2025 End: 14-91-9199ikgfxhkmyyLkgvbkd Lawrence PTANOM[facility] TherapyComment on above:Primary osteoarthritis of left knee (Primary Dx); Acute postoperative pain of left knee; Status post left knee replacementStart: 06-15-2025 End: 80-64-0437Axwbaw flowsheetMarshiraami Mongeink [facility] Start: 06-15-2025 End: 98-56-4761Qjvqvo flowsheetMarshall Brink [facility] Start: 06-15-2025 End: 48-90-0895lzpomlhqgiFuburldg Brink PTANOM[facility] TherapyComment on above:Primary osteoarthritis of left knee (Primary Dx); Acute postoperative pain of left knee; Status post left knee replacementStart: 06-13-2025 End: 88-79-3718Odbbrs flowsMushtaq Fried [facility] Start: 06-13-2025 End: 57-31-1480Lrjiwh flowsMushtaq Fried [facility] Start: 06-13-2025 End: 88-19-8423jmrtgsbagoFbgqksn Lawrence PTANOMS [facility] TherapyComment on above:Primary osteoarthritis of left knee (Primary Dx); Acute postoperative pain of left knee; Status post left knee replacementStart: 06-11-2025 End: 83-84-8241xnydshaqfeLxdelmn Lawrence PTANO [facility] TherapyComment on above:Primary osteoarthritis of left knee (Primary Dx); Acute postoperative pain of left knee; Status post left knee replacementStart: 06-11-2025 End: 16-37-3290Chozny flowsMushtaq Fried [facility] Start: 06-11-2025 End: 83-45-2309Ztvnlw flowsMushtaq Fried [facility] Start: 06-08-2025 End: 06-80-9689Nebtlv flowsheetFlora Smith [facility] Start: 06-08-2025 End: 75-62-2809Edmdqc flowsheetMargildardo Smith [facility] Start: 06-08-2025 End: 55-92-1172ugjrohzqezLysginiw Brink PTANOMS [facility] TherapyComment on above:Primary osteoarthritis of left knee (Primary Dx); Acute postoperative pain of left knee; Status post left knee replacementStart: 06-06-2025 End: 25-71-4358Bjekqi flowsheetMarshall Brink [facility] Start: 06-06-2025 End: 59-29-4947Grmmrj flowsheetMarshall Brink [facility] Start: 06-06-2025 End: 27-95-8394jglcvtpajqBprxjknp Brink PTANOMS [facility] TherapyComment on above:Primary osteoarthritis of left knee (Primary Dx); Acute postoperative pain of left knee; Status post left knee replacementStart: 06-04-2025 End: 18-40-8667Piszjs Nghia Chaudhari PT Work Phone: noms [facility] TherapyStart: 06-04-2025 End: 74-14-3998Evyljx Nghia Chaudhari PT Work Phone: noms [facility] TherapyStart: 06-04-2025 End: 55-35-4982ptxwtnkotmWiyprj J Evans PT Work Phone: noms [facility] TherapyComment on above:Primary osteoarthritis of left knee (Primary Dx); Acute postoperative pain of left knee; Status post left knee replacementStart: 05-31-2025 End: 51-69-7995Lvngvl Nannette Fried PTANOMS CI PTStart: 05-31-2025 End: 18-15-8317Iaudsj flowsMushtaq Fried PTANOMS CI PTStart: 05-31-2025 End: 85-87-1394crtsjufhanOqxypcd Lawrence PTANOMS CI PTComment on above:Primary osteoarthritis of left knee (Primary Dx); Acute postoperative pain of left knee; Status post left knee replacementStart: 05-29-2025 End: 15-82-5052cknilwcvjhQcsfokx Lawrence PTANOMS CI PTComment on above:Primary osteoarthritis of left knee (Primary Dx); Acute postoperative pain of left knee; Status post left knee replacementStart: 05-28-2025 End: 66-31-5117Syywyn Dinesh Jones NP Work Phone: NOEM [facility]OPAEDICSStart: 05-28-2025 End: 46-87-2832Qsfihw Dinesh Jones NP Work Phone: NOFB [facility]THOPAEDICSStart: 05-28-2025 End: 25-87-9928Ixevtv follow up visit related to original Almas Jones NP Work Phone: noms FB ORTHOPAEDICSComment on above:Acute pain of left thigh; Primary osteoarthritis of left knee; Post-operative painStart: 05-28-2025 End: 92-97-6945Wzsylasf Cheng Sun PT Work Phone: noms [facility] PTHComment on above:Primary osteoarthritis of left knee (Primary Dx); Acute postoperative pain of left knee; Status post left knee replacementStart: 05-25-2025 End: 53-87-3804lprzscrosmMQODLEmeli Cabral AvailableStart: 05-23-2025 End: 20-99-1290Bagjarwgy [facility]-flintHernando Jones TEAM TRUCK DRIVER Work Phone: noms FB ORTHOPAEDICSComment on above:Primary osteoarthritis of left knee (Primary Dx); Acute postoperative pain of left knee; Status post left knee replacementStart: 05-22-2025 End: 17-35-4885Lagyls Yani Sun PT Work Phone: noms [facility] PTHStart: 05-22-2025 End: 14-33-9326Ugfxgu flowsRadha Sun PT Work Phone: noms [facility] PTHStart: 05-22-2025 End: 84-78-2059qciejmxsuqQCRCGEmeli Cabral AvailableStart: 05-21-2025 End: 97-10-5691Bfufndvl SupportLorenza Sun PT Work Phone: noms [facility] PTHStart: 05-18-2025 End: 91-90-0579OnnyzgVvxfn T Olsen TEAM TRUCK DRIVER Work Phone: noms FB ORTHOPAEDICSComment on above:Primary osteoarthritis of left knee; Post-operative painPrimary osteoarthritis of left knee (Primary Dx); Acute postoperative pain of left knee; Status post left knee replacementStart: 05-17-2025 End: 72-70-5801Bjzmaobu SupportLorenza Sun PT Work Phone: noms [facility] PTHComment on above:Primary osteoarthritis of left knee (Primary Dx); Acute postoperative pain of left knee; Status post left knee replacementStart: 05-17-2025 End: 74-04-3727pnzcwvfxtxRNVFYEmeli Cabral AvailableStart: 05-15-2025 End: 13-57-1096Ewcgzpli SupportLorenza Sun PT Work Phone: noms SWS PTHComment on above:Primary osteoarthritis of left knee (Primary Dx); Acute postoperative pain of left knee; Status post left knee replacementStart: 05-14-2025 End: 66-31-4353iarstvgpauFXRWCK C STEPANICFacility:[facility] Centertart: 05-09-2025 End: 19-43-6424DdaemvBcldx T Olsen TEAM TRUCK DRIVER Work Phone: noms FB ORTHOPAEDICSComment on above:Primary osteoarthritis of left knee (Primary Dx); Post-operative painStart: 05-02-2025 End: 94-92-6837dokpggbswxJdumrmoo Opal Work Phone: [facility] Work Phone: Start: 05-02-2025 End: 52-62-4725Khikdeq encounter [facility]Bro[facility] Work Phone: Start: 05-02-2025 End: 95-95-3181Pmcnfeg encounter statusFlower Hospitaltart: 91-48-8773Aar-patient / Non-visitDAVID DEBBIE [facility] Work Phone: Start: 47-94-3200gmrgcnxxmpXVUFZK C STEPANIC Facility:[facility]ertart: 04-17-2025 End: 97-92-0213Doohomv encounter procedureRosalio VALENCIA Work Phone: noms FB ORTHOPAEDICSComment on above:Primary osteoarthritis of left knee (Primary Dx); Pre-op examinationStart: 04-17-2025 End: 07-80-9719Wbpqavrryygyr examination doneRosalio VALENCIA Work Phone: noms HealthcareStart: 04-17-2025 End: 26-37-3349tzsswhakngCDZAVPU J MEYERNot AvailableStart: 04-17-2025 End: 57-97-7942Dzebrh flowsheetRosalio VALENCIA Work Phone: noms FB ORTHOPAEDICSStart: 04-17-2025 End: 21-82-9505Nlbaky flowsAaliyah VALENCIA Work Phone: noms FB ORTHOPAEDICSStart: 03-07-2025 End: 04-86-0848Mbaana flowsheetJr. Jessenia Baird DO Work Phone: noms SWS ORTHOStart: 03-07-2025 End: 17-02-5150Bpmfju flowsheetJr. Jessenia Baird DO Work Phone: noms SWS ORTHOStart: 03-07-2025 End: 11-34-6338Kxjddw outpatient visit 40 minutesJr. Jessenia Baird DO Work Phone: noms SWS ORTHOComment on above:Acute pain of left knee (Primary Dx); Primary osteoarthritis of left kneeStart: 03-07-2025 End: 55-61-0469eqmpswysvbIE., JESSENIA Helms Marian AvailableStart: 02-27-2025 End: 99-75-2962sgguktcdelLDIRXCK J MEYERNot AvailableStart: 02-26-2025 End: 90-99-7896Rpaprhhhi encounterJr. Jessenia Baird DO Work Phone: noms SWS ORTHOComment on above:MRIStart: 02-22-2025 End: 24-63-6579Yunflv Agnes VALENCIA Work Phone: noms SWS ORTHOStart: 02-22-2025 End: 15-99-8385Hvohti Agnes VALENCIA Work Phone: noms SWS ORTHOStart: 02-22-2025 End: 41-88-3719Nnghpj outpatient visit 25 minutesMattdennise VALENCIA Work Phone: noms SWS ORTHOComment on above:Acute pain of left knee (Primary Dx); Internal derangement of left kneeStart: 02-22-2025 End: 42-35-7732jwubrubyyjYESMDMU J MEYERNot AvailableStart: 02-20-2025 End: 21-84-4172peyamrptpjBgcgssoloOhioHealth Hardin Memorial Hospital Work Phone: Start: 02-20-2025 End: 66-21-0515Lwovdfo encounter procedureEcu Health North Hospital Physician GroupThe [facility] Work Phone: Start: 01-01-2025 End: 65-40-9712sovyrcmrxzRdezx M. LueFacility:EU [place]walkStart: 01-01-2025 End: 41-85-4667Otaeqxb encounter procedureMiley Eddy [facility] Start: 12-27-2024 End: 10-41-3957yxzbmfwncsJnont M. LueFacility:EU [place]vueStart: 12-27-2024 End: 93-89-9467Wmyjigc encounter procedureMiley Eddy [facility] start: 12-11-2024 End: 75-48-7028aixmwqgqxsMpwus M. LueFacility:FTMCStart: 12-11-2024 End: 83-95-0920Bkmiava encounter procedureMiley Eddy [facility] Start: 10-25-2024 End: 71-19-3434qhwligptlnATHRLICE BALLFacility:EU [place]vueStart: 10-25-2024 End: 21-62-5143Prcuxry encounter procedureMiley Eddy [facility] start: 89-72-7215wxzhmamlgxEeexl LueFacility:EU [place] Start: 09-06-2024 End: 35-01-4321Ccdfzb Mellisa Vazquez DO Work Phone: NOMS JACKIE GENSStart: 09-06-2024 End: 83-97-0972Witsix flowsAndrew Vazquez DO Work Phone: NOMS JACKIE GENSStart: 09-06-2024 End: 84-86-0639Mlbqob follow up visit related to original pxFlori Vazquez DO Work Phone: NOYQ JACKIE GENSComment on above:S/P umbilical hernia repair, follow-up exam (Primary Dx)Start: 09-06-2024 End: 41-04-1897mltuminiksNOSB DUCKETTNot AvailableStart: 08-24-2024 End: 64-31-9405Ytkmkoplw Result EncounterFlori Vazquez DO Work Phone: NOWI External Department UnsolicitedStart: 08-24-2024 End: 67-34-4519Aiicicbiq Result EncounterFlori Vazquez DO Work Phone: NOYP External Department UnsolicitedStart: 08-02-2024 End: 11-94-1841Zhhlnk flowsheetFlori Vazquez DO Work Phone: NOMS JACKIE GENSStart: 08-02-2024 End: 38-65-5770Nogesm flowsAndrew Vazquez DO Work Phone: NOMS JACKIE GENSStart: 08-02-2024 End: 57-33-9374Kajisx outpatient new 45 minutesFlori Vazquez DO Work Phone: NOMS JACKIE GENSComment on above:Umbilical hernia without obstruction and without gangrene (Primary Dx)Start: 07-31-2024 End: 11-91-4772majcwkwlvnZpmqooctwOhioHealth Hardin Memorial Hospital Work Phone: Start: 07-31-2024 End: 11-95-9207Izpyeowlz for general adult medical examination without abnormal findingsFlower Hospitaltart: 07-31-2024 End: 27-44-6509Wfyyyam encounter procedureE[facility] Work Phone: Start: 22-38-4030Ejuxerx encounter statusFlower Hospitaltart: 02-08-2024 End: 22-54-4977niswjlcmyyQbnzzkqbbOhioHealth Hardin Memorial Hospital Work Phone: Start: 02-08-2024 End: 29-62-0219Nyoyvtx encounter procedureEcu Health North [facility] Work Phone: Start: 11-26-2023 End: 87-78-2941bqtlghooyfNxmxhpez Ball Other [employer]erve Other Start: 04-81-2215Vdtavlxfd encounterBenjamin BallFPG [facility] ClinicStart: 11-02-2023 End: 12-63-6502ybpaymnthmOogwkkpv Ball Other [employer] Other Start: 41-57-8616Fjlxfnipm encounterBenjamin BallFPG [facility] ClinicStart: 09-09-2023 End: 90-23-1656nijnyxbwvuWwbkozzu Ball Other [employer] Other Start: 52-59-2040Wwbolb outpatient visit 15 minutes Derrek BallFPG [facility] ClinicStart: 44-93-8647Hjkfttnlb encounterBenjamin BallFPG [facility] ClinicStart: 08-24-2023 End: 69-32-8921xxemfocuflHxikngaf Ball Other [employer] Other Start: 70-52-3311Unocreiyk encounterBenjamin BallFPG [facility] ClinicStart: 08-23-2023 End: 72-88-5534oiivjnwekxCrqnnirb Ball Other [employer] Other Start: 45-84-2867Neqjie outpatient visit 15 minutes Derrek BallFPG [facility] ClinicStart: 08-19-2023 End: 28-34-6978fodeiwkphzWugipvmz Ball Other [employer] Other Start: 10-29-9081Qeuviwkae encounterBenngozi NoelG [facility] ClinicStart: 08-04-2023 End: 41-30-3318aqfjllgiuwSwryzcnv Ball Other [employer] Other Start: 78-84-5166Ktavaenji for general adult medical examination without abnormal findingsBenngozi NoelG [facility] ClinicStart: 87-43-4358Tdroowvq preventive med est patient 40-64yrsBenjamin SadieG [facility] ClinicStart: 75-20-3310Stfmuhvzj encounterBenjamin SadieG [facility] ClinicStart: 07-20-2023 End: 45-64-1082avzkpfcleeHszjwqvr Ball Other [employer] Other Start: 01-63-2333Jymbnpvsa encounterBenngozi NoelG [facility] ClinicStart: 02-01-2023 End: 43-28-3069aiofzrcvleMpqjxorg Ball Other [employer] Other Start: 09-60-8836Tykrux outpatient visit 15 minutes [facility]Start: [facility]2023 End: 69-07-4021swrvlkskiqMY NONE LISTED REQUESTFacility:T4Qjfts: 09-14-2022 End: 34-51-5283lnssyjgrmhXP NONE LISTED REQUESTFacility:H7Ocapo: 07-30-2022 Encounter for general adult medical examination without abnormal findingsDR [facility] HospitalStart: 07-29-2022 End: 46-16-0408pwerqaowedNV DERREK JOSEPHFacility:O6Bjkzq: 07-29-2022 End: 17-98-8863Buwvcqxxz for general adult medical examination without abnormal findingsDR DERREK JOSEPHFacility:Q4Gdokh: 00-71-8092Pcdew health examination Derrek Joesph Other [facility] Other Start: 89-10-5613Aupqagvorzvx cardiovascular examinationBeshaun Joseph Other [facility] Other Start: 84-53-1558Uliiufa, abnormal examinationBeshaun Joseph Other [facility] Other Procedures DateProcedureProcedure DetailPerforming ClinicianStart: 74-05-8354Dvnzvjvrxq examination knee 1/2 viewsHernando Jones TEAM TRUCK DRIVER Work Phone: Start: 72-58-6103Debkrrbeddrhbi aspir&/inj major jt/bursa w/o usMatthew Carlos Eduardo VALENCIA Work Phone: Start: 97-93-9876Jzlkxgkgak examination knee 1/2 views Rosalio VALENCIA Work Phone: Start: 26-99-5699Eklwaxtxedr biopsy of prostate using ultrasound guidanceKathy Lue Start: 64-49-0311OEW CBC WITH AUTO DIFFKyle Jaxson DO Work Phone: start: 23-75-0458VYZ screeningDR NONE LISTED REQUEST Comment on above:Performed By: #### DATPSA #### [facility] [address] [address] [address] Nathan Brown: 82-47-3051OLT screeningDR NONE LISTED REQUESTComment on above:Performed By: #### DATPSA #### [facility] [address] [address] [address] Nathan Brown: 78-49-4285KZQ screeningDR NONE LISTED REQUESTComment on above:Performed By: #### PSASC #### [facility] [address] [place] [address] Dr. Nathan Brown: 99-04-3445Ueajrllwi for malignant neoplasm of colon Derrek Joseph Other Start: 35-33-6786Kyysood examination of patient Derrek Joseph Other Start: 71-36-2713rmhukybphhoghnpx aided treatment of a tibia insufficiency fracture medial tibial plateau (Annika subchondroplasty procedure). right knee arthroscopy with chondroplasty to two compartments, partial medial meniscectomy, excision of the plicaKathy Lue Depression screeningBeshaun Joseph Other Repair of anterior abdominal hernia(s) (ie, epigastric, incisional, ventral, umbilical, spigelian),any approach (ie, open, laparoscopic, robotic), recurrent, including implantation of mesh or other p rosthesis when performed, total length of defect(s); 3Kathy Lue Repair of musculotendinous cuff of shoulderKathy Lue Comment on above:left shoulderScreening for malignant neoplasm of prostateDerrek Joseph Other Plan of Treatment DateCare ActivityDetailAuthorStart: 09-24-2025 End: 14-36-7553Ousmldc encounter klvxlaygg22/17/2025 9:00 AM EST Office Visit [facility] [address] [place] [phone] Hernando Jones, TEAM TRUCK DRIVER [address] [place] [address] [facility] OrthopaedicsStart: 08-28-2025 End: 67-04-0978Eysbsem encounter procedureNOMS Jayro OrthopaedicsComment on above:ArrivedStart: 08-27-2025 End: 49-55-1616jmsdovuhhuHNAP [facility] TherapyComment on above:Arrived Start: 08-23-2025 End: 00-47-3733eqzrdafbhrWURI [place] [facility] TherapyComment on above:Arrived Start: 08-20-2025 End: 76-27-0998dgepippesqREJP [facility] TherapyComment on above:Primary osteoarthritis of left knee (Primary Dx); Ankylosis, left kneeStart: 08-15-2025 End: 94-89-7310lediiiokijYPQV [place] [facility] TherapyComment on above:Arrived Start: 08-13-2025 End: 31-72-2263wkhpqwgxibYZLG [facility] TherapyComment on above:Primary osteoarthritis of left knee (Primary Dx); Ankylosis, left knee; Acute postoperative pain of left kneeStart: 08-10-2025 End: 80-30-4801bfiwlvkzyv24/03/2025 11:00 AM EDT Treatment [facility] [address] [place] [address] Flora Smith PTANOMS [place] [facility] TherapyStart: 08-09-2025 End: 18-00-7254Wuicisa encounter procedureMINHMS EnriquezBlossom OrthopaedicsComment on above:ArrivedStart: 08-09-2025 End: 67-74-7906oqilbprygc18/02/2025 11:00 AM EDT Treatment [facility] [address] [place] [address] Floresita Carranza PTANOMS [place] [facility] TherapyStart: 08-08-2025 End: 07-72-5381wdmqyxgmon31/01/2025 11:00 AM EDT Treatment [facility] [address] [place] [address] Floresita Carranza PTANOMS [place] [facility] TherapyStart: 08-07-2025 End: 33-91-9848jtqjryzuio49/30/2025 11:00 AM EDT Treatment [facility] [address] [place] [address] Flora Smith PTANO [place] [facility] TherapyStart: 08-06-2025 End: 17-15-0379hsuznzqvgqTPHT [place] Physical TherapyComment on above:Arrived Start: 08-03-2025 End: 12-66-7766wyhkjlujbz86/26/2025 11:30 AM EDT Treatment [facility] [address] [place] [address] Floar Smith PTANOMS [place] [facility] TherapyStart: 08-02-2025 End: 57-70-0987kdogpixtfa57/25/2025 11:00 AM EDT Treatment [facility] [address] [facility] [address] [place] [address] Kathrin Hsu PTNOMS [place] [facility] TherapyStart: 08-01-2025 End: 86-97-8055xayksgsszn68/24/2025 11:00 AM EDT Treatment [facility] [address] [facility] [address] [place] [address] Floresita Carranza PTANOMS [place] [facility] TherapyStart: 07-31-2025 End: 87-45-2490wyaigwxcco15/23/2025 11:00 AM EDT Treatment [facility] [address] [facility] [address] [place] [address] Flora Smith PTANOMS [place] [facility] TherapyStart: 07-30-2025 End: 11-85-7080mooazaiofzBLBA [place] [facility] TherapyComment on above:Arrived Start: 07-27-2025 End: 28-78-6952ustyzhhuhsAEBC [place] [facility] TherapyComment on above:Arrived Start: 07-20-2025 End: 55-05-5836ohsykdzmlv88/12/2025 11:00 AM EDT Treatment [facility] [address] [facility] [address] [place] [address] Kathrin Hsu PTNOMS [place] [facility] TherapyStart: 07-18-2025 End: 43-77-4327Mxcvfad encounter procedureNOAZ [facility]om OrthopaedicsComment on above:Acute pain of left knee (Primary Dx)Start: 07-18-2025 End: 86-30-4175uvwpvywukm70/10/2025 11:00 AM EDT Treatment [facility] [address] [facility] [address] [place] [address] Floresita Carranza PTANOMS [place] [facility] TherapyStart: 07-17-2025 End: 20-97-5482Smzqtqg encounter lmelbbnes85/09/2025 9:15 AM EDT Office Visit [facility] [address] [place] [phone] Jr. Jessenia Baird, DO [address] [place] [address] NOMAllan Blossom OrthopaedicsStart: 07-16-2025 End: 93-62-5459ylrkqpqhtzRITI [place] [facility] TherapyComment on above:Arrived Start: 07-13-2025 End: 05-19-4970awzwjwwiakZTMU [place] [facility] TherapyComment on above:Arrived Start: 07-12-2025 End: 77-67-0133mbenpnlpio15/04/2025 11:30 AM EDT Treatment [facility] [place] [facility] [address] [place] [address] Floresita Carranza PTANOMS [place] [facility] TherapyStart: 07-10-2025 End: 67-84-7242xgnbyasgtvSUAE [place] [facility] TherapyComment on above:Arrived Start: 35-17-8668Ycdphnplz vaccinationNOMS HealthcareStart: 07-06-2025 End: 37-52-1666pwyfkqiafu65/29/2025 11:00 AM EDT Treatment [facility] [address] [place] [address] Floresita Carranza PTANOMS [place] [facility] TherapyStart: 07-04-2025 End: 85-04-7162fneduheybo77/27/2025 10:00 AM EDT Treatment [facility] [address] [place] [address] Flora Smith PTANOMS [place] [facility] TherapyStart: 07-02-2025 End: 65-56-5707tlukyunepu79/25/2025 12:00 PM EDT Treatment [facility] [place] [facility] [address] [place] [address] Kathrin Hsu PTNOMS [place] [facility] TherapyStart: 07-02-2025 End: 10-25-5565Eoaslwj encounter procedureMINHMS Dial OrthopaedicsComment on above:ArrivedStart: 06-29-2025 End: 39-37-6748xuwfbfgyugZZXR [place] [facility] TherapyComment on above:Arrived Start: 06-27-2025 End: 01-32-3262ddahztqcgdJVXE [place] [facility] TherapyComment on above:Primary osteoarthritis of left knee (Primary Dx); Acute postoperative pain of left knee; Status post left knee replacementStart: 06-25-2025 End: 11-81-8083abnxlqviwe42/18/2025 12:00 PM EDT Treatment [facility] [place] [facility] [address] [place] [address] Floresita Carranza PTANO [place] [facility] TherapyStart: 06-22-2025 End: 74-75-3268lcioozvwat69/15/2025 2:30 PM EDT Treatment [facility] [place] [facility] [address] [place], [place] Floresita Carranza PTANOMS [place] [facility] TherapyStart: 06-20-2025 End: 46-03-1144lcsoguyshp84/13/2025 9:00 AM EDT Treatment [facility] [place] [facility] [address] [place], [place] Keith Fried PTANOMS [place] [facility] TherapyStart: 06-18-2025 End: 01-80-2582ilzvjsjvspKFZV [place] [facility] TherapyComment on above:Arrived Start: 06-15-2025 End: 83-97-4190yqvscgexquNDWH CI PTComment on above:ArrivedStart: 06-13-2025 End: 20-64-7234esfnxtqknxQKRU CI PTComment on above:ArrivedStart: 06-11-2025 End: 19-84-0973mcjujrywulRHFC CI PTStart: 06-08-2025 End: 37-07-3544qyaxajlvweADQH CI PTStart: 06-06-2025 End: 91-70-3648glsdcbxurqWHRH CI PTStart: 06-04-2025 End: 29-88-1869zdungmadgb04/28/2025 10:30 AM EDT Treatment [facility] [address] [facility] [address] [place] [address] Dior Chaudhari, PT [address] [place] [address] [facility] Start: 05-31-2025 End: 51-49-0289yqknpbtaqvZVTM CI PTComment on above:ArrivedStart: 05-29-2025 End: 58-29-6634mkortmjniv88/22/2025 11:00 AM EDT Treatment [facility] [address] [facility] [address] [place] [address] Keith Fried PTANOMS CI PTStart: 05-28-2025 End: 39-51-2110Ucvarpf encounter procedureNOMS FB ORTHOPAEDICSComment on above: ArrivedStart: 05-28-2025 End: 78-26-1615ER.doppler Lower extremity vein - leftVascular US lower extremity venous duplex left Imaging STAT Acute pain of left thigh Expected: 05/28/2025, Expires: 05/28/2026[facility] Work Phone: Comment on above:Expected: 05/28/2025, Expires: 05/28/2026Start: 04-17-2025 End: 75-12-3664Smyxphj encounter procedureNOMS FB ORTHOPAEDICSComment on above: Primary osteoarthritis of left knee (Primary Dx); Pre-op examinationStart: 03-07-2025 End: 29-82-6409Nqzzqrv encounter procedureNOMS SWS ORTHOComment on above:Arrived Start: 02-27-2025 End: 34-90-4687Hdvnhznzpapj / ancillary services anrfupqebe75/22/2025 3:00 PM EDT Ancillary Procedure [facility] [address] [place] [address] TIEL SH MRStart: 02-22-2025 End: 35-62-2515Dnljqjl encounter aldfrmuvj28/17/2025 1:45 PM EDT Office Visit [facility] [address] [place] [address] Rosalio Holbrook, PA [address] [place] [address] Acute pain of left knee (Primary Dx)[facility] Comment on above:Acute pain of left knee (Primary Dx)Start: 09-06-2024 End: 85-66-6457Ymzirzd encounter voahqqibq49/30/2024 1:15 PM EDT Office Visit [facility] [address] [facility] [address] [place] [address] Flori Vazquez, [address] [place] [address] ArrivedNO [facility] GENSComment on above: ArrivedStart: 08-02-2024 End: 10-53-8165Vnateix encounter aehgpotdf27/25/2024 1:30 PM EDT Office Visit [facility] [address] [facility] [address] [place] [address] Flori Vazquez, [address] [place] [address] ArrivedCRISTIAN BWM GENSComment on above: ArrivedStart: 68-59-8818Xrfzivoyn vaccinationInfluenza Vaccine (#1)[facility] HealthcareStart: 14-83-1077Pbbfllssj for malignant neoplasm of colonNOAZ HealthcareComprehensive metabolic 2000 panel - Serum or PlasmaSelect Medical Specialty Hospital - Southeast OhioMR Knee - left WO contrastMR knee left wo IV contrast Imaging Routine Acute pain of left knee Internal derangement of left knee Ordered: 02/22/2025NOAZ Healthcare Work Phone: Comment on above:Ordered: 02/22/2025Patient Education Low back pain in adultsKe[facility]an Private Hospital Work Phone: XR Knee - left 4 [facility]XR Lumbar spine 2 or 3 [facility] Immunizations Immunization DateImmunizationNotesCare QpehnmyzMxpdamzp37-25-1007THKJ-WkB-1 (COVID-19) mRNA BNT-162b2 vaxKathy Lue [facility]04-02-2021COVID-19, mRNA, LNP-S, PF, 30 mcg/0.3 mL doseKathy Lue [facility] HospitalComment on above:Reason for Medication: Other (see comment)08-56-0725LJIXS-19, mRNA, LNP-S, PF, 30 mcg/0.3 mL doseKathy Lue [facility] Private HospitalComment on above:Reason for Medication: Other (see comment) Payers DatePayer CategoryPayerPolicy [id number] Health Insurance [id number] [place] Blue Shield [id number] BCBS [id number] 2021-Present [phone] [address] [place] [address] 1.2.840.760131.1.13.693.2.7.3.245[id number] 2..840.1.354274.3.57[id number] 2.16.840.1.683644.3.579.2.73212-43-9618Ysrqfxe50441792 2..840.1.090332.3.579.2.06641-73-2413Zacjzxk13897613 2.840.1.144088.3.579.2.24759-71-0054Mhdhlnw59187785 2..840.1.070892.3.579.2.19859-82-8984Pgukhyv44647099 2.840.1.507031.3.579.2.36931-29-3344Fqvtckl75859439 2.840.1.069660.3.579.2.08239-33-7360Lobwaoo73232608 2.840.1.516841.3.579.2.77958-89-8667Yxvzuns50550654 2.840.1.371298.3.579.2.89533-78-4670Annfdvb49047740 2.840.1.377127.3.579.2.53412-79-6954Ihpbiuv40788934 2.840.1.138088.3.579.2.87773-29-5436Cdllrby05745826 2.840.1.596271.3.579.2.00203-36-4314Hwhgsmy88549593 2.840.1.286755.3.579.2.34372-11-8854Rqztwuz78873440 2.840.1.165404.3.579.2.34055-24-4830Wofurvk81451429 2.840.1.844904.3.579.2.73225-99-4296Yzoywvb11539200 2.840.1.010689.3.579.2.591674-89-2165Aanmoll79307688 2.840.1.759155.3.579.2.556245-91-6707Bivwssj34549117 2..840.1.978973.3.579.2.169751-40-5763Irywhdp43918009 2.16.840.1.154124.3.579.2.282238-95-8910Xeomyuy45419182 2.840.1.447646.3.579.2.493121-82-2058Mixpxnv70211498 2.840.1.120789.3.579.2.611126-16-3470Pbezair33045666 2.0.1.473210.3.579.2.367546-03-0600Zqhvbsw83810223 2.0.1.846427.3.579.2.432599-91-8520Jsynzun81008820 2.0.1.010272.3.579.2.966601-59-6313Edfbrat98139776 2.0.1.765574.3.579.2.755066-40-7931Uqyksii43834460 2.840.1.339241.3.579.2.089526-89-9274Vrsazph03845548 2.0.1.718405.3.579.2.833200-64-9670Unvgmok58998573 2.840.1.667276.3.579.2.308841-07-7890Daoeuwd89041079 2.840.1.164977.3.579.2.805311-62-9746Tickauk21065055 2.840.1.884962.3.579.2.749117-99-3069Hioasil35986084 2.840.1.094039.3.579.2.302712-53-3060Yfdvmdg61674323 2.16.840.1.633555.3.579.2.288276-22-4098Ixbosde62205529 2.840.1.783274.3.579.2.110844-99-2604Eeaipdi32781470 2..840.1.590911.3.579.2.988747-65-3816Vyxzzvl07899753 2.840.1.919908.3.579.2.602826-81-8181Hzegcum26663015 2.0.1.032318.3.579.2.485720-41-8021Knmbhfq57382844 2.0.1.348970.3.579.2.635435-69-5823Bnorudr59972319 2.0.1.994126.3.579.2.287872-63-8059Oxeomxw49768479 2.0.1.445113.3.579.2.258206-94-1562Pvctiuz28674291 2..1.132971.3.579.2.010220-19-1297Qhfmckh79419222 2.0.1.430750.3.579.2.175915-36-6064Kadgukt55841968 2.0.1.817201.3.579.2.813479-97-1675Nrubpcf21738446 2.0.1.831935.3.579.2.872586-81-9870Usbbhpd05819932 2.0.1.077111.3.579.2.690734-17-0926Pialtjh93394702 2.840.1.585108.3.579.2.033657-86-4333Tovfjaw34021784 2.840.1.588746.3.579.2.609638-70-2660Rkgovne23636508 2.0.1.516004.3.579.2.530119-45-9081Sbroobp39116410 2..1.567309.3.579.2.799654-90-4970Vcbcrro78100627 2..1.127622.3.579.2.118064-74-4402Eikfrrs49069991 2..1.120926.3.579.2.158437-37-7044Irewhoe40112097 2..1.094873.3.579.2.054887-86-6091Crucmph87976940 2..1.218462.3.579.2.009048-19-5880Gawfxau36979908 2..1.422437.3.579.2.662995-58-3625Cxetmll57211515 2..1.201825.3.579.2.346891-09-5411Kqgazfp12770424 2..1.953451.3.579.2.105612-11-4619Ssdvyiy09126336 2..1.692417.3.579.2.363084-80-4914Qihawnw39413745 2..1.827055.3.579.2.014099-21-3194Izqqqda18546785 2..1.496054.3.579.2.938153-33-4264Hosxgbq46219869 2..1.929675.3.579.2.262776-40-5012Kjjggiu41217333 2..1.772582.3.579.2.532781-86-9790Enpmzio97775706 2.16.840.1.809369.3.579.2.676301-02-8087Vyzktgg36439668 2.16.840.1.994273.3.579.2.240199-06-9924Wjgwtop35356380 2.16.840.1.812981.3.579.2.421319-44-9116Mjojfyk6763501 2.16.840.1.760843.3.579.2.424847-35-8368Upbmegj3229756 2.16.840.1.273632.3.579.2.423341-30-1281Kggsnml2468197 2.16.840.1.599792.3.579.2.836129-03-0082Fdsbomi6722250 2.16.840.1.210754.3.579.2.575196-64-8146Vlqogry7910935 2..0.1.266960.3.579.2.296631-17-6196Yfpp-bbr22-60-8706MtgojflWAW387478715 Ibaoawt5973824 2.16.840.1.945286.3.579.2.754Txxzerg9615492 2..840.1.291586.3.579.2.593 Social History DateTypeDetailFacilityStart: 08-02-2024 End: 87-12-3387Kjk [facility]igned At [facility]ertart: 14-18-5103Xch Assigned At [facility]tart: 07-31-2024 End: 81-06-5961Svhdwkg smoking status NHISEx-smoker (finding)[facility] OhioComment on above:has quit before and started back upHistory of tobacco useCurrent smokerNOMS HealthcareHistory of tobacco useCigarette Smoker [facility] HealthcareStart: 08-02-2024 End: 51-88-2232Fgjzxsu of Social functionNOMS HealthcareStart: 58-11-9566Rtu assigned at birthNot on fileNOMS HealthcareStart: 31-37-3388Wezuen identity Identifies as male gender (finding)[facility] HealthcareTobacco smoking status NHIS Tobacco smoking consumption unknownBL[facility] MOUNTAIN HOSPITAL, INC. HealthcareStart: 03-28-2015 End: 73-64-7298TkjInfr (finding)[facility] Hospitaltart: 97-88-6902Uuzdmsm use and exposureSmokeless tobacco non-userNOAZ Healthcare Start: 04-17-2025 End: 55-93-1636Yflekazjs beverage intakeCurrent drinker of alcohol (finding)[facility] HealthcareSexual OrientationExecutive Urology of [facility] start: 94-97-1926Kubrrjd smoking statusNeverExecutive Urology of [facility] Children'S HospitalComment on above:has quit before and started back up Functional Status WmgfBoofvrihyxDiyczjMganhkqc66-64-4691Vgwitbylmr StatusN/AExecutive [facility]rology of [facility]02-03-2025Functional StatusN/AFMetroHealth Main Campus [facility] Center12-18-2024Functional StatusN/AExec[facility] of [facility] Clinical Notes 02-01-2023 to 08-23-2025 Note Date & RbduGellDgaenxok80-06-2154 History of Present illness Narrative* Kathrin Shadi, PT - 08/23/2025 9:30 AM EDT Images from the original note were not included. Physical Therapy Treatment Visit Patient Name: David Mosqueda Today's Date: 08/23/2025 Encounter Diagnoses Name Primary? Primary osteoarthritis of left knee Yes Ankylosis, left knee Acute postoperative pain of left knee Status post left knee replacement Visit number: 14 Timed Code Treatment: 55 minutes Total Treatment Time: 55 minutes Time In: 0930 Time Out: 1030 History: Pt underwent surgery for left TKA on 05/14/25. Was having issues with bending and straightening. Underwent SHERMAN yesterday 07/26/25. Did a lot of stretching yesterday following SHERMAN and knee was sore last night. Was given pain medication but states pain has not been that bad; able to control with icing. Dr said they achieve 130 degrees of left knee flexion during SHERMAN. Precautions: Traer Subjective: Pt states left knee remains the same. Pain has not changed. Frustrated with continued limited ROM and strength. Doing exercises at home and constantly stretching. Will see Dr again next week. Pain: 01/15 Objective: PT Evaluation (07/27/2025) LEFT KNEE AROM: 11 to 103 degrees in supine PROM: 10 to 105 degrees in supine with self stretch; 110 degrees with therapist overpressure MMT: left quad 4 to 4+/5 Palpation: mild to moderate tenderness left distal lateral quad Special Test: N/A Functional: Pt ambulates without device with step through gait pattern; limited left knee flexion during swing phase and lacks left terminal knee extension Treatment Manual Therapy: (8 minutes) Mobs to left knee at end range extension to increase ROM. Grade III patella glides inferior and caudal glides. Therapeutic Exercise: (28 minutes supervised) Guided pt through ther and flex ex per grid to improve L quad LE functional Strength, Endurance, Flexibility, ROM, HEP, Neural Mobilization, Power, and Core Stability as needed. Therapeutic Activity: (17 minutes supervised) Exercises to improve dynamic activities, functional tasks, functional mobility to return to prior activity level as needed. Neuromuscular re-education: Balance Training, Muscle Facilitation, Dynamic Stability, Core Stabilization, and Blood Flow Restriction Training (BFRT) as needed. Modalities: Assessment: Visit # 14 pt recent SHERMAN following left TKA on 05-14-25. Pt continues with limited ROM of left knee and decrease strength due to pain. Pt lacking 12 degrees of left knee extension following static stretching. Able to achieve 104 degrees of left knee flexion with overpressure and pain at end range. Despite aggressive stretching in clinic and frequent stretching at home by pt, ROM of left knee show little improvement following SHERMAN. Pt will follow up with Dr office next week. Follows up 08/28 Outcome Measure: Lower Extremity Functional Scale (LEFS): 38/80, (08/13/25) 33/80 Rehab Diagnosis: left knee pain and weakness, decrease ROM and mobility, difficulty walking Short Term Goal: To be met in 2 weeks Goal 1: Pt to be instructed in home exercise program. Fdc Goals: To be met in 10 weeks Goal 1: Pt to report independence and compliance with home program. Goal 2: Pt to achieve 120 degrees left knee flexion to assist with functional tasks such as squatting. Progressing Goal 3: Pt to be lacking no greater than 3 degree left knee extension to assist with proper gait. Progressing Goal 4: Pt to achieve 4+/5 strength left knee flexion and extension to assist with functional mobility and ADL's. Met Goal 5: Pt to score no less than 55/80 on LEFS indicating improved QOL. Progressing Pt will benefit from skilled PT for 23-x/week from 07/27/2025 to 10/19/2025 to address the above impairments. I hereby deem this POC medically necessary. Please sign below. Date: documented in this [facility]10-02-2025 History of Present illness Narrative* Hernando Jones NP - 08/09/2025 1:00 PM EDT Images from the original note were not included. HISTORY OF PRESENT ILLNESS: POST OP PT David Mosqueda is an 55 y.o. @ male. 1ST PO S/P LT KNEE MANIPULATION 07/27/25 (1 WK 6 DAYS) @ [facility]. (LT TKA 05/14/25) - S/P PT PHYSICAL THERAPY @ [facility] CONTINUES PT. STATES HE FEELS LIKE KNEE IS WORSE. PAIN LATERAL KNEE. TIGHTNESS IN KNEE, FEELS LIKE THERE IS A RING AROUND HIS KNEE. NO PAIN MEDS. +ICE MULTIPLE TIMES A DAY. LIMITED ROM. DENIES GIVINGOUT, DOES NOT TRUST KNEE. PT IS FRUSTRATED. SUPPOSED TO BE RETURNING TO WORK WEDNESDAY. REVIEW OF SYSTEMS: General: Denies fever, fatigue or weight loss Lungs: Denies SOB Cardio: Denies chest pain GI: Denies indigestion or abdominal pain Neuro: Denies numbness or tingling, denies new onset paralysis Musculoskeletal: ( see note) PHYSICAL EXAM: Left Knee Exam Tenderness Left knee tenderness location: anterior knee, quad tendon and hamstring. Range of Motion Extension: 10 Flexion: 100 Other Erythema: absent Scars: present Pulse: present Swelling: mild Comments: No warmth or erythema over incision. No instability on exam. Physical Exam Results Procedures No orders of the defined types were placed in this encounter. ASSESSMENT: ICD-10-CM 1. Arthrofibrosis of knee joint, left M24.662 methylPREDNISolone (Medrol Dospak) 4 MG tablets 2. Status post left knee replacement Z96.652 methylPREDNISolone (Medrol Dospak) 4 MG tablets PLAN: Assessment & Plan Patient states he is continuing to have decreased ROM after SHERMAN of left knee. I discussed treatmentoptions and recommend he start a MDP to help decrease inflammation at this time. He will continue off work and follow up in with Dr. Baird in 3 weeks for RCK. He will call with any worsening symptoms. Questions answered in laymen terms at the bedside. The diagnosis, home exercise plan and any ongoing restrictions/ recommendations reviewed. If unable to be reached in office, I recommend evaluation at nearest Emergency Room if any symptoms worsened or new symptoms develop for requiring urgent evaluation. documented in this [facility]09-17-2025 Telephone encounter Note* Telephone Encounter - Hernando Jones NP - 07/25/2025 3:45 PM EDT Post op pain rx. PDMP reviewed [id number] Miscellaneous Notes* Telephone Encounter - Hernando Jones NP - 07/25/2025 3:45 PM EDT Post op pain rx. PDMP reviewed documented in this [facility]09-10-2025 History of Present illness Narrative* ERIK Ruby - 07/18/2025 1:00 PM EDT Images from the original note were not included. GENERAL HISTORY AND PHYSICAL: NAME: David Larsen : 1970 HISTORY OF PRESENT ILLNESS: David Larsen is an 55 y.o. @ male. Here for surgery instructions left knee manipulation July 27 @ [facility]. PAST MEDICAL HISTORY: Past Medical History: Diagnosis Date Hypertension Reflux esophagitis PAST SURGICAL HISTORY: Past Surgical History: Procedure Laterality Date KNEE ARTHROSCOPY W/ MENISCAL REPAIR Right TOTAL KNEE ARTHROPLASTY Left 05/14/2025 Dr Baird UMBILICAL HERNIA REPAIR 08/29/2024 SOCIAL HISTORY: Social History Occupational History Not on file Tobacco Use Smoking status: Former Types: Cigarettes Smokeless tobacco: Never Substance and Sexual Activity Alcohol use: Yes Drug use: Never Sexual activity: Not on file ALLERGIES: Allergies Allergen Reactions Sulfa Antibiotics MEDICATIONS: Current Outpatient Medications Medication Instructions amLODIPine (NORVASC) 10 mg, Daily lisinopril 20 mg, Daily Misc. Devices misc Dispense: Front Wheeled walker use 90 days. Ht: 5'11 Weight: 255/4 pantoprazole (PROTONIX) 40 mg, Daily before breakfast tiZANidine (ZANAFLEX) 4 mg, Oral, Every 8 hours PRN vitamin C 1,000 mg, Daily REVIEW OF SYSTEMS: Review of Systems Constitutional: Negative for fatigue, fever and unexpected weight change. Eyes: Negative for redness and visual disturbance. Gastrointestinal: Negative for abdominal pain. Denies Indigestion Musculoskeletal: See note: Skin: Negative for color change and rash. Neurological: Negative for light-headedness and numbness. Vitals: Body mass index is 35.17 kg/m . PHYSICAL EXAM: Physical Exam Constitutional: General: He is not in acute distress. Appearance: Normal appearance. HENT: Head: Normocephalic and atraumatic. Right Ear: External ear normal. Left Ear: External ear normal. Nose: Nose normal. No rhinorrhea. Mouth/Throat: Mouth: Mucous membranes are moist. Pharynx: No posterior oropharyngeal erythema. Eyes: Extraocular Movements: Extraocular movements intact. Conjunctiva/sclera: Conjunctivae normal. Cardiovascular: Rate and Rhythm: Normal rate and regular rhythm. Pulses: Normal pulses. Heart sounds: No murmur heard. Pulmonary: Effort: Pulmonary effort [...] and Affect: Mood normal. Behavior: Behavior normal. No orders of the defined types were placed in this encounter. ASSESSMENT: ICD-10-CM 1. Acute pain of left knee M25.562 2. Pre-op examination Z01.818 3. Arthrofibrosis of knee joint, left M24.662 PLAN: This patient presents for preadmission testing for upcoming surgery. Complete history with medical,surgery, and current allergy and medication list obtained. Consent for surgery signed and witnessedafter verbal consent to perform surgery received. All questions answered and proposed surgery scheduled. SURGERY INSTRUCTIONS NO PRE LABS NEEDED PRE CERT APPROVED Follow up in about 22 days (around 08/09/2025) for Post-Op August 09 @ 1:00 in [place] with Stuart Holbrook. documented in this [facility] [id number] Hospital Discharge instructions Patient Education 07/18/2025 09:31:59 Prostate Cancer Screening Prostate Cancer Screening Prostate [...] treatment? Where to find more information [employer] [place] [employer]: www.cancer.org [employer]: www.auanet.org Contact a health care [...] provider. Document Revised: 04/20/2022 Document Reviewed: 04/20/2022 [employer] Patient Education 2023 [employer]. Follow Up Care 01/01/2025 15:20:24 With:Surjit RICHARDS, HEMANTH Yepez, URO Address: When: Unknown [facility] 09-10-2025 NotePatient Education Oncology Prostate Cancer Screening Prostate [...] Where to find more information ??? [employer] [place] [employer]: www.cancer.org ??? [employer] [place]: www.auanet.org Contact a health care [...] men. The prostate gland (more content not included)...[facility]09-09-2025 History of Present illness Narrative* Jessenia Helms Brie, DO - 07/17/2025 9:15 AM EDT Images from the original note were not included. HISTORY OF PRESENT ILLNESS: POST OP PT David Larsen is an 55 y.o. @ male. EST PT; MOST RECENT VISIT WITH HERNANDO- S/P LT TKA 05/14/25 (9 WKS 1 DAY) @ [facility]- RECHECK ROM XRAY LT KNEE EPIC 07/02/25 PHYSICAL THERAPY @ [facility]. NO PREDNISONE WALKING UNASSISTED TODAY. NO PAIN WITH WALKING. DESCRIBES A LOCKING SENSATION WITH FLEXION. FEELS LIKE A TIGHT BAND AROUND KNEE WITH FLEXION. THIGH PAIN IMPROVED. OCCAS ACHE. WILL WAKE HIM AT HS. DOING HEP AND PHYSICAL THERAPY. +ICE. CONTINUES OFF WORK-SCHED TO GO BACK 08/13.. PT FRUSTRATED WITH PROGRESS. *TAKING DICLOFENAC AND BACLOFEN FOR LUMBAR ISSUES* REVIEW OF SYSTEMS: General: Denies fever, fatigue or weight loss Lungs: Denies SOB Cardio: Denies chest pain GI: Denies indigestion or abdominal pain Neuro: Denies numbness or tingling, denies new onset paralysis Musculoskeletal: ( see note) PHYSICAL EXAM: Knee Musculoskeletal Exam Gait Gait is normal. Limp: left Inspection Leg length disparity: no discrepancy Left Erythema: none Effusion: mild Edema: mild Ecchymosis: none Deformity: none Alignment: normal Previous incision: anterior Incision: well-healed Palpation Left Left knee palpation is unremarkable. Increased warmth: none Masses: none Tenderness: none Range of Motion Left Left knee range of motion is normal and full. Active extension: 5 Passive extension: 5 Active flexion: 90 Passive flexion: 30 Strength Left Left knee strength is normal. Extension: 5/5. Flexion: 5/5. Instability Left Instability signs: none - stable Varus stress grade: normal Valgus stress grade: normal Neurovascular Left Left knee neurovascular exam is normal. Pulses - PT: normal Posterior tibial: 2+ Capillary refill: warm and well-perfused Special Signs Left Left knee special signs are normal. Patellar apprehension: none General Constitutional: appears stated age Labored breathing: no Psychiatric: normal mood and affect Neurological: alert Skin: intact Lymphadenopathy: none Physical Exam Results Procedures No orders of the defined types were placed in this encounter. ASSESSMENT: ICD-10-CM 1. Status post left knee replacement Z96.652 2. Arthrofibrosis of knee joint, left M24.662 PLAN: Is a 5 flexion contracture and 90 of flexion today to the left knee. We recommended a left knee manipulation under anesthesia, As he has not responded to rest ice and formal physical therapy. We'll see him back on the day of surgery. We have discussed both surgical and nonsurgical [...] of surgery. The patient understands the risks ofsaid treatment. Assessment & Plan Questions answered in laymen terms at the bedside. The diagnosis, home exercise plan and any ongoing restrictions/ recommendations reviewed. If unable to be reached in office, I recommend evaluation at nearest Emergency Room if any symptoms worsened or new symptoms develop for requiring urgent evaluation. documented in this encounterWright [facility] [id number] History of Present illness Narrative* Kathrin Hsu, PT - 07/02/2025 12:00 PM EDT Images from the original note were not included. Physical Therapy Physical Therapy Treatment Visit Patient Name: David Larsen Today's Date: 07/02/2025 Encounter Diagnoses Name Primary? Primary osteoarthritis of left knee Yes Acute postoperative pain of left knee Status post left knee replacement Subjective Current Problem: s/p left TKA with pain and difficulty walking. Pt is being seen today for follow up for s/p left TKA. Upper quad and IT band continues to be tight and painful. Date of Surgery: 05/14/2025 with same day discharge, 3 weeks post op on 06/04/25 Current deficits: Difficulty with all mobility secondary to recent left TKA and pain. Visit number: 22 (7 in home) Timed Code Treatment: 40 minutes Total Treatment Time: 58 minutes Time In: 12:00 PM Time Out: 1:01 PM Precautions: WBAT left LE; left TKA protocol Pain Management: The patient is complaining of pain located in the left knee and upper thigh region. Pain rating 6/10. The pain is improved by ice and Percocet every 6 hours. The pain is aggravated by activity. The pain is described as aching, throbbing and stiffness. Pt had rolando removed by Hernando Jones NP, on 05/28/25. Prior level of function: Ambulation: antalgic gait pattern on left LE. Assistive devices: FWW, cane, 4WW ADL and IADL: Independent/supervision Home Environment: Pt lives with family in a one story home with 3-4 steps to enter; walking in shower with aga bars and bench. 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 Current Subjective: Left knee was sore and achy last night after mowing for about 2 hours. Was seenby Hernando and was told to schedule a visit with Dr Baird. Objective General Visit Information: Passive ROM: left knee 10 to 80 degrees. Having a hard time sitting with knee in flexion due to pain and quad tightness. Joint play: hypomobile. Manual muscle testing: left knee flexion/extension: 3-/5. Palpation: Minimal warmth upon palpation,consistent with post-operative conditions. Surgical incision intact without rolando with no drainage and open to air. Special tests: Negative Jagdish Sign. Functional Mobility: Ambulation: Patient is ambulating with mild antalgic type pattern with FWW, step to gait pattern; good heel to toe gait pattern; SBA. Physical Education Intervention Manual Therapy: (10 minutes ) Delivered manual ther to L LE knee PROM ext/ flex, scar mobilization,patellar mobs all directions, and MFD with one cup sliding to proximal tibia Therapeutic Exercise: (30 minutes supervised) Guided pt through ther and flex exercises per grid toimprove Left LE quad functional mobility, strength and gait , Bike 8 minutes moving seat up every 2minutes to improve knee flexion Therapeutic Activity: () Exercises to improve dynamic activities, functional tasks, functional mobility to return to prior activity level as needed. Neuromuscular re-education: Balance Training, Muscle Facilitation, Dynamic Stability, Core Stabilization, and Blood Flow Restriction Training (BFRT) as needed. Bel[place]ian stim to address left quad weakness with 10/30 cycles and co-contraction Modalities: (10 minutes ) CP left knee in supine to decrease muscle soreness and inflammation Assessment & Plan LEFS: PROM: 8-102 Amb w/ cane, frequently amb without device at home. MMT: Knee flex/ext, hip flex 4-/5, No quad lag. Patient is approximately 7 weeks post-op following left TKA on 05/14/25, having completed 22 PT sessions (7 in home). Pt able to maintain 102 degrees of left knee flexion with self stretch this date. Ambulates without use of cane in clinic. LEFS: (05/29/25) , (06/27/25) Assessment Impairments: abnormal gait, abnormal or restricted ROM, impaired balance, impaired physical strength, pain with function and weight-bearing intolerance Barriers to therapy: Increased pain, edema,bruising and knee weakness. Prognosis: good Goals Short Term Goals Goal 1 : Patient will be independent with HEP with good compliance and independence. Ongoing Goal 2 : Patient will demonstrate 5-90 degrees of passive range of motion of left knee flexion. Goal not met Goal 3 : Patient will ambulate >6 minutes modified independently with wheeled walker with good reciprocal gait pattern. Goal met Goal 4 : Patient will demonstrate all sit< >stand transfers and supine< >sit bed mobility, modified independent with no cues for proper sequencing. Goal met Goal 5 : Patient will ascend/descend 3-4 with AD with supervision, reciprocal gait pattern. Goal not met [facility]dc Goals Goal 1 : Patient will demonstrate 0-110 degrees of active left knee flexion in order to improve indpendence with ambulation up and down steps. Goal 2 : Patient will demonstrate 4+/5 or better left knee strength in order to safely return to activities of interest. Goal 3 : Patient will ambulate community distances on even and uneven surfaces, independently with no AD, normalized gait pattern and < 1/10 report of pain in right knee. Goal 4 : Pt will ascend/descend 12+ steps with railing with reciprical gait pattern independently. Goal 5 : Patient will demonstrate good static and dynamic standing balance for >15 mintues without LOB or increase in knee pain. Goal 6 : Pt will improve Tinetti Balance test to 28/28 to indicate no fall risk. Plan Planned modality interventions: cryotherapy, e-stim prn Planned therapy interventions: functional ROM exercises, gait training, home exercise program, manual therapy, neuromuscular re-education, soft tissue mobilization, strengthening, stretching, therapeutic activities and transfer training Frequency: 3x/week. Duration in weeks: 6 Treatment plan discussed with: patient Plan details: Educated to continue icing and elevating. documented in this encounterWright Memorial [id number] History of Present illness Narrative* Hernando Jones NP - 07/02/2025 8:30 AM EDT Images from the original note were not included. HISTORY OF PRESENT ILLNESS: POST OP PT David Larsen is an 55 y.o. @ male. EST PT S/P LT TKA 05/14/25 (7 WKS) @ [facility]. XRAY LT KNEE TODAY EPIC 07/02/25 PHYSICAL THERAPY @ [facility] WALKING WITH A CANE. NOTES IMPROVEMENT IN THIGH. KNEE WILL ACHE. WILL WAKE HIM AT HS. DOING HEP ANDPHYSICAL THERAPY. HAVING DIFFICULTY WITH ROM. +ICE. DENIES GIVING OUT. REVIEW OF SYSTEMS: General: Denies fever, fatigue or weight loss Lungs: Denies SOB Cardio: Denies chest pain GI: Denies indigestion or abdominal pain Neuro: Denies numbness or tingling, denies new onset paralysis Musculoskeletal: ( see note) PHYSICAL EXAM: Left Knee Exam Left knee exam is normal. Muscle Strength The patient has normal left knee strength. Tenderness Left knee tenderness location: expected post op soreness. Range of Motion Extension: 10 Flexion: 90 Tests Varus: negative Valgus: negative Other Erythema: absent (sunburn) Scars: present (Well healing, no erythema) Sensation: normal Pulse: present Swelling: mild Effusion: effusion (consistent with surgery) present Comments: Using cane. Operative lower extremity was noted to be neurovascularly intact. Patient wasable to motor feet, toes and ankles in all anatomic planes bilaterally with 5 out of 5 strength. Operative knee's patellar tracking was optimal and quad/ham strength was 5 out of 5 to operative lowerextremity. There was no varus valgus, anterior-posterior, or rotatory instability noted to the operative knee. Swelling was well controlled, patella was not ballotable and compartments were soft to the operative lower extremity. Dorsalis pedis and posterior tibial pulses were present and equal bilaterally. There was no evidence of infection or ascending lymphangitis to operative lower extremity. S ensation to light touch was intact to all dermatomes to bilateral lower extremities. Negative Homans and negative Tip were noted bilaterally to lower extremities. Incision was healing without evidence of infection Physical Exam Results Procedures Orders Placed This Encounter Procedures XR knee 1 or 2 views left Reason for exam:: total ASSESSMENT: ICD-10-CM 1. Acute pain of left knee M25.562 XR knee 1 or 2 views left 2. Status post left knee replacement Z96.652 PLAN: Assessment & Plan I reviewed xray findings with patient which showed a stable LT TKA. He states he is still having stiffness in his knee but thigh pain has improved. He is working with PT and doing HEP but still having difficulty with ROM. I recommend he follow up with Dr. Baird for further evaluation and possible discussion of SHERMAN. Questions answered in laymen terms at the bedside. The diagnosis, home exercise plan and any ongoing restrictions/ recommendations reviewed. If unable to be reached in office, I recommend evaluation at nearest Emergency Room if any symptoms worsened or new symptoms develop for requiring urgent evaluation. documented in this encounterWright Memorial [id number] History of Present illness Narrative* Kathrin Hsu, PT - 06/22/2025 10:30 AM EDT Images from the original note were not included. Physical Therapy Physical Therapy Daily Visit Patient Name: David Mosqueda Today's Date: 06/22/2025 Subjective Current Problem: s/p left TKA with pain and difficulty walking. Pt is being seen today for follow up for s/p left TKA. Upper quad and IT band continues to be tight and painful. Date of Surgery: 05/14/2025 with same day discharge, 3 weeks post op on 06/04/25 Current deficits: Difficulty with all mobility secondary to recent left TKA and pain. Visit number: 17 (7 in home) Timed Code Treatment: 52 minutes Total Treatment Time: 62 minutes Time In: 1025 Time Out: 1130 Precautions: WBAT left LE; left TKA protocol Pain Management: The patient is complaining of pain located in the left knee and upper thigh region. Pain rating 6/10. The pain is improved by ice and Percocet every 6 hours. The pain is aggravated by activity. The pain is described as aching, throbbing and stiffness. Pt had rolando removed by Hernando Jones NP, on 05/28/25. RTD: NONE SCHEDULED Prior level of function: Ambulation: antalgic gait pattern on left LE. Assistive devices: FWW, cane, 4WW ADL and IADL: Independent/supervision Home Environment: Pt lives with family in a one story home with 3-4 steps to enter; walking in shower with aga bars and bench. 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 Current Subjective: Left knee was a little less swollen this morning; made sure to stretch while swelling was down. Frustrated with limited bend and straightening. Objective General Visit Information: Passive ROM: left knee 10 to 80 degrees. Having a hard time sitting with knee in flexion due to pain and quad tightness. Joint play: hypomobile. Manual muscle testing: left knee flexion/extension: 3-/5. Palpation: Minimal warmth upon palpation,consistent with post-operative conditions. Surgical incision intact without rolando with no drainage and open to air. Special tests: Negative Jagdish Sign. Functional Mobility: Ambulation: Patient is ambulating with mild antalgic type pattern with FWW, step to gait pattern; good heel to toe gait pattern; SBA. Physical Education Intervention Manual Therapy: (12 minutes) STM and MFD with one cup sliding to right quad, PROM/manual stretch, pat mobs all directions, calf stretching. Passive ROM, Joint mobilization, Soft Tissue Mobilization, Myofascial Release, Muscle Energy Technique, Neural Mobilization, Myofascial Cupping, Dry Needling, IASTM, and Scar mobilization as needed. Therapeutic Exercise: (40 minutes supervised) Pt performed exercises per grid with addition of stationary bike, open chain knee flexion stretch to improve knee ROM and reduce quad soreness. Therapeutic Activity: () Exercises to improve dynamic activities, functional tasks, functional mobility to return to prior activity level as needed. Neuromuscular re-education: Balance Training, Muscle Facilitation, Dynamic Stability, Core Stabilization, and Blood Flow Restriction Training (BFRT) as needed. Bel[place]ian stim to address left quad weakness with 10/30 cycles and co-contraction Modalities: Heat, Ice, Electrical Stimulation, Ultrasound, Cervical Mechanical Traction, Lumbar Mechanical Traction, Iontophoresis, and Fluidotherapy as needed. CP (declined for home) left knee in supine. Assessment & Plan Pt has completed 11 OP PT session in addition to 7 in home following LKA on 05/14/25. Pt able to achieve 96 degrees of left knee flexion this date. Discussed scar and STM for home program with good pt understanding. Will continue. Assessment Impairments: abnormal gait, abnormal or restricted ROM, impaired balance, impaired physical strength, pain with function and weight-bearing intolerance Barriers to therapy: Increased pain, edema,bruising and knee weakness. Prognosis: good Goals Short Term Goals Goal 1 : Patient will be independent with HEP with good compliance and independence. Ongoing Goal 2 : Patient will demonstrate 5-90 degrees of passive range of motion of left knee flexion. Goal not met Goal 3 : Patient will ambulate >6 minutes modified independently with wheeled walker with good reciprocal gait pattern. Goal met Goal 4 : Patient will demonstrate all sit< >stand transfers and supine< >sit bed mobility, modified independent with no cues for proper sequencing. Goal met Goal 5 : Patient will ascend/descend 3-4 with AD with supervision, reciprocal gait pattern. Goal not met [employer] Goals Goal 1 : Patient will demonstrate 0-110 degrees of active left knee flexion in order to improve indpendence with ambulation up and down steps. Goal 2 : Patient will demonstrate 4+/5 or better left knee strength in order to safely return to activities of interest. Goal 3 : Patient will ambulate community distances on even and uneven surfaces, independently with no AD, normalized gait pattern and < 1/10 report of pain in right knee. Goal 4 : Pt will ascend/descend 12+ steps with railing with reciprical gait pattern independently. Goal 5 : Patient will demonstrate good static and dynamic standing balance for >15 mintues without LOB or increase in knee pain. Goal 6 : Pt will improve Tinetti Balance test to 28/28 to indicate no fall risk. Plan Planned modality interventions: cryotherapy, e-stim prn Planned therapy interventions: functional ROM exercises, gait training, home exercise program, manual therapy, neuromuscular re-education, soft tissue mobilization, strengthening, stretching, therapeutic activities and transfer training Frequency: 3x/week. Duration in weeks: 6 Treatment plan discussed with: patient Plan details: Educated to continue icing and elevating. documented in this encounterWright Memorial [id number] History of Present illness Narrative* Hernando Jones NP - 05/28/2025 2:00 PM EDT Images from the original note were not included. HISTORY OF PRESENT ILLNESS: POST OP PT David Mosqueda is an 55 y.o. @ male. 1ST PO S/P LT TKA 05/14/25 (2 WKS) @ [facility]. +PERCOCET AND TIZANIDINE. PT C/O THIGH PAIN/TIGHTNESS- FINISHED PT [facility]- WILL START OP PT [facility] TOMORROW- INCREASE ROM/STRENGTH- +ASA 81MG BID- WEARS UJDITH HOSE; NOT PRESENT IN TODAY- USING WALKER TO AMBULATE- ROLANDO REMOVED WITHOUT DIFFICULTY REVIEW OF SYSTEMS: General: Denies fever, fatigue or weight loss Lungs: Denies SOB Cardio: Denies chest pain GI: Denies indigestion or abdominal pain Neuro: Denies numbness or tingling, denies new onset paralysis Musculoskeletal: ( see note) PHYSICAL EXAM: Left Ankle Exam Range of Motion Dorsiflexion: normal Plantar flexion: normal Muscle Strength Dorsiflexion: 5/5 Plantar flexion: 5/5 Left Knee Exam Muscle Strength The patient has normal left knee strength. Tenderness Left knee tenderness location: Compartments soft, expected soreness, quadriceps tightness. Range of Motion Extension: 10 Flexion: 80 (tightness on terminal flexion) Tests Varus: negative Valgus: negative Other Erythema: absent Scars: present ([place] present, removed, no dehiscence or drainage) Sensation: normal Pulse: present Swelling: mild Effusion: effusion (consistent with surgery) present Comments: Operative lower extremity was noted to be neurovascularly intact. Patient was able to motor feet, toes and ankles in all anatomic planes bilaterally with 5 out of 5 strength. Operative knee's patellar tracking was optimal. Patient is noted to have a very tight quad with ecchymosis. There was no varus valgus, anterior-posterior, or rotatory instability noted to the operative knee. Swelling was well controlled, patella was not ballotable and compartments were soft to the operative lowerextremity. Dorsalis pedis and posterior tibial pulses were present and equal bilaterally. There wasno evidence of infection or ascending lymphangitis to operative lower extremity. Sensation to lighttouch was intact to all dermatomes to bilateral lower extremities. Negative Homans and negative Tip were noted bilaterally to lower extremities. Incision was healing without evidence of infection Physical Exam Results Procedures Orders Placed This Encounter Procedures Vascular US lower extremity venous duplex left Per Hope, 4:15 today Standing Status: Future Number of Occurrences: 1 Expected Date: 05/28/2025 Expiration Date: 05/28/2026 Reason for exam:: persistent thigh pain since surgery ASSESSMENT: ICD-10-CM 1. Acute pain of left thigh M79.652 Vascular US lower extremity venous duplex left 2. Primary osteoarthritis of left knee M17.12 oxyCODONE-acetaminophen (Percocet) 5-325 MG tablet 3. Post-operative pain G89.18 oxyCODONE-acetaminophen (Percocet) 5-325 MG tablet PLAN: Assessment & Plan 2 weeks s/p LT Knee replacement. Plan: I reviewed surgical findings with patient and discussed planof care. Recommend that patient continues with JUDITH campos and ASA until 4 weeks post op.He is continuing to have quadriceps tightness after surgery that was not improved with muscle relaxer. I recommend patient have ultrasound of the left lower extremity to rule out any DVT and have him start workingwith OP PT. Encouraged patient to continue working on ROM and ambulation. Reminded to hold off non-urgent dental appts for 6 months post op- and abx prophylaxis following: Questions answered in laymen terms at the bedside. The diagnosis, home exercise plan and any ongoing restrictions/ recommendations reviewed. If unable to be reached in office, I recommend evaluation at nearest Emergency Room ifany symptoms worsened or new symptoms develop for requiring urgent evaluation. documented in this encounterWright Memorial [id number] History of Present illness Narrative* Lorenza Sun, PT - 05/28/2025 10:00 AM EDT Physical Therapy Physical Therapy Daily Visit Patient Name: David Mosqueda Today's Date: 05/28/2025 Subjective Current Problem: s/p left TKA with pain and difficulty walking. Pt is being seen today for follow up for s/p left TKA. Upper quad and IT band continues to be tight and painful. Date of Surgery: 05/14/2025 with same day discharge Current deficits: Difficulty with all mobility secondary to recent left TKA and pain. Visit Number 7 Time In: 10:00 am; Time out: 10:40 am Total time: 40 minutes 10975 TherEx x 25 minutes 16277 gait training x 15 minutes Precautions: WBAT left LE; left TKA protocol Pain Management: The patient is complaining of pain located in the left knee and upper thigh region. Pain rating 7/10. The pain is improved by ice and Percocet every 6 hours. The pain is aggravated by activity. The pain is described as aching, throbbing and stiffness. Prior level of function: Ambulation: antalgic gait pattern on left LE. Assistive devices: FWW, cane, 4WW ADL and IADL: Independent/supervision Home Environment: Pt lives with family in a one story home with 3-4 steps to enter; walking in shower with aga bars and bench. 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 Objective General Visit Information: Passive ROM: left knee 10 to 78 degrees. Having a hard time sitting with knee in flexion due to pain and quad tightness. Joint play: hypomobile. Manual muscle testing: left knee flexion/extension: 3-/5. Palpation: Minimal warmth upon palpation,consistent with post-operative conditions. Surgical incision intact with rolando with no drainage and open to air. Special tests: Negative Jagdish Sign. Functional Mobility: Bed Mobility: CGA Sit to Stand: SBA Stair Negotiation: CGA Ambulation: Patient is ambulating with mild antalgic type pattern with FWW, step to gait pattern; good heel to toe gait pattern; SBA. Pt ambulated approx 100' x 2 with slow pascual. Limited knee flexion during swing phase and increase WB on walker with Ue's. Tinetti Gait and Balance Assessment: Sitting balance: Steady, safe = 1. Rises from chair: use UE= 1 Attempts to rise: second attempt= 1. Immediate standing balance (first 5 seconds): Steady but uses walker or other support = 1. Standing balance: Steady but uses walker or other support = 1. Nudged: Staggers, grabs, catches self = 1. Eyes closed: Steady = 1. Turning 360 degrees: Discontinuous steps = 0 , Unsteady (grabs, staggers) = 0. Sitting down: Uses arms or not a smooth motion = 1. Balance Score: 8/16. Indication of gait: No hesitancy = 1. Step of length and height: Step to = 0. Foot clearance: L foot clears floor = 1 , R foot clears floor = 1. Step symmetry: Right and left step length no equal = 0. Step continuity: Stopping or discontinuity between steps = 0. Path: Mild/moderate deviation or uses w/ aid = 1. Trunk: No sway but flex knees or back or uses arms for stability = 1. Walking time: Heels apart = 0. Gait score: 03/19. Total Score = Balance + Gait . Tinetti tool score: < = 18 High. Physical Education Intervention Physical Therapy Education: Pt was educated on the importance of cyrotherapy and elevation. Reviewed proper pillow placement under LE to maintain good extension. Stressed the importance also of ambulating at at least every other hour for 2-5 minutes duration and completion of HEP 2x/day. Patient was educated with regards to signs and symptoms to monitor with respect to blood clots and infection. Therapeutic Exercise : Pt completed left LE supine exercises of glut sets, quad sets, heel slides and ankle pumps (hourly) at this time, 10x. Completed standing exercises of heel raises, marches alternating and hip abduction, and mini squats at kitchen sink; 10x. Completed standing knee flexion on 3 inch step stool with gentle rocking. Completed seated heel slides with plastic bag, 10x. HEP issued and instructed. Gait Training: Gait training this date with FWW with instruction for reciprocal to gait pattern forleft affective LE with increase cues for heel to toe pattern and knee flexion during swing; fair carryover with uneven reciprocal pattern. Therapeutic Activity: Worked on proper sit to stand, stand to sit transfers this date from [facility] with good carryover with SBA with verbal cues for proper sequencing and hand placement. Manual Therapy: Massage and trigger point release was performed to IT band and quad region in sitting with knee slightly flexed; tolerated. Assessment & Plan Continues to have increase quad tightness and tension which is not allowing knee to flexion. Pt to start OP at [facility] tomorrow. Assessment Impairments: abnormal gait, abnormal or restricted ROM, impaired balance, impaired physical strength, pain with function and weight-bearing intolerance Barriers to therapy: Increased pain, edema,bruising and knee weakness. Prognosis: good Goals Short Term Goals Goal 1 : Patient will be independent with HEP with good compliance and independence. Goal 2 : Patient will demonstrate 5-90 degrees of passive range of motion of left knee flexion. Goal 3 : Patient will ambulate >6 minutes modified independently with wheeled walker with good reciprocal gait pattern. Goal 4 : Patient will demonstrate all sit< >stand transfers and supine< >sit bed mobility, modified independent with no cues for proper sequencing. Goal 5 : Patient will ascend/descend 3-4 with AD with supervision, reciprocal gait pattern. Fdc Goals Goal 1 : Patient will demonstrate 0-110 degrees of active left knee flexion in order to improve indpendence with ambulation up and down steps. Goal 2 : Patient will demonstrate 4+/5 or better left knee strength in order to safely return to activities of interest. Goal 3 : Patient will ambulate community distances on even and uneven surfaces, independently with no AD, normalized gait pattern and < 1/10 report of pain in right knee. Goal 4 : Pt will ascend/descend 12+ steps with railing with reciprical gait pattern independently. Goal 5 : Patient will demonstrate good static and dynamic standing balance for >15 mintues without LOB or increase in knee pain. Goal 6 : Pt will improve Tinetti Balance test to 28/28 to indicate no fall risk. Plan Planned modality interventions: cryotherapy Planned therapy interventions: bed mobility training, dressing changes, functional ROM exercises, gait training, home exercise program, manual therapy, neuromuscular re-education, soft tissue mobilization, strengthening, stretching, therapeutic activities and transfer training Frequency: 3x/week. Duration in weeks: 6 Treatment plan discussed with: patient Plan details: Educated to continue icing and elevating. documented in this encounterWright Memorial [id number] Telephone encounter Note* Telephone Encounter - Hernando Jones NP - 05/23/2025 1:26 PM EDT Received a call from home PT that patient is having severe quad tightness that is limiting his ability to work on ROM. I will send in muscle relaxer for patient that he is to take at least 2 hours before or after his pain medication. [facility] [id number] Miscellaneous Notes* Telephone Encounter - Hernando Jones NP - 05/23/2025 1:26 PM EDT Received a call from home PT that patient is having severe quad tightness that is limiting his ability to work on ROM. I will send in muscle relaxer for patient that he is to take at least 2 hours before or after his pain medication. documented in this encounterWright Memorial [id number] History of Present illness Narrative* Lorenza Sun, PT - 05/23/2025 1:00 PM EDT Physical Therapy Physical Therapy Daily Visit Patient Name: David Mosqueda Today's Date: 05/23/2025 Subjective Current Problem: s/p left TKA with pain and difficulty walking. Pt is being seen today for follow up for s/p left TKA. Quad and IT band continues to be tight, heat did not help much. NOM[facility] 360 notified. Date of Surgery: 05/14/2025 with same day discharge Current deficits: Difficulty with all mobility secondary to recent left TKA and pain. Visit Number 5 Time In: 1:00 pm; Time out: 1:40 pm Total time: 40 minutes 13111 TherEx x 15 minutes [id number] gait training x 10 minutes [id number] Manual Therapy x 15 minutes Precautions: WBAT left LE; left TKA protocol Pain Management: The patient is complaining of pain located in the left knee and thigh region. Painrating 05/17. The pain is improved by ice and Percocet every 6 hours. The pain is aggravated by activity. The pain is described as aching, throbbing and stiffness. Prior level of function: Ambulation: antalgic gait pattern on left LE. Assistive devices: FWW, cane, 4WW ADL and IADL: Independent/supervision Home Environment: Pt lives with family in a one story home with 3-4 steps to enter; walking in shower with aga bars and bench. 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 Having a hard time sitting with knee in flexion due to pain and quad tightness. Joint play: hypomobile. Manual muscle testing: left knee flexion/extension: 3-/5. Palpation: Minimal warmth upon palpation,consistent with post-operative conditions. Surgical incision intact with AB dressing with no drainage on dressing; ecchymosis developing medial knee with mild edema. Special tests: Negative Jagdish Sign. Functional Mobility: Bed Mobility: CGA Sit to Stand: SBA Stair Negotiation: TBA Ambulation: Patient is ambulating with mild antalgic type pattern with FWW, step to gait pattern; good heel to toe gait pattern; SBA. Pt ambulated approx 100' x 2 with slow pascual. Limited knee flexion during swing phase and increase WB on walker with Ue's. Tinetti Gait and Balance Assessment: Sitting balance: Steady, safe = 1. Rises from chair: use UE= 1 Attempts to rise: second attempt= 1. Immediate standing balance (first 5 seconds): Steady but uses walker or other support = 1. Standing balance: Steady but uses walker or other support = 1. Nudged: Staggers, grabs, catches self = 1. Eyes closed: Steady = 1. Turning 360 degrees: Discontinuous steps = 0 , Unsteady (grabs, staggers) = 0. Sitting down: Uses arms or not a smooth motion = 1. Balance Score: 8/16. Indication of gait: No hesitancy = 1. Step of length and height: Step to = 0. Foot clearance: L foot clears floor = 1 , R foot clears floor = 1. Step symmetry: Right and left step length no equal = 0. Step continuity: Stopping or discontinuity between steps = 0. Path: Mild/moderate deviation or uses w/ aid = 1. Trunk: No sway but flex knees or back or uses arms for stability = 1. Walking time: Heels apart = 0. Gait score: 03/19. Total Score = Balance + Gait . Tinetti tool score: < = 18 High. Physical Education Intervention Physical Therapy Education: Pt was educated on the importance of cyrotherapy and elevation. Reviewed proper pillow placement under LE to maintain good extension. Stressed the importance also of ambulating at at least every other hour for 2-5 minutes duration and completion of HEP 2x/day. Patient was educated with regards to signs and symptoms to monitor with respect to blood clots and infection. Therapeutic Exercise : Pt completed left LE supine exercises of glut sets, quad sets, heel slides and ankle pumps (hourly) at this time, 10x. Completed standing exercises of heel raises, marches on left and hip abduction, and mini squats at kitchen sink; 10x. Completed standing knee flexion on 3 inch step stool with gentle rocking. Completed seated heel slides with plastic bag, 10x. HEP issued and instructed. Gait Training: Gait training this date with FWW with instruction for step to gait pattern for left affective LE with increase cues for heel to toe pattern and knee flexion during swing. Therapeutic Activity: Worked on proper sit to stand, stand to sit transfers this date from [facility] with good carryover with SBA with verbal cues for proper sequencing and hand placement. Manual Therapy: Massage and trigger point release was performed to IT band and quad region in sitting with knee slightly flexed; tolerated. Assessment & Plan Continues to have increase quad tightness and tension which is not allowing knee to flexion. Pt to trial low grade heating pad on upper thigh. NOMS 360 notified. TE[employer] to send in a muscle relaxor to trial. Assessment Impairments: abnormal gait, abnormal or restricted ROM, impaired balance, impaired physical strength, pain with function and weight-bearing intolerance Barriers to therapy: Increased pain, edema,bruising and knee weakness. Prognosis: good Goals Short Term Goals Goal 1 : Patient will be independent with HEP with good compliance and independence. Goal 2 : Patient will demonstrate 5-90 degrees of passive range of motion of left knee flexion. Goal 3 : Patient will ambulate >6 minutes modified independently with wheeled walker with good reciprocal gait pattern. Goal 4 : Patient will demonstrate all sit< >stand transfers and supine< >sit bed mobility, modified independent with no cues for proper sequencing. Goal 5 : Patient will ascend/descend 3-4 with AD with supervision, reciprocal gait pattern. Diamond Wheel Molder Goals Goal 1 : Patient will demonstrate 0-110 degrees of active left knee flexion in order to improve indpendence with ambulation up and down steps. Goal 2 : Patient will demonstrate 4+/5 or better left knee strength in order to safely return to activities of interest. Goal 3 : Patient will ambulate community distances on even and uneven surfaces, independently with no AD, normalized gait pattern and < 1/10 report of pain in right knee. Goal 4 : Pt will ascend/descend 12+ steps with railing with reciprical gait pattern independently. Goal 5 : Patient will demonstrate good static and dynamic standing balance for >15 mintues without LOB or increase in knee pain. Goal 6 : Pt will improve Tinetti Balance test to 28/28 to indicate no fall risk. Plan Planned modality interventions: cryotherapy Planned therapy interventions: bed mobility training, dressing changes, functional ROM exercises, gait training, home exercise program, manual therapy, neuromuscular re-education, soft tissue mobilization, strengthening, stretching, therapeutic activities and transfer training Frequency: 3x/week. Duration in weeks: 6 Treatment plan discussed with: patient Plan details: Educated to continue icing and elevating. Pt will continues to benefit from PT interventions to improve overall strength, ROM and functional mobility to achieve PLOF. documented in this encounterWright Memorial [id number] History of Present illness Narrative* Lorenza Sun, PT - 05/21/2025 2:00 PM EDT Physical Therapy Physical Therapy Daily Visit Patient Name: David Mosqueda Today's Date: 05/21/2025 Subjective Current Problem: s/p left TKA with pain and difficulty walking. Pt is being seen today for follow up for s/p left TKA. Date of Surgery: 05/14/2025 with same day discharge Current deficits: Difficulty with all mobility secondary to recent left TKA and pain. Visit Number 4. Time In: 2:00 pm; Time out: 2:40 pm Total time: 40 minutes 00800 TherEx x 30 minutes [id number] gait training x 10 minutes Precautions: WBAT left LE; left TKA protocol Pain Management: The patient is complaining of pain located in the left knee and thigh region. Painrating 7/10. The pain is improved by ice and Percocet every 6 hours. The pain is aggravated by activity. The pain is described as aching, throbbing and stiffness. Prior level of function: Ambulation: antalgic gait pattern on left LE. Assistive devices: FWW, cane, 4WW ADL and IADL: Independent/supervision Home Environment: Pt lives with family in a one story home with 3-4 steps to enter; walking in shower with aga bars and bench. 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 Having a hard time sitting with knee in flexion due to pain and quad tightness. Joint play: hypomobile. Manual muscle testing: left knee flexion/extension: 3-/5. Palpation: Minimal warmth upon palpation,consistent with post-operative conditions. Surgical incision intact with AB dressing with no drainage on dressing; ecchymosis developing medial knee with mild edema. Special tests: Negative Jagdish Sign. Functional Mobility: Bed Mobility: CGA Sit to Stand: SBA Stair Negotiation: TBA Ambulation: Patient is ambulating with mild antalgic type pattern with FWW, step to gait pattern; good heel to toe gait pattern; SBA. Pt ambulated approx 100' x 2 with slow pascual. Limited knee flexion during swing phase and increase WB on walker with Ue's. Tinetti Gait and Balance Assessment: Sitting balance: Steady, safe = 1. Rises from chair: use UE= 1 Attempts to rise: second attempt= 1. Immediate standing balance (first 5 seconds): Steady but uses walker or other support = 1. Standing balance: Steady but uses walker or other support = 1. Nudged: Staggers, grabs, catches self = 1. Eyes closed: Steady = 1. Turning 360 degrees: Discontinuous steps = 0 , Unsteady (grabs, staggers) = 0. Sitting down: Uses arms or not a smooth motion = 1. Balance Score: 8/16. Indication of gait: No hesitancy = 1. Step of length and height: Step to = 0. Foot clearance: L foot clears floor = 1 , R foot clears floor = 1. Step symmetry: Right and left step length no equal = 0. Step continuity: Stopping or discontinuity between steps = 0. Path: Mild/moderate deviation or uses w/ aid = 1. Trunk: No sway but flex knees or back or uses arms for stability = 1. Walking time: Heels apart = 0. Gait score: 12. Total Score = Balance + Gait . Tinetti tool score: < = 18 High. Physical Education Intervention Physical Therapy Education: Pt was educated on the importance of cyrotherapy and elevation. Reviewed proper pillow placement under LE to maintain good extension. Stressed the importance also of ambulating at at least every other hour for 2-5 minutes duration and completion of HEP 2x/day. Patient was educated with regards to signs and symptoms to monitor with respect to blood clots and infection. Therapeutic Exercise : Pt completed left LE supine exercises of glut sets, quad sets, heel slides and ankle pumps (hourly) at this time, 10x. Completed standing exercises of heel raises, marches on left and hip abduction, and mini squats at kitchen sink; 10x. Completed standing knee flexion on 3 inch step stool with gentle rocking. Completed seated heel slides with plastic bag, 10x. HEP issued and instructed. Gait Training: Gait training this date with FWW with instruction for step to gait pattern for left affective LE with increase cues for heel to toe pattern and knee flexion during swing. Therapeutic Activity: Worked on proper sit to stand, [facility] with SBA with verbal cues for proper sequencing and hand placement. Assessment & Plan Continues to have increase quad tightness and tension which is not allowing knee to flexion. Pt to trial low grade heating pad on upper thigh. Will re-assess next visit. Assessment Impairments: abnormal gait, abnormal or restricted ROM, impaired balance, impaired physical strength, pain with function and weight-bearing intolerance Barriers to therapy: Increased pain, edema,bruising and knee weakness. Prognosis: good Goals Short Term Goals Goal 1 : Patient will be independent with HEP with good compliance and independence. Goal 2 : Patient will demonstrate 5-90 degrees of passive range of motion of left knee flexion. Goal 3 : Patient will ambulate >6 minutes modified independently with wheeled walker with good reciprocal gait pattern. Goal 4 : Patient will demonstrate all sit< >stand transfers and supine< >sit bed mobility, modified independent with no cues for proper sequencing. Goal 5 : Patient will ascend/descend 3-4 with AD with supervision, reciprocal gait pattern. Diamond Wheel Molder Goals Goal 1 : Patient will demonstrate 0-110 degrees of active left knee flexion in order to improve indpendence with ambulation up and down steps. Goal 2 : Patient will demonstrate 4+/5 or better left knee strength in order to safely return to activities of interest. Goal 3 : Patient will ambulate community distances on even and uneven surfaces, independently with no AD, normalized gait pattern and < 1/10 report of pain in right knee. Goal 4 : Pt will ascend/descend 12+ steps with railing with reciprical gait pattern independently. Goal 5 : Patient will demonstrate good static and dynamic standing balance for >15 mintues without LOB or increase in knee pain. Goal 6 : Pt will improve Tinetti Balance test to 28/28 to indicate no fall risk. Plan Planned modality interventions: cryotherapy Planned therapy interventions: bed mobility training, dressing changes, functional ROM exercises, gait training, home exercise program, manual therapy, neuromuscular re-education, soft tissue mobilization, strengthening, stretching, therapeutic activities and transfer training Frequency: 3x/week. Duration in weeks: 6 Treatment plan discussed with: patient Plan details: Educated to continue icing and elevating. Pt will continues to benefit from PT interventions to improve overall strength, ROM and functional mobility to achieve PLOF. documented in this encounterWright Memorial [id number] History of Present illness Narrative* Lorenza Sun, PT - 05/18/2025 2:00 PM EDT Physical Therapy Physical Therapy Daily Visit Patient Name: David Mosqueda Today's Date: 05/18/2025 Subjective Current Problem: s/p left TKA with pain and difficulty walking. Pt is being seen today for follow up for s/p left TKA. Date of Surgery: 05/14/2025 with same day discharge Current deficits: Difficulty with all mobility secondary to recent left TKA and pain. Visit Number 3. Time In: 2:00 pm; Time out: 2:40 pm Total time: 40 minutes [id number] TherEx x 30 minutes [id number] gait training x 10 minutes Precautions: WBAT left LE; left TKA protocol Pain Management: The patient is complaining of pain located in the left knee and thigh region. Painrating /10. The pain is improved by ice and Percocet every 6 hours. The pain is aggravated by activity. The pain is described as aching, throbbing and stiffness. Prior level of function: Ambulation: antalgic gait pattern on left LE. Assistive devices: FWW, cane, 4WW ADL and IADL: Independent/supervision Home Environment: Pt lives with family in a one story home with 3-4 steps to enter; walking in shower with aga bars and bench. 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 Objective General Visit Information: Passive ROM: left knee 10 to 68 degrees. Having a hard time sitting with knee in flexion due to pain and quad tightness. Joint play: hypomobile. Manual muscle testing: left knee flexion/extension: 3-/5. Palpation: Minimal warmth upon palpation,consistent with post-operative conditions. Surgical incision intact with AB dressing with no drainage on dressing; ecchymosis developing medial knee with mild edema. Special tests: Negative Jagdish Sign. Functional Mobility: Bed Mobility: CGA Sit to Stand: SBA Stair Negotiation: TBA Ambulation: Patient is ambulating with mild antalgic type pattern with FWW, step to gait pattern; good heel to toe gait pattern; SBA. Pt ambulated approx 100' x 2 with slow pascual. Limited knee flexion during swing phase and increase WB on walker with Ue's. Tinetti Gait and Balance Assessment: Sitting balance: Steady, safe = 1. Rises from chair: use UE= 1 Attempts to rise: second attempt= 1. Immediate standing balance (first 5 seconds): Steady but uses walker or other support = 1. Standing balance: Steady but uses walker or other support = 1. Nudged: Staggers, grabs, catches self = 1. Eyes closed: Steady = 1. Turning 360 degrees: Discontinuous steps = 0 , Unsteady (grabs, staggers) = 0. Sitting down: Uses arms or not a smooth motion = 1. Balance Score: 8/16. Indication of gait: No hesitancy = 1. Step of length and height: Step to = 0. Foot clearance: L foot clears floor = 1 , R foot clears floor = 1. Step symmetry: Right and left step length no equal = 0. Step continuity: Stopping or discontinuity between steps = 0. Path: Mild/moderate deviation or uses w/ aid = 1. Trunk: No sway but flex knees or back or uses arms for stability = 1. Walking time: Heels apart = 0. Gait score: 12. Total Score = Balance + Gait . Tinetti tool score: < = 18 High. Physical Education Intervention Physical Therapy Education: Pt was educated on the importance of cyrotherapy and elevation. Reviewed proper pillow placement under LE to maintain good extension. Stressed the importance also of ambulating at at least every other hour for 2-5 minutes duration and completion of HEP 2x/day. Patient was educated with regards to signs and symptoms to monitor with respect to blood clots and infection. Therapeutic Exercise : Pt completed left LE supine exercises of glut sets, quad sets, heel slides and ankle pumps (hourly) at this time, 10x. Completed standing exercises of heel raises, marches on left and hip abduction, 10x; added mini squats at kitchen sink. Added standing knee flexion on 3 inchstep stool with gentle rocking. Completed seated heel slides with plastic bag, 10x. HEP issued and instructed. Gait Training: Gait training this date with FWW with instruction for step to gait pattern for left affective LE with increase cues for heel to toe pattern and knee flexion during swing. Therapeutic Activity: Worked on proper sit to stand, stand to sit transfers this date from [facility] with good carryover with SBA with verbal cues for proper sequencing and hand placement. Assessment & Plan Assessment Impairments: abnormal gait, abnormal or restricted ROM, impaired balance, impaired physical strength, pain with function and weight-bearing intolerance Barriers to therapy: Increased pain, edema,bruising and knee weakness. Prognosis: good Goals Short Term Goals Goal 1 : Patient will be independent with HEP with good compliance and independence. Goal 2 : Patient will demonstrate 5-90 degrees of passive range of motion of left knee flexion. Goal 3 : Patient will ambulate >6 minutes modified independently with wheeled walker with good reciprocal gait pattern. Goal 4 : Patient will demonstrate all sit< >stand transfers and supine< >sit bed mobility, modified independent with no cues for proper sequencing. Goal 5 : Patient will ascend/descend 3-4 with AD with supervision, reciprocal gait pattern. Diamond Wheel Molder Goals Goal 1 : Patient will demonstrate 0-110 degrees of active left knee flexion in order to improve indpendence with ambulation up and down steps. Goal 2 : Patient will demonstrate 4+/5 or better left knee strength in order to safely return to activities of interest. Goal 3 : Patient will ambulate community distances on even and uneven surfaces, independently with no AD, normalized gait pattern and < 1/10 report of pain in right knee. Goal 4 : Pt will ascend/descend 12+ steps with railing with reciprical gait pattern independently. Goal 5 : Patient will demonstrate good static and dynamic standing balance for >15 mintues without LOB or increase in knee pain. Goal 6 : Pt will improve Tinetti Balance test to 28/28 to indicate no fall risk. Plan Planned modality interventions: cryotherapy Planned therapy interventions: bed mobility training, dressing changes, functional ROM exercises, gait training, home exercise program, manual therapy, neuromuscular re-education, soft tissue mobilization, strengthening, stretching, therapeutic activities and transfer training Frequency: 3x/week. Duration in weeks: 6 Treatment plan discussed with: patient Plan details: Educated to continue icing and elevating. Pt will continues to benefit from PT interventions to improve overall strength, ROM and functional mobility to achieve PLOF. documented in this [facility]07-11-2025 Telephone encounter Note* Telephone Encounter - Hernando Jones NP - 05/18/2025 10:03 AM EDT Post op pain rx. PD[id number] Miscellaneous Notes* Telephone Encounter - Hernando Jones NP - 05/18/2025 10:03 AM EDT Post op pain rx. PDMP reviewed documented in this [facility]07-10-2025 History of Present illness Narrative* Lorenza Sun, PT - 05/17/2025 10:15 AM EDT Physical Therapy Physical Therapy Daily Visit Patient Name: David Mosqueda Today's Date: 05/17/2025 Subjective Current Problem: s/p left TKA with pain and difficulty walking. Pt is being seen today for follow up for s/p left TKA. Date of Surgery: 05/14/2025 with same day discharge Current deficits: Difficulty with all mobility secondary to recent left TKA and pain. Visit Number 2. Time In: 10:15 am; Time out: 11:00 am Total time: 40 minutes [id number] TherEx x 30 minutes [id number] gait training x 10 minutes Precautions: WBAT left LE; left TKA protocol Pain Management: The patient is complaining of pain located in the left knee and thigh region. Painrating /10. The pain is improved by ice and Percocet every 6 hours. The pain is aggravated by activity. The pain is described as aching, throbbing and stiffness. Prior level of function: Ambulation: antalgic gait pattern on left LE. Assistive devices: FWW, cane, 4WW ADL and IADL: Independent/supervision Home Environment: Pt lives with family in a one story home with 3-4 steps to enter; walking in shower with aga bars and bench. 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 Having a hard time sitting with knee in flexion due to pain and quad tightness. Joint play: hypomobile. Manual muscle testing: left knee flexion/extension: 3-/5. Palpation: Minimal warmth upon palpation,consistent with post-operative conditions. Surgical incision intact with AB dressing with minimal serum drainage on dressing; ecchymosis developing medial knee with mild edema. Special tests: Negative Jagdish Sign. Functional Mobility: Bed Mobility: CGA Sit to Stand: SBA Stair Negotiation: TBA Ambulation: Patient is ambulating with mild antalgic type pattern with FWW, step to gait pattern; good heel to toe gait pattern; SBA. Pt ambulated approx 75' x 2 with slow pascual. Limited knee flexion during swing phase and increase WB on walker with Ue's. Tinetti Gait and Balance Assessment: Sitting balance: Steady, safe = 1. Rises from chair: use UE= 1 Attempts to rise: second attempt= 1. Immediate standing balance (first 5 seconds): Steady but uses walker or other support = 1. Standing balance: Steady but uses walker or other support = 1. Nudged: Staggers, grabs, catches self = 1. Eyes closed: Steady = 1. Turning 360 degrees: Discontinuous steps = 0 , Unsteady (grabs, staggers) = 0. Sitting down: Uses arms or not a smooth motion = 1. Balance Score: 8/16. Indication of gait: No hesitancy = 1. Step of length and height: Step to = 0. Foot clearance: L foot clears floor = 1 , R foot clears floor = 1. Step symmetry: Right and left step length no equal = 0. Step continuity: Stopping or discontinuity between steps = 0. Path: Mild/moderate deviation or uses w/ aid = 1. Trunk: No sway but flex knees or back or uses arms for stability = 1. Walking time: Heels apart = 0. Gait score: 12. Total Score = Balance + Gait . Tinetti tool score: < = 18 High. Physical Education Intervention Physical Therapy Education: Pt was educated on the importance of cyrotherapy and elevation. Reviewed proper pillow placement under LE to maintain good extension. Stressed the importance also of ambulating at at least every other hour for 2-5 minutes duration and completion of HEP 2x/day. Patient was educated with regards to signs and symptoms to monitor with respect to blood clots and infection. Therapeutic Exercise : Pt completed left LE supine exercises of glut sets, quad sets, heel slides and ankle pumps (hourly) at this time, 10x. Added standing exercises of heel raises, marches on left and hip abduction, 10x. Completed seated heel slides with plastic bag, 10x. HEP issued and instructed. Gait Training: Gait training this date with FWW with instruction for step to gait pattern for left affective LE with increase cues for heel to toe pattern and knee flexion during swing. Therapeutic Activity: Worked on proper sit to stand, stand to sit transfers this date from [facility] with good carryover with SBA with verbal cues for proper sequencing and hand placement. Assessment & Plan Assessment Impairments: abnormal gait, abnormal or restricted ROM, impaired balance, impaired physical strength, pain with function and weight-bearing intolerance Barriers to therapy: Increased pain, edema,bruising and knee weakness. Prognosis: good Goals Short Term Goals Goal 1 : Patient will be independent with HEP with good compliance and independence. Goal 2 : Patient will demonstrate 5-90 degrees of passive range of motion of left knee flexion. Goal 3 : Patient will ambulate >6 minutes modified independently with wheeled walker with good reciprocal gait pattern. Goal 4 : Patient will demonstrate all sit< >stand transfers and supine< >sit bed mobility, modified independent with no cues for proper sequencing. Goal 5 : Patient will ascend/descend 3-4 with AD with supervision, reciprocal gait pattern. Diamond Wheel Molder Goals Goal 1 : Patient will demonstrate 0-110 degrees of active left knee flexion in order to improve indpendence with ambulation up and down steps. Goal 2 : Patient will demonstrate 4+/5 or better left knee strength in order to safely return to activities of interest. Goal 3 : Patient will ambulate community distances on even and uneven surfaces, independently with no AD, normalized gait pattern and < 1/10 report of pain in right knee. Goal 4 : Pt will ascend/descend 12+ steps with railing with reciprical gait pattern independently. Goal 5 : Patient will demonstrate good static and dynamic standing balance for >15 mintues without LOB or increase in knee pain. Goal 6 : Pt will improve Tinetti Balance test to 28/28 to indicate no fall risk. Plan Planned modality interventions: cryotherapy Planned therapy interventions: bed mobility training, dressing changes, functional ROM exercises, gait training, home exercise program, manual therapy, neuromuscular re-education, soft tissue mobilization, strengthening, stretching, therapeutic activities and transfer training Frequency: 3x/week. Duration in weeks: 6 Treatment plan discussed with: patient Plan details: Educated to continue icing and elevating. Pt will continues to benefit from PT interventions to improve overall strength, ROM and functional mobility to achieve PLOF. documented in this [facility] [id number] NoteEducation Materials POST OPERATIVE TOTAL KNEE/HIP DISCHARGE INTRUCTIONS SURGEONS WRITTEN INSTRUCTIONS: Walk with walker; bear weight to tolerance on operative extremity Elevate extremity 1 hour 3 times/day to control pain and swelling and apply ice Range of motion to ankle 10 times/hour Range of motion to knee hourly Change dressing daily. Judith hose (compression stockings) for 6 weeks Physical therapy as prescribed May shower, no tub bath. Do not rub/scrub incision. Wash gently Take Aspirin 81mg 2x for 30 days to help prevent blood clots, coated or uncoated per patient preference. WHAT YOU SHOULD KNOW AFTER YOUR OPERATION: If you need pain pills, start before the pain becomes intense. Pain pills are frequently less upsetting to your stomach if you take them with food such as crackers or bread. If you have excessive or persistent pain, swelling, bleeding, nausea, vomiting or any other problems, you should first call your surgeon for advice. If you are unable to contact your surgeon, seek help from the emergency room. FOR THE PREVENTION OF DVT AFTER LOWER EXTREMITY SURGERY What is a DVT? There is always the risk of DVT after lower extremity surgery. DVT, or deep vein thrombosis, is a blood blot in a major vein that may partially or completely block the flow of blood. The clot occurs in the legs or pelvis, in areas where blood flow is slow, or in an injured blood vessel. DVT can be life-threatening should pieces of the clot break away and travel to the lungs. This is called pulmonary embolism What are the symptoms of DVT? The area affected by the blood clot may become swollen and painful, and possibly turn red as the normal flow of blood is blocked. You may also develop edema, which is the build up of fluid in the skin tissues surrounding the clot. If the clot is somewhere other than your leg, there may be no physical signs of DVT. If the clot breaks away and travels to your lungs, you may experience shortness of breath and chest pain. If this occurs you should call your doctor immediately or go to the emergencyroom. How can I prevent DVT? You should keep active. Moving the ankle and foot and bending the knee as tolerated when you are inbed and walking as tolerated. Take medication, especially the Aspirin, as prescribed by your doctor. What should I do if I think I have a DVT? You should call your doctor or go to the emergency room any time you have a sudden and unusual shortness of breath that is not related to exercise, exertion or anxiety. If you have swelling with redness and pain in your leg, you should call your doctor immediately. If there is concern then a test called ?Venous Doppler? can be done to rule of a DVT. #1 May shower and change dressing daily, no scrubbing or rubbing incision during shower just let the water run over the incision, starting tomorrow #2 stop smoking and drinking alcohol #3 ice to operative knee 20 minutes every hour while awake until pain and swelling control #4 flex and extend both feet/ankles 10 times per hour while awake #5 push both knees backwards into the bed 10 times every hour while awake, clench buttock muscles together 10 times every hour while awake #6 use walker weight-bear as tolerated to operative knee get up every 2 hours while awake and walk around for 1 to 2 minutes #7 flex and extend operative knee over the side of the bed ten times four times a day #8 follow up in office as scheduled #9 [facility] will be contacting you within the next 24 hours to set up home therapy visits #10 proceed immediately to the emergency department for chest pain or shortness of breath #[address] Baird at the office [phone] or have him paged through the hospital clipper operator [phone] for any concerns or questions #12 You have been given a prescription for Percocet, Percocet is a narcotic, narcotics are addictive. If you feel you have issues with addiction please feel free to contact Dr. Baird, your family physician, or proceed to the nearest hospital's emergency services department. #[address] Baird at the above numbers if you have not had a bowel movement in 2 days or if youfeel uncomfortable before that #14 take 1 baby aspirin (81 mg) twice a day for 30 days to thin your blood to help prevent blood clots. Custom Discharge Instructions: Hip Replacement Arthroplasty Michelet Ervin, DO [facility] [address] [place] [address] Incision care: Mepilex dressing can get wet with showers. Please remove the dressing 10 days after surgery. Physical therapy will monitor your incision sites. If rolando are present, please coordinate removal 21 days after surgery with our office staff. Please notify the office if any increase in redness, tenderness, drainage, fever or wound separation is noted beyond this point. Compression stockings may be helpful if any significant or uncomfortable swelling in the legs is noted postoperativel (more content not included)... [facility] [id number] History of Present illness Narrative* Lorenza Sun, PT - 05/15/2025 2:00 PM EDT Physical Therapy Physical Therapy Evaluation Patient Name: David Mosqueda Today's Date: 05/15/2025 Subjective Current Problem: s/p left TKA with pain and difficulty walking. Pt is being seen today for initial evaluation for s/p left TKA. Date of Surgery: 05/14/2025 with same day discharge Current deficits: Difficulty with all mobility secondary to recent left TKA and pain. Visit Number 1. Time In: 2:00 pm; Time out: 2:45 pm Total time: 45 minutes [id number] PT Eval x 20 minutes [id number] TherEx x 15 minutes [id number] gait training x 10 minutes Precautions: WBAT left LE; left TKA protocol Pain Management: The patient is complaining of pain located in the left knee and thigh region. Painrating 8/10. The pain is improved by ice and Percocet every 6 hours. The pain is aggravated by activity. The pain is described as aching, throbbing and stiffness. Prior level of function: Ambulation: antalgic gait pattern on left LE. Assistive devices: FWW, cane, 4WW ADL and IADL: Independent/supervision Home Environment: Pt lives with family in a one story home with 3-4 steps to enter; walking in shower with aga bars and bench. 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 Objective General Visit Information: Passive ROM: left knee 10 to 60 degrees. Joint play: hypomobile. Manual muscle testing: left knee flexion/extension: 3-/5. Palpation: Minimal warmth upon palpation,consistent with post-operative conditions. Surgical incision intact with AB dressing with minimal bloody drainage on dressing; ecchymosis developing medial knee with mild edema. Special tests: Negative Jagdish Sign. Functional Mobility: Bed Mobility: CGA Sit to Stand: SBA Stair Negotiation: TBA Ambulation: Patient is ambulating with mild antalgic type pattern with FWW, step to gait pattern; good heel to toe gait pattern; SBA. Pt ambulated approx 75' x 2 with slow pascual. Limited knee flexion during swing phase and increase WB on walker with Ue's. Tinetti Gait and Balance Assessment: Sitting balance: Steady, safe = 1. Rises from chair: use UE= 1 Attempts to rise: second attempt= 1. Immediate standing balance (first 5 seconds): Steady but uses walker or other support = 1. Standing balance: Steady but uses walker or other support = 1. Nudged: Staggers, grabs, catches self = 1. Eyes closed: Steady = 1. Turning 360 degrees: Discontinuous steps = 0 , Unsteady (grabs, staggers) = 0. Sitting down: Uses arms or not a smooth motion = 1. Balance Score: 8/16. Indication of gait: No hesitancy = 1. Step of length and height: Step to = 0. Foot clearance: L foot clears floor = 1 , R foot clears floor = 1. Step symmetry: Right and left step length no equal = 0. Step continuity: Stopping or discontinuity between steps = 0. Path: Mild/moderate deviation or uses w/ aid = 1. Trunk: No sway but flex knees or back or uses arms for stability = 1. Walking time: Heels apart = 0. Gait score: 12. Total Score = Balance + Gait 13/28. Tinetti tool score: < = 18 High. Physical Education Intervention Physical Therapy Education: Pt was educated on the importance of cyrotherapy and elevation. Reviewed proper pillow placement under LE to maintain good extension. Stressed the importance also of ambulating at at least every other hour for 2-5 minutes duration and completion of HEP 2x/day. Patient was educated with regards to signs and symptoms to monitor with respect to blood clots and infection. Therapeutic Exercise : Pt completed left LE supine exercises of glut sets, quad sets, heel slides and ankle pumps (hourly) at this time, 10x. Completed seated heel slides with plastic bag, 10x. HEP issued and instructed. Gait Training: Gait training this date with FWW with instruction for step to gait pattern for left affective LE with increase cues for heel to toe pattern and knee flexion during swing. Therapeutic Activity: Worked on proper sit to stand, stand to sit transfers this date from [facility] with good carryover with SBA with verbal cues for proper sequencing and hand placement. Assessment & Plan Assessment Impairments: abnormal gait, abnormal or restricted ROM, impaired balance, impaired physical strength, pain with function and weight-bearing intolerance Barriers to therapy: Increased pain, edema,bruising and knee weakness. Prognosis: good Goals Short Term Goals Goal 1 : Patient will be independent with HEP with good compliance and independence. Goal 2 : Patient will demonstrate 5-90 degrees of passive range of motion of left knee flexion. Goal 3 : Patient will ambulate >6 minutes modified independently with wheeled walker with good reciprocal gait pattern. Goal 4 : Patient will demonstrate all sit< >stand transfers and supine< >sit bed mobility, modified independent with no cues for proper sequencing. Goal 5 : Patient will ascend/descend 3-4 with AD with supervision, reciprocal gait pattern. Fdc Goals Goal 1 : Patient will demonstrate 0-110 degrees of active left knee flexion in order to improve indpendence with ambulation up and down steps. Goal 2 : Patient will demonstrate 4+/5 or better left knee strength in order to safely return to activities of interest. Goal 3 : Patient will ambulate community distances on even and uneven surfaces, independently with no AD, normalized gait pattern and < 1/10 report of pain in right knee. Goal 4 : Pt will ascend/descend 12+ steps with railing with reciprical gait pattern independently. Goal 5 : Patient will demonstrate good static and dynamic standing balance for >15 mintues without LOB or increase in knee pain. Goal 6 : Pt will improve Tinetti Balance test to 28/28 to indicate no fall risk. Plan Planned modality interventions: cryotherapy Planned therapy interventions: bed mobility training, dressing changes, functional ROM exercises, gait training, home exercise program, manual therapy, neuromuscular re-education, soft tissue mobilization, strengthening, stretching, therapeutic activities and transfer training Frequency: 3x/week. Duration in weeks: 6 Treatment plan discussed with: patient Plan details: Educated to continue icing and elevating. Pt will continues to benefit from PT interventions to improve overall strength, ROM and functional mobility to achieve PLOF. documented in this encounterWright [facility] [id number] Note [id number]07-07-2025 [facility] Clinical Discharge Summary PERSON INFORMATION Name DAVID MOSQUEDA Age 55 Years 1970 Sex MALE Language Persian PCP Derrek Joseph Marital Status Phone Med Service Surgery Acct# Arrival 05/14/2025 06:43:56 Visit Reason SURGERY - LEFT TOTAL KNEE Acuity LOS 000 00:07 Address: [address] [address] Comment: PROVIDER INFORMATION VITALS INFORMATION Vital Sign Triage Latest Temp Oral Temp Temporal 36.1 DegC 36.1 DegC Temp Intravascular Temp Axillary Temp Rectal 02 Sat 98 % 96 % Respiratory Rate 16 br/min 16 br/min Peripheral Pulse Rate 76 bpm 84 bpm Apical Heart Rate Blood Pressure 134 mmHg / 94 mmHg 133 mmHg / 88 mmHg Comment: MEDICAL INFORMATION Allergy Info: sulfa drug; lovastatin Medication List: Medications to Continue That Have Not Changed Other Medications amLODIPine (amLODIPine 5 mg oral tablet) 1 tab(s) Oral (given by mouth) every day. ascorbic acid (Vitamin C 1000 mg oral tablet) 1 tab(s) Oral (given by mouth) every day. lisinopril (lisinopril 20 mg oral tablet) 1 tab(s) Oral (given by mouth) every day. multivitamin (Multivitamin, generic) 1 tab(s) Oral (given by mouth) every day. multivitamin with iron (Ferrex 150 Forte oral capsule) 1 tab(s) Oral (given by mouth) every day. pantoprazole (pantoprazole 40 mg oral delayed release tablet) 1 tab(s) Oral (given by mouth) every day. psyllium (Metamucil 3.4 g/5.2 g oral powder for reconstitution) 1 tsp Oral (given by mouth) every day. Comment: Lab and Radiology Results Laboratory or Other Results This Visit (last charted value for your 05/14/2025 visit) No Laboratory or Other Results This Visit DIET & ACTIVITY Patient Activity Level: As Tolerated Patient Diet: Regular Patient Activity Restrictions: Discontinue Alcohol Use, No driving, No Sexual Activity, Stop Smoking DISCHARGE INFORMATION Discharge Disposition: Discharge Location: DEPART REASON INCOMPLETE INFORMATION PATIENT EDUCATION INFORMATION Instructions: stepanic post op knee replacement instructions (MHGSTEPANIC) (MHGSTEPANIC) Follow up: With: Address: When: Hernando Jones [address] [place] [phone] [facility] (1) 05/28/2025 2:00 PM DIAGNOSIS Acute pain of left knee Comment: PHYS LUIS [facility]07-02-2025 Telephone encounter Note* Telephone Encounter - Hernando Jones NP - 05/09/2025 4:43 PM EDT Post op pain rx. PDMP reviewed [facility] HospitalLxarobwfim03-12-1520 Miscellaneous Notes* Telephone Encounter - Hernando Jones NP - 05/09/2025 4:43 PM EDT Post op pain rx. PDMP reviewed documented in this encounterWright Memorial [id number] NotePROCEDURE: XR Bone Length Studies Scanograms COMPARISON: 02/06/2021. HISTORY: Pre-op testing [...] Varsha Wise MD 04/26/25 8:26 am Technologist: LASH[address]DAWilson [address] HospitalComment on above:Order Comment: Bilateral leg length-NO measurements [id number] History of Present illness Narrative * ERIK Ruby - 04/17/2025 2:30 PM EDT Images from the original note were not [...] amLODIPine (NORVASC) 10 mg, Daily Iron Polysacch Gzgey-M80-XM (Poly-Iron 150 Forte) 150-0.025-1 MG capsule 1 [...] examination Z01.818 Misc. Devices misc Iron Polysacch Wnbyo-B08-EX (Poly-Iron 150 Forte) 150-0.025-1 MG capsule Discussed patient's need for a front wheel walker: The patient has mobility limitations that significantly impair their ability to participate in activities of daily living without the risk of fall. The patient would benefit from this walker to reasonably complete activities of daily living such asprepping and cooking meals, grocery shopping , getting [...] testing for upcoming surgery. Complete history with medical,surgery, and current allergy and medication list obtained. Consent for surgery signed and witnessedafter verbal consent to perform surgery received. All questions answered and proposed surgery scheduled. SURGERY INSTRUCTIONS April DR. JOSEPH April PST April @ 10:00 SIMMER NOTIFIED PRE CERT SENT WALKER SENT TO [facility] [place] JAYRO GUTIERREZ SENT TO [facility] Follow up in about 6 weeks (around 05/28/2025) for Post-Op May 28 @ 2:00 in [place] with Stuart Holbrook. documented in this encounterWright Memorial [id number] History of Present illness Narrative* Jr. Jessenia Baird, - 03/07/2025 8:30 AM EDT Images from the original note were not included. HISTORY OF PRESENT ILLNESS: EST PT David Mosqueda is an 54 y.o. @ male. (EST PT) (LAST APPT W/ STUART) - RECHECK (L) KNEE ; S/P CORTISONE INJ 02/22/25 (1 WK, 6 DAYS) ; S/P MRI 02/27/25 @[facility] - HERE FOR OPTIONS XRAY 02/22/25 IN [facility] XRAY 01/01/21 IN [facility] MRI 02/27/25 IN [facility] NO MDP / PREDNISONE CORTISONE INJ 02/22/25 NO PT NO PAIN MGMT PT IS OFF WORK - RETURNS TO WORK TOMORROW. S/P CORTISONE INJ - NO RELIEF. ADMITS ACHING THE NIGHT FOLLOWING INJ. AMBULATING WITH ALTERED GAIT.PRESENTS WEARING KNEE BRACE - ADMITS DISCOMFORT WITH [...] N/T. DENIES WEAKNESS / INSTABILITY. TYL / IBU- SOME RELIEF - NOT CURRENTLY TAKING. ICING [...] on the day of surgery for a lefttotal knee arthroplasty. Patient fully understands the risks [...] of surgery. The patient understands the risks ofsaid treatment. We have discussed both surgical and [...] including the patient's age and longevity of pro sthesis, usual postoperative course, and possible need for revision in the future, and leg length inequality postoperatively were discussed at length. We have discussed with the patient that this is a major orthopedic procedure. We discussed that the patient may require more than the average 30 MEDlimited and may require greater than 7 days narcotic treatment postoperatively. Therefore, patient's narcotic usage will be tailored on an individual basis. If this patient at the time of surgery hasany of the following: Morbidities including but not limited to history of falling, cognitive impairment, BMI greater than 30, end-stage renal disease, respiratory failure, heart failure, kidney failure, liver failure, diabetes, cardiac event in the last year, sleep apnea, disorder, excessive tobacco use, if at the time of surgery the patient is greater than 80 years old, or the patient requires discharge to a jail facility, the patient may require to have additional inpatient hospital stay days following the surgery. Physical therapy is contraindicated in this patient''s case because of the ynhw-fo-utws articulation of the patient's knee.. Questions answered in laymen terms at the bedside. The diagnosis, home exercise plan and any ongoing restrictions/ recommendations reviewed. If unable to be reached in office, I recommend evaluation at nearest Emergency Room if any symptoms worsened or new symptoms develop for requiring urgent evaluation. documented in this encounterWright Memorial [id number] Telephone encounter Note* Telephone Encounter - Miley Ramon - 02/26/2025 10:53 AM EDT Pt called and stated he had an appt with Stuart on 02/22/25 and was suppose to get an MRI done on his Lt knee, he has not heard from anyone to schedule this. He has a follow up with Dr Baird on 03/07/25. [facility] he stated. I did tell him it could still be getting authorized through insurance, but also said I would let you know as well. His call back [phone] [facility] [id number] Miscellaneous Notes* Telephone Encounter - Miley Ramon - 02/26/2025 10:53 AM EDT Pt called and stated he had an appt with Stuart on 02/22/25 and was suppose to get an MRI done on his Lt knee, he has not heard from anyone to schedule this. He has a follow up with Dr Baird on 03/07/25. [facility] he stated. I did tell him it could still be getting authorized through insurance, but also said I would let you know as well. His call back [phone] documented in this encounterWright Memorial [id number] History of Present illness Narrative* ERIK Ruby - 02/22/2025 1:45 PM EDTAssociated Order(s): L Inj/Asp: L knee Post-Procedure Diagnose(s): [...] A (R) TKA) XRAY TODAY, 02/22/25 IN [facility] XRAY 01/01/21 IN [facility] AMBULATING WITH ALTERED [...] Minimal patellofemoral crepitus is observed in the knee.There is no laxity in the knee with LCL or MCL stressing. The patient's quad and hamstring strengthin the knee is 5/5, but end range [...] tear, an MRI of the left knee isrecommended. He does have medial joint space narrowing, and a potential arthritic component was discussed. However, he does not describe any baseline aching pain like he has in his right knee. Diagnostic plan: MRI of the left knee. 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 He is agreeable to a cortisone injection today for palliative treatment measure conservatively but would like to move forward with getting MRI and potential knee arthroscopy ifpossible given the sharpness of his pain. Follow-up: [address] Baird Questions answered in laymen terms at the bedside. The diagnosis, home exercise plan and any ongoing restrictions/ recommendations reviewed. If unable to be reached in office, I recommend evaluation at nearest Emergency Room if any symptoms worsened or new symptoms develop for requiring urgent evaluation. Visit was preformed using [employer]-fixed wing pilot speech recognition. documented in this encounterWright Memorial HospitalMgkcnrkvgy21-95-1319 Evaluation note* Diagnosis Onset Date Resolution Status Admit Date Knee pain acuteApril 2024 9:42amPrimary osteoarthritis of left kneeacuteApril 2024 9:42amCigarette nicotine dependence in remissionacuteJune 2024 11:11amEssential hypertensionacuteJune 2024 11:11amGastroesophageal reflux disease with esophagitis without hemorrhageacuteJune 2024 11:11am HypercholesterolemiaacuteJune 2024 11:11amLow back painacuteAtrium Health Huntersvillee 2024 11:11amPreop exam for internal medicinenoneaUniversity [facility]als [facility]2024 11:11am [facility] Work Phone: [phone] Hospital Discharge instructions Patient Education 01/01/2025 15:09:58 [...] treatment? Where to find more information The [place] [employer]: www.cancer.org [place] [employer]: www.auanet.org Contact a health care [...] provider. Document Revised: 04/20/2022 Document Reviewed: 04/20/2022 [employer] Patient Education 2023 Teleborder. Follow Up Care 12/27/2024 08:46:59 With:Surjit RICHARDS, HEMANTH Yepez, URO Address: When: Unknown [facility] 02-24-2025 NotePatient Education Oncology Prostate Cancer Screening [...] Where to find more information ??? The [place] [employer]: www.cancer.org ??? [place] [employer]: www.auanet.org Contact a health care [...] men. The prostate gland (more content not included)...[facility]02-03-2025 Evaluation + Plan noteExtracted from:Title:EU- TRUS bxAuthor:Miley Eddy MDDate:12/11/24 Impression and Plan Diagnosis Elevated PSA (VOV60-HX R97.20, Discharge, Medical). Diagnosis Elevated PSA (GRG76-TT R97.20, Discharge, Medical). Future Appointments Appointment Date:12/27/2024 08:45:00 AM Scheduled Provider:Miley Eddy MD Location:[facility] Appointment Type:URO Office Visit Diagnostic Tests Pending * Prostate Histology ([facility]) 12/11/24 [facility] 02-03-2025 Hospital Discharge instructions Patient Education 12/11/2024 08:19:09 [...] for your post-operative appointment in 1-2 weeks [phone] or [phone] Follow Up Care 10/25/2024 09:33:15 With:Miley Eddy Address: [facility] Amado Beyer, [address] [address]- [phone] Business (1) When: Unknown Comments:Office to schedule follow up: move up from 12/27 to be seen in 1 week if path available [facility] 02-03-2025 NotePatient Education Transrectal Ultrasound of [...] for your post-operative appointment in 1-2 weeks [phone] or [phone] Hospital Discharge instructions Follow Up Care 10/25/2024 09:29:09 With:Surjit RICHARDS, HEMANTH Yepez, URO Address: When: Unknown [facility] 12-18-2024 Hospital Discharge instructions Patient Education 10/25/2024 [...] discomfort near your rectum, especially while sitting. [place]-colored urine due to small amounts of blood in your urine. A burning feeling while urinating. Blood in your stool (feces) or bleeding from your rectum. Blood in your semen. Follow these instructions at home: Medicines Take tdia-jsq-keyrxfm and prescription medicines only as told by [...] provider. Document Revised: 04/20/2022 Document Reviewed: 04/20/2022 [employer] Patient Education 2023 Teleborder. 10/25/2024 09:15:04 Transrectal Ultrasound-Guided Prostate Biopsy Transrectal [...] including vitamins, herbs, eye drops, creams, and awst-blb-gbkuqne medicines. Any problems you or family members [...] provider tells you to take them. Taking rmvj-xux-hfjqbod medicines, vitamins, herbs, and supplements. General instructions [...] provider. Document Revised: 04/20/2022 Document Reviewed: 04/20/2022 [employer] Patient Education 2023 Teleborder. 10/25/2024 09:10:24 Prostate Cancer Screening Prostate Cancer [...] treatment? Where to find more information The [place] [employer]: www.cancer.org [place] [employer]: www.auanet.org Contact a health care [...] provider. Document Revised: 04/20/2022 Document Reviewed: 04/20/2022 [employer] Patient Education 2023 Teleborder. Follow Up Care 09/21/2024 15:14:14 With:Surjit RICHARDS, HEMANTH Yepez, URO Address: [address] [place] [address] [phone] When: Unknown Comments:sched TRUS/bx [facility] Veronica 12-18-2024 NotePatient Education Oncology Transrectal Ultrasound-Guided Prostate [...] near your rectum, especially while sitting. ??? [place]-colored urine due to small amounts of blood in your urine. ??? A burning feeling while urinating. ??? Blood in your stool (feces) or bleeding from your rectum. ??? Blood in your semen. Follow these instructions at home: Medicines ??? Take eqfk-kaf-jgxxhxq and prescription medicines only as told by [...] provider. Document Revised: 04/20/2022 Document Reviewed: 04/20/2022 [employer] Patient Education ? 2023 Teleborder. Transrectal Ultrasound-Guided Prostate Biopsy A transrectal ultrasound-guided [...] including vitamins, herbs, eye drops, creams, and fccs-hli-rzjjyhi medicines. ??? Any problems you or family [...] medicines. This is especial (more content not included)...[facility]10-30-2024 History of Present illness Narrative* lFori Vazquez DO - 09/06/2024 1:15 PM EDT General Surgery [...] ow up as needed. Thank you, Robin Vazquez DO documented in this encounterWright Memorial [id number] History of Present illness Narrative* Flori Vazquez DO - 08/02/2024 1:30 PM EDT General Surgery H&P David Mosqueda 1970 Davidjusto Mosqueda is a 54 y.o. male presents [...] schedule at patient's earliest convenience. Thank you, Robin VazquezDO documented in this encounterWright Memorial [id number] Evaluation note* Encounter Date Diagnosis Assessment Notes Treatment Notes Treatment Clinical Notes Nov, Primary hypertension (ICD-10 - I 10) Sqrl Other 11-02-2023 Evaluation note* Encounter Date Diagnosis Assessment Notes Treatment Notes Treatment Clinical Notes Sep, Swelling of right lower extremit y (ICD-10 - M79.89) Avoid salt and elevate lower extremities, support stockings, inspect legs and feet daily for blisters and ulcerations. Reduced Amlodipine to 5mg Sep,rimary hypertension (ICD-10 - I10)Reduced Amlodipine and increased Lisinopril w/ improved BP readings and decrease w/ ADR. Sep,Elevated PSA (ICD-10 - R97.20)Due for repeat PSA Unable to finish antibiotics due to rash. Sqrl Other 10-16-2023 Evaluation note* Encounter Date Diagnosis Assessment Notes Treatment Notes Treatment Clinical Notes Aug, Swelling of right lower extremit y (ICD-10 - M79.89) Low salt diet, elevation and compression. Adjust Amlodipine dose r/o DVT Aug,rimary hypertension (ICD-10 - I10)This patient is instructed to consume a healthy, low-fat, low-salt diet. They are also encouraged to continue exercise to achieve/maintain a normal BMI. Decrease Amlodipine to 1/2 daily Increase Lisinopril to 15mg (3 tabs) daily Aug,cute non intractable tension-type headache (ICD-10 - G44.209) Improve BP readings Reduce Amlodipine dose and increase MONICA dose Tylenol as needed Aug,dverse effect of drug, initial encounter (ICD-10 - T50.905A) Headache, lower extremity swelling, rash Culprit Bactrim Headache, flushing and edema Culprit Amlodipine Sqrl Other 09-27-2023 Evaluation note* Encounter Date Diagnosis Assessment Notes Treatment Notes Treatment Clinical Notes Jul, Primary hypertension (ICD-10 - I 10) This patient is instructed to consume a healthy, low-fat, low-salt diet. They are also encouraged to continue exercise to achieve/maintain a normal BMI. Jul,Wellness examination (ICD-10 - Z00.00)Healthy diet and exercise. Reviewed age-appropriate preventive testing recommended. Jul,astroesophageal reflux disease with esophagitis without hemorrhage (ICD-10 - K21.00)Diet instructions: Smaller portions, avoid eating and laying flat, avoid eating or drinking prior to bedtime. Weight loss. 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 0) Sqrl Other 03-27-2023 Evaluation note* Encounter Date Diagnosis Assessment Notes Treatment Notes Treatment Clinical Notes Jan, Nocturia (ICD-10 - R35.1) symptoms tolerable Jan,enign prostatic hyperplasia with lower urinary tract symptoms (ICD- 10 - N40.1)Yearly ANNEL and PSA Reviewed his PSA over the past 3 Jan,Essential hypertension (ICD-10 - I10)This patient is instructed to consume a healthy, low-fat, low-salt diet. They are also encouraged to continue exercise to achieve/maintain a normal BMI. Jan,OtherContinue w/ abstinence. Sqrl Other Evaluation + Plan note Future Appointments Appointment Date:12/08/2024 09:30:00 AM Scheduled Provider: Location:[facility] Appointment Type:Urology CALL PAT Appointment Date:12/11/2024 08:00:00 AM Scheduled Provider: Location:[facility] Appointment Type:Urology FT Appointment Date:12/11/2024 08:00:00 AM Scheduled Provider: [facility] Type:US Prostate Urology (FT) Appointment Date:12/27/2024 08:45:00 AM Scheduled Provider:Miley Eddy MD Location:[facility] Appointment Type:URO Office Visit Future Scheduled Tests Radiology* US Prostate, [facility] 12/11/24 [facility] evaluation + Plan note Future Appointments Appointment Date:01/01/2025 02:30:00 PM Scheduled Provider:Miley Eddy MD Location:[facility] Appointment Type:URO Office Visit [facility] evaluation + Plan note Future Appointments Appointment Date:07/04/2025 08:00:00 AM Scheduled Provider:Miley Eddy MD Location:[facility] Appointment Type:URO Office Visit Diagnostic Tests Pending * PSA Free & Total 05/08/25 [facility] evaluation + Plan note Future Appointments Appointment Date:07/18/2025 09:15:00 AM Scheduled Provider:Miley Edyd MD Location:[facility] Appointment Type:URO Office Visit [facility] evaluation + Plan note Future Appointments Appointment Date:03/13/2026 09:00:00 AM Scheduled Provider: Location:[facility] Appointment Type:URO Nurse Visit Appointment Date:03/20/2026 09:15:00 AM Scheduled Provider:Miley Eddy MD Location:[facility] Appointment Type:URO Office Visit Future Scheduled Tests Laboratory* PSA Free & Total 01/06/26 [facility] evaluation noteNo InformationNort H-umus Other evaluation noteNo assessment information available [facility] Work Phone: Evaluation note* Diagnosis Onset Date Resolution Status Cigarette nicotine dependence in remissi on acuteEssential hypertensionacuteGastroesophageal reflux disease with esophagitis without hemorrhageacuteHypercholesterolemiaacuteScreening PSA (prostate specific antigen)acuteUmbilical herniaacuteWellness examinationacute [facility] Work Phone: evaluation note* Diagnosis S/P umbilical hernia repair, follow-up exam- Primary [facility]* Diagnosis Umbilical hernia without obstruction and without gangrene- Primary [facility] this encounter [facility]* Diagnosis Onset Date Resolution Status Admit Date Knee pain acuteApril 2024 9:42amPrimary osteoarthritis of left kneeacuteApril 2024 9:42am [facility] Work Phone: Evaluation note* Diagnosis Acute pain of left knee- Primary Internal derangement of left knee documented [facility] encounter [facility]* Diagnosis Acute pain of left knee- Primary Primary osteoarthritis of left knee documented in this encounter [facility]* Diagnosis Primary osteoarthritis of left knee- Primary Pre-op examination documented [facility] this encounter [facility]* Diagnosis Primary osteoarthritis of left knee- Primary Post-operative pain Other acute postoperative pain documented [facility]* Diagnosis Primary osteoarthritis of left knee- Primary Acute postoperative pain of left knee Status post left knee replacement documented [facility]* Diagnosis Primary osteoarthritis of left knee Post-operative pain Other acute postoperative pain documented [facility]* Diagnosis Primary osteoarthritis of left knee- Primary Acute postoperative pain of left knee Status post left knee replacement documented [facility]* Diagnosis Primary osteoarthritis of left knee- Primary Acute postoperative pain of left knee Status post left knee replacement [facility]* Diagnosis Quadricep tightness- Primary [facility]* Diagnosis Primary osteoarthritis of left knee- Primary Acute postoperative pain of left knee Status post left knee replacement [facility]* Diagnosis Acute pain of left thigh Primary osteoarthritis of left knee Post-operative pain Other acute postoperative pain documented [facility] this [facility]* Diagnosis Primary osteoarthritis of left knee- Primary Acute postoperative pain of left knee Status post left knee replacement [facility]* Diagnosis Primary osteoarthritis of left knee- Primary Acute postoperative pain of left knee Status post left knee replacement [facility]* Diagnosis Primary osteoarthritis of left knee- Primary Acute postoperative pain of left knee Status post left knee replacement [facility]* Diagnosis Primary osteoarthritis of left knee- Primary Acute postoperative pain of left knee Status post left knee replacement [facility]* Diagnosis Primary osteoarthritis of left knee- Primary Acute postoperative pain of left knee Status post left knee replacement documented [facility] Diagnosis Primary osteoarthritis of left knee- Primary Acute postoperative pain of left knee Status post left knee replacement documented [facility]* Diagnosis Primary osteoarthritis of left knee- Primary Acute postoperative pain of left knee Status post left knee replacement documented [facility]* Diagnosis Primary osteoarthritis of left knee- Primary Acute postoperative pain of left knee Status post left knee replacement documented [facility]* Diagnosis Primary osteoarthritis of left knee- Primary Acute postoperative pain of left knee Status post left knee replacement documented [facility]* Diagnosis Acute pain of left knee Status post left knee replacement documented in [facility]* Diagnosis Primary osteoarthritis of left knee- Primary Acute postoperative pain of left knee documented in [facility]* Diagnosis Status post left knee replacement- Primary Arthrofibrosis of knee joint, left Acute pain of left knee- Primary documented [facility]* Diagnosis Acute pain of left knee- Primary Pre-op examination Arthrofibrosis of knee joint, left documented in this [facility]* Diagnosis Arthrofibrosis of knee joint, left- Primary documented in [facility]* Diagnosis Ankylosis, left knee- Primary Primary osteoarthritis of left knee Acute postoperative pain of left knee documented [facility]* Diagnosis Primary osteoarthritis of left knee- Primary Ankylosis, left knee Acute postoperative pain of left knee Status post left knee replacement documented [facility]* Diagnosis Primary osteoarthritis of left knee- Primary Ankylosis, left knee Acute postoperative pain of left knee Status post left knee replacement documented [facility]* Diagnosis Primary osteoarthritis of left knee- Primary Ankylosis, left knee documented in [facility]* Diagnosis Primary osteoarthritis of left knee- Primary Ankylosis, left knee documented in [facility]* Diagnosis Primary osteoarthritis of left knee- Primary Ankylosis, left knee documented in [facility]* Diagnosis Primary osteoarthritis of left knee- Primary Ankylosis, left knee documented in [facility]* Diagnosis Primary osteoarthritis of left knee- Primary Ankylosis, left knee Acute postoperative pain of left knee documented in this [facility]* Diagnosis Primary osteoarthritis of left knee- Primary Ankylosis, left knee documented [facility]* Diagnosis Arthrofibrosis of knee joint, left- Primary Status post left knee replacement documented in this [facility]* Diagnosis Primary osteoarthritis of left knee- Primary Ankylosis, left knee documented in [facility]* Diagnosis Primary osteoarthritis of left knee- Primary Ankylosis, left knee Acute postoperative pain of left knee documented in [facility]* Diagnosis Primary osteoarthritis of left knee- Primary Ankylosis, left knee Acute postoperative pain of left knee Status post left knee replacement documented [facility]* Diagnosis Primary osteoarthritis of left knee- Primary Ankylosis, left knee [facility] Narrative - Reported* Type Description Date Medical History Screening PSA (prostate specific antigen) Medical HistoryNicotine dependence, cigarettes, in remissionMedical History Gastroesophageal reflux disease with esophagitis without hemorrhageMedical HistoryHyperlipidemia type IIMedical HistoryEssential hypertensionMedical HistoryLumbar spondylosisMedical HistorySpasm of muscle of lower backMedical HistoryNocturnal leg crampsMedical HistoryCellulitis of hand, rightSurgical HistoryLEFT SHOULDER [id number] HistoryARTHROSCOPY OF RIGHT [id number] Hospitalization [facility] Other Hospital course Narrative No data available for this section [facility] Hospital Discharge instructions No data available for this section [facility] progress note No data available for this section [facility] reason for referral (narrative)No reason for referral information availableKe[facility] Work Phone: Reason for visit Narrative* Rehabilitation - Outpatient (Routine) - AuthorizedSpecialtyDiagnoses / ProceduresReferred By ContactReferred To ContactPhysical Therapy Diagnoses Primary osteoarthritis of left knee Procedures SC OFFICE/OUTPATIENT NEW HIGH MDM 60 MINUTES Rosalio Holbrook PA Phone: tel: fax: Lonnie Martinez, PT [address] [place] [address] Phone: tel: fax: Referral IDStatusReasonStart DateExpiration DateVisits RequestedVisits [id number] Specialty Services Required 0 [facility] Narrative* Rehabilitation - Outpatient (Routine) - AuthorizedSpecialtyDiagnoses / ProceduresReferred By ContactReferred To ContactPhysical Therapy Diagnoses Primary osteoarthritis of left knee Procedures SC OFFICE/OUTPATIENT NEW HIGH MDM 60 MINUTES Rosalio Holbrook PA Phone: tel: fax: [facility] [address] [facility] [address] [place] [address] Phone: tel: fax: Referral IDStatusReasonStart DateExpiration DateVisits RequestedVisits [id number] Specialty Services Required 960 [facility] Narrative* Rehabilitation - Outpatient (Routine) - AuthorizedSpecialtyDiagnoses / ProceduresReferred By ContactReferred To ContactPhysical Therapy Diagnoses Primary osteoarthritis of left knee Procedures SC OFFICE/OUTPATIENT NEW HIGH MDM 60 MINUTES Rosalio Holbrook PA Phone: tel: fax: [facility] [address] [facility] [address] [place] [address] Phone: tel: fax: Referral IDStatusReasonStart DateExpiration DateVisits RequestedVisits [id number] Specialty Services Required [facility] HealthcareReason for visit Narrative* Orthopedic (Urgent) - ClosedSpecialty Diagnoses / ProceduresReferred By ContactReferred To ContactOrthopaedic Surgery Diagnoses Ankylosis, left knee Procedures SC MANIPULATION KNEE JOINT UNDER GENERAL ANESTHESIA Jr. Jessenia Baird, DO [address] [place] [address] Phone: tel: fax: Jr. Jessenia Baird, DO [address] [place] [address] Phone: tel: fax: Referral IDStatusReasonStart DateExpiration DateVisits RequestedVisits [id number]/18/20253/ [facility] Narrative* Rehabilitation - Outpatient (Routine) - AuthorizedSpecialtyDiagnoses / ProceduresReferred By ContactReferred To ContactPhysical Therapy Diagnoses Primary osteoarthritis of left knee Procedures SC OFFICE/OUTPATIENT NEW HIGH MDM 60 MINUTES Rosalio Holbrook PA Phone: tel: fax: Kathrin Hsu PT Referral IDStatusReasonStart DateExpiration DateVisits RequestedVisits [id number] Specialty Services Required 960 [facility] Healthcare Summary Purpose Family History Relationship Condition Age at Onset Recorded Date/T melony Not Specified Hypertension Unknown sisterHypertensionUnknownFamily history of lung cancerUnknownMalignant neoplasm Unknown Relationship Condition Age at Onset Recorded Date/T melony mother Hypertension Unknown sisterHypertensionUnknownFamily history of lung cancerUnknownMalignant neoplasm Unknown Advance Directives Advance Directive Response [...] l 2024 9:42am Cigarette nicotine dependence in remiss[place] on May 02, 2025 11:11am Essential hypertension May 02, 2025 1 1:11am Gastroesophageal reflux dise ase with esophagitis without hemorrhage May 02, 2025 11:11am Hypercholesterolemia May 02, 2025 11: 11am Low back pain May 02, 2025 11:1 1am Preop exam for internal medicine May 022024 11:11am Chief Complaint Admit Date back pain August 08, 2025 2: 38pm Additional Source Comments (unrecognized sect ion and content) No Status Records FoundNo Status Records FoundNo Status Records FoundNo Status Records FoundNo Status Records FoundNo Status Records Found INFORMATION SOURCE (unrecogn ized section and content) DATE CREATED AUTHOR 01/20/2023 [facility] DATE CREATED AUTHOR AUTHOR'S ORGANIZ ATION 07/13/[address] [facility] DATE CREATED AUTHOR AUTHOR'S ORGANIZ ATION 07/19/[address] [facility] DATE CREATED AUTHOR AUTHOR'S ORGANIZ ATION 07/20/[address] [facility] DATE CREATED AUTHOR AUTHOR'S ORGANIZ ATION 07/22/2025 [facility] DATE CREATED AUTHOR AUTHOR'S ORGANIZ ATION 08/27/2025 [facility] EPIC REASON FOR VISIT (unrecogniz ed section and content) ReasonCommentsPost-opPt presents today post op from an umbilical hernia repair on 08/29/24. He states that he is still having a little bit of pain. He states his incisions are healing well, no concerns. He states that heis still off work, but does try to walk a lot at home and he sits down when the pain gets bad. ReasonCommentsHerniaPt presents today with complaints of an umbilical hernia. He states that he has had the hernia for about 5 years now. He states that it does bother him sometimes. If he rubs something up against the hernia it makes him nauseous. Pt would like the hernia removed.ReasonCommentsPainReasonOnset Date [id number]/21/2025ReasonCommentsPainReasonCommentsFollow-upReasonComments Post-op VisitReasonCommentsPost-op Care Teams (unrecognized sec tion and content) [...] Start: July 31, 2024 End: July 31, 2024Team MemberRelationshipSpecialtyStart DateEnd Date Derrek Joseph MD [address] [place] [address] PCP - GeneralInternal Medicine08/02/24Team MemberRelationshipSpecialtyStart Date End Date Derrek Joseph MD [address] [place] [address] PCP - GeneralInternal Medicine08/02/24Team MemberRelationshipSpecialtyStart Date End Date Derrek Joseph MD [address] [place] [address] PCP - GeneralInternal Medicine08/02/24Team MemberRelationshipSpecialtyStart Date End Date Derrek Joseph MD [address] [place] [address] PCP - GeneralInternal Medicine08/02/24Team MemberRelationshipSpecialtyStart Date End Date Derrek Joseph MD [address] [place] [address] PCP - GeneralInternal Medicine08/02/24 Team Status: Inactive Member Role Status Dates Derrek Joseph DO Primary Care Provide r, Attending Provider Active Start: February 20, 2025 End: February 20, 2025Team MemberRelationshipSpecialtyStart DateEnd Date Derrek Joseph MD PCP - GeneralInternal Medicine08/02/24Team MemberRelationshipSpecialtyStart Date End Date Derrek Joseph MD PCP - GeneralInternal Medicine08/02/24Team MemberRelationshipSpecialtyStart Date End Date Derrek Joseph MD PCP - GeneralInternal Medicine08/02/24Team MemberRelationshipSpecialtyStart Date End Date Derrek Joseph DO PCP - GeneralInternal Medicine08/02/24Team MemberRelationshipSpecialtyStart Date End Date Derrek Joseph DO PCP - GeneralInternal Medicine08/02/24Team MemberRelationshipSpecialtyStart Date End Date Derrek Joseph DO [address] [facility] [place] [address] PCP - GeneralInternal Medicine04/17/25Team MemberRelationshipSpecialtyStart Date End Date Derrek Joseph DO [address] [place] [address] PCP - GeneralInternal Medicine04/17/25 Team Status: Inactive Member Role Status Dates Derrek Joseph DO Primary Care Provider Active Start: February 20, 2025 End: February 20pushpa Joseph DOAttending ProviderActiveStart: February 20, 2025 End: February 20, 2025 Team Status: Active Member Role Status Dates Derrek Joseph DO Primary Care Provider Active Start: April 25, 2025 Varsha Rogers DOAttending ProviderActiveStart: April 25, 2025 Team Status: Inactive Member Role Status Dates Derrek Joseph DO Primary Care Provider Active Start: May 02, 2025 End: May 02pushpa Joseph DOAttending ProviderActiveStart: May 02, 2025 End: May 02, 2025Team MemberRelationshipSpecialtyStart DateEnd Date Derrek Joseph DO [address] [phone] [facility] - [facility]04/17/25Team MemberRelationshipSpecialtyStart Date End Date Derrek Joseph DO [address] [place] [address] PCP - [facility]04/17/25Team MemberRelationshipSpecialtyStart Date End Date Derrek Joseph DO [address] [place] [phone] PCP - GeneralInternal Medicine04/17/25Team MemberRelationshipSpecialtyStart Date End Date Derrek Joseph DO [address] [place] [facility] [place] [address] PCP - GeneralInternal Medicine04/17/25am MemberRelationshipSpecialtyStart Date End Date Derrek Joseph, DO [address] [place] [facility] [address] PCP - GeneralInternal Medicine04/17/25Team MemberRelationshipSpecialtyStart Date End Date Derrek Joseph, DO [address] [place] [facility] [address] PCP - GeneralInternal Medicine04/17/25Team MemberRelationshipSpecialtyStart Date End Date Derrek Joesph, DO [address] [place] [facility] [address] PCP - GeneralInternal Medicine04/17/25Team MemberRelationshipSpecialtyStart Date End Date Derrek Joseph, DO [address] [place] [facility] [address] PCP - GeneralInternal Medicine04/17/25Team MemberRelationshipSpecialtyStart Date End Date Derrek Joseph, DO [address] [place] [facility] [address] PCP - GeneralInternal Medicine04/17/25Team MemberRelationshipSpecialtyStart Date End Date Derrek Joseph, DO [address] [place] [facility] [address] PCP - GeneralInternal Medicine04/17/25Team MemberRelationshipSpecialtyStart Date End Date Derrek Joseph, DO [address] [place] [place] [address] PCP - GeneralInternal Medicine04/17/25am MemberRelationshipSpecialtyStart Date End Date Derrek Joseph, DO [address] [place] [facility] [place] [address] PCP - GeneralInternal Medicine04/17/25Team MemberRelationshipSpecialtyStart Date End Date Derrek Joseph, DO [address] [place] [facility] [place] [address] PCP - GeneralInternal Medicine04/17/25Te MemberRelationshipSpecialtyStart Date End Date Derrek Joseph, DO [address] [facility] [place] [address] PCP - GeneralInternal Medicine04/17/25 MemberRelationshipSpecialtyStart Date End Date OpalDerrek Lenny, DO [address] [facility] [place] [address] PCP - GeneralInternal Medicine04/17/25Team MemberRelationshipSpecialtyStart Date End Date Derrek Joseph, DO [address] [facility] [place] [address] PCP - GeneralInternal Medicine04/17/25 MemberRelationshipSpecialtyStart Date End Date Derrek Joseph, DO [address] [place] [facility] [place] [address] PCP - GeneralInternal Medicine04/17/25 MemberRelationshipSpecialtyStart Date End Date OpalDerrek Lenny, DO [address] [place] [facility] [place] [address] PCP - GeneralInternal Medicine04/17/25 MemberRelationshipSpecialtyStart Date End Date Derrek Joseph, DO [address] [facility] [place] [address] PCP - GeneralInternal Medicine04/17/25 MemberRelationshipSpecialtyStart Date End Date Derrek Joseph, DO [address] [place] [facility] [address] PCP - GeneralInternal Medicine04/17/25 MemberRelationshipSpecialtyStart Date End Date Derrek Joseph, DO [address] [place] [facility] [address] PCP - GeneralInternal Medicine04/17/25 MemberRelationshipSpecialtyStart Date End Date Derrek Joseph, DO [address] [place] [facility] [address] PCP - GeneralInternal Medicine04/17/25 MemberRelationshipSpecialtyStart Date End Date OpalDerrek Lenny, DO [address] [place] [facility] [address] PCP - GeneralInternal Medicine04/17/25 MemberRelationshipSpecialtyStart Date End Date Derrek Joseph, DO [address] [place] [facility] [address] PCP - GeneralInternal Medicine04/17/25Team MemberRelationshipSpecialtyStart Date End Date Derrek Joseph DO [address] [place] [facility] [address] PCP - GeneralInternal Medicine04/17/25Team MemberRelationshipSpecialtyStart Date End Date Derrek Joseph DO [address] [place] [facility] [address] PCP - GeneralInternal [facility]04/17/25Team MemberRelationshipSpecialtyStart Date End Date Derrek Joseph DO [address] [place] [facility] [address] PCP - GeneralInternal [facility]04/17/25 Team Status: Inactive Member Role Status Dates Derrek Joseph DO Primary Care Provider Active Start: August 08, 2025 End: August 08enngozi Joseph DOAttending ProviderActiveStart: August 08, 2025 End: August 08, 2025Team MemberRelationshipSpecialtyStart DateEnd Date Derrek Joseph DO [address] [place] [address] PCP - GeneralInternal [facility]04/17/25Team MemberRelationshipSpecialtyStart Date End Date Derrek Joseph DO [address] [place] [address] PCP - GeneralInternal Medicine04/17/25 Goals (unrecognized section and content) Goals may [...] BE BASED ON THE PRIMARY CLINICAL RECORDS. [employer] [facility]. provides no warranty or guarantee of the accuracy or completeness of information in this document.
[2025-08-28 11:09] LABS: Hematocrit 46.2 % (42.0-54.0); Hemoglobin 15.2 g/dL (14.0-18.0); Immature Granulocytes Abs Auto 0.03 10^3/uL (0.00-0.03); Immature Granulocytes Pct Auto 0.3 % (0.0-0.5); Lymphocytes Absolute Auto 3.9 10^3/uL (1.2-3.8); Mean Corpuscular HGB Conc 32.9 g/dL (29.9-35.2); Mean Corpuscular Hemoglobin 32.9 pg (25.9-34.0); Mean Corpuscular Volume 100.0 fL (80.0-94.0); Platelet Count 180 10^3/uL (150-450); Red Blood Count 4.62 10^6/uL (4.70-6.10); White Blood Count 9.9 10^3/uL (4.0-11.0)
== END 2025-08-28 10:35 | disposition home or self-care (01) ==
LOC: LAB 10:35
PROVIDERS: PCP Internal Medicine; Visit Provider Orthopaedic Surgery
DX: M25.562 Pain in left knee (principal)
CPT/HCPCS: 36415; 85025; 85652; 86140